=== PATIENT | female | born 1990 | race Caucasian/White ===

== ENCOUNTER 2022-05-23 05:16 | Emergency (ER) | payer MEDICAID, SELFPAY ==
--- NOTE | ~2022-05-23 | CT_ITS ---
EXAMINATION: CT facial bones w con DATE: 05/23/2022 07:07 INDICATION: Sublingual swelling TECHNIQUE: Computed tomography (CT) of the facial bones and maxillofacial region was performed with 7 5 cc of Omnipaque 350 intravenous contrast. The dose-length product (DLP) was 617.63 mGy-cm. Automat ed exposure control and iterative reconstruction technique were employed. COMPARISON: None. FINDINGS: No discrete correlate is identified for the patient's reported sublingual swelling and diff iculty swallowing. There is no abnormal enhancement. No abscess is identified. The facial soft tissue s are unremarkable. The paranasal sinuses are clear. The facial bones are unremarkable. IMPRESSION: 1. No CT correlate for the patient's symptoms. Reviewed, dictated and finalized at location A.
[2022-05-23 05:21] VITALS: BP 125/87; PULSE 82; RESP 18; TEMP 36.5; O2SAT 100
[2022-05-23 06:14] LABS: Basophils Percent Auto 0.7 % (0.2-1.2); Eosinophils Absolute Auto 0.3 K/mm3 (0-0.3); Eosinophils Percent Auto 4.8 % (0-4.4); Hemoglobin 12.3 g/dL (12.0-15.0); Immature Granulocyte Absolute 0.01 K/mm3 (0.00-0.031); Immature Granulocyte Percent A 0.2 % (0-0.5); Lymphocytes Absolute Auto 2.35 K/mm3 (0.9-3.2); Lymphocytes Percent Auto 41.9 % (18.3-44.2); Mean Corpuscular HGB Conc 33.2 g/dl (32-36); Mean Corpuscular Volume 84.3 fl (80-100); Mean Platelet Volume 9.5 fl (7.4-10.4); Monocytes Absolute Auto 0.4 K/mm3 (0.1-0.6); Monocytes Percent Auto 7.7 % (2.6-8.5); Neutrophils Absolute Auto 2.5 K/mm3 (1.3-6.7); Neutrophils Percent Auto 44.7 % (45.5-73.1); Platelet Count Result 167 k/mm3 (150-375); Red Blood Count 4.39 M/mm3 (4.2-5.4); Red Cell Distribution Width 13.4 % (11.5-14.5); White Blood Count 5.6 K/mm3 (4.5-10.0)
--- NOTE | 2022-05-23 06:31 | ED.GENADULT ---
HPI - General Adult General Chief complaint: Dental/Oral Stated complaint: swelling under tongue Time Seen by Provider: 05/23/22 05:45 History of Present Illness HPI narrative: Patient 32-year-old female who presents the emergency department with chief complaint of swelling under the tongue. Patient reports that she started having discomfort feeling in the right side of her tongue and then subsequently it is progressed to both sides of her tongue. Patient denies fever denies purulent drainage reports that it hurts whenever she eats and when she moves her tongue. Related Data Home Medications Medication Instructions Recorded Confirmed levothyroxine 200 mcg tablet 200 mcg PO DAILY 05/23/22 05/23/22 (Synthroid) sertraline 100 mg tablet (Zoloft) 200 mg PO DAILY 05/23/22 05/23/22 Allergies Allergy/AdvReac Type Severity Reaction Status Date / Time Penicillins AdvReac Hives Verified 05/23/22 05:29 Review of Systems Review of Systems: A 10 system review of systems was completed on the patient and is negative except for what is stated in the HPI. Nursing and ancillary documentation was reviewed. PMFSH Comments History of depression and hypothyroidism Exam Narrative: GENERAL: Well-appearing, well-nourished, and in no acute distress. HEAD: Normocephalic, atraumatic. EYES: PERRLA and EOMI. ENT: Nares clear, no rhinorrhea or epistaxis. Mucous membranes moist. There is tenderness to palpation under the tongue in the sublingual area. There is swelling present there is no appreciable large stone to palpation, there is no crepitance there is no necrotic tissue NECK: Supple. CHEST: Clear to auscultation. No respiratory distress. HEART: Regular rate and rhythm. No murmur heard. Normal peripheral pulses. ABDOMEN: Soft, nontender, nondistended, normal active bowel sounds. EXTREMITIES: Normal range of motion. No edema. SKIN: Warm, dry, no rash. NEURO: No focal deficits. Alert and oriented x3. PSYCH: Normal mood and affect. Course Vital Signs Vital signs: Vital Signs Temperature 36.5 C 05/23/22 05:21 Pulse Rate 82 05/23/22 05:21 Respiratory Rate 18 05/23/22 05:21 Blood Pressure 125/87 05/23/22 05:21 Pulse Oximetry 100 05/23/22 05:21 Oxygen Delivery Room Air 05/23/22 05:21 Temperature 36.5 C 05/23/22 05:21 Pulse Rate 82 05/23/22 05:21 Respiratory Rate 18 05/23/22 05:21 Blood Pressure 125/87 05/23/22 05:21 Pulse Oximetry 100 05/23/22 05:21 Oxygen Delivery Room Air 05/23/22 05:21 Medical Decision Making MDM Narrative Medical decision making narrative: Differential diagnosis includes soft tissue infection, Ludewig's angina, sialadenitis salivary stone Laboratory studies were ordered patient's white blood cell count is 5.6 Vital Signs Vital Signs: Vital Signs Temperature 36.5 C 05/23/22 05:21 Pulse Rate 82 05/23/22 05:21 Respiratory Rate 18 05/23/22 05:21 Blood Pressure 125/87 05/23/22 05:21 Pulse Oximetry 100 05/23/22 05:21 Oxygen Delivery Room Air 05/23/22 05:21 Temperature 36.5 C 05/23/22 05:21 Pulse Rate 82 05/23/22 05:21 Respiratory Rate 18 05/23/22 05:21 Blood Pressure 125/87 05/23/22 05:21 Pulse Oximetry 100 05/23/22 05:21 Oxygen Delivery Room Air 05/23/22 05:21 Lab Data 05/23/22 06:04 05/23/22 06:04 Labs: Lab Results 05/23/22 05/23/22 Range/Units 06:04 06:04 WBC 5.6 (4.5-10.0) K/mm3 RBC 4.39 (4.2-5.4) M/mm3 Hgb 12.3 (12.0-15.0) g/dL Hct 37.0 (37.0-47.0) % MCV 84.3 (80-100) fl MCH 28.0 (26-34) pg MCHC 33.2 (32-36) g/dl RDW 13.4 (11.5-14.5) % Plt Count 167 (150-375) k/mm3 MPV 9.5 (7.4-10.4) fl Immature Gran % (Auto) 0.2 (0-0.5) % Neut % (Auto) 44.7 L (45.5-73.1) % Lymph % (Auto) 41.9 (18.3-44.2) % Wagoner % (Auto) 7.7 (2.6-8.5) % Eos % (Auto) 4.8 H (0-4.4) % Baso % (Auto) 0.7 (0.2-1.2) % Lymph # (Auto)
[2022-05-23 06:57] VITALS: BP 133/79; PULSE 73; RESP 16; O2SAT 98
--- NOTE | 2022-05-23 07:00 | PC.NURSE ---
Patient taken to CT via stretcher at this time.
[2022-05-23 07:12] VITALS: BP 147/79; PULSE 74; RESP 18; O2SAT 100
[2022-05-23 07:15] LABS: Alanine Aminotransferase 39 U/L (6-35); Albumin Level 4.2 g/dL (3.5-5.1); Alkaline Phosphatase 97 U/L (38-126); Anion Gap 5 mmol/L (8-16); Aspartate Amino Transferase 35 U/L (14-36); Bilirubin,Total 0.4 mg/dL (0.2-1.3); Blood Urea Nitrogen 11 mg/dL (7-17); Calcium 8.5 mg/dL (8.4-10.2); Carbon Dioxide 26 mmol/L (22-30); Chloride 108 mmol/L (98-107); Estimated CRCL calculation 107 ml/min; Estimated Glomerular Filt Rate > 60; Glucose 91 mg/dL (65-110); Potassium 3.9 mmol/L (3.4-5.0); Sodium 139 mmol/L (137-145)
[2022-05-23] MEDS: predniSONE 20 MG TABLET 60 MG PO (09:01)
[2022-05-23 09:06] VITALS: BP 122/78; PULSE 82; RESP 20; O2SAT 100
== END 2022-05-23 09:08 | disposition home or self-care (01) ==
PROVIDERS: Emergency Medicine; Emergency Provider Emergency Medicine; PCP Nurse Practitioner Family
DX: R22.0 Localized swelling, mass and lump, head (principal); E03.9 Hypothyroidism, unspecified; F32.A Depression, unspecified
CPT/HCPCS: 36415; 70487; 80053; 81025; 85025; 99284; J7512; Q9967

== ENCOUNTER 2023-03-08 08:21 | Emergency (ER) | payer OTHER, SELFPAY ==
[2023-03-08 08:38] VITALS: BP 137/79; PULSE 101; RESP 16; TEMP 36.2; O2SAT 99
--- NOTE | 2023-03-08 08:49 | ED.FEMALEGU ---
HPI - Female Genitourinary General Chief complaint: Urogenital-Female Stated complaint: Urinary Problems Time Seen by Provider: 03/08/23 09:04 Source: patient and RN notes reviewed Mode of arrival: ambulatory Limitations: no limitations History of Present Illness HPI Narrative: 32 y/o female had positive home test 4 days ago, presented today for c/o pelvic pain last night. Pain was to the 'pubic area' described as sharp ribbons of pain, and lasted about 5 minutes. Also reports yesterday morning she felt pain to mid lower back. States she has medical related anxiety, and was worried. Does not have an Obgyn yet. LMP 02/06/23, states it was normal. Endorses occasional nausea and lightheadedness. Currently denies any abdominal pain and has had no recurrence of pain. Denies any vaginal bleeding, hematuria, vomiting, abdominal pain, flank pain, constipation, diarrhea, fevers or chills. Hx 2 miscarriages, . Related Data Home Medications Medication Instructions Recorded Confirmed levothyroxine 200 mcg tablet 200 mcg PO DAILY 05/23/22 03/08/23 (Synthroid) sertraline 100 mg tablet (Zoloft) 200 mg PO DAILY 05/23/22 03/08/23 Allergies Allergy/AdvReac Type Severity Reaction Status Date / Time Penicillins AdvReac Hives Verified 03/08/23 08:38 Review of Systems Review of Systems: CONSTITUTIONAL: Denies body aches, fever, chills, or sweats. CARDIOVASCULAR: Denies chest pain, palpitations, or edema. RESPIRATORY: Denies cough or dyspnea. GASTROINTESTINAL: Reports nausea denies abdominal pain, vomiting, or diarrhea. GENITOURINARY: denies vaginal bleeding, dysuria, frequency, urgency, hematuria, flank pain SKIN: Denies rash, itching, or wounds. MUSCULOSKELETAL: Denies back pain or myalgia. [facility] Past Medical History Medical History Alcoholism in recovery Surgical History Surgical History (Updated 03/08/23 @ 09:21 by Glory Golden APRN) History of delivery Social History Social History (Updated 03/08/23 @ 09:21 by Glory Golden APRN) Alcohol intake: former Alcohol use details: sober 4 years (02/2023) Comments At time of signature, I have reviewed and agree with nursing past medical, surgical, social and family history unless otherwise noted. Please see nursing chart for further information. There is no relevant family history pertinent to the presenting complaint Exam Narrative: GENERAL: Well-appearing and in no acute distress. ENT: Mucous membranes pink and moist. NECK: Normal AROM. Supple. CHEST: No respiratory distress. Clear to auscultation. HEART: Regular rate and rhythm. ABDOMEN: Soft, nontender, nondistended, normal active bowel sounds. No CVA tenderness SKIN: Warm, dry, no rash. NEURO: No focal deficits. Alert and oriented x3. Gait steady. PSYCH: Normal affect. Course Course Emergency Course: Patient is aware of diagnosis, understands and agrees to treatment plan. Anticipatory guidance given. Patient agrees to follow-up as directed and is aware of reasons to seek care at the emergency department. Portions of this record may have been created with voice recognition software Level of Care: Express Care Visit Vital Signs Vital signs: Vital Signs Temperature 97.1 F L 03/08/23 08:38 Pulse Rate 101 H 03/08/23 08:38 Respiratory Rate 16 03/08/23 08:38 Blood Pressure 137/79 03/08/23 08:38 Pulse Oximetry 99 03/08/23 08:38 Oxygen Delivery Room Air 03/08/23 08:38 Temperature 97.1 F L 03/08/23 08:38 Pulse Rate 101 H 03/08/23 08:38 Respiratory Rate 16 03/08/23 08:38 Blood Pressure 137/79 03/08/23 08:38 Pulse Oximetry 99 03/08/23 08:38 Oxygen Delivery Room Air 03/08/23 08:38 Reviewed MDM - Female Genitourinary MDM Narrative Medical decision making narrative: Urine preg positive, and reviewed urine dip result with pt. Will culture urine and treat accordingly. PCN allergy. Pt provided with Obgyn to f/u.
== END 2023-03-08 09:15 | disposition home or self-care (01) ==
PROVIDERS: Emergency Provider Nurse Practitioner Family; PCP Nurse Practitioner Family
DX: Z32.01 Encounter for pregnancy test, result positive (principal); R39.89 Other symptoms and signs involving the genitourinary system
CPT/HCPCS: 81003; 81025; 87086; 99213; G0463

== ENCOUNTER 2023-03-24 08:11 | Emergency (ER) | payer OTHER, SELFPAY ==
--- NOTE | 2023-03-24 08:20 | ED.HA ---
HPI - Headache General Chief Complaint: Headache Stated Complaint: migraine Time Seen by Provider: 03/24/23 08:20 Source: patient Mode of arrival: ambulatory Limitations: no limitations History of Present Illness HPI Narrative: Juan Jose is a 33-year-old female patient presenting to the clinic today with complaints of a migraine headache that started last night around 8:00 p.m. She reports she took some Excedrin migraine last night without relief. Currently rates her pain a 7 or an 8 out of 10. States the pain is to the front of the head. Has history of migraine headaches when she was younger but was able to discontinue all her medications when she moved to [place]. Patient reports that she has recently moved back. Reports she is having nausea, photosensitivity, and if throbbing headache. Does report increased stress. Denies any URI symptoms. Does report that the headache is also making her feel dizzy as well. The symptoms are typical of her migraines she has had in the past. She denies any vomiting. Related Data Home Medications Medication Instructions Recorded Confirmed levothyroxine 200 mcg tablet 200 mcg PO DAILY 05/23/22 03/08/23 (Synthroid) sertraline 100 mg tablet (Zoloft) 250 mg PO DAILY 05/23/22 03/08/23 Allergies Allergy/AdvReac Type Severity Reaction Status Date / Time Penicillins AdvReac Hives Verified 03/24/23 08:27 Review of Systems Review of Systems: Pertinent positives per HPI. Patient denies any fever, chills, rash, visual changes,cough, runny nose, sore throat, shortness of breath, chest pain, palpitations, vomiting, diarrhea, constipation, abdominal pain, or any urinary issues. [facility] Past Medical History Medical History Alcoholism in recovery Surgical History Surgical History History of delivery Social History Social History Alcohol intake: former Alcohol use details: sober 4 years (02/2023) Comments At the time of my signature, I reviewed and agree with the nursing past medical, surgical, social, and family history. There is no relevant family history pertinent to the patient complaint. Exam Narrative: General: Well-developed, well nourished, in no apparent distress Head: Normocephalic, atraumatic Eyes: Pupils equally round and reactive to light bilaterally, EOM intact, sclera and conjunctive clear, no discharge, lids normal Ears: TMs intact and clear, ear canals clear, no drainage, grossly hearing normal. Nose: Nares patent, no discharge, no inflammation, no sinus tenderness. Mouth: Oropharynx without lesions or masses, good dentition, MMM. Tongue midline, even rise and fall of uvula Neck: Supple, trachea midline, no enlargement of anterior or posterior cervical nodes, no thyroid masses or goiter palpable. Cardio: Regular rate and rhythm, s1 and s2 normal, no murmur appreciated. Resp: Clear to auscultation bilaterally anteriorly and posteriorly, no rhonchi, rales, wheezing or rubs Musculoskeletal: No deformity, non-tender to palpation, grossly normal range of motion, muscle strength strong and equal, peripheral pulse strong, no edema, no cyanosis, normal gait and station Neuro: Alert and oriented x4 with normal speech, no focal deficits, cranial nerves I through XII intact, muscle strength 5 out of 5, sensation intact bilaterally Course Course Emergency Course: Portions of this record may have been created with voice recognition software. Level of Care: Express Care Visit Vital Signs Vital signs: Vital signs reviewed MDM - Headache MDM Narrative Medical decision making narrative: At the time of visit patient is resting comfortably on the exam table. Patient appears to be nontoxic. Medications: Toradol 60 mg IM, Benadryl 50 mg IM, and Zofran 4 mg ODT Plan: Patient's migraine headache improved to a 3/10 prior to discha
[2023-03-24 08:24] VITALS: BP 132/85; PULSE 79; RESP 18; TEMP 36.8; O2SAT 98
[2023-03-24] MEDS: diphenhydrAMINE HCl INJ 50 MG/ML VIAL IM (08:59)
[2023-03-24] MEDS: ONDANSETRON HCL ODT 4 MG TABLET SUBLINGUAL (08:59)
[2023-03-24] MEDS: KETOROLAC (*BKC) 60 MG/2 ML VIAL IM (09:01)
--- NOTE | 2023-03-24 09:13 | PC.NURSE ---
0913- saltine crackers given for PO Challenge
== END 2023-03-24 09:31 | disposition home or self-care (01) ==
PROVIDERS: Emergency Provider Nurse Practitioner Family; PCP Nurse Practitioner Family
DX: G43.909 Migraine, unspecified, not intractable, without status migrainosus (principal)
CPT/HCPCS: 96372; 99214; A9270; G0463; J1200; J1885

== ENCOUNTER 2023-04-25 09:06 | Emergency (ER) | payer OTHER, SELFPAY ==
[2023-04-25 09:31] VITALS: BP 125/76; PULSE 85; RESP 18; TEMP 36.4; O2SAT 98
--- NOTE | 2023-04-25 09:51 | ED.URI ---
HPI - URI/Sore Throat General Chief Complaint: Upper Respiratory Infection Stated Complaint: cold /flu like symptoms Time Seen by Provider: 04/25/23 09:51 Source: patient, RN notes reviewed and old records reviewed Mode of arrival: ambulatory Limitations: no limitations History of Present Illness HPI Narrative: 33-year-old female presents to the [facility] with complaints of 6 days runny nose, sinus pain and pressure. States yesterday she had some headache and body aches. Has been taking Sudafed, acetaminophen and ibuprofen. Patient reports that her entire family has been sick and there getting over it Denies fevers, chest pain, shortness of breath. Related Data Home Medications Medication Instructions Recorded Confirmed levothyroxine 200 mcg tablet 200 mcg PO DAILY 05/23/22 03/24/23 (Synthroid) sertraline 100 mg tablet (Zoloft) 200 mg PO DAILY 05/23/22 03/24/23 Allergies Allergy/AdvReac Type Severity Reaction Status Date / Time Penicillins Allergy Hives Verified 04/25/23 09:40 Review of Systems Review of Systems: All systems reviewed & are unremarkable except as noted in HPI and below Constitutional: Constitutional: Reports as per HPI, Reports body ache(s) and Reports headache(s) Eyes: Eyes: Reports no additional eye complaints ENT: Reports as per HPI, Reports nasal congestion, Reports nasal discharge and Reports sinus pressure Cardiovascular: Cardiovascular: Reports no additional cardiovascular complaints, Denies chest pain and Denies dyspnea Respiratory: Respiratory: Reports no additional respiratory complaints, Denies chest congestion, Denies cough and Denies dyspnea Gastrointestinal: Gastrointestinal: Reports no additional gastrointestinal complaints, Denies abdominal pain, Denies nausea and Denies vomiting Musculoskeletal: Musculoskeletal: Reports no additional musculoskeletal complaints Integumentary/Breasts: Skin/Breast: Reports system reviewed and no additional complaints, except as docu Neurologic: Reports system reviewed and no additional complaints, except as documented Psychiatric: Psychiatric: Reports no additional psychiatric complaints Allergic/Immunologic: Allergic/Immunologic: Reports no additional allergic/immunologic complaints PMFSH Past Medical History Medical History Alcoholism in recovery Surgical History Surgical History History of delivery Social History Social History Alcohol intake: former Alcohol use details: sober 4 years (02/2023) Comments At the time of my signature, I reviewed and agree with the nursing past medical, surgical, social, and family history. There is no relevant family history pertinent to the patient complaint. Exam Const: General: cooperative, healthy appearing, comfortable, no acute distress, well developed, alert and well nourished Nutritional Appearance: well nourished and obese Orientation/consciousness: patient oriented x3 Limitations: no limitations HENMT: Head: normal to inspection Ears: hearing grossly normal bilaterally, external ears normal, TM's normal bilaterally, EAC's normal, mastoids normal and no periauricular adenopathy Face/Nose/Sinus: Normal external nose present, Normal nares present, Abnormal mucous membranes and turbinates present boggy bilateral; not erythematous, Nasal discharge present clear bilateral, normal facial exam and face symmetric Face and sinus: normal facial exam and face symmetric Mouth: Yes Normal oral and palatal mucosa present, Yes lip normal, Yes tongue normal and Yes moist mucous membranes Throat: posterior oropharynx normal, tonsils normal, uvula midline and postnasal drainage Eyes: General: appearance normal, both eyes and all related structures Alignment and Position: alignment normal Periorbital: periorbital findings normal Pupils: Equal, round and reactive pupils present EOM: E
== END 2023-04-25 10:08 | disposition home or self-care (01) ==
PROVIDERS: Emergency Provider Nurse Practitioner; PCP Nurse Practitioner Family
DX: J06.9 Acute upper respiratory infection, unspecified (principal); J01.40 Acute pansinusitis, unspecified
CPT/HCPCS: 99213; G0463

== ENCOUNTER 2023-09-07 08:26 | Emergency (ER) | payer OTHER, SELFPAY ==
[2023-09-07 08:29] VITALS: BP 161/100; PULSE 109; RESP 25; TEMP 36.7; O2SAT 99
[2023-09-07 08:40] VITALS: RESP 18
--- NOTE | 2023-09-07 09:08 | ED.GENADULT ---
HPI - General Adult General Chief complaint: Unspecified Stated complaint: right breast pain Time Seen by Provider: 09/07/23 08:31 History of Present Illness HPI narrative: patient is a 33-year-old female with history of anxiety here with breast redness and panic attack. Patient states that about 1 week ago she started noticing some erythema to the medial aspect of her right breast. She denies any associated itching or new exposures to allergens. She notes that it has been persistent and has no associated pain. She does regular breast exams about every other month and has noticed no abnormalities. She does believe she has had a small drop of discharge from this breast since the symptoms began. Over the last 2 days she has been persistently more paranoid about what could be going on with her right breast. She does have a family history of an aunt who had breast cancer. She denies any fever, chills, trauma. She notes that pain seems to extend into her right axilla. She notes she is terrified that she could have breast cancer and feels extremely anxious. She feels a pending sense of doom, some shortness of breath, palpitations. she has been struggling with her anxiety over the last 20 months since her last child was born. She is not currently . She was recently started on an additional anxiety medication to her primary care doctor which she does not believe it is helping. She denies any fever, chills, trauma. Related Data Home Medications Medication Instructions Recorded Confirmed levothyroxine 200 mcg tablet 200 mcg PO DAILY 05/23/22 03/24/23 (Synthroid) sertraline 100 mg tablet (Zoloft) 200 mg PO DAILY 05/23/22 03/24/23 Allergies Allergy/AdvReac Type Severity Reaction Status Date / Time kale AdvReac Ulcers Verified 09/07/23 10:20 Review of Systems Review of Systems: All systems reviewed & are unremarkable except as noted in HPI and below PMFSH Past Medical History Medical History Alcoholism in recovery Surgical History Surgical History History of delivery Social History Social History Alcohol intake: former Alcohol use details: sober 4 years (02/2023) Exam Narrative: GENERAL: Well-appearing, well-nourished, and in no acute distress. HEAD: Normocephalic, atraumatic. EYES: PERRLA and EOMI. ENT: Nares clear. Mucous membranes moist. NECK: Supple. CHEST: Clear to auscultation. No respiratory distress. HEART: Tachycardic. Normal peripheral pulses. 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 Left breast normal. Right breast has a 2x3 cm area of faint erythema on the medial aspect of the breast around the 3 o'clock position. Small lump noted around 3 o'clock position as well. No obvious cellulitis or abscess. No axillary lymphadenopathy appreciated. No nipple drainage. ABDOMEN: Soft, nontender, nondistended. EXTREMITIES: Normal range of motion. No edema. SKIN: Warm, dry, no rash. NEURO: No focal deficits. Alert and oriented x3. PSYCH: Anxious appearing Course Course Emergency Course: Chart review performed, patient here with tenderness over the right breast and a rash as well as panic attacks for the last 2 days. Triage vitals show tachycardia, hypertension, initially tachypnea which seems to have improved, afebrile. No prior visits for similar. Patient seen evaluated, tearful, anxious appearing. Small lump palpated around the 3 o'clock position. No obvious cellulitis or concern for abscess. Discussed with patient that we do not do breast cancer screening exams or workups here in the emergency department. Will attempt to touch base with patient's primary care doctor. Patient offered dose of Ativan for anxiety. Will do test given reported nipple drainage. test negative. Patient re-evaluated after Ativan, feeling much bett
[2023-09-07 09:39] VITALS: BP 124/78; PULSE 97; RESP 19; O2SAT 97
[2023-09-07] MEDS: LORazepam (*CRX) 1 MG TABLET PO (10:20)
[2023-09-07 12:23] VITALS: BP 128/86; PULSE 98; RESP 20; O2SAT 97
== END 2023-09-07 12:24 | disposition home or self-care (01) ==
PROVIDERS: Emergency Provider Student in an Organized Health Care Education/Training Program; PCP Nurse Practitioner Family
DX: N64.4 Mastodynia (principal)
CPT/HCPCS: 81025; 99283; A9270

== ENCOUNTER 2023-09-13 08:21 | Emergency (ER) | payer OTHER, SELFPAY ==
[2023-09-13 08:41] VITALS: BP 115/73; PULSE 90; RESP 16; TEMP 36.3; O2SAT 98
--- NOTE | 2023-09-13 08:41 | ED.URI ---
HPI - URI/Sore Throat General Chief Complaint: Upper Respiratory Infection Stated Complaint: sorethroat History of Present Illness HPI Narrative: 33 y/o female presented for c/o sore throat, cough, drainage, body aches and fever 102. Onset 2 days. Reports one episode of vomiting at onset. Denies sob, wheezing, chest pain or lethargy. Able to maintain secretions. Taking Tylenol and ibuprofen. Related Data Home Medications Medication Instructions Recorded Confirmed levothyroxine 200 mcg tablet 200 mcg PO DAILY 05/23/22 09/13/23 (Synthroid) sertraline 100 mg tablet (Zoloft) 200 mg PO DAILY 05/23/22 09/13/23 Allergies Allergy/AdvReac Type Severity Reaction Status Date / Time kale AdvReac Intermediate Ulcers Verified 09/13/23 08:34 Review of Systems Review of Systems: CONSTITUTIONAL: reports body aches, fever, chills, or sweats. EYES: Denies visual changes, redness, or discharge. ENT: reports sore throat, rhinorrhea, congestion CARDIOVASCULAR: Denies chest pain, palpitations, or edema. RESPIRATORY: Denies dyspnea. GASTROINTESTINAL: Denies abdominal pain, nausea, vomiting, or diarrhea. SKIN: Denies rash, itching, or wounds. MUSCULOSKELETAL: Denies back pain, joint pain, or myalgia. NEUROLOGIC: reports headache PMFSH Past Medical History Medical History Alcoholism in recovery Surgical History Surgical History History of delivery Social History Social History Alcohol intake: former Alcohol use details: sober 4 years (02/2023) Exam Narrative: GENERAL: Ill-appearing, no acute distress. EYES: conjunctivae clear ENT: Mucous membranes moist. TM pearly nolasco with normal light reflex bilaterally; no tragal tenderness. Oropharynx erythematous Tonsils enlarged with exudate. Hoarse voice. No drooling, no trismus, uvula midline. No tripod positioning, hot potato voice, or soft palate swelling. NECK: Supple. Bilateral anterior cervical lymphadenopathy CHEST: Clear to auscultation, breath sounds equal. No respiratory distress, speaks in full sentences. HEART: Regular rate and rhythm. No murmur heard. SKIN: Warm, dry, no rash. NEURO: Alert and oriented x3. Course Course Emergency Course: Patient is aware of diagnosis, understands and agrees to treatment plan. Anticipatory guidance given. Patient agrees to follow-up as directed and is aware of reasons to seek care at the emergency department. Portions of this record may have been created with voice recognition software Level of Care: Express Care Visit MDM - URI/Sore Throat MDM Narrative Medical decision making narrative: POS strep result reviewed with pt. Advise supportive treatments. Patient is appropriate for outpatient treatment and follow-up. Differential Diagnosis Differential diagnosis: Likely upper respiratory infection, viral infection and pharyngitis Discharge Plan Discharge Clinical Impression: Strep pharyngitis Patient Disposition: Home, Self-Care Condition: Stable Instructions: Antibiotic Form, Strep Throat (ED) Additional Instructions: - Take the antibiotic as directed. Fever and sore throat typically resolve within one to three days. Most patients can return to work after 12 to 24 hours of antibiotic therapy, provided you are fever free and otherwise well. -Eat and drink things that are easy to swallow, like soft foods, cool liquids, tea with honey, or popsicles . -Salt water gargles and/or may use topical anesthetic ( Chloraseptic spray) or lozenges to relieve dryness or throat pain -Alternate Tylenol and ibuprofen as needed for pain and fever as directed. -Frequent hand washing or hand advertising analyst is one of the best ways to prevent spread of infection. Throw away the toothbrush after 24hours of antibiotic. -Follow up with primary care provider in 2-3 days if condition is not improving -
== END 2023-09-13 08:49 | disposition home or self-care (01) ==
PROVIDERS: Emergency Provider Nurse Practitioner Family; PCP Nurse Practitioner Family
DX: J02.0 Streptococcal pharyngitis (principal)
CPT/HCPCS: 87880; 99213; G0463

== ENCOUNTER 2024-01-27 08:41 | Emergency (ER) | payer OTHER, SELFPAY ==
[2024-01-27 08:56] VITALS: BP 97/72; PULSE 88; RESP 17; TEMP 36.8; O2SAT 98
--- NOTE | 2024-01-27 09:08 | ED_ITS ---
HPI - Female Genitourinary General Chief complaint: Urogenital-Female Stated complaint: Possible UTI Time Seen by Provider: 01/27/24 09:00 Source: patient Mode of arrival: ambulatory Limitations: no limitations History of Present Illness HPI Narrative: Juan Jose is a 33-year-old female patient presenting to the clinic today with complaints of possible urinary tract infection. She reports that she has been having her symptoms for 8-9 days. Has having burning with urination as well as urinary frequency and urgency. Also reports some left-low back pain. Has had some body aches. No known fever. Denies any vaginal discharge or odor. Last menstrual period was 1.5 weeks ago. Denies any chance of . Related Data Home Medications Medication Instructions Recorded Confirmed levothyroxine 200 mcg tablet 200 mcg PO DAILY 05/23/22 01/27/24 (Synthroid) sertraline 100 mg tablet (Zoloft) 200 mg PO DAILY 05/23/22 01/27/24 bupropion HCl 150 mg 24 hr tablet, 150 mg PO DIRECTED 01/27/24 01/27/24 extended release metformin 500 mg tablet 500 mg DIRECTED 01/27/24 01/27/24 Allergies Allergy/AdvReac Type Severity Reaction Status Date / Time kale AdvReac Intermediate Ulcers Verified 09/13/23 08:34 Review of Systems Review of Systems: Pertinent positives per HPI. Patient denies any fever, chills, rash, headache, visual changes, dizziness, cough, runny nose, sore throat, shortness of breath, chest pain, palpitations, nausea, vomiting, diarrhea, constipation, abdominal pain PMFSH Past Medical History Medical History Alcoholism in recovery Surgical History Surgical History History of delivery Social History Social History Alcohol intake: former Alcohol use details: sober 4 years (02/2023) Comments At the time of my signature, I reviewed and agree with the nursing past medical, surgical, social, and family history. There is no relevant family history pertinent to the patient complaint. Exam Narrative: At the time of visit patient is resting comfortably on the exam table. Patient appears to be nontoxic. Labs: UA shows 1+ leukocyte and protein. We will send for culture Plan: I suspect patient has UTI. Prescription for Bactrim was sent to the pharmacy. Supportive measures were discussed with the patient and they voiced understanding discharge instructions and agrees to treatment plan. Return precautions reviewed Course Course Emergency Course: Portions of this record may have been created with voice recognition software. Level of Care: Express Care Visit Vital Signs Vital signs: Vital Signs Temperature 36.8 C 01/27/24 08:56 Pulse Rate 88 01/27/24 08:56 Respiratory Rate 17 01/27/24 08:56 Blood Pressure 97/72 L 01/27/24 08:56 Pulse Oximetry 98 01/27/24 08:56 Oxygen Delivery Room Air 01/27/24 08:56 Temperature 36.8 C 01/27/24 08:56 Pulse Rate 88 01/27/24 08:56 Respiratory Rate 17 01/27/24 08:56 Blood Pressure 97/72 L 01/27/24 08:56 Pulse Oximetry 98 01/27/24 08:56 Oxygen Delivery Room Air 01/27/24 08:56 Vital signs reviewed MDM - Female Genitourinary MDM Narrative Medical decision making narrative: At the time of visit patient is resting comfortably on the exam table. Patient appears to be nontoxic. Labs: Urinalysis shows 1 +leukocytes and trace of protein. We will send urine for culture Plan: I suspect patient has UTI. Prescription for Bactrim was sent to the pharmacy. Supportive measures were discussed with the patient and they voiced understanding discharge instructions and agrees to treatment plan. Return precautions reviewed Differential Diagnosis Differential diagnosis: Likely urinary tract infection and cystitis Lab Data Labs: Lab Results 01/27/24 Range/Units 09:11 POC Urine Color Yellow POC Urine Clarity Clear POC Urine pH 7.0 POC Ur Specif [place] 1.020 POC Urine Protein Trace (Negative) POC Ur Glucose (UA) Negative (Negative) POC Urine Ketones Negative (Negative) POC Urine Blood Negative (Negative) POC Urine Nitrite Negative (Negative) POC Urine Bilirubin Negative (Negative) POC Urine Urobilinogen 0.2 POC U Leukocyte Esteras 1+ (Negative) Discharge Plan Discharge Clinical Impression: Urinary tract infection Qualifiers: Urinary tract infection type: acute cystitis Hematuria presence: without hematuria Qualified Code(s): N30.00 - Acute cystitis without hematuria Patient Disposition: Home, Self-Care Condition: Stable Instructions: Antibiotic Form, Urinary Tract Infection in Women (ED) Additional Instructions: UA shows 1+ leukocyte and 1+ protein. We will send urine for culture. Take Bactrim as prescribed Increase fluids and stay well hydrated Wipe front to back. May use wet wipes. Avoid tub baths If sexually active- pee before and after intercourse. Wear cotton panties Avoid tight clothing up against the genitals Follow up with your PCP in 1 week if symptoms persist. Prescriptions: New sulfamethoxazole-trimethoprim [Bactrim DS] 800-160 mg tablet 1 tablet PO Q12H 7 Days Qty: 14 0RF No Action metformin 500 mg tablet 500 mg DIRECTED bupropion HCl 150 mg tablet extended release 24 hr 150 mg PO DIRECTED sertraline [Zoloft] 100 mg Tablet 200 mg PO DAILY levothyroxine [Synthroid] 200 mcg Tablet 200 mcg PO DAILY Follow-up/Referrals: Marcella,JEAN Donnelly [Primary Care Provider] - Time of Disposition: 09:10 Quality NIHSS Nursing Documentation ED NIHSS nursing documentation: reviewed/agree
[2024-01-27 09:13] LABS: EDUAAPPEAR Clear; EDUABILI Negative (Negative); EDUABLOOD Negative (Negative); EDUACOLOR1 Yellow; EDUAGLUCOSE Negative (Negative); EDUAKETONE Negative (Negative); EDUALEUKO 1+ (Negative); EDUANITRATE Negative (Negative); EDUAPROTEIN Trace (Negative); EDUAUROBILI 0.2
== END 2024-01-27 09:16 | disposition home or self-care (01) ==
PROVIDERS: Emergency Provider Nurse Practitioner Family; PCP Nurse Practitioner Family
DX: N30.00 Acute cystitis without hematuria (principal)
CPT/HCPCS: 81003; 87086; 99213; G0463

== ENCOUNTER 2024-03-24 08:41 | Emergency (ER) | payer OTHER, SELFPAY ==
--- OUTSIDE RECORDS SUMMARY | 2024-03-24 08:43 | XMS_ITS | Clinical Summary ---
Author Organization [facility] Address [facility] [facility] [place] [address] [place] [address] Care Team Providers Care Stretching Machine Tender Frame Name Role Phone Cony Naranjo NP Primary Care Provider Social History Tobacco Use Types Packs/Day Years Used Date Smoking Tobacco: Never Assessed Comments Unknown Sex and Gender Information Value Date Recorded Sex Assigned at Not on file Legal Sex Female 2:20 PM CDT Gender Identity Not on file Sexual Orientation Not on file Plan of Treatment Health Maintenance Due Date Last Done Comments Cervical Cancer Screening Pap Smear (Age 30 to 64) Every 3 Years 1990 Annual Physical 1993 Hepatitis B Vaccines (1 of 3 - 19+ 3-dose series) 2009 Cervical Cancer Screening Pap with HPV Testing (Age 30 to 64) Every 5 Years 2020 Cervical Cancer Screening with HPV 2020 COVID-19 Vaccine ( season) 2023 01/05/2021, 05/05/2020, 04/14/2020 Influenza Adult (#1) 2023 11/17/2021, 11/09/2019, 12/15/2018, Additional history exists DTaP, Tdap and Td Vaccines (3 - Td or Tdap) 11/07/2031 11/06/2021, 07/17/2015 Hepatitis C Completed 07/24/2019 HPV Vaccines Aged Out No longer eligi ble based on patient's age to complete this topic Meningococcal Vaccine Aged Out No velasquez nayana eligible based on patient's age to complete this topic Pneumococcal Vaccine: Pediatrics (0 to 5 Years) and At-Risk Patients (6 to 64 Years) Aged Out No longer eligible based on patient's age to complete this topic RSV Immunizations Under 20 Months Aged Out No longer eligible based on patient's age to complete this topic Insurance [facility] Care Teams Stretching Machine Tender Frame Relationship Specialty Start Date End Date Cony Naranjo NP [address] [facility] [place] [address] PCP - General Nurse Practitioner Family 09/21/23
--- OUTSIDE RECORDS SUMMARY | 2024-03-24 08:43 | XMS_ITS ---
Author Organization [facility] Address [address] [place] [address] Care Team Providers Care Flamer Sealer Name Role Phone Cony Naranjo Primary Care Provider [phone] Gay Luciano Unavailable [phone] Allergies Allergen (clinical drug ingredient) Drug/Non Drug Allergy documented on EMR Reaction Allergy Type Onset Date Status Penicillin G Benzathine hives Drug Allergy Active REASON FOR VISIT r/s from 02/07; last seen 09/15/23 Medications Medication SIG (Take, Route, Frequency, Duration) Notes Start Date End Date Status busPIRone HCl 5 MG 1 tablet Orally Twic e a day for 30 days 03/01/2024 Active buPROPion HCl ER (XL) 150 MG 1 tablet in the morning Orally Once a day for 30 days Active Zoloft 100 MG 2 tabs Orally Once a day for 30 days Active hydrOXYzine HCl 25 MG 0.5 tablet to 1 ta blet as needed Orally twice a day for 8 days 09/15/2023 Active metFORMIN HCl 500 MG 1 tablet with a nic l Orally Once a day for 30 days 12/14/2023 Active busPIRone HCl 7.5 MG 1 tablet Orally Twi ce a day for 30 days 07/08/2022 Active Levothyroxine Sodium 200 MCG 1 tablet in the morning on an empty stomach Orally Once a day for 30 days Active Acyclovir 400 MG 1 tablet Orally thre e times daily for 10 days 06/02/2023 Not-Taking Sprintec 28 0.25-35 MG-MCG 1 tablet Oral ly Once a day for 28 days 05/05/2023 Not-Taking Social History Sex Assigned At : Social History Observation Description Sex Assigned At Female Encounters Encounter Location Date Provider Diagnosis [address] [place] [address] 03/01/2024 Gay Luciano Generalized anxiety disorder F41.1 ; Major depression F32.9 ; PTSD (post-traumatic stress disorder) F43.10 ; Cannabis use disorder, mild, abuse F12.10 and Medication monitoring encounter Z51.81 Assessments Encounter Date Diagnosis (ICD Code) Assessment Notes Treatment Notes Treatment Clinical Notes Section Notes 03/01/2024 Generalized anxiety disorder (ICD-10 - F41.1) Starting low dose as client reports hx of taking this but my anxiety was high at the time, so I am not sure if I had side effects or not. Discussed to stop if noticing any SE. Discussed r/b/se. 03/01/2024 Major depression (ICD-10 - F32.9) 03/01/2024 PTSD (post-traumatic stress disorder) (ICD-10 - F43.10) Encouraged therapy. 03/01/2024 Cannabis use disorder, mild, abuse (ICD-10 - F12.10) 03/01/2024 Medication monitoring encounter (ICD-10 - Z51.81) 03/01/2024 Other Reasons, potential benefits, potential risks, interactions and side effects of all medications were discussed. The Patient/Guardian asked appropriate questions, appeared to understand the answers, and decided to accept the treatment and continue being followed. Alternatives and expected course without treatment were reviewed. The Patient/Guardian is aware of the need to contact the office or return for an earlier appointment if any problems or concerns arise. May also contact the 24-hour crisis hotline (R), refer to the closest emergency room or call 911 if new symptoms arise of existing symptoms worsen. The Patient/Guardian is aware that this would apply to symptoms like: suicidal ideation, homicidal ideation, high risk behaviors, manic symptoms, psychotic symptoms, physical symptoms, or any other symptoms that may be dangerous to self or others. Greater than 50% of time spent on coordination and counseling where psychopharmacology as well as psychotherapeutic interventions were discussed along with review of treatments in the past. Education provided concerning need for adequate hydration. Patient/Guardian verbalized understanding of education, treatment plan and follow up. This session was completed telephonically with client/parental/guard awais consent: Unable to determine movement status, assess appearance, affect, AIMS, or vital signs. Plan Of Treatment Medication Medication Name Sig Start Date Stop Date Notes busPIRone HCl 5 MG 1 tablet Orally Twic e a day for 30 days 03/01/2024 buPROPion HCl ER (XL) 150 MG 1 tablet in the morning Orally Once a day for 30 days Zoloft 100 MG 2 tabs Orally Once a day for 30 days Treatment Notes Assessment Notes Generalized anxiety disorder Starting lo w dose as client reports hx of taking this but my anxiety was high at the time, so I am not sure if I had side effects or not. Discussed to stop if noticing any SE. Discussed r/b/se. PTSD (post-traumatic stress disorder) En couraged therapy. Other Reasons, potential benefits, potential risks, interactions and side effects of all medications were discussed. The Patient/Guardian asked appropriate questions, appeared to understand the answers, and decided to accept the treatment and continue being followed. Alternatives and expected course without treatment were reviewed. The Patient/Guardian is aware of the need to contact the office or return for an earlier appointment if any problems or concerns arise. May also contact the 24-hour crisis hotline ([facility]), refer to the closest emergency room or call 911 if new symptoms arise of existing symptoms worsen. The Patient/Guardian is aware that this would apply to symptoms like: suicidal ideation, homicidal ideation, high risk behaviors, manic symptoms, psychotic symptoms, physical symptoms, or any other symptoms that may be dangerous to self or others. Greater than 50% of time spent on coordination and counseling where psychopharmacology as well as psychotherapeutic interventions were discussed along with review of treatments in the past. Education provided concerning need for adequate hydration. Patient/Guardian verbalized understanding of education, treatment plan and follow up. This session was completed telephonically with client/parental/guardian consent: Unable to determine movement status, assess appearance, affect, AIMS, or vital signs. Future Test Test Name Order Date CBC With Differential/Platelet* 03/09/19 25 TSH+Free T4* 2024 CMP 14 Comprehensive Metabolic Panel* Next Appt Details Follow Up: 4 Weeks, Reason: Psych F/U, may be telehealth Progress Notes * Juan Jose READDOB:1990 (33 yo F)Acc No.[id number]:03/01/2024 Patient:?Juan Jose READ Provider:?Gay Luciano, MSN, EDGE GLUER, LINING CLOSER- C :1990???Age:33 Y???Sex:Female D ate:03/01/2024 Address:[address] [place], [place] [id number] Pcp:Cony Naranjo Subjective: * Chief Complaints: * ???R/s from 02/07; last seen 09/15/23 * HPI: ???CSSRS Interpretation and Follow Up Plan:?CSSRS Interpretation and Follow Up Plan. ?CSSRS Interpretation and Follow Up Plan?CSSRS Screen documented using SF?Yes,?Moderate or High risk requires selection of a follow up plan?CSSRS No/Low: intervention not needed at this time.?Depression Screening:?PHQ-9?Little interest or pleasure in doing things?More than half the days,?Feeling down, depressed, or hopeless?Not at all,?Trouble falling or staying asleep, or sleeping too much?Several days,?Feeling tired or having little energy?Nearly every day,?Poor appetite or overeating?Not at all,?Feeling bad about yourself or that you are a failure, or have let yourself or your family down?More than half the days,?Trouble concentrating on things, such as reading the newspaper or watching television?More than half the days,?Moving or speaking so slowly that other people could have noticed; or the opposite, being so fidgety or restless that you have been moving around a lot more than usual?Not at all,?Thoughts that you would be better off or of hurting yourself in some way Not at all,?Total Score?10,?Interpretation?Moderate Depression.?Intervention?Depression Screening Findings?Positive,?Follow-Up for Depression?No Referral necessary, patient involved in behavioral health treatment.?Screening:?[place] Suicide Severity Rating Scale (LF)?Do you want to initiate with?Screener form,?1. Wish to be : Have you wished you were or wished you could go to sleep and not wake up??No,?2. Suicidal Thoughts: Have you actually had any thoughts of killing yourself??No,?6. Suicide Behaviour: Have you ever done anything,started to do anything, or prepared to end your life??No,?Interpretation:?Low Risk.?Psychiatric Assessment - Current Symptoms:? How ct. doing today? Client is a 33 yo F states things have been okay. ? 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 I think I am sheltered in my life, and hearing the stories can make me realize how terrible the world can be. ? ?States she has been taking medications well.? Everything is pretty good, but I do feel the constant stream of anxiety nearly every day. I feel like I am waiting on someone to shoot a gun off or something. Depression: that is doing a lot better. I don't feel like crying all the time. It is definitely improved hugely. ? Anxiety: Always waiting for the shoe to drop. I am waiting for a big bang, or someone to hit my car, or shoot a gun, or what. ? Anger/irritable: Only when everything is overstimulating me. ? Sleep: It is get when I get to sleep. I have some trouble with not wanting to shut my brain down but have been working on coping with that. ? Coping: Going through the alphabet Energy is low Concentration: Pretty poor ? Appetite: Pretty good ? Hallucinations/paranoia: Denies, maybe paranoia with something going wrong at all times. ? Drugs/ETOH: THC use- edibles, states that those are in the evening Denies SI/HI.? Medical changes/concerns: Denies. * ROS:?Psych ROS:?Constitutional?Denies.?Eyes?Denies.?Ears/Nose/Mouth/Throat?Denies.?Respirat ory?Denies.?Allergic /Immunologic?Denies.?Cardiovascular?Denies.?GI?Denies.??Denies.?Musculoskeleta l?Denies.?Ne u rological?Denies.?Integumentary?Denies.?Endocrine?Reports,?Janie's.?Hematolo gical/Lymphatic?Denies.?Psychiatric: Reports anxiety. * Medical History:? * Surgical History:?C section 2021 * Hospitalization/Major Diagno stic Procedure:?childbirth 2021 * Family History:?Father: florencio valdez?Mother: alive.?2 brother(s) , 3 sister(s) - healthy. 1 daughter(s) - healthy. .? Obesity both sides, high bp both sides, addiction to drugs and alcohol dads side. * Social History:?Primary Social History:?Living Arrangement?Living Arrangement:?Dependent Living,?Living with:?Parent(s),?Is this a supportive environment??Yes.?Alcohol Use?Alcohol Use Frequency:?Never.?Illicit Substance Usage?Illicit Substance Usage:?Yes,?Substance Used:?Cannabis.?Employment Status?Employment Status:?Unemployed Full-time student.? * Medications:?TakingLevothyro xine Sodium 200 MCG Tablet 1 tablet in the morning on an empty stomach Orally Once a day busPIRone HCl 7.5 MG Tablet 1 tablet Orally Twice a day metFORMIN HCl 500 MG Tablet 1 tablet with a meal Orally Once a day Zoloft 100 MG Tablet 2 tabs Orally Once a day hydrOXYzine HCl 25 MG Tablet 0.5 tablet to 1 tablet as needed Orally twice a day buPROPion HCl ER (XL) 150 MG Tablet Extended Release 24 Hour 1 tablet in the morning Orally Once a day Taking Levothyroxine Sodium 200 MCG Tablet 1 tablet in the morning on an empty stomach Orally Once a day Taking busPIRone HCl 7.5 MG Tablet 1 tablet Orally Twice a day Taking metFORMIN HCl 500 MG Tablet 1 tablet with a meal Orally Once a day Taking Zoloft 100 MG Tablet 2 tabs Orally Once a day Taking hydrOXYzine HCl 25 MG Tablet 0.5 tablet to 1 tablet as needed Orally twice a day Taking buPROPion HCl ER (XL) 150 MG Tablet Extended Release 24 Hour 1 tablet in the morning Orally Once a day Not-TakingSprintec 28 0.25-35 MG-MCG Tablet 1 tablet Orally Once a day Acyclovir 400 MG Tablet 1 tablet Orally three times daily Not-Taking Sprintec 28 0.25-35 MG-MCG Tablet 1 tablet Orally Once a day Not- Taking Acyclovir 400 MG Tablet 1 tablet Orally three times daily * Allergies:?Penicillin G Jordan athine: hivesno[Allergies Verified] Objective: * Vitals:? * Examination: ???Mental Status Exam: ?SENSORIUM AND COGNITION?Alert, A&OX4.?ATTENTION AND CONCENTRATION?No deficits.?ATTITUDE AND BEHAVIOR?Cooperative , Pleasant.?MEMORY?Grossly intact.?MOOD?Euthymic, worried.?SPEECH QUANTITY?Appropriate.?SPEECH QUALITY?Spontaneous , Appropriate volume.?THOUGHT PROCESS?Coherent and goal directed.?THOUGHT CONTENT?No evidence of delusional content , No reports of paranoia.?MOTOR ACTIVITY?Phone interview, SCOTTIE.?SUICIDAL IDEATION?Denies suicidal ideation, Denies self-harm activities.?HOMICIDAL IDEATION?Denies homicidal ideation.?HALLUCINATIONS?Denies hallucinations.?INSIGHT?Fair.?JUDGMENT?Fair.?FUND OF KNOWLEDGE?Good.?ABILITY TO PARTICIPATE IN TREATMENT?Moderate.?WILLINGNESS TO PARTICIPATE IN TREATMENT?High.?Exam limited due to telephone encounter. Assessment: * Assessment: 1.?Generalized anxiety disor curry - F41.1???Specify :with panic episodes???2.?Major depression - F32.9 (Primary)???3.?PTSD (post-traumatic stress disorder) - F43.10???4.?Medication monitoring encounter - Z51.81 ??5.?Cannabis use disorder, mild, abuse - F12.10??? Plan: * Treatment: 2.?Generalized anxiety disor curry? Start busPIRone HCl Tablet, 5 MG, 1 tablet, Orally, Twice a day, 30 days, 60 Tablet, Refills 1.?? Notes: Starting low dose as client reports hx of taking this but my anxiety was high at the time, so I am not sure if I had side effects or not. Discussed to stop if noticing any SE. Discussed r/b/se. ?? 3.?PTSD (post-traumatic stre ss disorder)? Notes: Encouraged therapy. ?? 4.?Medication monitoring enc ounter?LAB: CBC With Differential/Platelet* (Ordered for 2024) ?LAB: CMP 14 Comprehensive Metabolic Panel* (Ordered for 2024) ?LAB: TSH+Free T4* (Ordered for 2024) 5.?Others? Notes: Reasons, potential benefits, potential risks, interactions and side effects of all medications were discussed. The Patient/Guardian asked appropriate questions, appeared to understand the answers, and decided to accept the treatment and continue being followed. Alternatives and expected course without treatment were reviewed. The Patient/Guardian is aware of the need to contact the office or return for an earlier appointment if any problems or concerns arise. May also contact the 24-hour crisis hotline ([facility]), refer to the closest emergency room or call 911 if new symptoms arise of existing symptoms worsen. The Patient/Guardian is aware that this would apply to symptoms like: suicidal ideation, homicidal ideation, high risk behaviors, manic symptoms, psychotic symptoms, physical symptoms, or any other symptoms that may be dangerous to self or others. Greater than 50% of time spent on coordination and counseling where psychopharmacology as well as psychotherapeutic interventions were discussed along with review of treatments in the past. Education provided concerning need for adequate hydration. Patient/Guardian verbalized understanding of education, treatment plan and follow up. This session was completed telephonically with client/parental/guardian consent: Unable to determine movement status, assess appearance, affect, AIMS, or vital signs.?? * Recommended Wellness and Pre vention Guidelines: * ?Status ?Alert ?Last Done ?Next Due ?Action Taken ?NONCOMPLIANT ?Cervical cancer screening ?- ?03/01 ?- ?NONCOMPLIANT ?Influenza vaccine (high risk) ?- ?0 03/01/2024 ?- * Procedure Codes:? * Follow Up:?4 Weeks (Reason: Psych F/U, may be telehealth) * * H MOVING TECHNICIAN Sign off status: Completed true * Provider:?Gay Luciano, MSN, EDGE GLUER, LINING CLOSER- C Date:?03/01/2024 Generated for Lorenzo hernandez/Denny/eTransmitting on:?03/24/2024 08:43 AM EARTH MOVING TECHNICIAN History and Physical Notes * HPI (History of Present Illness) Category Sub-Category Detail Notes Category Not es Depression Screening PHQ-9 Little inte rest or pleasure in doing things: More than half the days Feeling down, depressed, or hopeless: No t at all Trouble falling or staying asleep, or sl eeping too much: Several days Feeling tired or having little energy: N early every day Poor appetite or overeating: Not at all Feeling bad about yourself o r that you are a failure, or have let yourself or your family down: More than half the days Trouble concentrating on thi ngs, such as reading the newspaper or watching television: More than half the days Moving or speaking so slowly that other people could have noticed; or the opposite, being so fidgety or restless that you have been moving around a lot more than usual: Not at all Thoughts that you would be b shayna off or of hurting yourself in some way: Not at all Total Score: 10 Interpretation: Moderate Depression Intervention Depression Screening Findings: P ositive Follow-Up for Depression: No Referral necessary, patient involved in behavioral health treatment Psychiatric Assessment - Current Symptoms How ct. doing today? Client is a 33 yo F states things have been okay. 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 I think I am sheltered in my life, and hearing the stories can make me realize how terrible the world can be. States she has been taking medications well. Everything is pretty good, but I do feel the constant stream of anxiety nearly every day. I feel like I am waiting on someone to shoot a gun off or something. Depression: that is doing a lot better. I don't feel like crying all the time. It is definitely improved hugely. Anxiety: Always waiting for the shoe to drop. I am waiting for a big bang, or someone to hit my car, or shoot a gun, or what. Anger/irritable: Only when everything is overstimulating me. Sleep: It is get when I get to sleep. I have some trouble with not wanting to shut my brain down but have been working on coping with that. Coping: Going through the alphabet Energy is low Concentration: Pretty poor Appetite: Pretty good Hallucinations/paranoia: Denies, maybe paranoia with something going wrong at all times. Drugs/ETOH: THC use- edibles, states that those are in the evening Denies SI/HI. Medical changes/concerns: Denies Screening [place] Suicide Severity Rating Scale (LF) Do you want to initiate with: Screener form ?1. Wish to be : Have yo u wished you were or wished you could go to sleep and not wake up?: No ?2. Suicidal Thoughts: Have you actually had any thoughts of killing yourself?: No ?6. Suicide Behaviour: Have you ever done anything,started to do anything, or prepared to end your life?: No ?Interpretation:: Low Risk Do Not Use CSSRS Interpretation and Follow Up Plan CSSRS Interpretation and Follow Up Plan CSSRS Screen documented using SF: Yes Moderate or High risk requir es selection of a follow up plan: CSSRS No/Low: intervention not needed at this time Examination Category Sub-Category Detail Notes Category Not es Mental Status Exam SENSORIUM AND COGNITION Alert, A&OX4 Exam limited due to telephone encounter. ATTENTION AND CONCENTRATION No deficits ATTITUDE AND BEHAVIOR Cooperative , Plea alexandre MEMORY Grossly intact MOOD Euthymic, worried SPEECH QUANTITY Appropriate SPEECH QUALITY Spontaneous , Approp riate volume THOUGHT PROCESS Coherent and goal di rected THOUGHT CONTENT No evidence of delus ional content , No reports of paranoia MOTOR ACTIVITY Phone interview, SCOTTIE SUICIDAL IDEATION Denies suicidal idea tion, Denies self-harm activities HOMICIDAL IDEATION Denies homicidal olivier ation HALLUCINATIONS Denies hallucination s INSIGHT Fair JUDGMENT Fair FUND OF KNOWLEDGE Good ABILITY TO PARTICIPATE IN TREATMENT Mode rate WILLINGNESS TO PARTICIPATE IN TREATMENT High
--- OUTSIDE RECORDS SUMMARY | 2024-03-24 08:44 | XMS_ITS | Clinical Summary ---
Author Organization [facility] Address [address] [place] [address] Care Team Providers Care Head Teacher Name Role Phone Unavailable Primary Care Provider Unavailabl e Social History Tobacco Use Types Packs/Day Years Used Date Smoking Tobacco: Never Assessed Comments Unknown Sex and Gender Information Value Date Recorded Sex Assigned at Not on file Legal Sex Female 8:37 PM PDT Gender Identity Not on file Sexual Orientation Not on file Plan of Treatment Health Maintenance Due Date Last Done Comments Periodontal Maintenance 1990 Scaling and Root Planing 11/18/2022 021, 11/04/2020, 10/27/2020, Additional history exists Meningococcal B Vaccine Aged Out No l onger eligible based on patient's age to complete this topic Procedures Procedure Name Priority Date/Time Associated Diagnosis Comments LL PERIODONTAL SCALING AND ROOT PLANING - FOUR OR MORE TEETH PER QUADRANT Routine 11/04/2020 1:00 AM MDT from Last 3 Months or Most Recently Relevant to Health Maintenance Insurance [employer] PPO Member Subscriber Plan / Payer (Ef fective 2020-Present) Name:Jua nJose Read Relation to Subscriber:Self Name:Juan Jose Read Payer ID:[id number] Type:Not on file Address: [address] [address]
--- OUTSIDE RECORDS SUMMARY | 2024-03-24 08:44 | XMS_ITS | Encounter Summary ---
Author Organization [facility] Address [address] [place] [address] Care Team Providers Care Disease Education Specialist Name Role Phone Unavailable Primary Care Provider Unavailabl e Prior Encounters Date Type Department Care Team Description 03/19/2019 Converted CPS Chart Documents [facility] [address], [address] [place] [address] <No scans attached> 03/19/2019 Converted 13x Documents [facility] [address], [address] [place] [address] <No scans attached> Plan of Treatment Not on file Procedures Procedure Name Priority Date/Time Associated Diagnosis Comments UL PERIODONTAL SCALING AND ROOT PLANING - FOUR OR MORE TEETH PER QUADRANT Routine 11/04/2020 1:00 AM MDT LL PERIODONTAL SCALING AND ROOT PLANING - FOUR OR MORE TEETH PER QUADRANT Routine 11/04/2020 1:00 AM MDT ORAL HYGIENE INSTRUCTIONS Routine 2020 1:00 AM MDT A EXTRACTION, ERUPTED TOOTH REQUIRING REMOVAL OF BONE AND/OR SECTIONING OF TOOTH Routine 10/28/2020 1:00 AM MDT BITEWINGS - FOUR RADIOGRAPHIC IMAGES Routine 10/28/2020 1:00 AM MDT ADDITIONAL X-RAY Routine 10/28/2020 1:00 AM MDT ADDITIONAL X-RAY Routine 10/28/2020 1:00 AM MDT UR PERIODONTAL SCALING AND ROOT PLANING - FOUR OR MORE TEETH PER QUADRANT Routine 10/27/2020 1:00 AM MDT LR PERIODONTAL SCALING AND ROOT PLANING - FOUR OR MORE TEETH PER QUADRANT Routine 10/27/2020 1:00 AM MDT ORAL HYGIENE INSTRUCTIONS Routine 2020 1:00 AM MDT INTRAORAL - COMPREHENSIVE SERIES OF RADIOGRAPHIC IMAGES Routine 10/27/2020 1:00 AM MDT INTRAORAL PHOTO Routine 10/27/2020 1:00 AM MDT INTRAORAL PHOTO Routine 10/27/2020 1:00 AM MDT INTRAORAL PHOTO Routine 10/27/2020 1:00 AM MDT INTRAORAL PHOTO Routine 10/27/2020 1:00 AM MDT 3 LIMITED ORAL EVALUATION - PROBLEM FOCUSED Routine 09/29/2020 1:00 AM MDT PANORAMIC RADIOGRAPHIC IMAGE Routine 09/29/2020 1:00 AM MDT ADDITIONAL X-RAY Routine 09/29/2020 1:00 AM MDT SINGLE X-RAY Routine 09/29/2020 1:00 AM MDT INTRAORAL PHOTO Routine 09/29/2020 1:00 AM MDT INTRAORAL PHOTO Routine 09/29/2020 1:00 AM MDT Visit Diagnoses Not on file [place] [id number]
--- OUTSIDE RECORDS SUMMARY | 2024-03-24 08:44 | XMS_ITS | CCD ---
Author Organization [facility] Address [address] [place] [address] Care Team Providers Care Rock Duster Name Role Phone Unavailable Primary Care Provider Unavailabl e Social History Tobacco Use Types Packs/Day Years Used Date Smoking Tobacco: Never Assessed Comments Unknown Sex and Gender Information Value Date Recorded Sex Assigned at Not on file Legal Sex Female 8:37 PM PDT Gender Identity Not on file Sexual Orientation Not on file Plan of Treatment Not on file Procedures Procedure Name Priority Date/Time Associated Diagnosis Comments LL PERIODONTAL SCALING AND ROOT PLANING - FOUR OR MORE TEETH PER QUADRANT Routine 11/04/2020 1:00 AM MDT from Last 3 Months or Most Recently Relevant to Health Maintenance
--- OUTSIDE RECORDS SUMMARY | 2024-03-24 08:44 | XMS_ITS ---
Author Organization [facility] Address [address] [place] [address] Care Team Providers Care Photoengraver Apprentice Name Role Phone oCny Naranjo Primary Care Provider [phone] Gay Luciano Unavailable [phone] REASON FOR VISIT labs Social History Sex Assigned At : Social History Observation Description Sex Assigned At Female Encounters Encounter Location Date Provider Diagnosis [address] [place] [address] 03/05/2024 Gay Luciano Plan Of Treatment No Information Progress Notes * Juan Jose READDOB:1990 (34 yo F)Acc No.[id number]:03/05/2024 UNLOCKED PROGRESS NOTE Patient:?Juan Jose READ Provider:?Gay Luciano, MSN, FACILITIES CUSTODIAN, NUMERICAL CONTROL DRILL PRESS OPERATOR- C :1990???Age:33 Y???Sex:Female D ate:03/05/2024 Address:[address] [place] [address] , [place], [place] Pcp:Cony Naranjo Subjective: * Chief Complaints: * ???1. Labs. * Medical History:? Objective: * Vitals:? Assessment: Plan: * Treatment: * * Electronic signature of Serafin Luciano , [id number] on 03/24/2024 at 08:43 AM CEMENT MASON Sign off status: Pending * Provider:?Gay Luciano, MSN, FACILITIES CUSTODIAN, NUMERICAL CONTROL DRILL PRESS OPERATOR- C Date:?03/05/2024 Generated for Lorenzo hernandez/Denny/Jayitting on:?03/24/2024 08:43 AM CEMENT MASON
--- OUTSIDE RECORDS SUMMARY | 2024-03-24 08:44 | XMS_ITS ---
Author Organization [facility] Address [address] [place] [address] Care Team Providers Care Agricultural Systems Specialist Name Role Phone Unavailable Unavailable Unavailable Surgery Details Not on file Complications Check Surgery Details section. Procedure Estimated Blood Loss Check Surgery Details section. Procedure Findings Check Surgery Details section. Procedure Specimens Taken Check Surgery Details section.
--- OUTSIDE RECORDS SUMMARY | 2024-03-24 08:44 | XMS_ITS | Referral Summary ---
Author Organization [facility] Address [address] [place] [address] Care Team Providers Care Inbound Call Center Representative Name Role Phone Unavailable Primary Care Provider [...]
--- OUTSIDE RECORDS SUMMARY | 2024-03-24 08:44 | XMS_ITS ---
Author Organization [facility] Address [address] [place] [address] Care Team Providers Care Water Plant Maintenance Mechanic Name Role Phone Cony Naranjo Primary Care Provider [phone] Gay Luciano Unavailable [phone] REASON FOR VISIT r/s from 02/07; last seen 09/15/23 Social History Sex Assigned At : Social History Observation Description Sex Assigned At Female Encounters Encounter Location Date Provider Diagnosis [place] [address] [facility] [place] [address] 02/14/2024 Gay Luciano Plan Of Treatment No Information Progress Notes * Juan Jose READDOB:1990 (34 yo F)Acc No.[id number]:02/14/2024 UNLOCKED PROGRESS NOTE Patient:?Juan Jose READ Provider:?Gay Luciano, MSN, COACH MECHANIC, ECONOMIC RESEARCH ANALYST- C :1990???Age:33 Y???Sex:Female D ate:02/14/2024 Address:[address] [place] [address] , [place], [place] Pcp:Cony Naranjo Subjective: * Chief Complaints: * ???1. R/s from 02/07; last s een 09/15/23. * Medical History:? Objective: * Vitals:? Assessment: Plan: * Treatment: * * Electronic signature of Serafin Luciano [id number] on 03/24/2024 at 08:43 AM JAVA SYSTEMS ANALYST Sign off status: Pending * Provider:?Gay Luciano, MSN, COACH MECHANIC, ECONOMIC RESEARCH ANALYST- C Date:?02/14/2024 Generated for Lorenzo hernandez/Denny/Megan on:?03/24/2024 08:43 AM JAVA SYSTEMS ANALYST
--- OUTSIDE RECORDS SUMMARY | 2024-03-24 08:49 | XMS_ITS | Patient Health Record ---
Author Organization [facility] Address [address] [place] [address] Care Team Providers Care Greenhouse Worker Name Role Phone Lizdavidsaundra Cony Primary Care Provider [phone] Gay Luciano Unavailable [phone] Rubi Souza Unavailable [phone] Tiffanie Fuchs Unavailable [phone] Allergies Allergen (clinical drug ingredient) Drug/Non Drug Allergy documented on EMR Reaction Allergy Type Onset Date Status Penicillin G Benzathine hives Drug Allergy Active Results Component Value Reference Range Notes QuantiFERON-TB Gold Plus Reviewed date:12/14/2023 10:29:36 AM Interpretation: Performing Lab:[facility], [address] [facility], Phone - [phone], Director - Zoey Notes/Report: QuantiFERON Incubation Incubation performed. QuantiFERON-TB Gold Plus Negative Negative No response to M tuberculosis antigens detected. Infection with M tuberculosis is unlikely, but high risk individuals should be considered for additional testing (ATS/IDSA/CDC Clinical Practice Guidelines, 2017). The reference range is an Antigen minus Nil result of <0.35 IU/mL. Chemiluminescence immunoassay methodology QuantiFERON Criteria QuantiFERON-TB Gold Plus is a qualitative indirect test for M tuberculosis infection (including disease) and is intended for use in conjunction with risk assessment, radiography, and other medical and diagnostic evaluations. The QuantiFERON-TB Gold Plus result is determined by subtracting the Nil value from either TB antigen (Ag) value. The Mitogen tube serves as a control for the test. QuantiFERON TB1 Ag Value 0.07 QuantiFERON TB2 Ag Value 0.03 QuantiFERON Nil Value 0.31 QuantiFERON Mitogen Value >10.00 Hemoglobin A1c* Reviewed date:06/07/2023 04:18:20 PM Interpretation: Performing Lab:[address], Phone - [phone], [facility] Notes/Report: Test(s) 743568-Qxjczgn albicans, ODELL; 216535-Szbdjrc glabrata, ODELL was developed and its performance characteristics determined by [facility]. It has not been cleared or approved by the Food and Drug Administration. Hemoglobin A1c 5.2 4.8-5.6 % . Prediabetes: 5.7 - 6.4 Diabetes: >6.4 Glycemic control for adults with diabetes: <7.0 TSH+Free T4* Reviewed date:06/07/2023 04:18:20 PM Interpretation: Performing Lab:[address], Phone - [phone], [facility] Notes/Report: Test(s) 546427-Hyaswyy albicans, ODELL; 716240-Clwpsyw glabrata, ODELL was developed and its performance characteristics determined by [facility]. It has not been cleared or approved by the Food and Drug Administration. TSH 4.750 0.450-4.500 uIU/mL T4,Free(Direct) 1.07 0.82-1.77 ng/dL Lipid Panel* Reviewed date:06/07/2023 04:18:20 PM Interpretation: Performing Lab:[address], Phone - [phone], Director - MDBendre Notes/Report: Test(s) 146114-Cdiifes albicans, ODELL; 024989-Ycsqlqw glabrata, ODELL was developed and its performance characteristics determined by [facility]. It has not been cleared or approved by the Food and Drug Administration. Cholesterol, Total 255 100-199 mg/dL Triglycerides 169 0-149 mg/dL HDL Cholesterol 59 >39 mg/dL VLDL Cholesterol Doug 31 5-40 mg/dL LDL Chol Calc ([facility]) 165 0-99 mg/dL CMP 14 Comprehensive Metabol ic Panel* Reviewed date:06/07/2023 04:18:21 PM Interpretation: Performing Lab:[facility], [address] [place] [address], Phone - [phone], Director - Yohan Notes/Report: Test(s) 105873-Ggdxspf albicans, ODELL; 720276-Ykqosqs glabrata, ODELL was developed and its performance characteristics determined by [facility]. It has not been cleared or approved by the Food and Drug Administration. Glucose 91 70-99 mg/dL BUN 10 6-20 mg/dL Creatinine 0.77 0.57-1.00 mg/dL eGFR 104 >59 mL/min/1.73 BUN/Creatinine Ratio 13 9-23 Sodium 139 134-144 mmol/L Potassium 3.7 3.5-5.2 mmol/L Chloride 103 96-106 mmol/L Carbon Dioxide, Total 21 20-29 mmol/L Calcium 9.2 8.7-10.2 mg/dL Protein, Total 7.3 6.0-8.5 g/dL Albumin 4.6 3.9-4.9 g/dL Globulin, Total 2.7 1.5-4.5 g/dL A/G Ratio 1.7 1.2-2.2 Bilirubin, Total 0.5 0.0-1.2 mg/dL Alkaline Phosphatase 77 44-121 IU/L AST (SGOT) 18 0-40 IU/L ALT (SGPT) 19 0-32 IU/L TSH+Free T4* Reviewed date:09/13/2023 09:30:39 AM Interpretation: Performing Lab:[facility], [address] [facility], Phone - [phone], Director - Zoey Notes/Report: TSH 3.730 0.450-4.500 uIU/mL T4,Free(Direct) 1.01 0.82-1.77 ng/dL Test, Urine Reviewed date:09/15/2023 03:05:49 PM Interpretation: Performing Lab: Notes/Report: Test, Urine neg Negative - Negative HIV Screen *HIV 1, 2 Ab, p24 Ag Reviewed date:06/07/2023 04:18:20 PM Interpretation: Performing Lab:[address], Phone - [phone], Director - Yohan Notes/Report: Test(s) 695380-Hufvfln albicans, ODELL; 768381-Hxwvhon glabrata, ODELL was developed and its performance characteristics determined by [facility]. It has not been cleared or approved by the Food and Drug Administration. HIV Ab/p24 Ag Screen Non Reactive Non Reactive HIV Negative HIV-1/HIV-2 antibodies and HIV-1 p24 antigen were NOT detected. There is no laboratory evidence of HIV infection. [facility] Vaginitis Plus (VG+) (815580) Reviewed date:06/07/2023 04:18:20 PM Interpretation: Performing Lab:[facility] Nader Cedillo [facility], Phone - [phone], Director - [facility] Notes/Report: Test(s) 185364-Lrsaaus albicans, ODELL; 640613-Zlooekz glabrata, ODELL was developed and its performance characteristics determined by [facility]. It has not been cleared or approved by the Food and Drug Administration. Atopobium vaginae Low - 0 BVAB 2 Low - 0 Megasphaera 1 Low - 0 Calculate total score by adding the 3 individual bacterial vaginosis (BV) marker scores together. Total score is interpreted as follows: Total score 0-1: Indicates the absence of BV. Total score 2: Indeterminate for BV. Additional clinical data should be evaluated to establish a diagnosis. Total score 3-6: Indicates the presence of BV. . This test was developed and its performance characteristics determined by [facility]. It has not been cleared or approved by the Food and Drug Administration. Hattie albicans, ODELL Negative Negative Hattie glabrata, ODELL Negative Negative Trich vag by ODELL Negative Negative Chlamydia trachomatis, ODELL Negative Negative Neisseria gonorrhoeae, ODELL Negative Negative RPR w/reflex to TrepSure Reviewed date:06/07/2023 04:18:21 PM Interpretation: Performing Lab:[facility] Mamadou, Nader [facility], Phone - [phone], [facility] - [facility] Notes/Report: Test(s) 404658-Dkoacfm albicans, ODELL; 624004-Vokdjlv glabrata, ODELL was developed and its performance characteristics determined by [facility]. It has not been cleared or approved by the Food and Drug Administration. Test(s) 734632-Whpfjib albicans, ODELL; 767617-Xmbvoyp glabrata, ODELL was developed and its performance characteristics determined by [facility]. It has not been cleared or approved by the Food and Drug Administration. RPR Non Reactive Non Reactive T pallidum Antibody, EIA Negative Negative Interpretation: Positive: Consistent with syphilis infection (past or current). . Equivocal: Low levels of antibody detected but insufficient to conclude syphilis (either past or current). If infection is suspected, retest in one month. . Negative: Unconfirmed EIA. If patient is at risk, repeat testing in one month. This test is intended ONLY for specimens that have tested positive (reactive) or equivocal for Treponema pallidum antibodies prior to submission for testing. For the full CDC-recommended syphilis screening and diagnosis algorithm, [facility] offers test code 635754 RPR, Rfx Qn RPR/Confirm TP or 731180 T pallidum Screening Hood. hCG,Beta Subunit, Qnt, Serum Reviewed date:09/13/2023 09:30:12 AM Interpretation: Performing Lab:[facility], [address] [place] [address], Phone - [phone], Director - [facility] Notes/Report: hCG,Beta Subunit,Qnt,Serum <1 Female (Non-) 0 - 5 (Postmenopausal) 0 - 8 . Female () Weeks of Gestation 3 6 - 71 4 10 - 750 5 963 - 5470 6 776 - 71918 7 7749 -386447 8 10778 -164932 9 64712 -329409 10 82514 -997993 12 22047 -953288 14 39467 - 30647 15 51542 - 16194 16 2250 - 91417 17 9654 - 95171 18 0901 - 93523 Rashawn ECLIA methodology HSV 1 and 2 Ab, IgG Reviewed date:06/07/2023 04:18:21 PM Interpretation: Performing Lab:[facility], [address] [place] [address], Phone - [phone], Director - zachery Notes/Report: Test(s) 686978-Ixjfbbm albicans, ODELL; 108830-Yrdwtdf glabrata, ODELL was developed and its performance characteristics determined by [facility]. It has not been cleared or approved by the Food and Drug Administration. HSV 1 IgG, Type Spec <0.91 0.00-0.90 index Negative <0.91 Equivocal 0.91 - 1.09 Positive >1.09 Note: Negative indicates no antibodies detected to HSV-1. Equivocal may suggest early infection. If clinically appropriate, retest at later date. Positive indicates antibodies detected to HSV-1. HSV 2 IgG, Type Spec <0.91 0.00-0.90 index Negative <0.91 Equivocal 0.91 - 1.09 Positive >1.09 HSV-2 Antibody Interpretation: Current guidelines and recommendations do not recommend routine screening for HSV-2 in asymptomatic individuals, including those that are . A negative antibody result indicates no detectable antibodies to HSV-2 were found. If recent exposure is suspected, retest in 4 to 6 weeks. Equivocal samples should be retested in 4 to 6 weeks. A positive result indicates the presence of detectable IgG antibody to HSV-2. FALSE POSITIVE RESULTS MAY OCCUR. Repeat testing, or testing by a different method, may be indicated in some settings (e.g. patients with low likelihood of HSV infection). If clinically appropriate, retest 4 to 6 weeks later. HSV-2 IgG antibody testing results should be clinically correlated. Reason For Referral Reason Start Individual the rapy Diagnosis 1 Major depression (F3 2.9) Referral Organization [facility] Referring Provider First Name Tiffanie Referring Provider Last Name Jef Referring Provider Speciality Psychiatry Referred Provider Specialty [facility]al [facility] Clinical Notes Sania Maradiaga 08/14 02:26:36 PM >Attempt to contact Consumer. Unable to reach Consumer at this time., Mani Gonsales 08/16/2023 10:54:15 AM >Client was given information on therapy process and stated she would call. Referral Priority Routine Medications Medication SIG (Take, Route, Frequency, Duration) [...] for 28 days 05/05/2023 Not-Taking Social History Tobacco Use: Social History Observation Description Date Details (start date - stop date) Never Smoker NA - NA Sex Assigned At : Social History Observation Description Sex Assigned At Female Dont use, Tobacco Use/Smoking Question Answer Notes Are you a nonsmoker Tobacco Control (Standard) Question Answer Notes Tobacco use: Nonsmoker Problems Problem Type SNOMED Code ICD Code Onset Dates Problem Status W/U Status Risk Notes Problem Morbid obesity (disorder) (104741073) Morbid (severe) obesity due to excess calories (E66.01) Active confirmed Problem Generalized anxiety disorder (08046706) Generalized anxiety disorder (F41.1) 4 Active confirmed Problem Major depression (191364712) Major depression (F32.9) 4 Active confirmed Problem Posttraumatic stress disorder (57996711) PTSD (post-traumatic stress disorder) (F43.10) 4 Active confirmed Problem PCOS (polycystic ovarian syndrome) (E28.2) Active confirmed Problem Cannabis abuse (25794365) Cannabis use disorder, mild, abuse (F12.10) 4 Active confirmed Problem 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 Vital Signs Heart Rate 124 /min 09/08/2023 Temperature 100.2 degrees Fahrenheit 09/08/2023 Respiratory Rate 16 /min 09/08/2023 Blood pressure diastolic 86 mm Hg 09/08/2023 Oximetry 98 % 09/08/2023 Height 62 in 12/14/2023 Blood pressure systolic 110 mm Hg 09/08/2023 Weight 218.0 lbs 09/08/2023 BMI 39.87 kg/m2 09/08/2023 Encounters Encounter Location Date Provider Diagnosis [facility] [address] [place] [address] 03/05/2024 Gay Luciano [address] [place] [address] 04/20/2023 Gay Luciano Generalized anxiety disorder F41.1 ; Major depression F32.9 ; PTSD (post-traumatic stress disorder) F43.10 and Cannabis use disorder, mild, abuse F12.[address] [place] [address] 05/05/2023 Conylogan Hillwilliams Janie's disease E06.3 ; Contraception management Z30.9 and PCOS (polycystic ovarian syndrome) E28.[address] [place] [address] 06/02/2023 Conylogan Hilldavidsaundra Exposure to sexually transmitted disease (STD) Z20.2 ; Genital labial ulcer N76.6 ; Morbid (severe) obesity due to excess calories E66.01 and Nutritional counseling Z71.[address] [address] 06/03/2023 Conylogan Hillwilliams Janie's disease E06.3 ; PCOS (polycystic ovarian syndrome) E28.2 ; Exposure to sexually transmitted disease (STD) Z20.2 and Genital labial ulcer N76.6 [place] [address] [place] [address] 08/12/2023 Tiffanie Fuchs Generalized anxiety disorder F41.1 ; Major depression F32.9 ; PTSD (post-traumatic stress disorder) F43.10 and Cannabis use disorder, mild, abuse F12.10 [facility] [address] [place] [address] 09/08/2023 Conylogan Naranjo Nutritional counseling Z71.3 ; Breast pain N64.4 ; Nausea R11.0 and PCOS (polycystic ovarian syndrome) E28.2 [facility] [address] [place] [address] 09/15/2023 Kyria Fuchs Generalized anxiety disorder F41.1 ; Major depression F32.9 ; PTSD (post-traumatic stress disorder) F43.10 and Cannabis use disorder, mild, abuse F12.10 [facility] [address] [place] [address] 12/14/2023 Cony Naranjo PCOS (polycystic ovarian syndrome) E28.[address] [address] 03/01/2024 Gay Luciano Generalized anxiety disorder F41.1 ; Major depression F32.9 ; PTSD (post-traumatic stress disorder) F43.10 ; Cannabis use disorder, mild, abuse F12.10 and Medication monitoring encounter Z51.[address] [place] [address] 04/05/2023 Gay Luciano [facility] [address] [place] [address] [place] [address] 04/11/2023 Gay Luciano [facility] [address] [place] [address] 04/15/[address] Cony Naranjo [address] [address] 06/02/2023 Cony Naranjo [address] [address] 06/07/2023 Cony Naranjo Encounter for screening for malignant neoplasm of cervix Z12.[address] [address] 06/07/2023 Cony Naranjo [facility] [address] [place] [address] 09/07/2023 Tiffanie Fuchs [address] [address] 10/10/2023 Rubi Souza [address] [address] 01/31/2024 Gay Luciano Major depression F32.9 and Generalized anxiety disorder F41.[address] [address] 02/13/2024 Gay Luciano Major depression F32.9 [facility] [address] [place] [address] 08/10/2023 Cony Naranjo Janie's disease E06.3 [facility] [address] [place] [address] 08/23/2023 Cony Hernandezimoto's disease E06.3 [facility] [address] [address] 09/12/2023 Cony Naranjo [facility] [address] [address] 09/14/2023 Cony Naranjo Breast pain N64.4 [facility] [address] [address] 09/16/2023 Cony Naranjo Breast pain N64.4 [place] [address] [place] [address] 09/19/2023 Cony Naranjo [facility] [address] [address] 12/13/2023 Cony Naranjo Assessments Encounter Date Diagnosis (ICD Code) Assessment Notes Treatment Notes Treatment Clinical Notes Section Notes 03/01/2024 Generalized anxiety disorder (ICD-10 - F41.1) Starting low dose as client reports hx of taking this but my anxiety was high at the time, so I am not sure if I had side effects or not. Discussed to stop if noticing any SE. Discussed r/b/se. 01/31/2024 Major depression (ICD-10 - F32.9) 09/15/2023 Generalized anxiety disorder (ICD-10 - F41.1) Today's visit: Patient is a 33-year-old female who presents for a psychiatric f/u over phone and is located in [place]. I am seeing her during the temporary absence of her current psych provider DHARMESH Nunez. Previously seen on 08/12/2023 and during this appt was continued on Zoloft 200 mg and Wellbutrin XL 150 mg. Previous PHQ-9 score of 6, today is increased to 18. Previous TANVI score of 8, today is increased to 18. Pt reports high anxiety related to worries about having breast cancer, is actively working towards getting ultrasound and work up completed. Was in the ER recently for panic attack lasting 2 days and was given Ativan while there. She reports her depressive sx have increased as in relation to her anxiety/panic. She is requesting to restart hydroxyzine as she found this helpful for her in the past, found 50 mg to be too sedating. She is agreeable to trialing 0.5-1 tablet of 25 mg as needed. She does not request any additional medication changes at this time. She requests to follow up in a month. No acute safety concerns the time of this appt, she is agreeable to treatment plan and is provided an opportunity to ask questions. May self-administer medications or be administered own oral medications per [facility] protocols. Provided informed consent with understanding of side effects, adverse effects, risks and benefits as well as alternative treatments as previously discussed and with the above recommended medications & other aspects of the treatment program. Agrees to return sooner if symptoms worsen or suicidal or homicidal ideations occur. 09/15/2023 Major depression (ICD-10 - F32.9) 02/13/2024 Major depression (ICD-10 - F32.9) 09/08/2023 Breast pain (ICD-10 - N64.4) 09/08/2023 Nutritional counseling (ICD-10 - Z71.3) 08/12/2023 Generalized anxiety disorder (ICD-10 - F41.1) Today's visit: Patient is a 33-year-old female who presents for a psychiatric f/u, this is my first time meeting this patient, and I am seeing her during the temporary absence of her current psych provider. Previously seen on 04/20/2023 by DHARMESH Nunez and during this appt was continued on Zoloft 200 mg and started on Wellbutrin XL 150 mg for diagnoses MDD, TANVI, PTSD. Previous PHQ-9 score of 15, today is 6. Pt reports stability in depressive sx on current medications. She does report ongoing anxiety sx that are her baseline, she does report irrational thinking with possible compulsions; denies any previous formal diagnosis of OCD, but she does wonder. She is agreeable to referral for therapy for anxiety sx. She appears to enjoy motherhood and reports feeling ej taking care of her toddler. No acute safety concerns the time of this appt, she is agreeable to treatment plan and is provided an opportunity to ask questions. May self-administer medications or be administered own oral medications per [facility] protocols. Provided informed consent with understanding of side effects, adverse effects, risks and benefits as well as alternative treatments as previously discussed and with the above recommended medications & other aspects of the treatment program. Agrees to return sooner if symptoms worsen or suicidal or homicidal ideations occur. 06/07/2023 Encounter for screening for malignant neoplasm of cervix (ICD-10 - Z12.4) Patient Educated with: Learning about Cervical Cancer Screenings.pdf (Learning about Cervical Cancer Screenings.pdf) 06/03/2023 Janie's disease (ICD-10 - E06.3) 05/05/2023 Contraception management (ICD-10 - Z30.9) Educated and informed patient to start the first dose (several ways) First Day Start: Take your first pill during the first 24 hours of your menstrual cycle.Tuesday Start: Wait until the first Tuesday after your menstrual cycle begins to take your first pill.On the first day you begin bleeding during your period.On the fifth day after you start your menstrual period.Today, if there is absolutely no chance that you could be . 05/05/2023 Janie's disease (ICD-10 - E06.3) 12/14/2023 PCOS (polycystic ovarian syndrome) (ICD-10 - E28.2) Lifestyle modification - including increased physical activity and healthy diet resulting in weight loss and improved body composition 09/16/2023 Breast pain (ICD-10 - N64.4) 09/14/2023 Breast pain (ICD-10 - N64.4) 08/23/2023 Janie's disease (ICD-10 - E06.3) 08/10/2023 Janie's disease (ICD-10 - E06.3) 06/02/2023 Exposure to sexually transmitted disease (STD) (ICD-10 - Z20.2) 06/02/2023 Genital labial ulcer (ICD-10 - N76.6) 04/20/2023 Generalized anxiety disorder (ICD-10 - F41.1) Encouraged therapy, coping mechanisms. 04/20/2023 Major depression (ICD-10 - F32.9) 06/02/2023 Morbid (severe) obesity due to excess calories (ICD-10 - E66.01) 05/05/2023 PCOS (polycystic ovarian syndrome) (ICD-10 - E28.2) 06/03/2023 PCOS (polycystic ovarian syndrome) (ICD-10 - E28.2) 08/12/2023 Major depression (ICD-10 - F32.9) 01/31/2024 Generalized anxiety disorder (ICD-10 - F41.1) 09/08/2023 Nausea (ICD-10 - R11.0) 09/15/2023 PTSD (post-traumatic stress disorder) (ICD-10 - F43.10) 03/01/2024 Major depression (ICD-10 - F32.9) 03/01/2024 PTSD (post-traumatic stress disorder) (ICD-10 - F43.10) Encouraged therapy. 09/15/2023 Cannabis use disorder, mild, abuse (ICD-10 - F12.10) 09/08/2023 PCOS (polycystic ovarian syndrome) (ICD-10 - E28.2) 08/12/2023 PTSD (post-traumatic stress disorder) (ICD-10 - F43.10) 06/03/2023 Exposure to sexually transmitted disease (STD) (ICD-10 - Z20.2) 06/02/2023 Nutritional counseling (ICD-10 - Z71.3) 04/20/2023 PTSD (post-traumatic stress disorder) (ICD-10 - F43.10) Encouraged therapy/counseling 04/20/2023 Cannabis use disorder, mild, abuse (ICD-10 - F12.10) Discussed use- encouraged to decrease/stop use. Discussed with patient that taking herbs and vitamins/supplements, may interfere with or alter the way prescription medications work in the body or cause adverse reactions. Patient voiced understanding. 06/03/2023 Genital labial ulcer (ICD-10 - N76.6) 08/12/2023 Cannabis use disorder, mild, abuse (ICD-10 - F12.10) 03/01/2024 Medication monitoring encounter (ICD-10 - Z51.81) 03/01/2024 Cannabis use disorder, mild, abuse (ICD-10 - F12.10) 04/20/2023 Other Reasons, potential benefits, potential risks, interactions [...] May also contact the 24-hour crisis hotline ([facility]), refer to the closest emergency room or [...] assess appearance, affect, AIMS, or vital signs. 03/01/2024 Other Reasons, potential benefits, potential risks, [...] May also contact the 24-hour crisis hotline ([facility]), refer to the closest emergency room or [...] AIMS, or vital signs. Plan Of Treatment Future Test Test Name Order Date CBC With Differential/Platelet* 03/09/19 25 TSH+Free T4* 2024 CMP 14 Comprehensive Metabolic Panel* Insurance Providers Payer Name Payer Address Payer Phone Subscriber Number Group Number Insured Name Patient Relationship to Insured Coverage Start Date Coverage End Date [employer] [facility] [address] [place] [phone] [id number] Juan Jose Read Self - patient is the insured 3 [facility] [employer] [facility] [address] [place] [address] [id number] Juan Jose Read Self - patient is the insured 3 Medical (General) History Medical History History ICD Code PCOS breast pain Surgical History Surgery Date(Month/Year) C section 2021 Hospitalization History Reason Date(Month/Year) childbirth 2021
== END 2024-03-24 08:47 | disposition left against medical advice (07) ==
PROVIDERS: Emergency Provider Nurse Practitioner Family; PCP Nurse Practitioner Family
DX: Z53.21 Procedure and treatment not carried out due to patient leaving prior to being seen by health care provider (principal)
CPT/HCPCS: 99199

== ENCOUNTER 2024-07-10 10:13 | Emergency (ER) | payer MEDICAID, SELFPAY ==
--- OUTSIDE RECORDS SUMMARY | 2024-07-10 10:26 | XMS_ITS | Encounter Summary ---
Author Organization [facility] [address] [place] [address] Care Team Providers Care Dean Of Chapel Name Role Phone Unavailable Primary Care Provider Unavailabl e Prior Encounters Date Type Department Care Team Description 03/19/2019 Converted CPS Chart Documents [facility] [address], [address] [place] [address] <No scans attached> 03/19/2019 Converted 13x Documents [facility] [address], [address] [place] [address] <No scans attached> Plan of [...] MDT Visit Diagnoses Not on file [place] [id number]
--- OUTSIDE RECORDS SUMMARY | 2024-07-10 10:26 | XMS_ITS | Clinical Summary ---
Author Organization [facility] Address [address] [place] [address] Care Team Providers Care Fitness Professional Name Role Phone Marcella Cony Ji NP Primary Care Provider Social History Tobacco Use Types Packs/Day Years Used Date Smoking Tobacco: Never Assessed Comments Unknown Sex and Gender Information Value Date Recorded Sex Assigned at Not on file Legal Sex Female 2:20 PM CDT Gender Identity Not on file Sexual Orientation Not on file Plan of Treatment Health Maintenance Due Date Last Done Comments Cervical Cancer Screening Pa p Smear (Age 30 to 64) Every 3 Years 1990 Annual Physical 1993 Hepatitis B Vaccines (1 of 3 - 19+ 3-dose series) 2009 Cervical Cancer Screening Pa p with HPV Testing (Age 30 to 64) Every 5 Years 2020 Cervical Cancer Screening wi th HPV 2020 COVID-19 Vaccine (2023-2 5 season) 2023 01/05/2021, 05/05/2020, 04/14/2020 DTaP, Tdap and Td Vaccines ( 3 - Td or Tdap) 11/07/2031 11/06/2021, 07/17/2015 Hepatitis C Completed 07/24/2019 HPV Vaccines Aged Out No longer eligi ble based on patient's age to complete this topic Meningococcal B Vaccine Aged Out No l onger eligible based on patient's age to complete this topic Meningococcal Vaccine Aged Out No velasquez nayana eligible based on patient's age to complete this topic Pneumococcal Vaccine: Pediatrics (0 to 5 Years) and At-Risk Patients (6 to 49 Years) Aged Out No longer eligible b ased on patient's age to complete this topic RSV Immunizations Under 20 Months Aged Out No longer eligible b ased on patient's age to complete this topic Insurance [facility] Care Teams Fitness Professional Relationship Specialty Start Date End Date Cony Naranjo NP [address] [facility] [place] [address] PCP - General Nurse Practitioner Family 09/21/23
--- OUTSIDE RECORDS SUMMARY | 2024-07-10 10:26 | XMS_ITS | Patient Health Record ---
Author Organization [facility] Address [address] [place] [address] Care Team Providers Care Mortgage Closing Clerk Name Role Phone Cony Naranjo Primary Care Provider [phone] Gay Luciano Unavailable [phone] Rubi Souza Unavailable [phone] Tiffanie Fuchs Unavailable [phone] Allergies Allergen (clinical drug ingredient) Drug/Non Drug Allergy documented on EMR Reaction Allergy Type Onset Date Status Penicillin G Benzathine hives Drug Allergy Active Results Component Value Reference Range Notes Test, Urine Reviewed date:07/04/2024 12:52:23 PM Interpretation:Positive Performing Lab: Notes/Report: Positive Test, Urine POS Negative - Negative CMP 14 Comprehensive Metabol ic Panel* (Not yet reviewed by provider) Interpretation: Performing Lab:[facility], [address] [facility], Phone - [phone], Director - PhDRicchiuti Notes/Report: Glucose 85 70-99 mg/dL BUN 11 6-20 mg/dL Creatinine 0.80 0.57-1.00 mg/dL eGFR 99 >59 mL/min/1.73 BUN/Creatinine Ratio 14 9-23 Sodium 142 134-144 mmol/L Potassium 3.6 3.5-5.2 mmol/L Chloride 103 96-106 mmol/L Carbon Dioxide, Total 17 20-29 mmol/L Calcium 9.6 8.7-10.2 mg/dL Protein, Total 7.5 6.0-8.5 g/dL Albumin 4.8 3.9-4.9 g/dL Globulin, Total 2.7 1.5-4.5 g/dL Bilirubin, Total 0.8 0.0-1.2 mg/dL Alkaline Phosphatase 79 44-121 IU/L AST (SGOT) 19 0-40 IU/L ALT (SGPT) 21 0-32 IU/L TSH+Free T4* (Not yet review ed by provider) Interpretation: Performing Lab:[facility] [place], [address] [facility], Phone - [phone], Director - [facility] Notes/Report: TSH 4.840 0.450-4.500 uIU/mL T4,Free(Direct) 1.28 0.82-1.77 ng/dL CBC With Differential/Platel et* (Not yet reviewed by provider) Interpretation: Performing Lab:[facility] [place], [address] [facility], Phone - [phone], Director - [facility] Notes/Report: WBC 7.9 3.4-10.8 x10E3/uL RBC 4.94 3.77-5.28 x10E6/uL Hemoglobin 14.5 11.1-15.9 g/dL Hematocrit 43.1 34.0-46.6 % MCV 87 79-97 fL MCH 29.4 26.6-33.0 pg MCHC 33.6 31.5-35.7 g/dL RDW 13.0 11.7-15.4 % Platelets 243 150-450 x10E3/uL Neutrophils 62 Not Estab. % Lymphs 28 Not Estab. % Monocytes 7 Not Estab. % Eos 2 Not Estab. % Basos 1 Not Estab. % Neutrophils (Absolute) 5.0 1.4-7.0 x10E3/uL Lymphs (Absolute) 2.2 0.7-3.1 x10E3/uL Monocytes(Absolute) 0.6 0.1-0.9 x10E3/uL Eos (Absolute) 0.1 0.0-0.4 x10E3/uL Baso (Absolute) 0.1 0.0-0.2 x10E3/uL Immature Granulocytes 0 Not Estab. % Immature Grans (Abs) 0.0 0.0-0.1 x10E3/uL hCG,Beta Subunit, Qnt, Serum (Not yet reviewed by provider) Interpretation: Performing [facility], [address] [place] [address], Phone - [phone], Director - [facility] Notes/Report: hCG,Beta Subunit,Qnt,Serum 191 Female (Non-) 0 - 5 (Postmenopausal) 0 - 8 . Female () Weeks of Gestation 3 6 - 71 4 10 - 750 5 217 - 7138 6 158 - 23950 7 6228 -776563 8 19977 -290594 9 69944 -017929 10 95072 -071485 12 38076 -950350 14 41917 - 92603 15 24908 - 02971 16 2467 - 78512 17 8081 - 54913 18 8099 - 32901 Rashawn ECLIA methodology Hemoglobin A1c* (Not yet rev iewed by provider) Interpretation: Performing Lab:[facility], [address] [place] [address], Phone - [phone], Director - [facility] Notes/Report: Hemoglobin A1c 5.1 4.8-5.6 % . Prediabetes: 5.7 - 6.4 Diabetes: >6.4 Glycemic control for adults with diabetes: <7.0 Test, Urine Reviewed date:09/15/2023 03:05:49 PM Interpretation: Performing Lab: Notes/Report: Test, Urine neg Negative - Negative hCG,Beta Subunit, Qnt, Serum Reviewed date:09/13/2023 09:30:12 AM Interpretation: Performing Lab:[facility], [address] [place] [address], Phone - [phone], Director - [facility] Notes/Report: hCG,Beta Subunit,Qnt,Serum <1 Female (Non-) 0 - 5 (Postmenopausal) 0 - 8 . Female () Weeks of Gestation 3 6 - 71 4 10 - 750 5 217 - 7138 6 158 - 40080 7 2557 -865732 8 18517 -619074 9 94450 -653688 10 46013 -848784 12 42582 -156853 14 47000 - 75672 15 06374 - 53328 16 9150 - 59451 17 1644 - 16381 18 8099 - 02396 Rashawn ECLIA methodology TSH+Free T4* Reviewed date:09/13/2023 09:30:39 AM Interpretation: Performing Lab:[facility] [place], [address] [facility], Phone - [phone], Director - Zoey Notes/Report: TSH 3.730 0.450-4.500 uIU/mL T4,Free(Direct) 1.01 0.82-1.77 ng/dL QuantiFERON-TB Gold Plus (18 2879) Reviewed date:12/14/2023 10:29:36 AM Interpretation: Performing Lab:[facility] [place], [address] [facility], Phone - [phone], Director [facility] Notes/Report: QuantiFERON Incubation Incubation performed. QuantiFERON-TB Gold [...] Nil Value 0.31 QuantiFERON Mitogen Value >10.00 Reason For Referral Reason Start Individual the rapy Diagnosis 1 Major depression (F3 2.9) Referral Organization [facility] Referring Provider First Name Tiffanie Referring Provider Last Name Jef Referring Provider Speciality Psychiatry Referred Provider Specialty Behavioral [facility] Clinical Notes Sania Maradiaga 08/14 02:26:36 PM >Attempt to contact Consumer. Unable to reach Consumer at this time.rDu Ryen G 08/16/2023 10:54:15 AM >Client was given information on therapy process and stated she would call. Referral Priority Routine Reason home test positive, 5 weeks, pending hcg blood Diagnosis 1 Missed period (N92.6 ) Referral Organization [facility] Referring Provider First Name Cony Referring Provider Last Name Marcella Referring Provider Speciality [facility] casie Referred Provider Specialty OB - Gynecol ogy General Notes Ligia Mancuso 07/05/2024 11:52:23 AM >Spoke with staff who advised patients insurance is accepted, Ligia Mancuso 07/05/2024 12:08:22 PM >letter mailed; message sent Clinical Notes [facility] [place], [address] [place] [address] [place] [address]. [id number], , Referral Priority Routine Medications Medication SIG (Take, Route, Frequency, Duration) Notes Start Date End Date Status busPIRone HCl 7.5 MG 1 tablet Orally [...] a day for 28 days 05/05/2023 Not-Taking busPIRone HCl 5 MG 1 tablet Orally Twic e a day for 30 days 03/01/2024 Not-Taking buPROPion HCl ER (XL) 150 MG 1 tablet in the morning Orally Once a day for 30 days Active hydrOXYzine HCl 25 MG 0.5 tablet to 1 ta blet as needed Orally twice a day for 8 days 09/15/2023 Active Zoloft 100 MG 2 tabs Orally Once a day for 7 days Active metFORMIN HCl 500 MG 1 tablet with a nic l Orally Once a day for 30 days 12/14/2023 Active Social History Tobacco Use: Social History Observation [...] Status Risk Notes Problem Morbid obesity (disorder) (788010399) Morbid (severe) obesity due to excess calories (E66.01) Active confirmed Problem Generalized anxiety disorder (26745383) Generalized anxiety disorder (F41.1) 4 Active confirmed Problem Major depression (646640716) Major depression (F32.9) 4 Active confirmed Problem Posttraumatic stress disorder (23783419) PTSD (post-traumatic stress disorder) (F43.10) 4 Active confirmed Problem Overweight (924926112) Over weight (E66.3) Active confirmed Problem Polycystic ovary syndrome (disorder) (937195696) PCOS (polycystic ovarian syndrome) (E28.2) Active confirmed Problem Missed period (61990852) Missed period (N92.6) Active confirmed Problem Cannabis abuse (02418025) Cannabis use disorder, mild, abuse (F12.10) 4 Active confirmed Problem 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 Vital Signs Heart Rate 101 /min 07/04/2024 Temperature 100.2 degrees Fahrenheit 09/08/2023 Respiratory Rate 16 /min 07/04/2024 Blood pressure diastolic 84 mm Hg 07/04/2024 Oximetry 98 % 07/04/2024 Height 62 in 07/04/2024 Blood pressure systolic 126 mm Hg 07/04/2024 Weight 210 lbs 07/04/2024 BMI 38.41 kg/m2 07/04/2024 Encounters Encounter Location Date Provider Diagnosis [facility], [facility] [address] [facility] [place] [address] 03/05/2024 Gay Luciano [address] [address] 08/12/2023 Tiffanie Fuchs Generalized anxiety disorder F41.1 ; Major depression F32.9 ; PTSD (post-traumatic stress disorder) F43.10 and Cannabis use disorder, mild, abuse F12.[address] [address] 09/08/2023 Cony Naranjo Nutritional counseling Z71.3 ; Breast pain N64.4 ; Nausea R11.0 and PCOS (polycystic ovarian syndrome) E28.[address] [address] 09/15/2023 Tiffanie Fuchs Generalized anxiety disorder F41.1 ; Major depression F32.9 ; PTSD (post-traumatic stress disorder) F43.10 and Cannabis use disorder, mild, abuse F12.10 [facility] [address] [place] [address] 12/14/2023 Cony Naranjo PCOS (polycystic ovarian syndrome) E28.[address] [place] [address] 03/01/2024 Gay Luciano Generalized anxiety disorder F41.1 ; Major depression F32.9 ; PTSD (post-traumatic stress disorder) F43.10 ; Cannabis use disorder, mild, abuse F12.10 and Medication monitoring encounter Z51.81 [facility], [facility] [address] 07/04/2024 Cony Naranjo Over weight E66.3 and Missed period N92.[address] [place] [address] 07/09/2024 Gay Luciano Major depression F32.9 [facility] [address] [place] [address] 09/07/2023 Tiffanie Fuchs [address] [place] [address] 10/10/2023 Rubi Souza [address] [place] [address] 01/31/2024 Gay Luciano Major depression F32.9 and Generalized anxiety disorder F41.[address] [place] [address] 02/13/2024 Gay Luciano Major depression F32.9 [facility], [facility] [place] [address] 07/03/2024 Cony Naranjo [facility] [address] [place] [address] 08/10/2023 Cony Naranjo Janie's disease E06.3 [facility] [address] [place] [address] 08/23/2023 Cony Naranjo Janie's disease E06.3 [facility] [address] [place] [address] 09/12/2023 Cony Naranjo [place] [address] [place] [address] 09/14/2023 Cony Naranjo Breast pain N64.4 [facility] [address] [place] [address] 09/16/2023 Cony Naranjo Breast pain N64.4 [place] [address] [place] [address] 09/19/2023 Cony Naranjo [place] [address] [place] [address] 12/13/2023 Cony Naranjo Assessments Encounter Date Diagnosis (ICD Code) Assessment Notes Treatment Notes Treatment Clinical Notes Section Notes 08/10/2023 Janie's disease (ICD-10 - E06.3) 08/12/2023 Generalized anxiety disorder (ICD-10 - F41.1) [...] or be administered own oral medications per [facility] protocols. Provided informed consent with understanding of side effects, adverse effects, risks and benefits as well as alternative treatments as previously discussed and with the above recommended medications & other aspects of the treatment program. Agrees to return sooner if symptoms worsen or suicidal or homicidal ideations occur. 08/23/2023 Janie's disease (ICD-10 - E06.3) 09/08/2023 Breast pain (ICD-10 - N64.4) 09/08/2023 Nutritional counseling (ICD-10 - Z71.3) 09/14/2023 Breast pain (ICD-10 - N64.4) 09/15/2023 Generalized anxiety disorder (ICD-10 - F41.1) Today's visit: Patient is a 33-year-old female who presents for a psychiatric f/u over phone and is located in [place]. I am seeing her during the temporary [...] or be administered own oral medications per [facility] protocols. Provided informed consent with understanding of side effects, adverse effects, risks and benefits as well as alternative treatments as previously discussed and with the above recommended medications & other aspects of the treatment program. Agrees to return sooner if symptoms worsen or suicidal or homicidal ideations occur. 09/15/2023 Major depression (ICD-10 - F32.9) 01/31/2024 Major depression (ICD-10 - F32.9) 02/13/2024 Major depression (ICD-10 - F32.9) 03/01/2024 Generalized anxiety disorder (ICD-10 - F41.1) Starting low dose as client reports hx of taking this but my anxiety was high at the time, so I am not sure if I had side effects or not. Discussed to stop if noticing any SE. Discussed r/b/se. 09/16/2023 Breast pain (ICD-10 - N64.4) 12/14/2023 PCOS (polycystic ovarian syndrome) (ICD-10 - E28.2) Lifestyle modification - including increased physical activity and healthy diet resulting in weight loss and improved body composition 07/04/2024 Over weight (ICD-10 - E66.3) 07/04/2024 Missed period (ICD-10 - N92.6) 07/09/2024 Major depression (ICD-10 - F32.9) 01/31/2024 Generalized anxiety disorder (ICD-10 - F41.1) 03/01/2024 Major depression (ICD-10 - F32.9) 09/15/2023 PTSD (post-traumatic stress disorder) (ICD-10 - F43.10) 09/08/2023 Nausea (ICD-10 - R11.0) 08/12/2023 Major depression (ICD-10 - F32.9) 08/12/2023 PTSD (post-traumatic stress disorder) (ICD-10 - F43.10) 09/08/2023 PCOS (polycystic ovarian syndrome) (ICD-10 - E28.2) 09/15/2023 Cannabis use disorder, mild, abuse (ICD-10 - F12.10) 03/01/2024 PTSD (post-traumatic stress disorder) (ICD-10 - F43.10) Encouraged therapy. 03/01/2024 Medication monitoring encounter (ICD-10 - Z51.81) 03/01/2024 Cannabis use disorder, mild, abuse (ICD-10 - F12.10) 08/12/2023 Cannabis use disorder, mild, abuse (ICD-10 - F12.10) 03/01/2024 Other Reasons, potential benefits, potential risks, [...] AIMS, or vital signs. Plan Of Treatment Pending Test Test Name Order Date Hemoglobin A1c* 07/04/2024 hCG,Beta Subunit, Qnt, Serum 07/04/2024 CBC With Differential/Platelet* 07/05/19 25 TSH+Free T4* 07/04/2024 CMP 14 Comprehensive Metabolic Panel* Next Appt Details Provider Name:Gay townsend, 07/12/2024 09:40:00 AM, [address] [facility], [place], [address], Insurance Providers Payer Name Payer Address Payer Phone Subscriber Number Group Number Insured Name Patient Relationship to Insured Coverage Start Date Coverage End Date [employer] [address] [place] [phone] [id number] Juan Jose Read Self - patient is the insured 3 [employer] [address] [place] [address] [phone] [id number] Juan Jose Read Self - patient is the insured 3 Medical (General) History Medical History History ICD Code PCOS breast pain Surgical History Surgery Date(Month/Year) C section 2021 Hospitalization History Reason Date(Month/Year) childbirth 2021
--- OUTSIDE RECORDS SUMMARY | 2024-07-10 10:26 | XMS_ITS | Clinical Summary ---
Author Organization [facility] [place] [address] [place] [address] Care Team Providers Care Technology Internship Name Role Phone Unavailable Primary Care Provider [...] Subscriber Plan / Payer (Ef fective 2020-Present) Name:Juan Jose Read Relation to Subscriber:Self Name:Juan Jose Read Payer ID:[id number] Type:Not on file Address: [address] [address]
--- OUTSIDE RECORDS SUMMARY | 2024-07-10 10:26 | XMS_ITS ---
Author Organization [facility] Address [address] [place] [address] Care Team Providers Care Ground Crewman Aircraft Support Name Role Phone Cony Naranjo Primary Care Provider [phone] Gay Luciano Unavailable [phone] REASON FOR VISIT refill Medications Medication SIG (Take, Route, Frequency, Duration) Notes Start Date End Date Status Zoloft 100 MG 2 tabs Orally Once a day for 7 days Active Social History Sex Assigned At : Social History Observation Description Sex Assigned At Female Encounters Encounter Location Date Provider Diagnosis [address] [place] [address] 07/09/2024 Gay Luciano Major depression F32.9 Assessments Encounter Date Diagnosis (ICD Code) Assessment Notes Treatment Notes Treatment Clinical Notes Section Notes 07/09/2024 Major depression (ICD-10 - F32.9) Plan Of Treatment Medication Medication Name Sig Start Date Stop Date Notes Zoloft 100 MG 2 tabs Orally Once a day for 7 days Next Appt Details Provider Name:Gay townsend, 07/12/2024 09:40:00 AM, [address] [facility] , [place], [address], Progress Notes * Juan Jose READDOB:1990 (34 yo F)Acc No.[id number]:07/09/2024 UNLOCKED PROGRESS NOTE Patient: Olimpia CHOWDHURYRIVER Juan Jose :1990 A ge:34 Y S ex:Female Address:[address] [place] [address] * Refills Refill Zoloft Tablet, 100 MG, Orally, 14 Tablet, 2 tabs, Once a day, 7 days, Refills=0 * * Date:
--- NOTE | 2024-07-10 10:33 | PC.NURSE ---
Pt states received call from her doctor and he is going to refill her medication. Pt states she wants to go home, doesn't want to be seen.
--- OUTSIDE RECORDS SUMMARY | 2024-07-10 10:58 | XMS_ITS | Clinical Summary ---
Author Organization [facility] Address [address] [place] [address] Care Team Providers Care Legal Financial Specialist Name Role Phone Marcella Cony Ji NP [...] patient's age to complete this topic Insurance [facility] Care Teams Legal Financial Specialist Relationship Specialty Start Date End Date Cony Naranjo NP [address] [place] [address] PCP - General Nurse Practitioner Family 09/21/23
--- OUTSIDE RECORDS SUMMARY | 2024-07-10 10:58 | XMS_ITS | Encounter Summary ---
Author Organization [facility] Address [address] [place] [address] Care Team Providers Care Change Person Name Role Phone Unavailable Primary Care Provider Unavailabl e Prior Encounters Date Type Department Care Team Description 03/19/2019 Converted CPS Chart Documents [facility] [address], [address] [place] [address] <No scans attached> 03/19/2019 Converted 13x Documents [facility] [address] [place] [address] <No scans attached> Plan of [...] MDT Visit Diagnoses Not on [place] [id number]
--- OUTSIDE RECORDS SUMMARY | 2024-07-10 10:58 | XMS_ITS | Clinical Summary ---
Author Organization [facility] Address [address] [place] [address] Care Team Providers Care Webbing Tacker Name Role Phone Unavailable Primary Care Provider [...] Relation to Subscriber:Self Name:Juan Jose Read Payer ID:[id number] Type:Not on file Address: [address] [address]
== END 2024-07-10 11:00 | disposition left against medical advice (07) ==
PROVIDERS: PCP Nurse Practitioner Family
DX: Z53.21 Procedure and treatment not carried out due to patient leaving prior to being seen by health care provider (principal)
CPT/HCPCS: 99199

== ENCOUNTER 2024-08-15 18:17 | Emergency (ER) | payer MEDICAID, SELFPAY ==
--- NOTE | ~2024-08-15 | US_ITS ---
EXAMINATION: US OB <= 14 weeks fetus DATE: 08/15/2024 22:11 CDT INDICATION: Lower abdominal cramping COMPARISON: 11/30/2023 TECHNIQUE: Real-time transabdominal obstetric ultrasound. FINDINGS: 5 para 1 The uterus measures 10.8 x 6.2 x 9.0 cm. A gestational sac is identified within the uterus. A pole is identified, with a crown-rump length that measures 3.5 cm, corresponding to an approx imate gestational age of 10 weeks and 2 days. cardiac activity is identified at a rate of 155 bpm. The right ovary is unremarkable in echogenicity and size measuring 3.1 x 1.8 x 2.6 cm. Despite prolonged interrogation, the left ovary was not visualized. Estimated date of delivery by ultrasound is 03/11/2025 IMPRESSION: Single intrauterine gestation with an approximate gestational age of 10 weeks and 2 days, with cardiac activity identified. Reviewed, dictated and finalized at location A. IMPRESSION: Single intrauterine gestation with an approximate gestational age of 10 weeks a nd 2 days, with cardiac activity identified.
[2024-08-15 18:35] VITALS: BP 138/90; PULSE 96; RESP 18; TEMP 36.7; O2SAT 99
[2024-08-15 19:29] LABS: Add Urine Microscopic? YES; Appearance Urine Clear (Clear); Bacteria Urine None Seen /hpf; Bilirubin Urine Negative (Negative); Blood Urine Negative (Negative); Color Urine Yellow (Yellow); Glucose Urine UA Negative (Negative); Ketones Urine Negative (Negative); Leukocyte Esterase Ur Trace LEU/UL (Negative); Nitrate Urine Negative (Negative); Non Pathogenic Casts 0-2; Protein Urine Negative (Negative); RBC Urine 0-2 /hpf (0-2); Specific Grav Ur 1.013 (1.001-1.035); Squamous Epithelial Cell Urine None Seen /hpf (Few); Urobilinogen Urine 0.2 mg/dL (<2.0); WBC Urine 0-5 /hpf (0-3); pH Urine 5.5 (5.0-9.0)
--- OUTSIDE RECORDS SUMMARY | 2024-08-15 20:58 | XMS_ITS | Patient Health Record ---
Author Organization Replaced by [facility] Address [address] [place] [address] Care Team Providers Care Silver Designer Name Role Phone Cony Naranjo Primary Care Provider [phone] Gay Luciano Unavailable [phone] Rubi Souza Unavailable [phone] Tiffanie Fuchs Unavailable [phone] Allergies Allergen (clinical drug ingredient) Drug/Non Drug Allergy documented on EMR Reaction Allergy Type Onset Date Status Penicillin G Benzathine hives Drug Allergy Active Results Component Value Reference Range Notes TSH+Free T4* Reviewed date:09/13/2023 09:30:39 AM Interpretation: Performing Lab:[facility], [address] [facility], Phone - [phone], Director - PhDrGace Notes/Report: TSH 3.730 0.450-4.500 uIU/mL T4,Free(Direct) 1.01 0.82-1.77 ng/dL hCG,Beta Subunit, Qnt, Serum Reviewed date:09/13/2023 09:30:12 AM Interpretation: Performing Lab:[facility], [address] [facility], Phone - [phone], Director - PhDMichaeli Notes/Report: hCG,Beta Subunit,Qnt,Serum <1 Female (Non-) 0 - 5 (Postmenopausal) 0 - 8 . Female () Weeks of Gestation 3 6 - 71 4 10 - 750 5 386 - 1086 6 332 - 39632 7 1275 -484268 8 45283 -410502 9 32048 -055308 10 27703 -802977 12 61499 -252490 14 92162 - 59965 15 69032 - 60402 16 0220 - 45930 17 5275 - 10427 18 2886 - 84431 Rashawn ECLIA methodology Test, Urine Reviewed date:09/15/2023 03:05:49 PM Interpretation: Performing Lab: Notes/Report: Test, Urine neg Negative - Negative QuantiFERON-TB Gold Plus (18 7789) Reviewed date:12/14/2023 10:29:36 AM Interpretation: Performing Lab:[facility] [place], [address] [facility], Phone - [phone], Director - Zoey Notes/Report: QuantiFERON Incubation Incubation [...] Nil Value 0.31 QuantiFERON Mitogen Value >10.00 hCG,Beta Subunit, Qnt, Serum Reviewed date:07/17/2024 02:54:50 PM Interpretation: Performing Lab:[facility] [place], [address] [facility], [place], Phone - [phone], Director - Zoey Notes/Report: hCG,Beta Subunit,Qnt,Serum 5700 Female (Non-) 0 - 5 (Postmenopausal) 0 - 8 . Female () Weeks of Gestation 3 6 - 71 4 10 - 750 5 584 - 5938 6 259 - 94283 7 3697 -884083 8 47236 -184861 9 68415 -033241 74595 -257578 12 97959 -021053 14 88915 - 41510 15 65513 - 56983 16 0289 - 78409 17 2975 - 14941 18 9171 - 08899 Rashawn ECLIA methodology Test, Urine Reviewed date:07/04/2024 12:52:23 PM Interpretation:Positive Performing Lab: Notes/Report: Positive Test, Urine POS Negative - Negative Hemoglobin A1c* Reviewed date:07/11/2024 05:18:35 PM Interpretation: Performing Lab:[facility] [place], [address] [place], [place] [address], Phone - [phone], Director - [facility] Notes/Report: Hemoglobin A1c 5.1 4.8-5.6 % . Prediabetes: 5.7 - 6.4 Diabetes: >6.4 Glycemic control for adults with diabetes: <7.0 hCG,Beta Subunit, Qnt, Serum Reviewed date:07/11/2024 05:18:35 PM Interpretation: Performing Lab:[facility] [place], [address] [place], [place] [address], Phone - [phone], Director - [facility] Notes/Report: hCG,Beta Subunit,Qnt,Serum 191 Female (Non-) 0 - 5 (Postmenopausal) 0 - 8 . Female () Weeks of Gestation 3 6 - 71 4 10 - 750 5 040 - 8075 6 092 - 46172 7 7876 -691646 8 11912 -170476 9 82589 -119285 10 80099 -361634 12 30219 -462486 14 76737 - 53435 15 42778 - 74315 16 9040 - 19059 17 8175 - 88780 18 8099 - 15274 Rashawn ECLIA methodology CBC With Differential/Platel et* Reviewed date:07/11/2024 05:18:35 PM Interpretation: Performing Lab:[facility] [place], [facility], Phone - [phone], Director - [facility] Notes/Report: WBC 7.9 3.4-10.8 x10E3/uL RBC 4.94 [...] % Immature Grans (Abs) 0.0 0.0-0.1 x10E3/uL TSH+Free T4* Reviewed date:07/11/2024 05:18:35 PM Interpretation: Performing Lab:[facility] [place], [address] [facility], Phone - [phone], Director - [facility] Notes/Report: TSH 4.840 0.450-4.500 uIU/mL T4,Free(Direct) 1.28 0.82-1.77 ng/dL CMP 14 Comprehensive Metabol ic Panel* Reviewed date:07/11/2024 05:18:35 PM Interpretation: Performing Lab:[facility] [place], [address] [facility], Phone - [phone], Director - [facility] Notes/Report: Glucose 85 70-99 mg/dL BUN 11 [...] 0-40 IU/L ALT (SGPT) 21 0-32 IU/L Reason For Referral Reason home test positive, 5 weeks, pending hcg blood Diagnosis 1 Missed period (N92.6 ) Referral Organization [facility] Referring Provider First Name Cony Referring Provider Last Name Marcella Referring Provider Speciality [facility] Referred Provider Specialty OB - Gynecol ogy General Notes Ligia Mancuso 07/05/2024 11:52:23 AM >Spoke with staff who advised patients insurance is accepted, Ligia Mancuso 07/05/2024 12:08:22 PM >letter mailed; message sent Clinical Notes [facility]- O B/LAUNDERETTE ATTENDANT [place], [address] [place] [address]. [phone], , Referral Priority Routine Medications Medication SIG (Take, Route, Frequency, Duration) Notes Start Date End Date Status busPIRone HCl 5 MG 1 tablet Orally Twic e a day for 30 days 03/01/2024 Not-Taking Acyclovir 400 MG 1 tablet Orally thre e times daily for 10 days 06/02/2023 Not-Taking Sprintec 28 0.25-35 MG-MCG 1 tablet Oral ly Once a day for 28 days 05/05/2023 Not-Taking + DHA Activ e buPROPion HCl ER (XL) 150 MG 1 tablet in the morning Orally Once a day for 30 days Active Zoloft 100 MG 2 tabs Orally Once a day for 30 days Active Levothyroxine Sodium 200 MCG 1 tablet in the morning on an empty stomach Orally Once a day for 30 days Active metFORMIN HCl 500 MG 1 tablet with a nic l Orally Once a day for 30 days 12/14/2023 Not-Taking Social History Tobacco Use: Social History [...] Status Risk Notes Problem Morbid obesity (disorder) (533962906) Morbid (severe) obesity due to excess calories (E66.01) Active confirmed Problem Generalized anxiety disorder (30929556) Generalized anxiety disorder (F41.1) 4 Active confirmed Problem Major depression (241702299) Major depression (F32.9) 4 Active confirmed Problem Posttraumatic stress disorder (72751977) PTSD (post-traumatic stress disorder) (F43.10) 4 Active confirmed Problem Overweight (818921695) Over weight (E66.3) Active confirmed Problem Polycystic ovary syndrome (disorder) (719330350) PCOS (polycystic ovarian syndrome) (E28.2) Active confirmed Problem Missed period (44324677) Missed period (N92.6) Active confirmed Problem Cannabis abuse (38690962) Cannabis use disorder, mild, abuse (F12.10) 4 Active confirmed Problem 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 Vital Signs Heart Rate 101 /min 07/04/2024 Temperature 100.2 degrees Fahrenheit 09/08/2023 Respiratory Rate 16 /min 07/04/2024 Oximetry 98 % 07/04/2024 Blood pressure diastolic 84 mm Hg 07/04/2024 Height 62 in 07/04/2024 Blood pressure systolic 126 mm Hg 07/04/2024 Weight 210 lbs 07/04/2024 BMI 38.41 kg/m2 07/04/2024 Encounters Encounter Location Date Provider Diagnosis [address], [place] [address] 09/07/2023 Tiffanie Fuchs [address] [place] [address] 10/10/2023 Rubi Souza [address] [place] [address] 01/31/2024 Gay Luciano Major depression F32.9 and Generalized anxiety disorder F41.[address] [place] [address] 02/13/2024 Gay Luciano Major depression F32.9 [facility] [address] [place] [address] 07/03/2024 Cony Naranjo [address] [place] [address] 07/09/2024 Gay Luciano Major depression F32.9 [facility] [place] [address] 07/11/2024 Cony Naranjo History of miscarriage Z87.59 and at early stage Z34.90 [facility] [address] [place] [address] 07/17/2024 Cony Naranjo [facility] [address] [address] 08/23/2023 Cony Naranjo Janie's disease E06.3 [facility] [address] [address] 09/12/2023 Cony Naranjo [facility] [address] [address] 09/14/2023 Cony Naranjo Breast pain N64.4 [facility] [address] [place] [address] 09/16/2023 Cony Hillngco Breast pain N64.4 [facility] [address] [address] 09/19/2023 Cony Naranjo [facility] [address] [address] 12/13/2023 Cony Naranjo [facility] [address] [place] [address] 03/05/2024 Gay Luciano [facility] [place] [address] 07/13/2024 Cony Naranjo History of miscarriage Z87.59 and at early stage Z34.90 [facility] [address] [address] 09/08/2023 Cony Marcella Nutritional counseling Z71.3 ; Breast pain N64.4 ; Nausea R11.0 and PCOS (polycystic ovarian syndrome) E28.2 [facility] [address] [place] [address] 07/04/2024 Cony Naranjo Over weight E66.3 and Missed period N92.[address] [place] [address] 07/12/2024 Gay Luciano Generalized anxiety disorder F41.1 ; Major depression F32.9 ; PTSD (post-traumatic stress disorder) F43.10 ; Medication monitoring encounter Z51.81 and Cannabis use disorder, mild, abuse F12.[address] [place] [address] 03/01/2024 Gay Luciano Generalized anxiety disorder F41.1 ; Major depression F32.9 ; PTSD (post-traumatic stress disorder) F43.10 ; Cannabis use disorder, mild, abuse F12.10 and Medication monitoring encounter Z51.81 [facility] [address] [place] [address] 09/15/2023 Tiffanie Fuchs Generalized anxiety disorder F41.1 ; Major depression F32.9 ; PTSD (post-traumatic stress disorder) F43.10 and Cannabis use disorder, mild, abuse F12.10 [facility] [address] [place] [address] 12/14/2023 Cony Naranjo PCOS (polycystic ovarian syndrome) E28.2 Assessments Encounter Date Diagnosis (ICD Code) Assessment Notes Treatment Notes Treatment Clinical Notes Section Notes 12/14/2023 PCOS (polycystic ovarian syndrome) (ICD-10 - E28.2) Lifestyle modification - including increased physical activity and healthy diet resulting in weight loss and improved body composition 02/13/2024 Major depression (ICD-10 - F32.9) 07/09/2024 Major depression (ICD-10 - F32.9) 07/12/2024 Generalized anxiety disorder (ICD-10 - F41.1) Encouraged coping skills, continue Zoloft. Buspirone tried 2x, causes hypersexuality for client. 07/11/2024 History of miscarriage (ICD-10 - Z87.59) 07/11/2024 at early stage (ICD-10 - Z34.90) 07/04/2024 Over weight (ICD-10 - E66.3) 07/04/2024 Missed period (ICD-10 - N92.6) 03/01/2024 Generalized anxiety disorder (ICD-10 - F41.1) Starting low dose as client reports hx of taking this but my anxiety was high at the time, so I am not sure if I had side effects or not. Discussed to stop if noticing any SE. Discussed r/b/se. 09/08/2023 Breast pain (ICD-10 - N64.4) 09/08/2023 Nutritional counseling (ICD-10 - Z71.3) 09/15/2023 Generalized anxiety disorder (ICD-10 - F41.1) Today's visit: Patient is a 33-year-old female who presents for a psychiatric f/u over phone and is located in [place]. I am seeing her during the temporary [...] or be administered own oral medications per [facility] protocols. Provided informed consent with understanding of side effects, adverse effects, risks and benefits as well as alternative treatments as previously discussed and with the above recommended medications & other aspects of the treatment program. Agrees to return sooner if symptoms worsen or suicidal or homicidal ideations occur. 09/15/2023 Major depression (ICD-10 - F32.9) 08/23/2023 Janie's disease (ICD-10 - E06.3) 01/31/2024 Major depression (ICD-10 - F32.9) 09/16/2023 Breast pain (ICD-10 - N64.4) 09/14/2023 Breast pain (ICD-10 - N64.4) 07/13/2024 History of miscarriage (ICD-10 - Z87.59) 07/13/2024 at early stage (ICD-10 - Z34.90) 09/08/2023 Nausea (ICD-10 - R11.0) 01/31/2024 Generalized anxiety disorder (ICD-10 - F41.1) 09/15/2023 PTSD (post-traumati c stress disorder) (ICD-10 - F43.10) 03/01/2024 Major depression (ICD-10 - F32.9) 07/12/2024 Major depression (ICD-10 - F32.9) 07/12/2024 PTSD (post-traumati c stress disorder) (ICD-10 - F43.10) Encouraged therapy. 03/01/2024 PTSD (post-traumati c stress disorder) (ICD-10 - F43.10) Encouraged therapy. 09/15/2023 Cannabis use disorder, mild, abuse (ICD-10 - F12.10) 09/08/2023 PCOS (polycystic ovarian syndrome) (ICD-10 - E28.2) 03/01/2024 Medication monitoring encounter (ICD-10 - Z51.81) 03/01/2024 Cannabis use disorder, mild, abuse (ICD-10 - F12.10) 07/12/2024 Medication monitoring encounter (ICD-10 - Z51.81) 07/12/2024 Cannabis use disorder, mild, abuse (ICD-10 - [...] May also contact the 24-hour crisis hotline ([facility]), refer to the closest emergency room or [...] assess appearance, affect, AIMS, or vital signs. 07/12/2024 Other Reasons, potential benefits, potential risks, interactions [...] May also contact the 24-hour crisis hotline ([facility]), refer to the closest emergency room or [...] AIMS, or vital signs. Plan Of Treatment No Information Insurance Providers Payer Name Payer Address Payer Phone Subscriber Number Group Number Insured Name Patient Relationship to Insured Coverage Start Date Coverage End Date [facility] Accept Software [facility] [address] [place] [phone] [id number] Juan Jose Read Self - patient is the insured 3 5 [facility] [employer] [facility] [address] [place] [phone] [id number] Juan Jose Read Self - patient is the insured 3 5 Medical (General) History Medical History History ICD Code PCOS breast pain Surgical History Surgery Date(Month/Year) C section 2021 Hospitalization History Reason Date(Month/Year) childbirth 2021
--- OUTSIDE RECORDS SUMMARY | 2024-08-15 20:58 | XMS_ITS | Encounter Summary ---
Author Organization [facility] Health Address [address] [place] [address] Care Team Providers Care Thread Laster Name Role Phone Unavailable Primary Care Provider Unavailabl e Prior Encounters Date Type Department Care Team Description 03/19/2019 Converted CPS Chart Documents [facility] [address] [place] [address] <No scans attached> 03/19/2019 Converted 13x Documents [facility] [address], [address] [place] [address] <No scans attached> Plan of [...] MDT Visit Diagnoses Not on file Insurance [facility]
--- OUTSIDE RECORDS SUMMARY | 2024-08-15 20:58 | XMS_ITS | Clinical Summary ---
Author Organization [facility] Health Address [address] [place] [address] Care Team Providers Care Mandarin Speaking Nanny Name Role Phone Unavailable Primary Care Provider [...]
--- OUTSIDE RECORDS SUMMARY | 2024-08-15 20:58 | XMS_ITS | Referral Summary ---
Author Organization [facility] Address [address] [place] [address] Care Team Providers Care Dietitian Teacher Name Role Phone No, Physician Primary Care Provider [phone] Encounters Date Type Department Care Team Description 08/15/2024 Orders Only [address] [address] Tom Hagen MD 08/15/2024 10:20 AM CDT Lab [facility] Building [address] [place] [address] Urinary frequency; Obesity affecting , antepartum, unspecified obesity type 08/07/2024 1:37 PM CDT - 08/07/2024 11:59 PM CDT Hospital Encounter [facility] [address] [place] [address] Encounter for supervision of other normal in first trimester Discharge Disposition: Discharge to home or self care 08/07/2024 Orders Only [facility] Obstetrical Gynecology [address] [place] [phone] Bayrno Carrera MD Encounter for anatomic survey (Primary Dx) 08/07/2024 Telephone [facility] Obstetrical Gynecology [address] [place] [phone] Bayron Carrera MD 08/07/2024 11:45 AM CDT Lab [facility] Building [address] [place] [address] Encounter for supervision of other normal in first trimester; Hypothyroidism, unspecified type 08/07/2024 9:45 AM CDT Ancillary Procedure [facility] Obstetrical Gynecology [address] [place] [phone] Establish gestational age, ultrasound 08/07/2024 11:30 AM CDT Office Visit [facility] Obstetrical Gynecology [address] [place] [phone] Bayron Carrera MD Encounter for supervision of other normal in first trimester (Primary Dx); Hypothyroidism, unspecified type; Obesity affecting , antepartum, unspecified obesity type; Anxiety and depression 08/07/2024 10:30 AM CDT Clinical Support [facility] Obstetrical Gynecology [address] [place] [phone] 07/09/2024 Telephone [facility] Obstetrical Gynecology [address] [place] [phone] Bayron Carrera MD from Last 3 Months Allergies No known active allergies Medications levothyroxine (SYNTHROID) 200 mcg tablet Take 1 tablet (200 mcg total) by mouth daily Active sertraline (ZOLOFT) 100 mg tablet Take 2 tablets (200 mg total) by mouth daily 05/27/2022 Active buPROPion XL (WELLBUTRIN XL) 150 mg 24 hr tablet Take 1 tablet (150 mg total) by mouth daily 04/26/2022 Active vit 40-alcr-jhkta-dh a 27mg iron- 800 mcg-250 mg capsule Take by mouth Active metoclopramide (REGLAN) 10 mg tablet Take 1 tablet (10 mg total) by mouth every 6 (six) hours as needed (nausea) 30 tablet 2 08/07/2024 Active nitrofurantoin monohydrate (MACROBID) 100 mg capsule Take 1 capsule (100 mg total) by mouth 2 (two) times a day for 7 days 14 capsule 08/15/2024 08/23/19 25 Active Active Problems Problem Noted Date Diagnosed Date Supervision of other normal , antepartu 08/07/2024 Anxiety and depression 08/07/2024 Other specified hypothyroidism 08/07/2024 Obesity affecting , antepartum 08/08/19 25 Estimated Date of Delivery Comme nts Yes 2025 Based on last me nstrual period of 06/02/2024 Social History Tobacco Use Types Packs/Day Years Used Date Smoking Tobacco: Never Smokeless Tobacco: Never Tobacco Cessation:Counseling Given: Not Answered [place] Depression Scale Answer Date Recorded [place] Depression Scale Total 9 08/07/2024 The thought of harming myself has occurred to me . Never 08/07/2024 Estimated Date of Delivery Comme nts Yes 2025 Based on last me nstrual period of 06/02/2024 Sex and Gender Information Value Date Recorded Sex Assigned at Not on file Legal Sex Female 3:11 PM [employer] Gender Identity Not on file Sexual Orientation Not on file Last Filed Vital Signs Vital Sign Reading Time Taken Comments Blood Pressure 118/78 08/07/2024 11:16 AM CDT Pulse - - Temperature - - Respiratory Rate - - Oxygen Saturation - - Inhaled Oxygen Concentration - - Weight 94.3 kg (208 lb) 08/07/2024 11:16 AM CDT Height 154.9 cm (5' 1) 08/07/2024 10:23 AM CDT Body Mass Index 39.3 08/07/2024 10:23 AM CDT Plan of Treatment Not on file Procedures Procedure Name Priority Date/Time Associated Diagnosis Comments URINALYSIS, MICROSCOPIC ONLY Routine 08/15/2024 10:48 AM CDT Urinary frequency Obesity affecting , antepartum, unspecified obesity type URINALYSIS AND REFLEX TO MICROSCOPIC AND CULTURE Routine 08/15/2024 10:48 AM CDT Urinary frequency Obesity affecting , antepartum, unspecified obesity type T4, FREE Routine 08/07/2024 12:06 PM CDT Encounter for supervision of other normal in first trimester Hypothyroidism, unspecified type ANTIBODY SCREEN Routine 08/07/2024 12:06 PM CDT Encounter for supervision of other normal in first trimester ABO/RH Routine 08/07/2024 12:06 PM CDT Encounter for supervision of other normal in first trimester CBC WITHOUT DIFFERENTIAL Routine 08/07/2024 12:06 PM CDT Encounter for supervision of other normal in first trimester HEMOGLOBIN A1C Routine 08/07/2024 12:06 PM CDT Encounter for supervision of other normal in first trimester HEMOGLOBIN ANALYSIS BY ELECTROPHORESIS Routine 08/07/2024 12:06 PM CDT Encounter for supervision of other normal in first trimester TYPE AND SCREEN Routine 08/07/2024 12:06 PM CDT Encounter for supervision of other normal in first trimester GTT 50GM 1HR GESTATIONAL SCREEN Routine 08/07/2024 12:06 PM CDT Encounter for supervision of other normal in first trimester THYROID FUNCTION CASCADE Routine 08/07/2024 12:06 PM CDT Encounter for supervision of other normal in first trimester Hypothyroidism, unspecified type HEPATITIS B SURFACE ANTIGEN Routine 08/07/2024 12:06 PM CDT Encounter for supervision of other normal in first trimester HEPATITIS C ANTIBODY Routine 08/07/2024 12:06 PM CDT Encounter for supervision of other normal in first trimester HIV 1/2 ANTIBODY PLUS P24 ANTIGEN Routine 08/07/2024 12:06 PM CDT Encounter for supervision of other normal in first trimester MEASLES IGG ANTIBODY Routine 08/07/2024 12:06 PM CDT Encounter for supervision of other normal in first trimester RPR Routine 08/07/2024 12:06 PM CDT Encounter for supervision of other normal in first trimester RUBELLA IGG Routine 08/07/2024 12:06 PM CDT Encounter for supervision of other normal in first trimester VARICELLA ZOSTER ANTIBODY, IGG Routine 08/07/2024 12:06 PM CDT Encounter for supervision of other normal in first trimester PAP AND HIGH RISK HPV, REFLEX TO GENOTYPING Routine 08/07/2024 11:50 AM CDT Encounter for supervision of other normal in first trimester HIGH RISK HPV DNA DETECTION WITH GENOTYPING Routine 08/07/2024 11:50 AM CDT Encounter for supervision of other normal in first trimester N. GONORRHOEAE/C. TRACHOMATIS AMPLIFICATION Routine 08/07/2024 11:50 AM CDT Encounter for supervision of other normal in first trimester TRICHOMONAS VAGINALIS PCR Routine 08/07/2024 11:50 AM CDT Encounter for supervision of other normal in first trimester DRUGS OF ABUSE SCREEN, URINE WITH REFLEX CONFIRMATION Routine 08/07/2024 10:15 AM CDT Encounter for supervision of other normal in first trimester URINE CULTURE Routine 08/07/2024 10:15 AM CDT Encounter for supervision of other normal in first trimester US OB UNDER 14 WEEKS W ENDOVAGINAL Schedule Routine, Read Routine (OP Routine) 08/07/2024 9:31 AM CDT Establish gestational age, ultrasound from Last 3 Months Results * (ABNORMAL) Urinalysis reflex to microscopic and culture Urine, clean voided (08/15/2024 10:48 AM CDT) Color, ur Yellow Yellow Comment:Testing performed by : [address] [address] Clarity, ur Clear Clear BENNY Comment:Testing performed by : [address] [address] Specific gravity, ur 1.020 1.003 - 1.030 BENNY Comment:Testing performed by : [address] [address] pH, urine 6.0 BENNY Comment: Interpretive Data U rine pH is affected by diet, medications, systemic acid-base disturbances, and renal tubular function. pH may affect urinary stone formation. For example, urine pH below 6.0 may help reduce the tendency for calcium phosphate stones and pH greater than 6.0 may reduce the tendency for uric acid stone formation. Source: [facility] Current Interpretive Data was last revised on 2017 Testing performed by: [facility], [address] [place] [address], [place]., [address] Protein, ur ql Negative Negative BENNY Comment:Testing performed by : [address], [place]., [address] Glucose, ur ql Negative Negative BENNY Comment:Testing performed by : [address], [place]., [address] Ketones, ur Negative Negative BENNY Comment:Testing performed by : [address], [place]., [address] Bilirubin, ur Negative Negative BENNY Comment:Testing performed by : [address], [place]., [address] Blood, ur Negative Negative BENYN Comment:Testing performed by : [address], [place]., [address] Urobilinogen, ur <2.0 <2.0 mg/dL BENNY Comment:Testing performed by : [address], [place]., [address] Nitrite, ur Negative Negative BENNY Comment:Testing performed by : [address] [address] Leukocyte esterase, ur 3+(A) Negative BENNY Comment:Testing performed by : [address], [place]., [address] UA reflex comment Reflex to microscopic UA will be performed. BENNY Comment:Testing performed by : [address], [place]., [address] Urine, clean voided 08/15/2024 10:48 AM CDT 08/15/2024 11:49 AM CDT Narrative BENNY - 08/15/2024 11:57 AM CDT Urine Collection Method->Clean Catch Bayron Carrera MD LAB MICROBIOLOGY - GENERAL ORDERABLES Final Result Performing Organization Address [facility] Co de Phone Number BENNY [address] [address] * (ABNORMAL) Urinalysis, microscopic only (08/15/2024 10:48 AM CDT) WBC, ur 0-5 0 - 5 /HPF Comment:Testing performed by : [facility], [address] [place] [address]., [address] RBC, ur 0-2 0 - 2 /HPF BENNY Comment:Testing performed by : [address] [address] Epithelial cells, squamous, ur 21-50(A) 0 - 5 /HPF BENNY Comment:Testing performed by : [address] [address] Bacteria, ur 1+(A) BENNY Comment:Testing performed by : [address] [address] Mucous, ur Present(A) BENNY Comment:Testing performed by : [address] [address] Urine, clean voided 08/15/2024 10:48 AM CDT 08/15/2024 11:50 AM CDT Bayron Carrera MD LAB URINE ORDERABLES Final Result Performing Organization Address [facility] Co de Phone Number MARY[address] [place] [address] * (ABNORMAL) Thyroid Function [place] (08/07/2024 12:06 PM CDT) TSH 5.55(H) 0.30 - 4.20 mcIUnit/mL Comment:Testing performed by : [address] [address] Blood 08/07/2024 12:0 6 PM CDT 08/07/2024 1:43 PM CDT Bayron Carrera MD LAB BLOOD ORDERABLES Final Result Performing Organization Address [facility] Co de Phone Number BENNY [facility] [place] [address] * GTT 50gm 1hr gestational screen (08/07/2024 12:06 PM CDT) GTT 50g gest screen 127 <=140 mg/dL Comment: Interpretive Data Used for suspected gestational diabetes. The screening test uses 50 grams of glucose with sample obtained 1 hr later. Normal range: < 140 mg/dL. A glucose value of >140 mg/dL generally indicates the need for a full diagnostic tolerance test. Reference Interval Info: Diabetes Care 2005, Vol 28. Supplement 1,S37-S42. Report of the Expert Committee on the Diagnosis and Classification of Diabetes Mellitus. Diabetes Care 2020; 43(Supplement 1):S14-31. Current interpretive data was last revised on 2020. Testing performed by: [facility], [address] [place] [address]., [address] Blood 08/07/2024 12:0 6 PM CDT 08/07/2024 1:43 PM CDT Bayron Carrera MD LAB BLOOD ORDERABLES Final Result Performing Organization Address [facility] Co de Phone Number BENNY [address] [place] [address] * HIV 1/2 Antibody plus p24 Antigen Blood (08/07/2024 12:06 PM CDT) HIV 1/2 ab + p24 ag Nonreactive Nonreactive Comment:Nonreactive for HIV- 1 antigen and HIV-1/HIV-2 antibodies. No laboratory evidence of HIV infection. If acute HIV infection is suspected, consider testing for HIV-1 RNA. Current interpretive data was last revised on 21. Blood 08/07/2024 12:0 6 PM CDT 08/07/2024 2:30 PM CDT us Bayron Carrera MD LAB MICROBIOLOGY - GENERAL ORDERABLES Final Result BENNY SOTELO [address] [facility] Department [place] [address] * Hemoglobin analysis by electrophoresis (08/07/2024 12:06 PM CDT) RBC 4.58 3.90 - 5.20 M/cumm Comment:Testing performed by : [facility], 1 [facility], [address] Hgb 13.4 11.9 - 15.5 g/dL BENNY SOTELO Comment:Testing performed by : [facility], 1 [facility], [address] MCV 83.8 81.3 - 96.4 fL BENNY SOTELO Comment:Testing performed by : [facility], 1 [facility], [address] Rdw 13.1 11.1 - 14.9 % BENNY SOTELO Comment:Testing performed by : [facility], 1 [facility], [address] Hgb electrophoresis , interp Please see comment BENNY SOTELO Comment: Normal hemoglobin pattern for age Reviewed and signed by Miguel Ángel Kumar MD 08/09/2024 Testing performed by: [facility], 1 [facility], [address] Hgb A 96.9 96.0 - 98.5 % BENNY SOTELO Comment:Testing performed by : [facility], 1 [facility], [address] Hgb A2 2.7 1.5 - 3.2 % BENNY SOTELO Comment:Testing performed by : [facility], 1 [facility], [address] Hgb F 0.4 0.0 - 0.9 % BENNY SOTELO Comment:Testing performed by : [facility], 1 [facility], [address] Blood 08/07/2024 12:0 6 PM CDT 08/07/2024 1:42 PM CDT Bayron Carrera MD LAB BLOOD ORDERABLES Final Result Performing Organization Address [facility] Co de Phone Number BENNY [address] [address] * Hepatitis C antibody Blood (08/07/2024 12:06 PM CDT) Hep C Ab Nonreactive Nonreactive Comment: Antibodies to HCV not detected. Does NOT exclude the possibility of recent exposure to HCV. Current interpretive data was last revised on 21 Interpretive Data Nonreactive: Antibodies to HCV not detected. Does NOT exclude the possibility of recent exposure to HCV. Equivocal: Equivocal for HCV antibodies. Supplemental molecular testing will be automatically performed to determine infection status in accordance with current CDC screening recommendations. Reactive: Positive for HCV antibodies. This may represent current or past HCV infection. Supplemental molecular testing will be automatically performed to determine current infection status in accordance with current CDC screening recommendations. Interpretive data was last revised on 2019. Blood 08/07/2024 12:0 6 PM CDT 08/07/2024 2:30 PM CDT Bayron Carrera MD LAB MICROBIOLOGY - GENERAL ORDERABLES Final Result Performing Organization Address [facility] Co de Phone Number MARY[address] [address] * Measles IgG antibody Blood (08/07/2024 12:06 PM CDT) Measles IgG Reactive Comment: Reactive: Results suggest response to immunization or prior exposure to the virus. Testing performed by: [facility], 1 [facility], [place]., [address] Blood 08/07/2024 12:0 6 PM CDT 08/07/2024 3:43 PM CDT Bayron Carrera MD LAB MICROBIOLOGY - GENERAL ORDERABLES Final Result Performing Organization Address [facility] Co de Phone Number [address] [address] * ABO/Rh (08/07/2024 12:06 PM CDT) Pathologist [facility] ABO/Rh O Positive Comment:Testing performed by : [facility], [address] [place] [address]., [address] Blood 08/07/2024 12:0 6 PM CDT 08/07/2024 1:43 PM CDT Narrative [facility] - 08/07/2024 2:18 PM CDT Has the patient had Daratumumab or Isatuximab in the past 6 months?->Unknown Hx of or candidate for Bone Marrow/Stem Cell transplant?->No Bayron Carrera MD LAB BLOOD BANK TEST ORDERA BLES Final Result Performing Organization Address [facility] Co de Phone Number [address] [address] * Rubella IgG antibody Blood (08/07/2024 12:06 PM CDT) Pathologist [facility] Rubella IgG Reactive Reactive Blood 08/07/2024 12:0 6 PM CDT 08/07/2024 2:30 PM CDT Bayron Carrera MD LAB MICROBIOLOGY - GENERAL ORDERABLES Final Result Performing Organization Address [facility] Co de Phone Number [address] [address] * RPR Blood (08/07/2024 12:06 PM CDT) Pathologist [facility] RPR Nonreactive Nonreactive Comment:Testing performed by : [facility], [address] [facility], [place]., [address] Blood 08/07/2024 12:0 6 PM CDT 08/07/2024 3:43 PM CDT Bayron Carrera MD LAB MICROBIOLOGY - GENERAL ORDERABLES Final Result Performing Organization Address [facility] Co de Phone Number BENNY [address] [address] * Hepatitis B Surface Antigen Blood (08/07/2024 12:06 PM CDT) Pathologist [facility] HepBsAg Nonreactive Nonreactive Blood 08/07/2024 12:0 6 PM CDT 08/07/2024 2:30 PM CDT Bayron Carrera MD LAB MICROBIOLOGY - GENERAL ORDERABLES Final Result Performing Organization Address [facility] de Phone Number MARY[address] [address] * CBC without differential (08/07/2024 12:06 PM CDT) [facility] WBC 9.24 3.80 - 9.90 K/cumm Comment:Testing performed by : [address] [address] Hgb 13.4 11.9 - 15.5 g/dL BENNY SOTELO Comment:Testing performed by : [address] [address] Hct 38.1 35.6 - 45.5 % BENNY Comment:Testing performed by : [address] [address] Plt 238 150 - 400 K/cumm BENNY SOTELO Comment:Testing performed by : [address] [address] MPV 10.1 9.1 - 12.3 fL BENNY SOTELO Comment:Testing performed by : [address] [address] RBC 4.50 3.90 - 5.20 M/cumm BENNY SOTELO Comment:Testing performed by : [address] [address] MCV 84.7 81.3 - 96.4 fL BENNY SOTELO Comment:Testing performed by : [address] [address] MCH 29.8 27.1 - 33.3 pg BENNY SOTELO Comment:Testing performed by : [address] [address] MCHC 35.2 32.3 - 35.7 g/dL BENNY SOTELO Comment:Testing performed by : [address] [address] RDW CV 13.0 11.1 - 14.9 % BENNY Comment:Testing performed by : [address] [address] RDW SD 39.8 35.7 - 48.1 fL BENNY Comment:Testing performed by : [address] [address] NRBC abs 0.00 0.00 - 0.01 K/cumm BENNY Comment:Testing performed by : [address] [address] Blood 08/07/2024 12:0 6 PM CDT 08/07/2024 1:42 PM CDT Bayron Carrera MD LAB BLOOD ORDERABLES Final Result BENNY [facility]8 [facility] Department [place] [address] * Antibody screen (08/07/2024 12:06 PM CDT) Pily, indirect, Gel Interpretation Negative ABSC Comment:Testing performed by : [address] [address] Blood 08/07/2024 12:0 6 PM CDT 08/07/2024 1:43 PM CDT Narrative BENNY - 08/07/2024 2:18 PM CDT Has the patient had Daratumumab or Isatuximab in the past 6 months?->Unknown Hx of or candidate for Bone Marrow/Stem Cell transplant?->No Bayron Carrera MD LAB BLOOD BANK TEST ORDERA BLES Final Result Performing Organization Address [facility] Co de Phone Number [address] [address] * Varicella Zoster IgG antibody Blood (08/07/2024 12:06 PM CDT) Pathologist [facility] VZV IgG Reactive Reactive Comment: Reactive: Results suggest response to immunization or prior exposure to the virus. Testing performed by: [facility], 1 [facility] [place] [address] Blood 08/07/2024 12:0 6 PM CDT 08/07/2024 3:43 PM CDT Bayron Carrera MD LAB MICROBIOLOGY - GENERAL ORDERABLES Final Result Performing Organization Address [facility] de Phone Number [address] [place] [address] * T4, free (08/07/2024 12:06 PM CDT) Pathologist [facility] Free T4 1.02 0.90 - 1.70 ng/dL Comment:Testing performed by : [address] [address] Blood 08/07/2024 12:0 6 PM CDT 08/07/2024 1:43 PM CDT Narrative BENNY - 08/07/2024 2:46 PM CDT This test was reflexed from a TSH result. Bayron Carrera MD LAB BLOOD ORDERABLES Final Result Performing Organization Address [facility] Co de Phone Number [address] [address] * Hemoglobin A1c (08/07/2024 12:06 PM CDT) [facility] Hgb A1C 4.9 4.0 - 5.6 % Comment:Testing performed by : [address], [place]., [address] Estimated Average Glucose 94 mg/dL BENNY SOTELO Comment: The ADA recommends reporting an estimated Average Glucose (eAG) with all Hemoglobin A1c results using the equation derived from a study of 507 normal and diabetic adults. Minority populations were underrepresented and children were not included. (Diabetes Care 31:0885-3634, 2008). The eAG is not equivalent to a fasting glucose. Testing performed by: [facility], [address] [place] [address]., [address] Blood 08/07/2024 12:0 6 PM CDT 08/07/2024 1:42 PM CDT Bayron Carrera MD LAB BLOOD ORDERABLES Final Result BENNY SOTELO [facility] Department [place] [address] * High Risk HPV DNA Detection with Genotyping (Molecular component) (08/07/2024 11:50 AM CDT) HPV HR [address] [facility] Comment:Testing performed by : [facility], 1 [place]., [address] HPV HR 18 Not Detected Not Detected BENNY SOTELO Comment:Testing performed by : [facility], [address] [place]., [address] HPV HR Non 16/18 Not Detected Not Detected BENNY SOTELO Comment: Interpretive Data Nucleic acid amplification for detection of high-risk Human Papilloma virus (HPV) is performed by the Rashawn Do 6800 HPV test. This assay specifically detects HPV-16 and HPV-18 genotypes. The following HPV genotypes are detected as high-risk HPV: HPV-31, 33, 35, ,39, 45, 51, 52, 56, 58, 59, 66, and 68. This assay has been approved by the [place] Food and Drug Administration for detection of HPV in cervical specimens collected by a physician using an endocervical brush/spatula or cervical broom and placed in the ThinPrep Pap Test PreservCyt collection containers. The performance characteristics of this test have been verified by the [facility] Molecular Infectious Disease laboratory. Correlate with separately reported cytology results, as applicable. Interpretive data last revised 22 Testing performed by: [facility], [address] [place]., [address] Endocervical 08/07/2024 11:5 0 AM CDT 08/09/2024 8:32 PM CDT Narrative [facility] - 08/10/2024 7:08 PM CDT Clinical history and diagnosis->screening Number of vials->1 Testing type->Screening Last menstrual period (date if known)->06/02/2024 Bayron Carrera MD LAB BODY FLUIDS AND STOOLS ORDERABLES Final Result [facility] [address] [facility] Department [place] [address] [facility] * Pap and High Risk HPV and Genotyping (Cytology Component) (08/07/2024 11:50 AM CDT) Thin prep (Pap test) 08/07/2024 11:50 AM CDT 08/09/2024 10:49 AM CDT Narrative PATHOLOGY [facility] - 08/14/2024 8:49 AM CDT EPIC results best viewed via link to PDF [facility] One [place] [address] Note to Patients: This report may contain a detailed description of human tissue sent by a health care provider to the laboratory for pathologic evaluation. The content of this report is essential for diagnosis and may provide important critical findings. This information may be unfamiliar to patients to review without a medical professional present. It is advised that the patient review this report in the presence of a health care provider who can answer questions and explain the details. CYTOPATHOLOGY REPORT FINAL Patient Name: LISANDRO READ Gender: F : 1990 (Age: 34) Address: [address] [place] [address], [place] [address] [facility] #: [id number] Service: DEFAULT Location: Patient Type: [facility] SPECIMEN Taken: 08/07/2024 Received: 08/09/2024 Accessioned: 08/09/2024 Reported: 08/14/2024 Physician(s): Dr. Bayron Carrera M.D. FINAL INTERPRETATION SOURCE OF SPECIMEN Liquid based Thin Prep pap with HPV: STATEMENT OF ADEQUACY - Satisfactory for evaluation - Endocervical cells/transformation zone sample absent GENERAL CATEGORIZATION: - Negative for squamous intraepithelial lesion or malignancy Comments (Normal-Negative for High Risk HPV) HPV HR 16- Not detected HPV HR 18-Not detected HPV HR non 16/18- Not detected Interpretive Data Nucleic acid amplification for detection of high-risk Human Papilloma virus (HPV) is performed by the Rashawn Do 6800 HPV test. This assay specifically detects HPV- 16 and HPV-18 genotypes. The following HPV genotypes are detected as high-risk HPV: HPV-31, 33, 35, 39, 45, 51, 52, 56, 58, 59, 66, and 68. This assay has been approved by the [place] Food and Drug Administration for detection of HPV in cervical specimens collected by a physician using an endocervical brush/spatula or cervical broom and placed in the ThinPrep Pap Test PreservCyt collection containers. The performance characteristics of this test have been verified by the [facility] Disease laboratory. Correlate with reported cytology results, as applicable. Interpretive data last revised 22 hill/08/14/2024 08:49 BIJU Peter(ASCP) Report Electronically Reviewed and Signed Out By BIJU Peter(ASCP) 08/14/2024 08:49:19 Cervicovaginal Cytology (Pap Test) Disclaimer: The Pap test is a screening test used to detect cervical cancer and its precursors; it is not a diagnostic procedure. False negative and false positive results do occur. Pap test results should be interpreted in the context of pertinent clinical information and biopsy results as indicated. [facility] Clinical Laboratory Improvement Amendments (CLIA) mandate that cytologic and histologic results be correlated for laboratory quality control engineer & improvement standards. FOR ALL HIGH-GRADE CASES we request submission of follow-up histological material and/or reports that have not been previously provided so that we may fulfill said required standards. Gross Description A. Liquid based Thin Prep pap with HPV: Cervical/vaginal - Screening ThinPrep Clinical Diagnosis and History Last Menstrual Period: 06/02/2024 The patient is a 34 year old woman with screening pap. Report Images and scanned documents, if included only viewable in PDF version The performance characteristics of some immunohistochemical stains, in-situ hybridization and fluorescence in-situ hybridization tests and immunophenotyping by flow cytometry cited in this report (if any) were determined by the Surgical Pathology Department at [facility] as part of an ongoing quality control engineer program and in compliance with federally mandated regulations drawn from the Clinical Laboratory Improvement Act of 1988 (CLIA '88). Some of these tests rely on the use of analyte specific reagents and are subject to specific labeling requirements by the [place] Food and Drug Administration. Such diagnostic tests may only be performed in a facility that is certified by the Department of Health and Human Services as a high complexity laboratory under CLIA '88. The FDA has determined that such clearance or approval is not necessary. This test is used for clinical purposes. It should not be regarded as investigational or for research. Nevertheless, federal rules concerning the medical use of analyte specific reagents require that the following disclaimer be attached to the report: This test was developed and its performance characteristics determined by the Surgical Pathology Department of [facility]. It has not been cleared or approved by the U. S. Food and Drug Administration. Bayron Carrera MD LAB CYTOLOGY ORDERABLES Fi nal Result PATHOLOGY [facility] * N. gonorrhoeae/C. trachomatis Amplification Vaginal (08/07/2024 11:50 AM CDT) C. trachomatis Not Detected [facility] Comment:Testing performed by : [facility], [address] [facility] [place]., [address] N. gonorrhoeae Not Detected [facility] Comment: Interpretive Data This assay detects Chlamydia trachomatis and Neisseria gonorrhoeae by nucleic acid amplification testing (NAAT). This assay has been cleared by the [place] Food and Drug administration. The performance characteristics of this test have been verified by the [facility] laboratory. The performance characteristics of this test have not been evaluated in individuals less than 14 years of age. Current Interpretive Data was last revised on 2023. Testing performed by: [facility], [address] [place] [address]., [address] Vaginal (None) 08/07/2024 11 :50 AM CDT 08/07/2024 8:08 PM CDT Bayron Carrera MD LAB MICROBIOLOGY - GENERAL ORDERABLES Final Result Performing Organization Address [facility] Co de Phone Number [address] [place] [address] [facility] * Trichomonas vaginalis PCR Vaginal (08/07/2024 11:50 AM CDT) Trichomonas DNA Not Detected [facility] Comment: Interpretive Data This assay detects Trichomonas vaginalis by nucleic acid amplification testing (NAAT). This assay has been cleared by the [place] Food and Drug administration. The performance characteristics of this test have been verified by the [facility] laboratory. The performance of this test has not been evaluated in individuals less than 18 years of age. Current Interpretive Data was last revised on 2023. Testing performed by: [facility], [address] [place] [address]., [address] Vaginal 08/07/2024 11:5 0 AM CDT 08/07/2024 8:08 PM CDT Bayron Carrera MD LAB MICROBIOLOGY - GENERAL ORDERABLES Final Result Performing Organization Address [facility] Co de Phone Number [address] [place] [address] [facility] * (ABNORMAL) Drugs of Abuse Screen, Urine with Reflex Confirmation (08/07/2024 10:15 AM CDT) Amphetamine, ur Not Detected [facility] 500ng/mL Comment: Interpretive Data - Amphetamines: Samples containing greater than 500 ng/mL d-methamphetamine or other cross-reacting amphetamine compounds are reported as positive. Amphetamine immunoassays are subject to significant false positive rates due to cross-reactivity of non-amphetamine drugs. Confirmatory testing required for definitive results. Current Interpretive Data was last reviewed 2022. Testing performed by: [address] [address] Barbiturates, ur Not Detected CutOff 200ng/mL [facility] Comment: Interpretive Data - Barbiturates: Samples containing greater than 200 ng/mL secobarbital or other cross-reacting barbiturate compounds are reported as positive. False positive and false negative results are possible. Confirmatory testing required for definitive results. Current Interpretive Data was last reviewed 2022. Testing performed by: [address] [address] Benzodiazepines, ur Not Detected CutOff 100ng/mL [facility] Comment: Interpretive Data - Benzodiazepines: Samples containing greater than 100 ng/mL nordiazepam or other cross-reacting compounds are reported as positive. False positive and false negative results are possible. Confirmatory testing required for definitive results. Current Interpretive Data was last reviewed 2022. Testing performed by: [address] [address] Cannabinoids, ur Screen Positive, presumptive (A) CutOff 50 ng/mL [facility] Comment: Interpretive Data - Cannabinoids: Samples containing greater than 50 ng/mL delta-9 THC -COOH or other cross- reacting compounds are reported as positive. False positive and false negative results are possible. Confirmatory testing required for definitive results. Current Interpretive Data was last reviewed 2022. Testing performed by: [address] [address] Cocaine, ur Not Detected CutOff 150ng/mL [facility] Comment: Interpretive Data - Cocaine: Samples containing greater than 150 ng/mL benzoylecgonine or other cross- reacting compounds are reported as positive. False positive and false negative results are possible. Confirmatory testing required for definitive results. Current Interpretive Data was last reviewed 2022. Testing performed by: [address] [address] Fentanyl, Ur Not Detected Cutoff 1 ng/mL [facility] Comment: Interpretive Data - Fentanyl: Samples containing greater than 1 ng/mL fentanyl or other cross-reacting fentanyl compounds are reported as positive. False positive and false negative results are possible. Confirmatory testing required for definitive results. Current Interpretive Data was last reviewed 2022. Testing performed by: [address] [address] Methadone, ur Not Detected CutOff 300ng/mL [facility] Comment: Interpretive Data - Methadone: Samples containing greater than 300 ng/mL d,l-methadone or other cross-reacting compounds are reported as positive. False positive and false negative results are possible. Confirmatory testing required for definitive results. Current Interpretive Data was last reviewed 2022. Testing performed by: [address] [address] Opiates, ur Not Detected CutOff 300ng/mL [facility] Comment: Interpretive Data - Opiates: Samples containing greater than 300 ng/mL morphine or other cross-reacting compounds are reported as positive. False positive and false negative results are possible. Confirmatory testing required for definitive results. Current Interpretive Data was last reviewed 2022. Testing performed by: [address] [address] Oxycodone, ur Not Detected CutOff 100ng/mL [facility] Comment: Interpretive Data - Oxycodone: Samples containing greater than 100 ng/mL oxycodone or other cross-reacting compounds are reported as positive. False positive and false negative results are possible. Confirmatory testing required for definitive results. Current Interpretive Data was last reviewed 2022. Testing performed by: [address] [address] Phencyclidine, ur Not Detected CutOff 25 ng/mL [facility] Comment: Interpretive Data - Phencyclidine: Samples containing greater than 25 ng/mL phencyclidine or other cross-reacting compounds are reported as positive. False positive and false negative results are possible. Confirmatory testing required for definitive results. Current Interpretive Data was last reviewed 2022. Testing performed by: [address] [address] Urine Creatinine 273 mg/dL [facility] Comment: Interpretive Data Urine Creatinine: < 10 mg/dL is extremely dilute = or > 10 but < 20 mg/dL is dilute = or > 20 mg/dL is normal Current Interpretive Data was last revised on 2017. Testing performed by: [facility], [address] [place] [address]., [address] Urine 08/07/2024 10:1 5 AM CDT 08/07/2024 4:46 PM CDT Narrative BENNY - 08/07/2024 5:15 PM CDT Drug of Abuse screening is performed by immunoassay for medical purposes only. This is not to be used for Pain Management purposes. If Detected, confirmation testing will be performed for Amphetamines, Cocaine, Fentanyl, Methadone, Opiates, Oxycodone or Phencyclidine. Bayron Carrera MD LAB URINE ORDERABLES Final Result Performing Organization Address City/[facility]/ZIP Co de Phone Number MARY[address] [place] [address] * Urine culture Urine, clean voided (08/07/2024 10:15 AM CDT) Report Final Report: Less than 100,000 colonies/mL (clinically insignificant growth based on current clinical standards) Comment:Testing performed by : [facility], [address] [facility] [place]., [address] Organism (CLINICALLY INSIGNIFICANT GROWTH [facility] Urine, clean voided 08/07/2024 10:15 AM CDT 08/07/2024 8:39 PM CDT Narrative BENNY - 08/10/2024 6:33 AM CDT Testing performed by [facility] ([phone]) Bayron Carrera MD LAB MICROBIOLOGY - GENERAL ORDERABLES Final Result [address] [place] [address] * US OB Under 14 Weeks W Endovaginal (08/07/2024 9:31 AM CDT) Anatomical Region Laterality Modality Abdomen N/A Ultrasound 08/07/2024 9:35 AM CDT Impressions 08/07/2024 11:37 AM CDT Physician interpretation: Single living intrauterine gestation at 9 weeks and 3 days by last menstrual period for an CIARA of 2025, ultrasound size consistent with dates. Narrative Procedure Note Bayron Carrera MD - 08/07/2024 IMPRESSION: Physician interpretation: Single living intrauterine gestation at 9 weeksand 3 days by last menstrual period for an CIARA of 2025, ultrasoundsize consistent with dates. us Bayron Carrera MD IMG OB US PROCEDURES Final Result from Last 3 Months Insurance [facility] Care Teams Dietitian Teacher Relationship Specialty Start Date End Date No, Physician PCP - General 03/08/23
--- OUTSIDE RECORDS SUMMARY | 2024-08-15 20:58 | XMS_ITS ---
Author Organization [facility] Address [address] [place] [address] Care Team Providers Care Vocational Placement Specialist Name Role Phone Cony Naranjo Primary Care Provider [phone] Gay Luciano Unavailable [phone] Results Component Value Reference Range Notes hCG,Beta Subunit, Qnt, Serum Reviewed date:07/17/2024 02:54:50 PM Interpretation: Performing Lab:[facility] [place], [address] [facility], [place], Phone - [phone], Director - Zoey Notes/Report: hCG,Beta Subunit,Qnt,Serum 5700 Female (Non-) 0 - 5 (Postmenopausal) 0 - 8 . Female () Weeks of Gestation 3 6 - 71 4 10 - 750 5 935 - 3838 6 957 - 12200 7 1888 -[phone] 8 28007 -[phone] 9 [id number] -[id number] 00788 -495729 12 22270 -282871 14 57193 - 41080 15 17999 - 40107 16 3893 - 25196 17 2356 - 25033 18 0979 - [address] Rashawn ECLIA methodology REASON FOR VISIT labs hcg Social History Sex Assigned At : Social History Observation Description Sex Assigned At Female Encounters Encounter Location Date Provider Diagnosis [facility] [address] [place] [address] 07/13/2024 Cony Naranjo History of miscarriage Z87.59 and at early stage Z34.90 Assessments Encounter Date Diagnosis (ICD Code) Assessment Notes Treatment Notes Treatment Clinical Notes Section Notes 07/13/2024 History of miscarriage (ICD-10 - Z87.59) 07/13/2024 at early stage (ICD-10 - Z34.90) Plan Of Treatment No Information Progress Notes * Juan Jose READDOB:1990 (34 yo F)Acc No.[id number]:07/13/2024 UNLOCKED PROGRESS NOTE Patient: Juan Jose JAUREGUI Provider: Lorie Naranjo, MSN, SUPERINTENDENT [employer], PROSPECTING OBSERVER-BC, PROSPECTING OBSERVER-C :1990 A ge:34 Y S ex:Female Date:07/13/2024 Address:[address] [place], [place] [id number] Check 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 Labs hcg. * Medical History: Objective: * Vitals: Assessment: * Assessment: 1. H istory of miscarriage - Z87.59 2 . P regnancy at early stage - Z34.90? Plan: * Treatment: 2. P regnancy at early stage L AB: hCG,Beta Subunit, Qnt, Serum (Collection Date & Time - 07/13/2024) * * Electronic signature of Vinayak Naranjo APRN, [id number] on 08/15/2024 at 10:22 AM CDT Sign off status: Pending * Provider: Lorie Naranjo, MSN, SUPERINTENDENT [employer], PROSPECTING OBSERVER-BC, PROSPECTING OBSERVER-C Date: 0 07/13/2024 Generated for Printing/Faxing/eTransmitting on: 0 08/15/2024 10:22 AM CDT
--- OUTSIDE RECORDS SUMMARY | 2024-08-15 20:58 | XMS_ITS | Encounter Summary ---
Author Organization [facility] Address [address] [place] [address] Care Team Providers Care [address] Service Name Role Phone No, Physician Primary Care Provider [phone] Encounter Details Date Type Department Care Team (Late st Contact Info) Description 08/15/2024 Orders Only [facility] [address] [place], [place] [id number] Tom Hagen MD [address] [id number] Social History Tobacco Use Types Packs/Day Years Used Date Smoking Tobacco: Never Smokeless Tobacco: Never Beeler Depression Scale Answer Date Recorded Beeler Depression Scale Total 9 08/07/2024 The thought of harming myself has occurred to me . 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 Gender Identity Not on file Sexual Orientation Not on file documented as of this encounter Ordered Prescriptions Prescription Sig Dispense Quantity Refills Last Filled Start Date End Date nitrofurantoin monohydrate (MACROBID) 100 mg capsule Take 1 capsule (100 mg total) by mouth 2 (two) times a day for 7 days 14 capsule 08/15/2024 documented in this encounter Plan of Treatment Not on file documented as of this encounter Visit Diagnoses Not on filedocumented in this encounter Care Teams [address] Service Relationship Specialty Start Date End Date No, Physician PCP - General 03/08/23 documented as of this encounter
--- OUTSIDE RECORDS SUMMARY | 2024-08-15 20:58 | XMS_ITS | Clinical Summary ---
Author Organization 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 Name Role Phone No, Physician Primary Care Provider [phone] Allergies No known active allergies Medications levothyroxine (SYNTHROID) 200 mcg tablet Take 1 tablet (200 mcg total) by mouth daily Active sertraline (ZOLOFT) 100 mg tablet Take 2 tablets (200 mg total) by mouth daily 05/27/2022 Active buPROPion XL (WELLBUTRIN XL) 150 mg 24 hr tablet Take 1 tablet (150 mg total) by mouth daily 04/26/2022 Active vit 54-znce-zeipp-dh a 27mg iron- 800 mcg-250 mg capsule Take by mouth Active metoclopramide (REGLAN) 10 mg tablet Take 1 tablet (10 mg total) by mouth every 6 (six) hours as needed (nausea) 30 tablet 2 08/07/2024 Active nitrofurantoin monohydrate (MACROBID) 100 mg capsule Take 1 capsule (100 mg total) by mouth 2 (two) times a day for 7 days 14 capsule 08/15/2024 08/23/19 Active Active Problems Problem Noted Date Diagnosed Date Supervision of other normal , antepartu m 08/07/2024 Anxiety and depression 08/07/2024 Other specified hypothyroidism 08/07/2024 Obesity affecting , antepartum 08/08/19 25 Estimated Date of Delivery Comme nts Yes 2025 Based on last me nstrual period of 06/02/2024 Encounters Date Type Department Care Team Description 08/15/2024 10:20 AM CDT Lab [facility] Office Building [address] [place] [address] Urinary frequency; Obesity affecting , antepartum, unspecified obesity type 08/15/2024 Orders Only [facility] [address] [place] [address] Tom Hagen MD 08/07/2024 1:37 PM CDT - 08/07/2024 11:59 PM CDT Hospital Encounter [facility] [address] [place] [address] Encounter for supervision of other normal in first trimester Discharge Disposition: Discharge to home or self care 08/07/2024 11:45 AM CDT Lab [facility] Building [address] [place] [address] Encounter for supervision of other normal in first trimester; Hypothyroidism, unspecified type 08/07/2024 11:30 AM CDT Office Visit [facility] Obstetrical Gynecology [address] [place] [phone] Bayron Carrera MD Encounter for supervision of other normal in first trimester (Primary Dx); Hypothyroidism, unspecified type; Obesity affecting , antepartum, unspecified obesity type; Anxiety and depression 08/07/2024 10:30 AM CDT Clinical Support [facility] Obstetrical Gynecology [address] [place] [phone] 08/07/2024 9:45 AM CDT Ancillary Procedure [facility] Obstetrical Gynecology [address] [place] [phone] Establish gestational age, ultrasound 08/07/2024 Orders Only [facility] Obstetrical Gynecology [address] [place] [phone] Bayron Carrera MD Encounter for anatomic survey (Primary Dx) 08/07/2024 Telephone [facility] Obstetrical Gynecology [address] [place] [address] [phone] Bayron Carrera MD 07/09/2024 Telephone [facility] Obstetrical Gynecology [address] [facility] [address] [place] [phone] Bayron Carrera MD from Last 3 Months Surgical History Surgery Date Site/Laterality Comments SECTION Medical History Medical History Date Comments Depression Anxiety Hypothyroidism Polycystic ovary syndrome Family History Medical History Relation Name Comments Breast cancer Neg Hx Colon cancer Neg Hx Ovarian cancer Neg Hx Uterine cancer Neg Hx Social History Tobacco Use Types Packs/Day Years Used Date Smoking Tobacco: Never Smokeless Tobacco: Never Tobacco Cessation:Counseling Given: Not Answered Mead Depression Scale Answer Date Recorded Mead Depression Scale Total 9 08/07/2024 The thought of harming myself has occurred to me . Never 08/07/2024 Estimated Date of Delivery Comme nts Yes 2025 Based on last me nstrual period of 06/02/2024 Sex and Gender Information Value Date Recorded Sex Assigned at Not on file Legal Sex Female 3:11 PM [employer] Gender Identity Not on file Sexual Orientation Not on file Obstetrics History Para Term AB IAB SAB Ectopic Multiple Livin g Live Births 5 1 1 3 2 1 1 Date Outcome GA Total Labor Labor/2nd/3rd Weight Sex Type Anes PTL Arianne A1 A5 Name Clin 2020 SAB 2021 SAB 022 Term 37w 0d 2.92 kg (6 lb 7 oz) F CS-LT ranv Combin ed Spinal /Epidu ral Livin g Delivery Location:[facility] 02/2023 AB Current Summary Episode Dates Number of Fetuses Estimated Date of Delivery 08/07/2024 - Present (08/15/2024) 1 2025 (set by Clarisse Gomez RN on 08/07/2024 based on Last Menstrual Period on 06/02/2024) Dating Summary Based On CIARA GA Diff Last Menstrual Period on 06/02/2024 2025 Working Ultrasound on 08/07/2024 03/12/2025 -3d GA:9w0d Overview and Plan :Cohen Support person:Ryan Delivery Plans Planned delivery method:TOLAC Planned delivery location:[facility] Overview Surveillance of EDC by LMP = 9 week US Labs: ordered Genetics: Anatomy: 20 weeks GCT: 26-28 weeks 3rd trim CBC/HIV/RPR Tdap: 27+ weeks GBS: 36 weeks, or sooner if early delivery indicated Social Barriers: none Mode of feeding: Method of contraception: Delivery Planning: TBD H/o x 1, would like to TOLAC Obesity: early glucose ordered Hypothyroid: Synthroid, TSH ordered Anxiety/ depression: Zoloft and Wellbutrin H/o alcohol abuse: sober for 5 years Vitals Pregravid Weight Height TWG (As of 08/15/2024) Pregrav id BMI 94.3 kg (208 lb) 154.9 cm (5' 1) 0 kg (0 lb) 39.32 Notes Progress Notes - Clinical Michel pport - 08/07/2024 - GA:9w3d 08/07/2024 - - Clarisse Gomez, RN Pt is overall doing well but would like to discuss nausea. Dating US completed in office today. CIARA reviewed with the pt. PNL, early glucose and TSH ordered today. NIPT and carrier screen discussed with the pt. She will let us know if she wants to compete the testing at 11 weeks or after. Pap and STI testing to be collected in office today. Tdap recommendations reviewed with the pt. H/o x 1, pt would like to TOLAC. Depression and anxiety, EPDS and TANVI 7 completed in office. H/o alcohol abuse, pt has been sober for 5 years. OB call schedule reviewed with the pt. NOB packet reviewed with the pt and her questions were answered. Progress Notes - Office Visi t - 08/07/2024 - GA:w3d 08/07/2024 - - Bayron Carrera MD New OB Visit Lisandro Read is a 34 y.o. at 9w3d Reports frequent nausea with dry heaves. Taking vitamin B6 and Unisom. Feels she is doing p retty good emotionally. Histories Medical has a past medical history of Anxiety, Depression, Hypothyroidism, and Polycystic ovary syndrome. Surgical has a past surgical history that includes section. Social reports that she has never smoked. She has never used smokeless tobacco. No alcohol history on file. reports that she does not currently use drugs after having used the following drugs: Alcohol. reports being sexually active and has had partner(s) who are male. Meds Current Outpatient Medications: buPROPion XL (WELLBUTRIN XL) 150 mg 24 hr tablet, Take 1 tablet (150 mg total) by mouth daily, Disp: , Rfl: levothyroxine (SYNTHROID) 200 mcg tablet, Take 1 tablet (200 mcg total) by mouth daily, Disp: , Rfl: vit 65-hbmy-seezq-dha 27mg iron- 800 mcg-250 mg capsule, Take by mouth, Disp: , Rfl: sertraline (ZOLOFT) 100 mg tablet, Take 2 tablets (200 mg total) by mouth daily, Disp: , Rfl: Allergies Patient has no known allergies. Objective Vitals BP 118/78 Wt 208 lb (94.3 kg) LMP 06/02/2024 BMI 39.30 kg/m Body mass index is 39.3 kg/m . Physical Exam General Examination: GENERAL APPEARANCE: well developed, well nourished, in no acute distress. HEAD: atraumatic, normocephalic. NEUROLOGIC: cranial nerves 2-12 grossly intact. PSYCH: alert, oriented, judgement and insight good, mood/affect normal. Gynecological: EXTERNAL GENITALIA: no lesions, no erythema, no evidence of trauma. URETHRAL MEATUS: normal. VAGINA: small amount of medium consistency pale discharge CERVIX: nontender, friable. ANUS: not examined. RECTAL: not examined. Assessment/Plan Reviewed ultrasound findings, size consistent with dates, final CIARA based on LMP Prescription for Reglan sent electronically to help with nausea. Suggested patient notify us should she need additional options. Counseled regarding options for and maternal genetic screening. Pap collected. Advised patient to friable cervix and likely spotting. Discussed history of section and patient's desire for TOLAC, calculated chance of success 42% and we support her in her desires. Discussed risks and benefits. Discussed importance of maintaining good emotional well-being, safety profile of medications, potential impact on transition. Counseled patient regarding her weight, recommended activity/exercise, healthy eating, limited weight gain, early GCT. Discussed surveillance of hypothyroidism in Reviewed practice provider and call structure Surveillance of EDC by LMP = 9 week US Labs: ordered Genetics: Counseled and considering Anatomy: 20 weeks GCT: 26-28 weeks 3rd trim CBC/HIV/RPR Tdap: 27+ weeks GBS: 36 weeks, or sooner if early delivery indicated Social Barriers: none Mode of feeding: Method of contraception: Delivery Planning: TBD H/o x 1, would like to TOLAC for AoD 2nd stage: Calculated 42% chance of success. Counseled 08/07. Obesity - IOB BMI 39.3: early glucose ordered. Counseled 08/10. Consider serial EFW. Hypothyroid: Synthroid 200 mcg, TSH ordered Anxiety/ depression: IOB EPDS 9, GAD7 10. Zoloft and Wellbutrin. No therapy, but journals. H/o alcohol abuse: sober for 5 years Diagnoses and all orders for this visit: Encounter for supervision of other normal in first trimester (Z34.81) (Primary) - CBC without differential; Future - Drugs of Abuse Screen, Urine with Reflex Confirmation; Future - Hemoglobin A1c; Future - Hemoglobin analysis by electrophoresis; Future - Hepatitis B Surface Antigen Blood; Future - Hepatitis C antibody Blood; Future - HIV 1/2 Antibody plus p24 Antigen Blood; Future - Measles IgG antibody Blood; Future - RPR Blood; Future - Rubella IgG antibody Blood; Future - Type and screen; Future - Urine culture Urine, clean voided; Future - Varicella Zoster IgG antibody Blood; Future - GTT 50gm 1hr gestational screen; Future - Thyroid Function [place]; Future Hypothyroidism, unspecified type (E03.9) - Thyroid Function [place]; Future Bayron Carrera MD Last Filed Vital Signs Vital Sign Reading [...] 08/07/2024 10:23 AM CDT Plan of Treatment Health Maintenance Due Date Last Done Comments Varicella Vaccines (1 of 2 - 13+ 2-dose series) 2003 Hepatitis B Screening 2008 Regular Well Visit/Exam 18-64 2008 Covid-19 Vaccine ( season) 2023 01/05/2021, 05/05/2020, 04/14/2020 Influenza Vaccine (Season Ended) 2024 11/17/2021, 11/09/2019, 12/15/2018, Additional history exists Cervical Cancer Screening 08/07/2025 08/07/2024, 11/2024 Depression Screening 08/07/2025 08/07/2024 DTaP/Tdap/Td Vaccine (3 - Td or Tdap) 11/07/2031 11/06/2021, 07/17/2015 Hepatitis C Screening Completed 08/07/2024 HPV Vaccines Aged Out No longer eligi ble based on patient's age to complete this topic Pneumococcal vaccine <65 Aged Out No longer eligible based on [...] ur Yellow Yellow Comment:Testing performed by : [address] [address] Clarity, ur Clear Clear BENNY Comment:Testing performed by : [address] [address] Specific gravity, ur 1.020 1.003 - 1.030 BENNY Comment:Testing performed by : [address] [address] pH, urine 6.0 BENNY Comment: Interpretive Data U rine pH is affected by diet, medications, systemic acid-base disturbances, and renal tubular function. pH may affect urinary stone formation. For example, urine pH below 6.0 may help reduce the tendency for calcium phosphate stones and pH greater than 6.0 may reduce the tendency for uric acid stone formation. Source: [facility] Current Interpretive Data was last revised on 2017 Testing performed by: [facility], [address] [place] [address]., [address] Protein, ur ql Negative Negative BENNY Comment:Testing performed by : [facility], [address] [place] [address], [place]., [address] Glucose, ur ql Negative Negative BENNY Comment:Testing performed by : [address] [address] Ketones, ur Negative Negative BENNY Comment:Testing performed by : [address], [place]., [address] Bilirubin, ur Negative Negative BENNY Comment:Testing performed by : [address], [place]., [address] Blood, ur Negative Negative BENNY Comment:Testing performed by : [address], [place]., [address] Urobilinogen, ur <2.0 <2.0 mg/dL BENNY Comment:Testing performed by : [address], [place]., [address] Nitrite, ur Negative Negative BENNY Comment:Testing performed by : [address] [address] Leukocyte esterase, ur 3+(A) Negative BENNY Comment:Testing performed by : [address] [address] UA reflex comment Reflex to microscopic UA will be performed. BENNY Comment:Testing performed by : [address] [address] Urine, clean voided 08/15/2024 10:48 AM CDT 08/15/2024 11:49 AM CDT Narrative BENNY SOTELO - 08/15/2024 11:57 AM CDT Urine Collection Method->Clean Catch us Bayron Carrera MD LAB MICROBIOLOGY - GENERAL ORDERABLES Final Result BENNY SOTELO [address] [facility] Department [place] [address] * (ABNORMAL) Urinalysis, microscopic only (08/15/2024 10:48 AM CDT) Pathologist [facility] WBC, ur 0-5 0 - 5 /HPF Comment:Testing performed by : [facility], [address] [place] [address]., [address] RBC, ur 0-2 0 - 2 /HPF BENNY Comment:Testing performed by : [address] [address] Epithelial cells, squamous, ur 21-50(A) 0 - 5 /HPF BENNY Comment:Testing performed by : [address] [address] Bacteria, ur 1+(A) BENNY Comment:Testing performed by : [address] [address] Mucous, ur Present(A) BENNY Comment:Testing performed by : [address] [address] Urine, clean voided 08/15/2024 10:48 AM CDT 08/15/2024 11:50 AM CDT us Bayron Carrera MD LAB URINE ORDERABLES Final Result Performing Organization Address [facility] Co de Phone Number [address] [employer] [address] * (ABNORMAL) Thyroid Function [place] (08/07/2024 12:06 PM CDT) Pathologist [facility] TSH 5.55(H) 0.30 - 4.20 mcIUnit/mL Comment:Testing performed by : [address] [address] Blood 08/07/2024 12:0 6 PM CDT 08/07/2024 1:43 PM CDT Bayron Carrera MD LAB BLOOD ORDERABLES Final Result Performing Organization Address City/[facility] Co de Phone Number [address] [place] [address] * GTT 50gm 1hr gestational screen (08/07/2024 [...] last revised on 2020. Testing performed by: [facility], [address] [place] [address]., [address] Blood 08/07/2024 12:0 6 PM CDT 08/07/2024 1:43 PM CDT Bayron Carrera MD LAB BLOOD ORDERABLES Final Result Performing Organization Address [facility] Co de Phone Number [facility] [address] [facility] [employer] [address] * HIV 1/2 Antibody plus p24 Antigen [...] LAB MICROBIOLOGY - GENERAL ORDERABLES Final Result [facility] [address] [facility] [place] [address] * Hemoglobin analysis by electrophoresis (08/07/2024 12:06 PM CDT) RBC 4.58 3.90 - 5.20 M/cumm Comment:Testing performed by : [facility], [address], [address] Hgb 13.4 11.9 - 15.5 g/dL BENNY SOTELO Comment:Testing performed by : [facility], [address], [address] MCV 83.8 81.3 - 96.4 fL BENNY SOTELO Comment:Testing performed by : [facility], [address], [address] Rdw 13.1 11.1 - 14.9 % BENNY SOTELO Comment:Testing performed by : [facility], [address], [address] Hgb electrophoresis , interp Please see comment BENNY SOTELO Comment: Normal hemoglobin pattern for age Reviewed and signed by Miguel Ángel Kumar MD 08/09/2024 Testing performed by: [facility], [address], [address] Hgb A 96.9 96.0 - 98.5 % BENNY SOTELO Comment:Testing performed by : [facility], [address], [address] Hgb A2 2.7 1.5 - 3.2 % BENNY SOTELO Comment:Testing performed by : [facility], [address], [address] Hgb F 0.4 0.0 - 0.9 % BENNY SOTELO Comment:Testing performed by : [facility], [address], [address] Blood 08/07/2024 12:0 6 PM CDT 08/07/2024 1:42 PM CDT Bayron Carrera MD LAB BLOOD ORDERABLES Final Result Performing Organization Address [facility] Co de Phone Number MARY[address] [address] * Hepatitis C antibody Blood (08/07/2024 12:06 [...] GENERAL ORDERABLES Final Result Performing Organization Address [facility] Co de Phone Number MARY[address] [address] * Measles IgG antibody Blood (08/07/2024 12:06 PM CDT) Measles IgG Reactive Comment: Reactive: Results suggest response to immunization or prior exposure to the virus. Testing performed by: [facility], [address] [place] [address] Blood 08/07/2024 12:0 6 PM CDT 08/07/2024 3:43 PM CDT Bayron Carrera MD LAB MICROBIOLOGY - GENERAL ORDERABLES Final Result Performing Organization Address [facility] Co de Phone Number [address] [address] * ABO/Rh (08/07/2024 12:06 PM CDT) ABO/Rh O Positive Comment:Testing performed by : [facility], [address] [place] [address]., [address] Blood 08/07/2024 12:0 6 PM CDT 08/07/2024 1:43 PM CDT Narrative [facility] - 08/07/2024 2:18 PM CDT Has the patient had Daratumumab or Isatuximab in the past 6 months?->Unknown Hx of or candidate for Bone Marrow/Stem Cell transplant?->No Bayron Carrera MD LAB BLOOD BANK TEST ORDERA BLES Final Result [address] [facility] [place] [address] * Rubella IgG antibody Blood (08/07/2024 12:06 PM CDT) Pathologist [facility] Rubella IgG Reactive Reactive Blood 08/07/2024 12:0 6 PM CDT 08/07/2024 2:30 PM CDT Bayron Carrera MD LAB MICROBIOLOGY - GENERAL ORDERABLES Final Result Performing Organization Address [facility]/ZIP Co de Phone Number [address] [facility] [place] [address] * RPR Blood (08/07/2024 12:06 PM CDT) Pathologist [facility] RPR Nonreactive Nonreactive Comment:Testing performed by : [facility], [address] [facility], [place]., [address] Blood 08/07/2024 12:0 6 PM CDT 08/07/2024 3:43 PM CDT Bayron Carrera MD LAB MICROBIOLOGY - GENERAL ORDERABLES Final Result [address] [employer] [place] [address] * Hepatitis B Surface Antigen Blood (08/07/2024 12:06 PM CDT) Pathologist [facility] HepBsAg Nonreactive Nonreactive Blood 08/07/2024 12:0 6 PM CDT 08/07/2024 2:30 PM CDT Bayron Carrera MD LAB MICROBIOLOGY - GENERAL ORDERABLES Final Result BENNY [facility] Department [place] [address] * CBC without differential (08/07/2024 12:06 PM CDT) Pathologist [facility] WBC 9.24 3.80 - 9.90 K/cumm Comment:Testing performed by : [address] [address] Hgb 13.4 11.9 - 15.5 g/dL BENNY Comment:Testing performed by : [address] [address] Hct 38.1 35.6 - 45.5 % BENNY Comment:Testing performed by : [address] [address] Plt 238 150 - 400 K/cumm BENNY Comment:Testing performed by : [address] [address] MPV 10.1 9.1 - 12.3 fL BENNY Comment:Testing performed by : [address] [address] RBC 4.50 3.90 - 5.20 M/cumm BENNY Comment:Testing performed by : [address] [address] MCV 84.7 81.3 - 96.4 fL BENNY Comment:Testing performed by : [address] [address] MCH 29.8 27.1 - 33.3 pg BENNY Comment:Testing performed by : [address] [place] [address] MCHC 35.2 32.3 - 35.7 g/dL BENNY SOTELO Comment:Testing performed by : [address], [address] RDW CV 13.0 11.1 - 14.9 % BENNY SOTELO Comment:Testing performed by : [address], [address] RDW SD 39.8 35.7 - 48.1 fL BENNY Comment:Testing performed by : [address], [address] NRBC abs 0.00 0.00 - 0.01 K/cumm BENNY Comment:Testing performed by : [address], [address] Blood 08/07/2024 12:0 6 PM CDT 08/07/2024 1:42 PM CDT Bayron Carrera MD LAB BLOOD ORDERABLES Final Result Performing Organization Address [facility]/ZIP Co de Phone Number [address] [employer] [place] [address] * Antibody screen (08/07/2024 12:06 PM CDT) Pily, indirect, Gel Interpretation Negative ABSC Comment:Testing performed by : [address], [address] Blood 08/07/2024 12:0 6 PM CDT 08/07/2024 1:43 PM CDT Narrative BENNY - 08/07/2024 2:18 PM CDT Has the patient had Daratumumab or Isatuximab in the past 6 months?->Unknown Hx of or candidate for Bone Marrow/Stem Cell transplant?->No Bayron Carrera MD LAB BLOOD BANK TEST ORDERA BLES Final Result Performing Organization Address City/[facility]/ZIP Co de Phone Number [address] [employer] [place] [address] * Varicella Zoster IgG antibody Blood (08/07/2024 12:06 PM CDT) Pathologist [facility] VZV IgG Reactive Reactive Comment: Reactive: Results suggest response to immunization or prior exposure to the virus. Testing performed by: [facility], [address] [place] [address] Blood 08/07/2024 12:0 6 PM CDT 08/07/2024 3:43 PM CDT Bayron Carrera MD LAB MICROBIOLOGY - GENERAL ORDERABLES Final Result Performing Organization Address City/[facility] Co de Phone Number [address] [address] * T4, free (08/07/2024 12:06 PM CDT) [facility] Free T4 1.02 0.90 - 1.70 ng/dL Comment:Testing performed by : [address] [address] Blood 08/07/2024 12:0 6 PM CDT 08/07/2024 1:43 PM CDT Narrative [facility] - 08/07/2024 2:46 PM CDT This test was reflexed from a TSH result. Bayron Carrera MD LAB BLOOD ORDERABLES Final Result Performing Organization Address [facility] Co de Phone Number [address] [address] * Hemoglobin A1c (08/07/2024 12:06 PM CDT) [facility] Hgb A1C 4.9 4.0 - 5.6 % Comment:Testing performed by : [address] [address] Estimated Average Glucose 94 mg/dL [facility] Comment: The ADA recommends reporting an estimated Average Glucose (eAG) with all Hemoglobin A1c results using the equation derived from a study of 507 normal and diabetic adults. Minority populations were underrepresented and children were not included. (Diabetes Care 31:7173-1425, 2008). The eAG is not equivalent to a fasting glucose. Testing performed by: [facility], [address] [place] [address]., [address] Blood 08/07/2024 12:0 6 PM CDT 08/07/2024 1:42 PM CDT Bayron Carrera MD LAB BLOOD ORDERABLES Final Result BENNY [address] [facility] Department [place] [address] * High Risk HPV DNA Detection with Genotyping (Molecular component) (08/07/2024 11:50 AM CDT) HPV HR 16 Not Detected Not Detected [facility] Comment:Testing performed by : [facility], [address] [place]., [address] HPV HR 18 Not Detected Not Detected BENNY Comment:Testing performed by : [facility], [address] [place]., [address] HPV HR Non 16/18 Not Detected Not Detected BENNY Comment: Interpretive Data Nucleic acid amplification for [...] this test have been verified by the [place] [facility] [facility] Disease [facility]. Correlate with separately reported cytology results, as applicable. Interpretive data last revised 22 Testing performed by: [facility], [address] [facility] [place]., [address] Endocervical 08/07/2024 11:5 0 AM CDT 08/09/2024 8:32 PM CDT Narrative CERNER - 08/10/2024 7:08 PM CDT Clinical history and diagnosis->screening Number of vials->1 Testing type->Screening Last menstrual period (date if known)->06/02/2024 Bayron Carrera MD LAB BODY FLUIDS AND STOOLS ORDERABLES Final Result BENNY [address] [facility] Department [place] [address] [facility] * Pap and High Risk HPV and Genotyping (Cytology Component) (08/07/2024 11:50 AM CDT) Thin prep (Pap test) 08/07/2024 11:50 AM CDT 08/09/2024 10:49 AM CDT Narrative PATHOLOGY [facility] - 08/14/2024 8:49 AM CDT EPIC results best viewed via link to PDF [facility] [place] [address] Note to Patients: This report may contain [...] REPORT FINAL Patient Name: LISANDRO READ Gender: Nicole : 1990 (Age: 34) Address: [address] [place] [address] [facility] #: [id number] Service: DEFAULT Location: Patient Type: [facility] SPECIMEN Taken: 08/07/2024 Received: 08/09/2024 Accessioned: 08/09/2024 [...] this test have been verified by the [facility] Molecular Infectious Disease laboratory. Correlate with [...] clinical information and biopsy results as indicated. CMS Clinical Laboratory Improvement Amendments (CLIA) mandate that cytologic and histologic results be correlated for laboratory quality director & improvement standards. FOR ALL HIGH-GRADE CASES [...] determined by the Surgical Pathology Department at [facility] as part of an ongoing design quality engineer program and in compliance with federally [...] determined by the Surgical Pathology Department of [facility]. It has not been cleared or approved by the U. S. Food and Drug Administration. Bayron Carrera MD LAB CYTOLOGY ORDERABLES Fi nal Result PATHOLOGY [facility] * N. gonorrhoeae/C. trachomatis Amplification Vaginal (08/07/2024 11:50 AM CDT) C. trachomatis Not Detected [facility] Comment:Testing performed by : [facility], [address] [place] [address], [place]., [address] N. gonorrhoeae Not Detected BENNY SOTELO Comment: Interpretive Data This assay detects Chlamydia trachomatis and Neisseria gonorrhoeae by nucleic acid amplification testing (NAAT). This assay has been cleared by the [place] Food and Drug administration. The performance characteristics of this test have been verified by the [facility] Molecular Infectious Disease laboratory. The performance characteristics of this test have not been evaluated in individuals less than 14 years of age. Current Interpretive Data was last revised on 2023. Testing performed by: [facility], [address] [place] [address]., [address] Vaginal (None) 08/07/2024 11 :50 AM CDT 08/07/2024 8:08 PM CDT Bayron Carrera MD LAB MICROBIOLOGY - GENERAL ORDERABLES Final Result Performing Organization Address [facility] de Phone Number BENNY [address] [facility] * Trichomonas vaginalis PCR Vaginal (08/07/2024 11:50 AM CDT) Trichomonas DNA Not Detected [facility] Comment: Interpretive Data This assay detects Trichomonas vaginalis by nucleic acid amplification testing (NAAT). This assay has been cleared by the [place] Food and Drug administration. The performance characteristics of this test have been verified by the [facility] Molecular Infectious Disease laboratory. The performance of this test has not been evaluated in individuals less than 18 years of age. Current Interpretive Data was last revised on 2023. Testing performed by: [facility], [address] [place]., [address] Vaginal 08/07/2024 11:5 0 AM CDT 08/07/2024 8:08 PM CDT Bayron Carrera MD LAB MICROBIOLOGY - GENERAL ORDERABLES Final Result Performing Organization Address [facility] de Phone Number MARY[address] [facility] * (ABNORMAL) Drugs of Abuse Screen, Urine [...] was last reviewed 2022. Testing performed by: [facility], [address] [place] [address]., [address] Barbiturates, ur Not Detected CutOff 200ng/mL [facility] Comment: Interpretive Data - Barbiturates: Samples containing greater than 200 ng/mL secobarbital or other cross-reacting barbiturate compounds are reported as positive. False positive and false negative results are possible. Confirmatory testing required for definitive results. Current Interpretive Data was last reviewed 2022. Testing performed by: [address] [address] Benzodiazepines, ur Not Detected CutOff 100ng/mL [facility] Comment: Interpretive Data - Benzodiazepines: Samples containing greater than 100 ng/mL nordiazepam or other cross-reacting compounds are reported as positive. False positive and false negative results are possible. Confirmatory testing required for definitive results. Current Interpretive Data was last reviewed 2022. Testing performed by: [address] [address] Cannabinoids, ur Screen Positive, presumptive (A) CutOff 50 ng/mL [facility] Comment: Interpretive Data - Cannabinoids: Samples containing greater than 50 ng/mL delta-9 THC -COOH or other cross- reacting compounds are reported as positive. False positive and false negative results are possible. Confirmatory testing required for definitive results. Current Interpretive Data was last reviewed 2022. Testing performed by: [address] [address] Cocaine, ur Not Detected CutOff 150ng/mL [facility] Comment: Interpretive Data - Cocaine: Samples containing greater than 150 ng/mL benzoylecgonine or other cross- reacting compounds are reported as positive. False positive and false negative results are possible. Confirmatory testing required for definitive results. Current Interpretive Data was last reviewed 2022. Testing performed by: [address] [address] Fentanyl, Ur Not Detected Cutoff 1 ng/mL [facility] Comment: Interpretive Data - Fentanyl: Samples containing greater than 1 ng/mL fentanyl or other cross-reacting fentanyl compounds are reported as positive. False positive and false negative results are possible. Confirmatory testing required for definitive results. Current Interpretive Data was last reviewed 2022. Testing performed by: [address] [address] Methadone, ur Not Detected CutOff 300ng/mL [facility] Comment: Interpretive Data - Methadone: Samples containing greater than 300 ng/mL d,l-methadone or other cross-reacting compounds are reported as positive. False positive and false negative results are possible. Confirmatory testing required for definitive results. Current Interpretive Data was last reviewed 2022. Testing performed by: [address] [address] Opiates, ur Not Detected CutOff 300ng/mL [facility] Comment: Interpretive Data - Opiates: Samples containing greater than 300 ng/mL morphine or other cross-reacting compounds are reported as positive. False positive and false negative results are possible. Confirmatory testing required for definitive results. Current Interpretive Data was last reviewed 2022. Testing performed by: [address] [address] Oxycodone, ur Not Detected CutOff 100ng/mL [facility] Comment: Interpretive Data - Oxycodone: Samples containing greater than 100 ng/mL oxycodone or other cross-reacting compounds are reported as positive. False positive and false negative results are possible. Confirmatory testing required for definitive results. Current Interpretive Data was last reviewed 2022. Testing performed by: [address] [address] Phencyclidine, ur Not Detected CutOff 25 ng/mL [facility] Comment: Interpretive Data - Phencyclidine: Samples containing greater than 25 ng/mL phencyclidine or other cross-reacting compounds are reported as positive. False positive and false negative results are possible. Confirmatory testing required for definitive results. Current Interpretive Data was last reviewed 2022. Testing performed by: [address] [address] Urine Creatinine 273 mg/dL [facility] Comment: Interpretive Data Urine Creatinine: < 10 mg/dL is extremely dilute = or > 10 but < 20 mg/dL is dilute = or > 20 mg/dL is normal Current Interpretive Data was last revised on 2017. Testing performed by: [address] [address] Urine 08/07/2024 10:1 5 AM CDT 08/07/2024 [...] URINE ORDERABLES Final Result Performing Organization Address [facility] Co de Phone Number MARY[address] [employer] [address] * Urine culture Urine, clean voided (08/07/2024 10:15 AM CDT) Report Final Report: Less than 100,000 colonies/mL (clinically insignificant growth based on current clinical standards) Comment:Testing performed by : [facility], [address] [place]., [address] Organism (CLINICALLY INSIGNIFICANT GROWTH BENNY Urine, clean voided 08/07/2024 10:15 AM CDT 08/07/2024 8:39 PM CDT Narrative BENNY - 08/10/2024 6:33 AM CDT Testing performed by [facility] Microbiology Laboratory ([phone]) Bayron Carrera MD LAB MICROBIOLOGY - GENERAL ORDERABLES Final Result Performing Organization Address [facility] Co de Phone Number [address] [employer] 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
--- OUTSIDE RECORDS SUMMARY | 2024-08-15 20:58 | XMS_ITS | Encounter Summary ---
Author Organization [facility] Address [address] [place] [address] Care Team Providers Care Account Support Associate Name Role Phone No, Physician Primary Care Provider [phone] Encounter Details Date Type Department Care Team (Late st Contact Info) Description 08/15/2024 10:[address] [facility] Building [address] [address] Urinary frequency; Obesity affecting , antepartum, unspecified obesity type Social History Tobacco Use Types Packs/Day Years Used Date Smoking Tobacco: Never Smokeless Tobacco: Never [place] Depression Scale Answer Date Recorded [place] Depression Scale Total 9 08/07/2024 The thought of harming myself has occurred to me . 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 Gender Identity Not on file Sexual Orientation Not on file documented as of this encounter Plan of Treatment Pending Results Name Type Priority Associated Diagnoses Date /Time Urine culture Urine, clean voided Microbiology Routine Urinary frequency Obesity affecting , antepartum, unspecified obesity type 08/15/2024 10:48 AM CDT documented as of this encounter Procedures Procedure Name Priority Date/Time Associated Diagnosis Comments URINALYSIS AND REFLEX TO MICROSCOPIC AND CULTURE Routine 08/15/2024 10:48 AM CDT Urinary frequency Obesity affecting , antepartum, unspecified obesity type URINALYSIS, MICROSCOPIC ONLY Routine 08/15/2024 10:48 AM CDT Urinary frequency Obesity affecting , antepartum, unspecified obesity type documented in this encounter Results * (ABNORMAL) Urinalysis, microscopic only (08/15/2024 10:48 AM CDT) WBC, ur 0-5 0 - 5 /HPF Comment:Testing performed by : [address] [address] RBC, ur 0-2 0 - 2 /HPF BENNY Comment:Testing performed by : [address] [address] Epithelial cells, squamous, ur 21-50(A) 0 - 5 /HPF BENNY Comment:Testing performed by : [address] [address] Bacteria, ur 1+(A) BENNY Comment:Testing performed by : [address] [address] Mucous, ur Present(A) BENNY Comment:Testing performed by : [address] [address] Urine, clean voided 08/15/2024 10:48 AM CDT 08/15/2024 11:50 AM CDT us Bayron Carrera MD LAB URINE ORDERABLES Final Result [facility] [address] [facility] Department [place] [address] * (ABNORMAL) Urinalysis reflex to microscopic and culture Urine, clean voided (08/15/2024 10:48 AM CDT) Color, ur Yellow Yellow Comment:Testing performed by : [address] [address] Clarity, ur Clear Clear BENNY Comment:Testing performed by : [address] [address] Specific gravity, ur 1.020 1.003 - 1.030 BENNY Comment:Testing performed by : [address] [address] pH, urine 6.0 BENNY Comment: Interpretive Data U rine pH is affected by diet, medications, systemic acid-base disturbances, and renal tubular function. pH may affect urinary stone formation. For example, urine pH below 6.0 may help reduce the tendency for calcium phosphate stones and pH greater than 6.0 may reduce the tendency for uric acid stone formation. Source: [facility] [id number] Current Interpretive Data was last revised on 2017 Testing performed by: [facility], [address] [place] [address], [place]., [address] Protein, ur ql Negative Negative BENNY Comment:Testing performed by : [address], [place]., [address] Glucose, ur ql Negative Negative BENNY Comment:Testing performed by : [address], [place]., [address] Ketones, ur Negative Negative BENNY Comment:Testing performed by : [address], [place]., [address] Bilirubin, ur Negative Negative BENNY Comment:Testing performed by : [address], [place]., [address] Blood, ur Negative Negative BENNY Comment:Testing performed by : [address], [place]., [address] Urobilinogen, ur <2.0 <2.0 mg/dL BENNY Comment:Testing performed by : [address] [address] Nitrite, ur Negative Negative BENNY Comment:Testing performed by : [address], [place]., [address] Leukocyte esterase, ur 3+(A) Negative BENNY Comment:Testing performed by : [address] [address] UA reflex comment Reflex to microscopic UA will be performed. BENNY Comment:Testing performed by : [address], [place]., [address] Urine, clean voided 08/15/2024 10:48 AM CDT 08/15/2024 11:49 AM CDT Narrative BENNY - 08/15/2024 11:57 AM CDT Urine Collection Method->Clean Catch us Bayron Carrera MD LAB MICROBIOLOGY - GENERAL ORDERABLES Final Result Performing Organization Address City/State/[facility] Co de Phone Number BENNY [address] [facility] Department [place] [address] documented in this encounter Visit Diagnoses Diagnosis Urinary frequency Obesity affecting , antepartum, unspecified obesity type documented in this encounter Care Teams Account Support Associate Relationship Specialty Start Date End Date No, Physician PCP - General 03/08/23 documented as of this encounter
[2024-08-15 21:07] VITALS: BP 130/78; PULSE 91; RESP 18; O2SAT 97
--- NOTE | 2024-08-15 21:24 | ED_ITS ---
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 Patient reports nausea and vomiting that has been present throughout her . She denies dysuria, hematuria, flank pain, vaginal bleeding or leakage of fluids. She is endorsing a thick ?mucus like? vaginal discharge that she noticed over the past few days but believes this may be physiologic discharge. She denies malodor, vaginal burning or itching. Denies concern for STDs. States she was tested for STDs last week prior OBGYN and was negative. She denies fever. She states she is not currently having any abdominal cramping or pain. She is endorsing a right-sided temporal headache for which she took Tylenol this afternoon with improvement. She does not history of chronic similar headaches and she moved to the area from [place] in 2022. She denies head injury trauma, vision changes, focal numbness or weakness. Her OBGYN is at [facility]. Related Data Home Medications ?Medication ?Instructions ?Recorded ?Confirmed ?Last Taken ?Type levothyroxine 200 mcg tablet 200 mcg PO DAILY 05/23/22 01/27/24 Unknown History (Synthroid) sertraline 100 mg tablet (Zoloft) 200 mg PO DAILY 05/23/22 01/27/24 Unknown History bupropion HCl 150 mg 24 hr tablet, 150 mg PO DIRECTED 01/27/24 01/27/24 Unknown History extended release metformin 500 mg tablet 500 mg DIRECTED 01/27/24 01/27/24 Unknown History Allergies Allergy/AdvReac Type Severity Reaction Status Date / Time kale AdvReac Intermediate Ulcers Verified 09/13/23 08:34 Review of Systems 2 Review of Systems: All systems reviewed & are unremarkable except as noted in HPI and below PMFSH Past Medical History Medical History Alcoholism in recovery Surgical History Surgical History History of delivery Social History Social History Alcohol intake: former Alcohol use details: sober 4 years (02/2023) Exam 2 Narrative: GENERAL: Well-appearing, well-nourished, and in no acute distress. HEAD: Normocephalic, atraumatic. EYES: EOMI. ENT: Nares clear, no rhinorrhea or epistaxis. Mucous membranes moist. NECK: Supple. No nuchal rigidity CHEST: Clear to auscultation. No respiratory distress. HEART: Regular rate and rhythm. No murmur heard. Normal peripheral pulses. ABDOMEN: Soft, nontender, nondistended, normal active bowel sounds. No rebound, guarding or rigidity. No CVA tenderness. : Normal external genitalia. Physiologic discharge in the vaginal vault. Cervical os closed. No bladder clots. No tissue visualized. No CMT, adnexal masses or tenderness. EXTREMITIES: Normal range of motion. No edema. SKIN: Warm, dry, no rash. NEURO: No focal deficits. Alert and oriented x4. Cranial nerves 2-12 intact. Strength 5/5 in BUE and BLE. Sensation intact throughout. No ataxia. Course Vital Signs Vital signs: Vital Signs Temperature 98.1 F 08/15/24 18:35 Pulse Rate 96 08/15/24 18:35 Respiratory Rate 18 08/15/24 18:35 Blood Pressure 138/90 08/15/24 18:35 Pulse Oximetry 99 08/15/24 18:35 Oxygen Delivery Room Air 08/15/24 18:35 Temperature 98.1 F 08/16/24 01:45 Pulse Rate 88 08/16/24 01:45 Respiratory Rate 16 08/16/24 01:45 Blood Pressure 129/74 08/16/24 01:45 Pulse Oximetry 99 08/16/24 01:45 Oxygen Delivery Room Air 08/15/24 18:35 MDM - Female Genitourinary MDM Narrative Medical decision making narrative: 34-year-old female who is currently approximately 10 weeks presents to the emergency department for suprapubic abdominal cramping for the past day. She endorses nausea and vomiting throughout this . Also endorsing chronic intermittent headaches for a couple of years since moving to the area from [place]. Triage vitals are stable. Patient is afebrile nontoxic appearing. Abdomen is soft and nontender. She is neurologically intact without lateralizing deficits or meningeal signs. CBC without leukocytosis or anemia. Chemistries with mild hypokalemia of 3.3 which is been orally repleted. Magnesium within normal limits. Urinalysis with trace leuk esterase, no white blood cells or red blood cells, no bacteria. Rh factor is positive. HCG is 151,510. Pelvic ultrasound shows a single intrauterine gestation with approximated gestational age of 10 weeks and 2 days with cardiac activity identified. Pelvic exam shows normal physiologic fluid in the vaginal vault with no bleeding, leakage of fluids, clots or tissue. Cervical os is closed. No CMT. She denies possibility or concern for STDs and states she was tested for STDs 1 week ago by her OBGYN which were all negative. BV sent to the lab, although low suspicion on exam. Patient received IV fluids, headache cocktail and potassium repletion with improvement in symptoms. On re-evaluation she reports resolution of headache, continues to deny abdominal cramping or pain and ready to go home. Feel she is safe to be discharged home. Advised to follow-up closely with her OBGYN at [facility]. She has antiemetics at home from her OBGYN which she feels are helpful and agrees to continue taking p.r.n.. Discussed Tylenol as needed and strict ED return precautions. She is agreeable with the plan verbalized understanding. Discharged in stable condition. Lab Data 08/15/24 22:42 08/15/24 22:42 Labs: Lab Results 08/15/24 08/15/24 08/16/24 Range/Units 18:46 22:42 00:54 WBC 9.3 (4.5-10.0) K/mm3 RBC 4.18 L (4.2-5.4) M/mm3 Hgb 12.4 (12.0-15.0) g/dL Hct 35.9 L (37.0-47.0) % MCV 85.9 (80-100) fl MCH 29.7 (26-34) pg MCHC 34.5 (32-36) g/dl RDW 13.2 (11.5-14.5) % Plt Count 204 (150-375) k/mm3 MPV 9.4 (7.4-10.4) fl Immature Gran % (Auto) 0.4 (0-0.5) % Neut % (Auto) 63.7 (45.5-73.1) % Lymph % (Auto) 27.1 (18.3-44.2) % [place] % (Auto) 7.1 (2.6-8.5) % Eos % (Auto) 1.5 (0-4.4) % Baso % (Auto) 0.2 (0.2-1.2) % Lymph # (Auto) 2.53 (0.9-3.2) K/mm3 [place] # (Auto) 0.7 H (0.1-0.6) K/mm3 Eos # (Auto) 0.1 (0-0.3) K/mm3 Baso # (Auto) 0.0 (0.0-0.1) K/mm3 Abs Immat Gran (auto) 0.04 H (0.00-0.031) K/mm3 Absolute Neuts (auto) 5.9 (1.3-6.7) K/mm3 Absolute Nucleated RBC 0.000 (0.0-0.012) K/mm3 Nucleated RBC % 0.0 (0.0-0.2) % PT 13.9 (11.1-14.7) Seconds INR 1.1 APTT 26.6 (22.3-36.8) Seconds Sodium 135 L (137-145) mmol/L Potassium 3.3 L (3.4-5.0) mmol/L Chloride 106 (98-107) mmol/L Carbon Dioxide 21 L (22-30) mmol/L Anion Gap 8 (4-12) mmol/L BUN 8 (7-17) mg/dL Creatinine 0.51 L (0.7-1.0) mg/dL Estim Creat Clear Calc 136 ml/min Estimated GFR > 60 (59 - ) Glucose 104 (65-110) mg/dL Calcium 8.7 (8.4-10.2) mg/dL Magnesium (1.6-2.3) mg/dL Total Bilirubin 0.2 (0.2-1.3) mg/dL AST 22 (14-36) U/L ALT 19 (6-35) U/L Alkaline Phosphatase 61 (38-126) U/L Total Protein 6.7 (6.3-8.2) g/dL Albumin 3.8 (3.5-5.1) g/dL Beta HCG, Quant 214578.00 mIU/ML Urine Color Yellow (Yellow) Urine Appearance Clear (Clear) Urine pH 5.5 (5.0-9.0) Ur Specific [place] 1.013 (1.001-1.035) Urine Protein Negative (Negative) mg/dL Urine Glucose (UA) Negative (Negative) mg/dL Urine Ketones Negative (Negative) mg/dL Ur Blood (Man) Negative (Negative) Urine Nitrate Negative (Negative) Urine Bilirubin Negative (Negative) Urine Urobilinogen 0.2 (<2.0) mg/dL Leukocyte Esterase Rfl Trace H (Negative) MENA/UL Urine RBC 0-2 (0-2) /hpf Urine WBC 0-5 (0-3) /hpf Ur Squamous Epith Cells None seen (Few) /hpf Urine Bacteria None seen /hpf Urine Casts 0-2 Bact Vaginosis Panel TNP Blood Type O Positive Antibody Screen Negative Screen TNP Baby's Blood Type Not Reportable Baby's LIZZ Not Reportable Doses of RhIg Required 0 / Range/Units 22:41 WBC (4.5-10.0) K/mm3 RBC (4.2-5.4) M/mm3 Hgb (12.0-15.0) g/dL Hct (37.0-47.0) % MCV (80-100) fl MCH (26-34) pg MCHC (32-36) g/dl RDW (11.5-14.5) % Plt Count (150-375) k/mm3 MPV (7.4-10.4) fl Immature Gran % (Auto) (0-0.5) % Neut % (Auto) (45.5-73.1) % Lymph % (Auto) (18.3-44.2) % [place] % (Auto) (2.6-8.5) % Eos % (Auto) (0-4.4) % Baso % (Auto) (0.2-1.2) % Lymph # (Auto) (0.9-3.2) K/mm3 [place] # (Auto) (0.1-0.6) K/mm3 Eos # (Auto) (0-0.3) K/mm3 Baso # (Auto) (0.0-0.1) K/mm3 Abs Immat Gran (auto) (0.00-0.031) K/mm3 Absolute Neuts (auto) (1.3-6.7) K/mm3 Absolute Nucleated RBC (0.0-0.012) K/mm3 Nucleated RBC % (0.0-0.2) % PT (11.1-14.7) Seconds INR APTT (22.3-36.8) Seconds Sodium (137-145) mmol/L Potassium (3.4-5.0) mmol/L Chloride (98-107) mmol/L Carbon Dioxide (22-30) mmol/L Anion Gap (4-12) mmol/L BUN (7-17) mg/dL Creatinine (0.7-1.0) mg/dL Estim Creat Clear Calc ml/min Estimated GFR (59 - ) Glucose (65-110) mg/dL Calcium (8.4-10.2) mg/dL Magnesium 2.1 (1.6-2.3) mg/dL Total Bilirubin (0.2-1.3) mg/dL AST (14-36) U/L ALT (6-35) U/L Alkaline Phosphatase (38-126) U/L Total Protein (6.3-8.2) g/dL Albumin (3.5-5.1) g/dL Beta HCG, Quant mIU/ML Urine Color (Yellow) Urine Appearance (Clear) Urine pH (5.0-9.0) Ur Specific [place] (1.001-1.035) Urine Protein (Negative) mg/dL Urine Glucose (UA) (Negative) mg/dL Urine Ketones (Negative) mg/dL Ur Blood (Man) (Negative) Urine Nitrate (Negative) Urine Bilirubin (Negative) Urine Urobilinogen (<2.0) mg/dL Leukocyte Esterase Rfl (Negative) MENA/UL Urine RBC (0-2) /hpf Urine WBC (0-3) /hpf Ur Squamous Epith Cells (Few) /hpf Urine Bacteria /hpf Urine Casts Bact Vaginosis Panel Blood Type Antibody Screen Screen Baby's Blood Type Baby's LIZZ Doses of RhIg Required Discharge Plan Discharge Clinical Impression: Abdominal cramping affecting , Acute hypokalemia Headache Qualifiers: Headache type: unspecified Headache chronicity pattern: acute headache I ntractability: not intractable Qualified Code(s): R51.9 - Headache, unspecified Patient Disposition: Home Condition: Stable Instructions: Antibiotic Form, Acute Headache (DC), Abdominal Pain in (ED) Additional Instructions: Please make sure to drink plenty of fluids. Follow-up closely with her OBGYN. Take Tylenol as directed on the bottle as needed for pain. Return to the emergency department if you develop a fever, your unable to tolerate food or fluids, develop vaginal bleeding, worsening or changing abdominal pain, or other concerning symptoms. Patient Language: Luxembourgish Prescriptions: No Action metformin 500 mg tablet 500 mg DIRECTED bupropion HCl 150 mg tablet extended release 24 hr 150 mg PO DIRECTED sulfamethoxazole-trimethoprim [Bactrim DS] 800-160 mg tablet 1 tablet PO Q12H 7 Days Qty: 14 0RF sertraline [Zoloft] 100 mg Tablet 200 mg PO DAILY levothyroxine [Synthroid] 200 mcg Tablet 200 mcg PO DAILY Follow-up/Referrals: Marcella,JEAN Donnelly [Primary Care Provider] -
[2024-08-15 21:45] VITALS: BP 124/83; PULSE 81; O2SAT 97
[2024-08-15 22:30] VITALS: BP 128/87; PULSE 82; RESP 18; O2SAT 98
[2024-08-15 22:56] LABS: Basophils Percent Auto 0.2 % (0.2-1.2); Eosinophils Absolute Auto 0.1 K/mm3 (0-0.3); Eosinophils Percent Auto 1.5 % (0-4.4); Hematocrit 35.9 % (37.0-47.0); Hemoglobin 12.4 g/dL (12.0-15.0); Immature Granulocyte Absolute 0.04 K/mm3 (0.00-0.031); Immature Granulocyte Percent A 0.4 % (0-0.5); Lymphocytes Absolute Auto 2.53 K/mm3 (0.9-3.2); Lymphocytes Percent Auto 27.1 % (18.3-44.2); Mean Corpuscular HGB Conc 34.5 g/dl (32-36); Mean Corpuscular Hemoglobin 29.7 pg (26-34); Mean Corpuscular Volume 85.9 fl (80-100); Mean Platelet Volume 9.4 fl (7.4-10.4); Monocytes Absolute Auto 0.7 K/mm3 (0.1-0.6); Monocytes Percent Auto 7.1 % (2.6-8.5); Neutrophils Absolute Auto 5.9 K/mm3 (1.3-6.7); Neutrophils Percent Auto 63.7 % (45.5-73.1); Platelet Count Result 204 k/mm3 (150-375); Red Blood Count 4.18 M/mm3 (4.2-5.4); Red Cell Distribution Width 13.2 % (11.5-14.5); White Blood Count 9.3 K/mm3 (4.5-10.0)
[2024-08-15 23:15] VITALS: BP 133/86; PULSE 85; RESP 18; O2SAT 98
[2024-08-15 23:20] LABS: Alanine Aminotransferase 19 U/L (6-35); Albumin Level 3.8 g/dL (3.5-5.1); Alkaline Phosphatase 61 U/L (38-126); Anion Gap 8 mmol/L (4-12); Aspartate Amino Transferase 22 U/L (14-36); Bilirubin,Total 0.2 mg/dL (0.2-1.3); Blood Urea Nitrogen 8 mg/dL (7-17); Calcium 8.7 mg/dL (8.4-10.2); Carbon Dioxide 21 mmol/L (22-30); Chloride 106 mmol/L (98-107); Estimated CRCL calculation 136 ml/min; Estimated Glomerular Filt Rate > 60; Glucose 104 mg/dL (65-110); Potassium 3.3 mmol/L (3.4-5.0); Sodium 135 mmol/L (137-145); Total Protein 6.7 g/dL (6.3-8.2)
[2024-08-15 23:44] LABS: INR 1.1; Partial Thromboplastin Time 26.6 Seconds (22.3-36.8); Prothrombin Time 13.9 Seconds (11.1-14.7)
--- NOTE | 2024-08-16 00:16 | PC.NURSE ---
Received report from MOHINI Piedra for cont. of care. Pt AOx4, c/o 09/06 headache and nausea. Pt placed on cont. cardiac rn and pulse oximeter. PA made aware.
[2024-08-16 00:17] VITALS: BP 135/87; PULSE 103; RESP 20; O2SAT 98
[2024-08-16] MEDS: ACETAMINOPHEN 500 MG TABLET 1000 MG PO (00:43)
[2024-08-16 00:44] LABS: Magnesium 2.1 mg/dL (1.6-2.3)
[2024-08-16] MEDS: POTASSIUM CHLORIDE 20 MEQ PACKET (FOR LIQUID) PO (00:44)
[2024-08-16] MEDS: diphenhydrAMINE HCl INJ 50 MG/ML VIAL 25 MG IV PUSH (00:52)
[2024-08-16] MEDS: SODIUM CHLORIDE 0.9% IV 1,000 ML 999 ML IV CONT (00:52)
[2024-08-16] MEDS: PROCHLORPERAZINE EDISYLATE 10 MG/2 ML VIAL IV PUSH (00:58)
[2024-08-16 01:45] VITALS: BP 129/74; PULSE 88; RESP 16; TEMP 36.7; O2SAT 99
== END 2024-08-16 01:57 | disposition home or self-care (01) ==
PROVIDERS: Physician Assistant; Emergency Provider Physician Assistant; PCP Nurse Practitioner Family
DX: O26.891 Other specified pregnancy related conditions, first trimester (principal); R10.30 Lower abdominal pain, unspecified; R51.9 Headache, unspecified; O99.281 Endocrine, nutritional and metabolic diseases complicating pregnancy, first trimester; E87.6 Hypokalemia; O99.311 Alcohol use complicating pregnancy, first trimester; F10.21 Alcohol dependence, in remission; Z3A.10 10 weeks gestation of pregnancy; Z79.899 Other long term (current) drug therapy
CPT/HCPCS: 36415; 76801; 80053; 81001; 81513; 83735; 84702; 85025; 85461; 85610; 85730; 86850; 86900; 86901; 96361; 96374; 96375; 99284; A9270; J0780; J1200; J7030

== ENCOUNTER 2024-09-28 18:17 | Emergency (ER) | payer OTHER, SELFPAY ==
--- OUTSIDE RECORDS SUMMARY | 2024-09-28 18:20 | XMS_ITS ---
Author Organization [facility]ly [facility] Address [address] [place] [address] Care Team Providers Care Capsule Inspector Name Role Phone Cony Naranjo Primary Care Provider [id number] Gay Luciano Unavailable [phone] Results Component Value Reference Range Notes hCG,Beta Subunit, Qnt, Serum Reviewed date:07/17/2024 02:54:50 PM Interpretation: Performing Lab:[facility] [place], [address] [facility], [place], Phone - [phone], Director - Zoey Notes/Report: hCG,Beta Subunit,Qnt,Serum 5700 Female (Non-) 0 - 5 (Postmenopausal) 0 - 8 . Female () Weeks of Gestation 3 6 - 71 4 10 - 750 5 666 - 5538 6 826 - 14046 7 [phone] [phone] 8 68500 -[phone] 9 [phone] -[phone] 81243 -[phone] 12 76404 -[phone] 14 24625 - 94871 15 04697 - 54354 16 6822 - 15178 17 0348 - 17694 18 8502 - 23209 Rashawn ECLIA methodology REASON FOR VISIT labs hcg Social History Sex Assigned At : Social History Observation Description Sex Assigned At Female Encounters Encounter Location Date Provider Diagnosis [facility] [address] [place] [address] 07/13/2024 Cony Naranjo History of miscarriage Z87.59 and at early stage Z34.90 Assessments Encounter Date Diagnosis (ICD Code) Assessment Notes Treatment Notes Treatment Clinical Notes Section Notes 07/13/2024 History of miscarriage (ICD-10 - Z87.59) 07/13/2024 at early stage (ICD-10 - Z34.90) Plan Of Treatment No Information Progress Notes * Juan Jose READDOB:1990 (34 yo F)Acc No.[id number]:07/13/2024 UNLOCKED PROGRESS NOTE Patient: Juan Jose JAUREGUI Provider: Lorie Naranjo, MSN, HELICOPTER PILOT INSTRUCTOR, [employer]BC, [employer]C :1990 A ge:34 Y S ex:Female Date:07/13/2024 Address:[address] [place], [place] [id number] Check In:08:23 AM 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 Labs hcg. * Medical History: Objective: * Vitals: Assessment: * Assessment: 1. H istory of miscarriage - Z87.59 2 . P regnancy at early stage - Z34.90? Plan: * Treatment: 2. P regnancy at early stage L AB: hCG,Beta Subunit, Qnt, Serum (Collection Date & Time - 07/13/2024) * * Electronic signature of Vinayak Naranjo APRN, [id number] on 09/28/2024 at 06:20 PM CDT Sign off status: Pending * Provider: TERRENCE Lal, HELICOPTER PILOT INSTRUCTOR, [employer]BC, [employer]C Date: 0 07/13/2024 Generated for Printing/Faxing/eTransmitting on: 0 09/28/2024 06:20 PM CDT
--- OUTSIDE RECORDS SUMMARY | 2024-09-28 18:20 | XMS_ITS | Referral Summary ---
Author Organization [facility] Address [address] [place] [address] Care Team Providers Care Marketing Development Specialist Name Role Phone Cony Naranjo NP Primary Care Provider Encounters Date Type Department Care Team Description 09/26/2024 11:05 AM CDT Lab [facility] Office Building [address] [place] [address] Other specified hypothyroidism 09/26/2024 10:15 AM CDT Office Visit [facility] Obstetrical Gynecology [address] [place] [phone] Tom Hagen MD Obesity affecting , antepartum, unspecified obesity type (Primary Dx); Supervision of other normal , antepartum; Other specified hypothyroidism; Anxiety and depression 08/29/2024 11:30 AM CDT Office Visit [facility] Obstetrical Gynecology [address] [place] [phone] Joellen Huitron MD Hypothyroidism, unspecified type (Primary Dx); Anxiety and depression; History of migraine; Obesity affecting , antepartum, unspecified obesity type; Encounter for supervision of other normal in first trimester 08/16/2024 Results Follow-Up [facility] [address] [place] [address] Bayron Carrera MD Pap and High Risk HPV and Genotyping (Cytology Component), Thyroid Function [place], GTT 50gm 1hr gestational screen, Additional followed-up results: 13 08/15/2024 Orders Only [facility] [address] [place] [address] Tom Hagen MD 08/15/2024 10:20 AM CDT Lab [facility] Building [address] [place] [address] Urinary frequency; Obesity affecting , antepartum, unspecified obesity type 08/07/2024 1:37 PM CDT - 08/07/2024 11:59 PM CDT Hospital Encounter [facility] Building [address] [place] [address] Encounter for supervision of other normal in first trimester Discharge Disposition: Discharge to home or self care 08/07/2024 Orders Only [facility] Obstetrical Gynecology [address] [place] [phone] Bayron Carrera MD Encounter for anatomic survey (Primary Dx) 08/07/2024 Telephone [facility] Obstetrical Gynecology [address] [place] [phone] Bayron Carrera MD 08/07/2024 11:45 AM CDT Lab [facility] [address] [place] [address] Encounter for supervision of other normal in first trimester; Hypothyroidism, unspecified type 08/07/2024 9:45 AM CDT Ancillary Procedure [facility] Obstetrical Gynecology [address] [place] [phone] Establish gestational age, ultrasound 08/07/2024 11:30 AM CDT Office Visit [facility] Obstetrical Gynecology [address] [place] [phone] Bayron Carrera MD Encounter for supervision of other normal in first trimester (Primary Dx); Hypothyroidism, unspecified type; Obesity affecting , antepartum, unspecified obesity type; Anxiety and depression 08/07/2024 10:30 AM CDT Clinical Support [facility] Obstetrical Gynecology [address] [place] [address] [phone] 07/09/2024 Telephone [facility] Obstetrical Gynecology [address] [facility] [address] [place] [phone] Bayron Carrera MD from Last 3 Months Allergies No known active allergies Medications sertraline (ZOLOFT) 100 mg tablet Take 2 tablets (200 mg total) by mouth daily 3 Active buPROPion XL (WELLBUTRIN XL) 150 mg 24 hr tablet Take 1 tablet (150 mg total) by mouth daily 3 Active vit 05-vodm-fdbcb-d stokes 27mg iron- 800 mcg-250 mg capsule Take by mouth Active metoclopramide (REGLAN) 10 mg tablet Take 1 tablet (10 mg total) by mouth every 6 (six) hours as needed (nausea) 30 tablet 2 5 Active levothyroxine (SYNTHROID) 125 mcg tablet Take 2 tablets (250 mcg total) by mouth directory 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 before breakfast 60 tablet 1 5 Active Active Problems Problem Noted Date Diagnosed Date History of migraine 08/29/2024 Supervision of other normal , antepartu m 08/07/2024 Anxiety and depression 08/07/2024 Other specified hypothyroidism 08/07/2024 Obesity affecting , antepartum 08/08/19 25 Estimated Date of Delivery Comme nts Yes 2025 Based on last me nstrual period of 06/02/2024 Social History Tobacco Use Types Packs/Day Years Used Date Smoking Tobacco: Never Smokeless Tobacco: Never Tobacco Cessation:Counseling Given: Not Answered [place] Depression Scale Answer Date Recorded [place] Depression Scale Total 9 08/07/2024 The thought of harming myself has occurred to me . Never 08/07/2024 Estimated Date of Delivery Comme nts Yes 2025 Based on last me nstrual period of 06/02/2024 Sex and Gender Information Value Date Recorded Sex Assigned at Not on file Legal Sex Female 3:11 PM [employer] Gender Identity Not on file Sexual Orientation Not on file Last Filed Vital Signs Vital Sign Reading Time Taken Comments Blood Pressure 118/60 09/26/2024 10:12 AM CDT Pulse - - Temperature - - Respiratory Rate - - Oxygen Saturation - - Inhaled Oxygen Concentration - - Weight 94.8 kg (209 lb) 09/26/2024 10:12 AM CDT Height 154.9 cm (5' 1) 09/26/2024 10:12 AM CDT Body Mass Index 39.49 09/26/2024 10:12 AM CDT Plan of Treatment Not on file Procedures Procedure Name Priority Date/Time Associated Diagnosis Comments THYROID FUNCTION CASCADE Routine 09/26/2024 11:09 AM CDT Other specified hypothyroidism URINALYSIS, MICROSCOPIC ONLY Routine 08/15/2024 10:48 AM CDT Urinary frequency Obesity affecting , antepartum, unspecified obesity type URINE CULTURE Routine 08/15/2024 10:48 AM CDT Urinary [...] ultrasound from Last 3 Months Results * Thyroid Function [place] (09/26/2024 11:09 AM CDT) TSH 2.89 0.30 - 4.20 mcIUnit/mL Comment:Testing performed by : [address] [address] Blood 09/26/2024 11:0 9 AM CDT 09/26/2024 12:43 PM CDT us Bayron Carrera MD LAB BLOOD ORDERABLES Final Result BENNY [address] [facility] Department [place] [address] * (ABNORMAL) Urinalysis reflex to microscopic and culture Urine, clean voided (08/15/2024 10:48 AM CDT) Color, ur Yellow Yellow Comment:Testing performed by : [address] [address] Clarity, ur Clear Clear BENNY SOTELO Comment:Testing performed by : [address] [address] Specific gravity, ur 1.020 1.003 - 1.030 BENNY Comment:Testing performed by : [address] [place] [address] pH, urine 6.0 BENNY Comment: Interpretive Data U rine pH is affected by diet, medications, systemic acid-base disturbances, and renal tubular function. pH may affect urinary stone formation. For example, urine pH below 6.0 may help reduce the tendency for calcium phosphate stones and pH greater than 6.0 may reduce the tendency for uric acid stone formation. Source: [facility] [email or web address] Current Interpretive Data was last revised on 2017 Testing performed by: [facility], [address] [place] [address]., [address] Protein, ur ql Negative Negative BENNY Comment:Testing performed by : [address] [address] Glucose, ur ql Negative Negative BENNY Comment:Testing performed by : [address], [place]., [address] Ketones, ur Negative Negative BENNY Comment:Testing performed by : [address] [address] Bilirubin, ur Negative Negative BENNY Comment:Testing performed by : [address], [place]., [address] Blood, ur Negative Negative BENNY Comment:Testing performed by : [address] [address] Urobilinogen, ur <2.0 <2.0 mg/dL BENNY Comment:Testing performed by : [address] [address] Nitrite, ur Negative Negative BENNY Comment:Testing performed by : [address] [address] Leukocyte esterase, ur 3+(A) Negative BENNY Comment:Testing performed by : [address] [address] UA reflex comment Reflex to microscopic UA will be performed. BENNY Comment:Testing performed by : [address], [place]., [address] Urine, clean voided 08/15/2024 10:48 AM CDT 08/15/2024 11:49 AM CDT Narrative BENNY - 08/15/2024 11:57 AM CDT Urine Collection Method->Clean Catch Bayron Carrera MD LAB MICROBIOLOGY - GENERAL ORDERABLES Final Result Performing Organization Address [facility] Co de Phone Number BENNY [address] [facility] [email or web address] [address] * (ABNORMAL) Urinalysis, microscopic only (08/15/2024 10:48 AM CDT) WBC, ur 0-5 0 - 5 /HPF Comment:Testing performed by : [facility], [address] [place] [address]., [address] RBC, ur 0-2 0 - 2 /HPF BENNY Comment:Testing performed by : [facility], [address] [place] [address]., [address] Epithelial cells, squamous, ur 21-50(A) 0 - 5 /HPF BENNY Comment:Testing performed by : [address] [address] Bacteria, ur 1+(A) BENNY Comment:Testing performed by : [facility], [address] [place] [address]., [address] Mucous, ur Present(A) BENNY Comment:Testing performed by : [address] [address] Urine, clean voided 08/15/2024 10:48 AM CDT 08/15/2024 11:50 AM CDT Bayron Carrera MD LAB URINE ORDERABLES Final Result Performing Organization Address [facility] Co de Phone Number BENNY [address] [email or web address] [address] * Urine culture Urine, clean voided (08/15/2024 10:48 AM CDT) Report Final Report: Less than 100,000 colonies/mL (clinically insignificant growth based on current clinical standards) Comment:Testing performed by : [facility], [address] [facility] [place] [address] Organism (CLINICALLY INSIGNIFICANT [facility] Urine, clean voided 08/15/2024 10:48 AM CDT 08/15/2024 5:39 PM CDT Narrative BENNY - 08/16/2024 8:05 PM CDT Testing performed by [facility] Microbiology Laboratory ([phone]) Bayron Carrera MD LAB MICROBIOLOGY - GENERAL ORDERABLES Final Result Performing Organization Address [facility] de Phone Number [address] [address] * (ABNORMAL) Thyroid Function [place] (08/07/2024 12:06 PM CDT) Pathologist [facility] TSH 5.55(H) 0.30 - 4.20 mcIUnit/mL Comment:Testing performed by : [address] [address] Blood 08/07/2024 12:0 6 PM CDT 08/07/2024 1:43 PM CDT Bayron Carrera MD LAB BLOOD ORDERABLES Final Result Performing Organization Address [facility] de Phone Number [address] [address] * GTT 50gm 1hr gestational screen (08/07/2024 [...] last revised on 2020. Testing performed by: [address], [place]., [address] Blood 08/07/2024 12:0 6 PM CDT 08/07/2024 1:43 PM CDT Bayron Carrera MD LAB BLOOD ORDERABLES Final Result Performing Organization Address [facility] Co de Phone Number [address] [address] * HIV 1/2 Antibody plus p24 Antigen Blood (08/07/2024 12:06 PM CDT) Pathologist [facility] HIV 1/2 ab + p24 ag Nonreactive [...] GENERAL ORDERABLES Final Result Performing Organization Address [facility] Co de Phone Number [address] [address] * Hemoglobin analysis by electrophoresis (08/07/2024 12:06 PM CDT) Pathologist [facility] RBC 4.58 3.90 - 5.20 M/cumm Comment:Testing performed by : [facility], [address] [place]., [address] Hgb 13.4 11.9 - 15.5 g/dL BENNY SOTELO Comment:Testing performed by : [facility], [address] [place]., [address] MCV 83.8 81.3 - 96.4 fL BENNY SOTELO Comment:Testing performed by : [facility], [address] [place]., [address] Rdw 13.1 11.1 - 14.9 % BENNY SOTELO Comment:Testing performed by : [facility], [address] [place]., [address] Hgb electrophoresis , interp Please see comment BENNY SOTELO Comment: Normal hemoglobin pattern for age Reviewed and signed by Miguel Ángel Kumar MD 08/09/2024 Testing performed by: [facility], [address] [place]., [address] Hgb A 96.9 96.0 - 98.5 % BENNY Comment:Testing performed by : [facility], [address] [place]., [address] Hgb A2 2.7 1.5 - 3.2 % BENNY SOTELO Comment:Testing performed by : [facility], [address] [facility], [address] Hgb F 0.4 0.0 - 0.9 % BENNY Comment:Testing performed by : [facility], [address] [facility], [address] Blood 08/07/2024 12:0 6 PM CDT 08/07/2024 1:42 PM CDT us Bayron Carrera MD LAB BLOOD ORDERABLES Final Result BENNY [address] [facility] Department [place] [address] * Hepatitis C antibody Blood (08/07/2024 12:06 [...] GENERAL ORDERABLES Final Result Performing Organization Address [facility]/ZIP Co de Phone Number MARY[address] [place] [address] * Measles IgG antibody Blood (08/07/2024 12:06 PM CDT) Measles IgG Reactive Comment: Reactive: Results suggest response to immunization or prior exposure to the virus. Testing performed by: [facility], [address] [place] [address], [place]., [address] Blood 08/07/2024 12:0 6 PM CDT 08/07/2024 3:43 PM CDT Bayron Carrera MD LAB MICROBIOLOGY - GENERAL ORDERABLES Final Result Performing Organization Address [facility] de Phone Number [address] [email or web address] [address] * ABO/Rh (08/07/2024 12:06 PM CDT) ABO/Rh O Positive Comment:Testing performed by : [facility], [address] [place] [address]., [address] Blood 08/07/2024 12:0 6 PM CDT 08/07/2024 1:43 PM CDT Narrative BENNY - 08/07/2024 2:18 PM CDT Has the patient had Daratumumab or Isatuximab in the past 6 months?->Unknown Hx of or candidate for Bone Marrow/Stem Cell transplant?->No Bayron Carrera MD LAB BLOOD BANK TEST ORDERA BLES Final Result Performing Organization Address [facility]/ZIP Co de Phone Number MARY[address] [email or web address] [address] * Rubella IgG antibody Blood (08/07/2024 12:06 PM CDT) Rubella IgG Reactive Reactive Blood 08/07/2024 12:0 6 PM CDT 08/07/2024 2:30 PM CDT Bayron Carrera MD LAB MICROBIOLOGY - GENERAL ORDERABLES Final Result Performing Organization Address [facility] Co de Phone Number [address] [address] * RPR Blood (08/07/2024 12:06 PM CDT) RPR Nonreactive Nonreactive Comment:Testing performed by : [facility], [address] [place] [address] Blood 08/07/2024 12:0 6 PM CDT 08/07/2024 3:43 PM CDT Bayron Carrera MD LAB MICROBIOLOGY - GENERAL ORDERABLES Final Result Performing Organization Address [facility] Co de Phone Number [address] [email or web address] [address] * Hepatitis B Surface Antigen Blood (08/07/2024 12:06 PM CDT) HepBsAg Nonreactive Nonreactive Blood 08/07/2024 12:0 6 PM CDT 08/07/2024 2:30 PM CDT Bayron Carrera MD LAB MICROBIOLOGY - GENERAL ORDERABLES Final Result Performing Organization Address City/[facility]/ZIP Co de Phone Number [address] [email or web address] [address] * CBC without differential (08/07/2024 12:06 PM CDT) [facility] WBC 9.24 3.80 - 9.90 K/cumm Comment:Testing performed by : [address], [address] Hgb 13.4 11.9 - 15.5 g/dL BENNY Comment:Testing performed by : [address], [address] Hct 38.1 35.6 - 45.5 % BENNY Comment:Testing performed by : [address] [address] Plt 238 150 - 400 K/cumm BENNY Comment:Testing performed by : [address], [address] MPV 10.1 9.1 - 12.3 fL BENNY Comment:Testing performed by : [address], [address] RBC 4.50 3.90 - 5.20 M/cumm BENNY Comment:Testing performed by : [address], [address] MCV 84.7 81.3 - 96.4 fL BENNY Comment:Testing performed by : [address], [address] MCH 29.8 27.1 - 33.3 pg BENNY Comment:Testing performed by : [address], [address] MCHC 35.2 32.3 - 35.7 g/dL BENNY Comment:Testing performed by : [address], [address] RDW CV 13.0 11.1 - 14.9 % BENNY Comment:Testing performed by : [address], [address] RDW SD 39.8 35.7 - 48.1 fL BENNY Comment:Testing performed by : [address], [address] NRBC abs 0.00 0.00 - 0.01 K/cumm BENNY Comment:Testing performed by : [address] [address] Blood 08/07/2024 12:0 6 PM CDT 08/07/2024 1:42 PM CDT Bayron Carrera MD LAB BLOOD ORDERABLES Final Result [address] [address] * Antibody screen (08/07/2024 12:06 PM CDT) Pathologist [facility] Pily, indirect, Gel Interpretation Negative ABSC Comment:Testing performed by : [facility], [address] [place] [address]., [address] Blood 08/07/2024 12:0 6 PM CDT 08/07/2024 1:43 PM CDT [facility]ative [facility] 08/07/2024 2:18 PM CDT Has the patient had Daratumumab or Isatuximab in the past 6 months?->Unknown Hx of or candidate for Bone Marrow/Stem Cell transplant?->No Bayron Carrera MD LAB BLOOD BANK TEST ORDERA BLES Final Result Performing Organization Address [facility] Co de Phone Number [address] [address] * Varicella Zoster IgG antibody Blood (08/07/2024 12:06 PM CDT) [facility] VZV IgG Reactive Reactive Comment: Reactive: Results suggest response to immunization or prior exposure to the virus. Testing performed by: [facility], [address] [facility], [place]., [address] Blood 08/07/2024 12:0 6 PM CDT 08/07/2024 3:43 PM CDT Bayron Carrera MD LAB MICROBIOLOGY - GENERAL ORDERABLES Final Result Performing Organization Address City/[facility]/ZIP Co de Phone Number [address] [address] * T4, free (08/07/2024 12:06 PM CDT) [facility] Free T4 1.02 0.90 - 1.70 ng/dL Comment:Testing performed by : [address] [address] Blood 08/07/2024 12:0 6 PM CDT 08/07/2024 1:43 PM CDT Narrative BENNY - 08/07/2024 2:46 PM CDT This test was reflexed from a TSH result. Bayron Carrera MD LAB BLOOD ORDERABLES Final Result Performing Organization Address [facility] Co de Phone Number [place] [phone] [place] [address] * Hemoglobin A1c (08/07/2024 12:06 PM CDT) [facility] Hgb A1C 4.9 4.0 - 5.6 % Comment:Testing performed by : [address] [address] Estimated Average Glucose 94 mg/dL BENNY Comment: The ADA recommends reporting an estimated Average Glucose (eAG) with all Hemoglobin A1c results using the equation derived from a study of 507 normal and diabetic adults. Minority populations were underrepresented and children were not included. (Diabetes Care 31:8673-4128, 2008). The eAG is not equivalent to a fasting glucose. Testing performed by: [address] [address] Blood 08/07/2024 12:0 6 PM CDT 08/07/2024 1:42 PM CDT Bayron Carrera MD LAB BLOOD ORDERABLES Final Result Performing Organization Address [facility] Co de Phone Number [place] [phone] [place] [address] * High Risk HPV DNA Detection with Genotyping (Molecular component) (08/07/2024 11:50 AM CDT) HPV HR [address] [facility] Comment:Testing performed by : [facility], [address] [place]., [address] HPV HR 18 Not Detected Not Detected BENNY SOTELO Comment:Testing performed by : [facility], [address] [place]., [address] HPV HR Non 16/18 Not Detected Not [...] this test have been verified by the [facility] Molecular Infectious Disease laboratory. Correlate with separately reported cytology results, as applicable. Interpretive data last revised 22 Testing performed by: [facility], [address] [place]., [address] Endocervical 08/07/2024 11:5 0 AM CDT 08/09/2024 8:32 PM CDT Narrative BENNY - 08/10/2024 7:08 PM CDT Clinical history and diagnosis->screening Number of vials->1 Testing type->Screening Last menstrual period (date if known)->06/02/2024 us Bayron Carrera MD LAB BODY FLUIDS AND STOOLS ORDERABLES Final Result BENNY SOTELO [address] [facility] Department [place] [address] [facility] * Pap and High Risk HPV and Genotyping (Cytology Component) (08/07/2024 11:50 AM CDT) Thin prep (Pap test) 08/07/2024 11:50 AM CDT 08/09/2024 10:49 AM CDT Narrative PATHOLOGY [facility] - 08/14/2024 8:49 AM CDT EPIC results best viewed via link to PDF [facility] [place] [address] Note to Patients: This report may contain [...] Gender: Nicole : 1990 (Age: 34) Address: [address] [place] [address] Hospital #: [id number] Service: DEFAULT Location: Patient Type: [facility] SPECIMEN Taken: 08/07/2024 Received: 08/09/2024 Accessioned: [...] this test have been verified by the [facility] Molecular Infectious Disease laboratory. Correlate with reported [...] clinical information and biopsy results as indicated. [facility] Clinical Laboratory Improvement Amendments (CLIA) mandate that cytologic and histologic results be correlated for laboratory quality control analyst & improvement standards. FOR ALL HIGH-GRADE CASES [...] determined by the Surgical Pathology Department at [facility] as part of an ongoing quality assurance supervisor body program and in compliance with federally mandated [...] determined by the Surgical Pathology Department of [facility]. It has not been cleared or approved by the [place]. S. Food and Drug Administration. Bayron Carrera MD LAB CYTOLOGY ORDERABLES Fi nal Result PATHOLOGY [facility] * N. gonorrhoeae/C. trachomatis Amplification Vaginal (08/07/2024 11:50 AM CDT) C. trachomatis Not Detected [facility] Comment:Testing performed by : [facility], [address] [place] [address]., [address] N. gonorrhoeae Not Detected BENNY SOTELO Comment: Interpretive Data This assay detects Chlamydia trachomatis and Neisseria gonorrhoeae by nucleic acid amplification testing (NAAT). This assay has been cleared by the [place] Food and Drug administration. The performance characteristics of this test have been verified by the [facility] Molecular Infectious Disease laboratory. The performance characteristics of this test have not been evaluated in individuals less than 14 years of age. Current Interpretive Data was last revised on 2023. Testing performed by: [facility], [address] [place] [address]., [address] Vaginal (None) 08/07/2024 11 :50 AM CDT 08/07/2024 8:08 PM CDT Bayron Carrera MD LAB MICROBIOLOGY - GENERAL ORDERABLES Final Result BENNY SOTELO [address] [facility] Department [place] [address] [facility] * Trichomonas vaginalis PCR Vaginal (08/07/2024 11:50 AM CDT) Trichomonas DNA Not Detected [facility] Comment: Interpretive Data This assay detects Trichomonas vaginalis by nucleic acid amplification testing (NAAT). This assay has been cleared by the [place] Food and Drug administration. The performance characteristics of this test have been verified by the [facility] Molecular Infectious Disease laboratory. The performance of this test has not been evaluated in individuals less than 18 years of age. Current Interpretive Data was last revised on 2023. Testing performed by: [facility], [address] [place] [address] Vaginal 08/07/2024 11:5 0 AM CDT 08/07/2024 8:08 PM CDT us Bayron Carrera MD LAB MICROBIOLOGY - GENERAL ORDERABLES Final Result BENNY SOTELO [address] [facility] Department [place] [address] [facility] * (ABNORMAL) Drugs of Abuse Screen, Urine with Reflex Confirmation (08/07/2024 10:15 AM CDT) [facility] Amphetamine, ur Not Detected [facility] 500ng/mL Comment: Interpretive Data - Amphetamines: Samples containing greater than 500 ng/mL d-methamphetamine or other cross-reacting amphetamine compounds are reported as positive. Amphetamine immunoassays are subject to significant false positive rates due to cross-reactivity of non-amphetamine drugs. Confirmatory testing required for definitive results. Current Interpretive Data was last reviewed 2022. Testing performed by: [address] [address] Barbiturates, ur Not Detected CutOff 200ng/mL [facility] SOTELO Comment: Interpretive Data - Barbiturates: Samples containing greater than 200 ng/mL secobarbital or other cross-reacting barbiturate compounds are reported as positive. False positive and false negative results are possible. Confirmatory testing required for definitive results. Current Interpretive Data was last reviewed 2022. Testing performed by: [address] [address] Benzodiazepines, ur Not Detected CutOff 100ng/mL [facility] SOTELO Comment: Interpretive Data - Benzodiazepines: Samples containing greater than 100 ng/mL nordiazepam or other cross-reacting compounds are reported as positive. False positive and false negative results are possible. Confirmatory testing required for definitive results. Current Interpretive Data was last reviewed 2022. Testing performed by: [facility], [address] [place] [address]., [id number] Cannabinoids, ur Screen Positive, presumptive (A) CutOff 50 ng/mL [facility] Comment: Interpretive Data - Cannabinoids: Samples containing greater than 50 ng/mL delta-9 THC -COOH or other cross- reacting compounds are reported as positive. False positive and false negative results are possible. Confirmatory testing required for definitive results. Current Interpretive Data was last reviewed 2022. Testing performed by: [facility], [address] [place] [address], [place]., [address] Cocaine, ur Not Detected CutOff 150ng/mL [facility] Comment: Interpretive Data - Cocaine: Samples containing greater than 150 ng/mL benzoylecgonine or other cross- reacting compounds are reported as positive. False positive and false negative results are possible. Confirmatory testing required for definitive results. Current Interpretive Data was last reviewed 2022. Testing performed by: [facility], [address] [place] [address]., [id number] Fentanyl, Ur Not Detected Cutoff 1 ng/mL [facility] Comment: Interpretive Data - Fentanyl: Samples containing greater than 1 ng/mL fentanyl or other cross-reacting fentanyl compounds are reported as positive. False positive and false negative results are possible. Confirmatory testing required for definitive results. Current Interpretive Data was last reviewed 2022. Testing performed by: [address] [address] Methadone, ur Not Detected CutOff 300ng/mL [facility] Comment: Interpretive Data - Methadone: Samples containing greater than 300 ng/mL d,l-methadone or other cross-reacting compounds are reported as positive. False positive and false negative results are possible. Confirmatory testing required for definitive results. Current Interpretive Data was last reviewed 2022. Testing performed by: [address] [address] Opiates, ur Not Detected CutOff 300ng/mL [facility] Comment: Interpretive Data - Opiates: Samples containing greater than 300 ng/mL morphine or other cross-reacting compounds are reported as positive. False positive and false negative results are possible. Confirmatory testing required for definitive results. Current Interpretive Data was last reviewed 2022. Testing performed by: [address] [address] Oxycodone, ur Not Detected CutOff 100ng/mL [facility] Comment: Interpretive Data - Oxycodone: Samples containing greater than 100 ng/mL oxycodone or other cross-reacting compounds are reported as positive. False positive and false negative results are possible. Confirmatory testing required for definitive results. Current Interpretive Data was last reviewed 2022. Testing performed by: [address] [address] Phencyclidine, ur Not Detected CutOff 25 ng/mL [facility] Comment: Interpretive Data - Phencyclidine: Samples containing greater than 25 ng/mL phencyclidine or other cross-reacting compounds are reported as positive. False positive and false negative results are possible. Confirmatory testing required for definitive results. Current Interpretive Data was last reviewed 2022. Testing performed by: [address] [address] Urine Creatinine 273 mg/dL [facility] Comment: Interpretive Data Urine Creatinine: < 10 mg/dL is extremely dilute = or > 10 but < 20 mg/dL is dilute = or > 20 mg/dL is normal Current Interpretive Data was last revised on 2017. Testing performed by: [address] [address] Urine 08/07/2024 10:1 5 AM CDT 08/07/2024 4:46 PM CDT Narrative [facility] - 08/07/2024 5:15 PM CDT Drug of Abuse screening is performed by immunoassay for medical purposes only. This is not to be used for Pain Management purposes. If Detected, confirmation testing will be performed for Amphetamines, Cocaine, Fentanyl, Methadone, Opiates, Oxycodone or Phencyclidine. us Bayron Carrera MD LAB URINE ORDERABLES Final Result [facility] [address] [facility] Department [place] [address] * Urine culture Urine, clean voided (08/07/2024 10:15 AM CDT) Report Final Report: Less than 100,000 colonies/mL (clinically insignificant growth based on current clinical standards) Comment:Testing performed by : [facility], [address] [facility], [place]., [address] Organism (CLINICALLY INSIGNIFICANT GROWTH [facility]ENNY Urine, clean voided 08/07/2024 10:15 AM CDT 08/07/2024 8:39 PM CDT Narrative BENNY - 08/10/2024 6:33 AM CDT Testing performed by [facility] ([phone]) us Bayron Carrera MD LAB MICROBIOLOGY - GENERAL ORDERABLES Final Result [facility] [address] [facility] Department [place] [address] * US OB Under 14 Weeks W [...] CIARA of 2025, ultrasoundsize consistent with dates. Bayron Carrera MD IMG OB US PROCEDURES Final Result from Last 3 Months Insurance [employer] [place] Care Teams Marketing Development Specialist Relationship Specialty Start Date End Date Cony Naranjo NP PCP - General Family Medicine 08/29/24
--- OUTSIDE RECORDS SUMMARY | 2024-09-28 18:20 | XMS_ITS | Clinical Summary ---
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 Warp Knit Operator Name Role Phone Cony Naranjo NP Primary [...] of 3 - 19+ 3-dose series) 2009 HPV Vaccines (1 - 3-dose SCD M series) 2017 Cervical Cancer Screening Pa p with HPV Testing (Age 30 to 64) Every 5 Years 2020 Cervical Cancer Screening wi th HPV 2020 COVID-19 Vaccine (2023-2 5 season) 2023 01/05/2021, 05/05/2020, 04/14/2020 DTaP, Tdap and Td Vaccines ( 3 - Td or Tdap) 11/07/2031 11/06/2021, 07/17/2015 Hepatitis C Completed 07/24/2019 Meningococcal B Vaccine Aged Out No l [...] patient's age to complete this topic Insurance [facility] Care Teams Warp Knit Operator Relationship Specialty Start Date End Date Cony Naranjo NP [address] [place] [address] [place] [address] PCP - General Nurse Practitioner Family 09/21/23
--- OUTSIDE RECORDS SUMMARY | 2024-09-28 18:20 | XMS_ITS | Clinical Summary ---
Author Organization [facility] Main [facility] s Address [address] [place] [address] Care Team Providers Care Pharmacy Graduate Intern Name Role Phone Cony Naranjo NP Primary Care Provider Allergies No known active allergies Medications sertraline (ZOLOFT) 100 mg tablet Take 2 tablets (200 mg total) by mouth daily 3 Active buPROPion XL (WELLBUTRIN XL) 150 mg 24 hr tablet Take 1 tablet (150 mg total) by mouth daily 3 Active vit 10-gwor-ctxyw-d stokes 27mg iron- 800 mcg-250 mg capsule Take by mouth Active metoclopramide (REGLAN) 10 mg tablet Take 1 tablet (10 mg total) by mouth every 6 (six) hours as needed (nausea) 30 tablet 2 5 Active levothyroxine (SYNTHROID) 125 mcg tablet Take 2 tablets (250 mcg total) by mouth manager resort before breakfast 60 tablet 1 5 Active [...] Care Team Description 09/26/2024 11:05 AM CDT [facility] Building [address] [address] Other specified hypothyroidism 09/26/2024 10:15 AM CDT Office Visit [facility] [address] [place] [phone] Tom Hagen MD Obesity affecting , antepartum, unspecified obesity type (Primary Dx); Supervision of other normal , antepartum; Other specified hypothyroidism; Anxiety and depression 08/29/2024 11:30 AM CDT Office Visit [facility] [address] [place] [phone] Joellen Huitron MD Hypothyroidism, unspecified type (Primary Dx); Anxiety and depression; History of migraine; Obesity affecting , antepartum, unspecified obesity type; Encounter for supervision of other normal in first trimester 08/16/2024 Results Follow-Up [address] [address] Bayron Carrera MD Pap and High Risk HPV and Genotyping (Cytology Component), Thyroid Function [place], GTT 50gm 1hr gestational screen, Additional followed-up results: 13 08/15/2024 10:20 AM CDT Lab [facility] [address] [place] [address] Urinary frequency; Obesity affecting , antepartum, unspecified obesity type 08/15/2024 Orders Only [address] [address] Tom Hagen MD 08/07/2024 1:37 PM CDT - 08/07/2024 11:59 PM CDT Hospital Encounter [facility] [address] [place] [address] Encounter for supervision of other normal in first trimester Discharge Disposition: Discharge to home or self care 08/07/2024 11:45 AM CDT Lab [facility] Building [address] [place] [address] Encounter for supervision of other normal in first trimester; Hypothyroidism, unspecified type 08/07/2024 11:30 AM CDT Office Visit [facility] [address] [place] [phone] Bayron Carrera MD Encounter for supervision of other normal in first trimester (Primary Dx); Hypothyroidism, unspecified type; Obesity affecting , antepartum, unspecified obesity type; Anxiety and depression 08/07/2024 10:30 AM CDT Clinical Support [facility] [address] [place] [phone] 08/07/2024 9:45 AM CDT Ancillary Procedure [facility] [address] [place] [address] [address] [place] [phone] Establish gestational age, ultrasound 08/07/2024 Orders Only [facility] [address] [place] [phone] Bayron Carrera MD Encounter for anatomic survey (Primary Dx) 08/07/2024 Telephone [facility] [address] [place] [address] [place] [phone] Bayron Carrera MD 07/09/2024 Telephone [facility] [address] [place] [address] [address] [place] [phone] Bayron Carrera MD from Last [...] Tobacco: Never Tobacco Cessation:Counseling Given: Not Answered [place] Depression Scale Answer Date Recorded [place] Depression Scale Total 9 08/07/2024 The thought of harming myself has occurred to me . Never 08/07/2024 Estimated Date of Delivery Comme nts Yes 2025 Based on last me nstrual period of 06/02/2024 Sex and Gender Information Value Date Recorded Sex Assigned at Not on file Legal Sex Female 3:11 PM [employer] Gender Identity Not on file Sexual Orientation [...] Estimated Date of Delivery 08/07/2024 - Present (09/28/2024) 1 2025 (set by Clarisse Gomez RN on 08/07/2024 based on Last Menstrual Period on 06/02/2024) Dating Summary Based On CIARA GA Diff Last Menstrual Period on 06/02/2024 2025 Working Ultrasound on 08/07/2024 03/12/2025 -3d GA:9w0d Overview and Plan :Cohen Support person:Ryan Delivery Plans Planned delivery method:TOLAC Planned delivery location:[facility] Overview Surveillance of EDC by LMP [...] Vitals Pregravid Weight Height TWG (As of 09/28/2024) Pregrav id BMI 94.3 kg (208 lb) 154.9 cm (5' 1) 0.454 kg (1 lb) 39.3 2 Notes Progress Notes - Office Visi t - 09/26/2024 - GA:16w4d 09/26/2024 - 16w4d - Tom Hagen MD Return OB Visit 34 y.o. at 16w4d Patient reports no acute concerns Endorses active movement Denies vaginal bleeding, LOF or painful contractions Objective BP 118/60 Ht 154.9 cm (5' 1) Wt 209 lb (94.8 kg) LMP 06/02/2024 BMI 39.49 kg/m Body mass index is 39.49 kg/m . TW lb (0.454 kg) Heart Rate: 145 Assessment/Plan: Surveillance of Dating: LMP = 1st T US (9 wk) Labs: O(+)/I/-/-, HIV and RPR NR, VZV and measles Immune Genetics: declines Anatomy: Placenta: GCT: 26-28 weeks 3T labs: Tdap: 27+ weeks GBS: 36 weeks, or sooner if early delivery indicated COVID Vaccine Flu vaccine Social Barriers: Method of feeding: Method of contraception: Delivery Planning: to be discussed H/o LTCS x 1: for AoD 2nd stage Calculated 42% chance of success. Counseled 08/07. Desires TOLAC BMI 39.3: early glucose wnl. At least 3T growth US x 1 Hypothyroid: Pre-: 200 mcg synthroid TSH: (08/07) 5.55 Current regimen: 250 mcg daily (last change 08/16) Anxiety/ depression: IOB EPDS 9, GAD7 10. Current regimen: Zoloft and Wellbutrin H/o alcohol abuse: sober for 5 years MJ use: recommend cessation H/o migraines: PRN APAP/benadryl RTC in 4wks Tom Hagen MD Progress Notes - Office Visi t - 08/29/2024 - GA:12w4d 08/29/2024 - 12w4d - Lorie Huitron MD Return OB Visit 34 y.o. at 12w4d No VB or persistent cramping Had some burning in her vagina, irritation with underwear, no itching, no pain with urination, no discharge or odor Objective BP 120/84 Ht 154.9 cm (5' 1) Wt 208 lb (94.3 kg) LMP 06/02/2024 BMI 39.30 kg/m Body mass index is 39.3 kg/m . TW lb (0 kg) BSUS - active movement and cardiac activity Assessment/Plan: - declines genetic screening - reviewed plan for repeat TSH in 2 weeks to assess after change in synthroid dosing - has had some burning at her vaginal introitus, no odor, itching or discharge, will monitor symptoms and if they continue she will let us know. Denies dysuria. Surveillance of Dating: LMP = 1st T US (9 wk) Labs: O(+)/I/-/-, HIV and RPR NR, VZV and measles Immune Genetics: declines Anatomy: Placenta: GCT: 26-28 weeks 3T labs: Tdap: 27+ weeks GBS: 36 weeks, or sooner if early delivery indicated COVID Vaccine Flu vaccine Social Barriers: Method of feeding: Method of contraception: Delivery Planning: to be discussed H/o LTCS x 1: for AoD 2nd stage Calculated 42% chance of success. Counseled 08/07. Desires TOLAC BMI 39.3: early glucose wnl. At least 3T growth US x 1 Hypothyroid: Pre-: 200 mcg synthroid TSH: (08/07) 5.55 Current regimen: 250 mcg daily (last change 08/16) Anxiety/ depression: IOB EPDS 9, GAD7 10. Current regimen: Zoloft and Wellbutrin H/o alcohol abuse: sober for 5 years MJ use: recommend cessation H/o migraines: PRN APAP/benadryl RTC in 4 wks, TSH in 2 weeks Joellen Huitron MD Progress Notes - Clinical Michel pport - 08/07/2024 - GA:9w3d 08/07/2024 - w3d - Clarisse Gomez RN Pt is overall doing well but [...] - Office Visi t - 08/07/2024 - GA:9w3d 08/07/2024 - 9w3d - Bayron Carrera MD New OB Visit [...] by mouth daily, Disp: , Rfl: vit 79-ayly-lwjzb-dha 27mg iron- 800 mcg-250 mg capsule, Take [...] 1hr gestational screen; Future - Thyroid Function [place]; Future Hypothyroidism, unspecified type (E03.9) - Thyroid Function [place]; Future Bayron Carrera MD Last Filed Vital [...] 09/26/2024 10:12 AM CDT Plan of Treatment Health Maintenance Due Date Last Done Comments Varicella Vaccines (1 of 2 - 13+ 2-dose series) 2003 Hepatitis B Screening 2008 Regular Well Visit/Exam 18-64 2008 HPV Vaccines (1 - 3-dose SCDM series) 2017 Covid-19 Vaccine ( season) 2023 01/05/2021, 05/05/2020, 04/14/2020 Influenza Vaccine (#1) 2024 , 11/09/2019, 12/15/2018, Additional history exists Cervical Cancer Screening 08/07/2025 08/07/2024, 11/2024 Depression Screening 08/07/2025 08/07/2024 DTaP/Tdap/Td Vaccine (3 - Td or Tdap) 11/07/2031 11/06/2021, 07/17/2015 Hepatitis C Screening Completed 08/07/2024 Pneumococcal vaccine <65 Aged Out No longer [...] Last 3 Months Results * Thyroid Function [place] (09/26/2024 11:09 AM CDT) TSH 2.89 0.30 - 4.20 mcIUnit/mL Comment:Testing performed by : [address] [address] Blood 09/26/2024 11:0 9 AM CDT 09/26/2024 12:43 PM CDT us Bayron Carrera MD LAB BLOOD ORDERABLES Final Result [facility] [address] [facility] Department [place] [address] * (ABNORMAL) Urinalysis reflex to microscopic and culture Urine, clean voided (08/15/2024 10:48 AM CDT) Color, ur Yellow Yellow Comment:Testing performed by : [address] [address] Clarity, ur Clear Clear BENNY Comment:Testing performed by : [address] [address] Specific gravity, ur 1.020 1.003 - 1.030 BENNY Comment:Testing performed by : [address] [address] pH, urine 6.0 BENNY Comment: Interpretive Data U rine pH is affected by diet, medications, systemic acid-base disturbances, and renal tubular function. pH may affect urinary stone formation. For example, urine pH below 6.0 may help reduce the tendency for calcium phosphate stones and pH greater than 6.0 may reduce the tendency for uric acid stone formation. Source: [facility] Current Interpretive Data was last revised on 2017 Testing performed by: [address] [address] Protein, ur ql Negative Negative BENNY SOTELO Comment:Testing performed by : [facility], [address] [place] [address], [place]., [address] Glucose, ur ql Negative Negative BENNY SOTELO Comment:Testing performed by : [facility], [address] [place] [address], [place]., [address] Ketones, ur Negative Negative BENNY SOTELO Comment:Testing performed by : [address], [place]., [address] Bilirubin, ur Negative Negative BENNY Comment:Testing performed by : [facility], [address] [place] [address], [place]., [address] Blood, ur Negative Negative BENNY Comment:Testing performed by : [address], [place]., [address] Urobilinogen, ur <2.0 <2.0 mg/dL BENNY SOTELO Comment:Testing performed by : [address], [place]., [address] Nitrite, ur Negative Negative BENNY Comment:Testing performed by : [address], [place]., [address] Leukocyte esterase, ur 3+(A) Negative BENNY Comment:Testing performed by : [address], [place]., [address] UA reflex comment Reflex to microscopic UA will be performed. BENNY Comment:Testing performed by : [address], [place]., [address] Urine, clean voided 08/15/2024 10:48 AM CDT 08/15/2024 11:49 AM CDT Narrative BENNY SOTELO - 08/15/2024 11:57 AM CDT Urine Collection Method->Clean Catch us Bayron Carrera MD LAB MICROBIOLOGY - GENERAL ORDERABLES Final Result BENNY SOTELO [address] [facility] Department [place] [address] * (ABNORMAL) Urinalysis, microscopic only (08/15/2024 10:48 AM CDT) WBC, ur 0-5 0 - 5 /HPF Comment:Testing performed by : [facility], [address] [place] [address], [place]., [address] RBC, ur 0-2 0 - 2 /HPF BENNY Comment:Testing performed by : [address], [place]., [address] Epithelial cells, squamous, ur 21-50(A) 0 - 5 /HPF BENNY Comment:Testing performed by : [address] [address] Bacteria, ur 1+(A) BENNY Comment:Testing performed by : [address], [place]., [address] Mucous, ur Present(A) BENNY Comment:Testing performed by : [address], [place]., [address] Urine, clean voided 08/15/2024 10:48 AM CDT 08/15/2024 11:50 AM CDT Bayron Carrera MD LAB URINE ORDERABLES Final Result [place] [address] [facility] Department [place] [address] * Urine culture Urine, clean voided (08/15/2024 10:48 AM CDT) Report Final Report: Less than 100,000 colonies/mL (clinically insignificant growth based on current clinical standards) Comment:Testing performed by : [facility], [address] [facility] [place] [address] Organism (CLINICALLY INSIGNIFICANT GROWTH BENNY Urine, clean voided 08/15/2024 10:48 AM CDT 08/15/2024 5:39 PM CDT Narrative BENNY - 08/16/2024 8:05 PM CDT Testing performed by [facility] Microbiology Laboratory ([phone]) Bayron Carrera MD LAB MICROBIOLOGY - GENERAL ORDERABLES Final Result Performing Organization Address City/[facility]/ZIP Co de Phone Number BENNY [address] [place] [address] * (ABNORMAL) Thyroid Function [place] (08/07/2024 12:06 PM CDT) TSH 5.55(H) 0.30 - 4.20 mcIUnit/mL Comment:Testing performed by : [address] [address] Blood 08/07/2024 12:0 6 PM CDT 08/07/2024 1:43 PM CDT Bayron Carrera MD LAB BLOOD ORDERABLES Final Result Performing Organization Address City/[facility] Co de Phone Number BENNY [address] [address] * GTT 50gm 1hr gestational screen (08/07/2024 [...] last revised on 2020. Testing performed by: [address] [address] Blood 08/07/2024 12:0 6 PM CDT 08/07/2024 1:43 PM CDT Bayron Carrera MD LAB BLOOD ORDERABLES Final Result Performing Organization Address City/[facility]/ZIP Co de Phone Number BENNY [address] [place] [address] * HIV 1/2 Antibody plus p24 Antigen [...] - GENERAL ORDERABLES Final Result BENNY SOTELO [address] [facility] Department [place] [address] * Hemoglobin analysis by electrophoresis (08/07/2024 12:06 PM CDT) Pathologist [facility] RBC 4.58 3.90 - 5.20 M/cumm Comment:Testing performed by : [facility], [address] [place]., [address] Hgb 13.4 11.9 - 15.5 g/dL BENNY SOTELO Comment:Testing performed by : [facility], [address] [place]., [address] MCV 83.8 81.3 - 96.4 fL BENNY SOTELO Comment:Testing performed by : [facility], [address] [place]., [address] Rdw 13.1 11.1 - 14.9 % BENNY SOTELO Comment:Testing performed by : [facility], [address] [place]., [address] Hgb electrophoresis , interp Please see comment BENNY SOTELO Comment: Normal hemoglobin pattern for age Reviewed and signed by Miguel Ángel Kumar MD 08/09/2024 Testing performed by: [facility], 1 [facility], [address] Hgb A 96.9 96.0 - 98.5 % BENNY SOTELO Comment:Testing performed by : [facility], [address] [place]., [address] Hgb A2 2.7 1.5 - 3.2 % BENNY SOTELO Comment:Testing performed by : [facility], [address] [place]., [address] Hgb F 0.4 0.0 - 0.9 % BENNY SOTELO Comment:Testing performed by : [facility], [address] [place]., [address] Blood 08/07/2024 12:0 6 PM CDT 08/07/2024 1:42 PM CDT Bayron Carrera MD LAB BLOOD ORDERABLES Final Result Performing Organization Address [facility] Co de Phone Number [address] [employer] [place] [place] [address] * Hepatitis C antibody Blood (08/07/2024 12:06 [...] GENERAL ORDERABLES Final Result Performing Organization Address [facility] Co de Phone Number [place] [address] [facility] [employer] [place] [place] [address] * Measles IgG antibody Blood (08/07/2024 12:06 PM CDT) Measles IgG Reactive Comment: Reactive: Results suggest response to immunization or prior exposure to the virus. Testing performed by: [facility], [address] [facility] [place] [address] Blood 08/07/2024 12:0 6 PM CDT 08/07/2024 3:43 PM CDT Bayron Carrera MD LAB MICROBIOLOGY - GENERAL ORDERABLES Final Result Performing Organization Address City/[facility] Co de Phone Number [address] [employer] [place] [place] [address] * ABO/Rh (08/07/2024 12:06 PM CDT) ABO/Rh O Positive Comment:Testing performed by : [facility], [address] [place] [address]., [address] Blood 08/07/2024 12:0 6 PM CDT 08/07/2024 1:43 PM CDT Narrative BENNY - 08/07/2024 2:18 PM CDT Has the patient had Daratumumab or Isatuximab in the past 6 months?->Unknown Hx of or candidate for Bone Marrow/Stem Cell transplant?->No Result [facility] Bayron Carrera MD LAB BLOOD BANK TEST ORDERA BLES Final Result [address] [place] [address] * Rubella IgG antibody Blood (08/07/2024 12:06 PM CDT) Rubella IgG Reactive Reactive Blood 08/07/2024 12:0 6 PM CDT 08/07/2024 2:30 PM CDT Bayron Carrera MD LAB MICROBIOLOGY - GENERAL ORDERABLES Final Result Performing Organization Address [facility] Co de Phone Number [address] [place] [address] * RPR Blood (08/07/2024 12:06 PM CDT) Pathologist [facility] RPR Nonreactive Nonreactive Comment:Testing performed by : [facility], [address] [place]., [address] Blood 08/07/2024 12:0 6 PM CDT 08/07/2024 3:43 PM CDT Bayron Carrera MD LAB MICROBIOLOGY - GENERAL ORDERABLES Final Result Performing Organization Address [facility] Co de Phone Number [address] [address] * Hepatitis B Surface Antigen Blood (08/07/2024 12:06 PM CDT) Pathologist [facility] HepBsAg Nonreactive Nonreactive Blood 08/07/2024 12:0 6 PM CDT 08/07/2024 2:30 PM CDT Bayron Carrera MD LAB MICROBIOLOGY - GENERAL ORDERABLES Final Result Performing Organization Address [facility] de Phone Number [address] [address] * CBC without differential (08/07/2024 12:06 PM CDT) Pathologist [facility] WBC 9.24 3.80 - 9.90 K/cumm Comment:Testing performed by : [address] [address] Hgb 13.4 11.9 - 15.5 g/dL BENNY SOTELO Comment:Testing performed by : [address] [address] Hct 38.1 35.6 - 45.5 % BENNY SOTELO Comment:Testing performed by : [address] [address] Plt 238 150 - 400 K/cumm BENNY Comment:Testing performed by : [address] [address] MPV 10.1 9.1 - 12.3 fL BENNY SOTELO Comment:Testing performed by : [address] [address] RBC 4.50 3.90 - 5.20 M/cumm BENNY SOTELO Comment:Testing performed by : [address] [address] MCV 84.7 81.3 - 96.4 fL BENNY Comment:Testing performed by : [address], [address] MCH 29.8 27.1 - 33.3 pg BENNY Comment:Testing performed by : [address] [address] MCHC 35.2 32.3 - 35.7 g/dL BENNY Comment:Testing performed by : [address], [address] RDW CV 13.0 11.1 - 14.9 % BENNY Comment:Testing performed by : [address], [address] RDW SD 39.8 35.7 - 48.1 fL BENNY Comment:Testing performed by : [address], [address] NRBC abs 0.00 0.00 - 0.01 K/cumm BENNY Comment:Testing performed by : [address] [address] Blood 08/07/2024 12:0 6 PM CDT 08/07/2024 1:42 PM CDT us Bayron Carrera MD LAB BLOOD ORDERABLES Final Result BENNY [address] [facility] Department [place] [address] * Antibody screen (08/07/2024 12:06 PM CDT) [facility] Pily, indirect, Gel Interpretation Negative ABSC Comment:Testing performed by : [facility], [address] [place] [address]., [address] Blood 08/07/2024 12:0 6 PM CDT 08/07/2024 1:43 PM CDT Narrative BENNY - 08/07/2024 2:18 PM CDT Has the patient had Daratumumab or Isatuximab in the past 6 months?->Unknown Hx of or candidate for Bone Marrow/Stem Cell transplant?->No Bayron Carrera MD LAB BLOOD BANK TEST ORDERA BLES Final Result [address] [employer] [place] [place] [address] * Varicella Zoster IgG antibody Blood (08/07/2024 12:06 PM CDT) [facility] VZV IgG Reactive Reactive Comment: Reactive: Results suggest response to immunization or prior exposure to the virus. Testing performed by: [facility], [address] [facility] [place] [address] Blood 08/07/2024 12:0 6 PM CDT 08/07/2024 3:43 PM CDT Bayron Carrera MD LAB MICROBIOLOGY - GENERAL ORDERABLES Final Result Performing Organization Address City/[facility]/ZIP Co de Phone Number [address] [employer] [place] [place] [address] * T4, free (08/07/2024 12:06 PM CDT) [facility] Free T4 1.02 0.90 - 1.70 ng/dL Comment:Testing performed by : [facility], [address] [place] [address]., [address] Blood 08/07/2024 12:0 6 PM CDT 08/07/2024 1:43 PM CDT Narrative BENNY - 08/07/2024 2:46 PM CDT This test was reflexed from a TSH result. Bayron Carrera MD LAB BLOOD ORDERABLES Final Result Performing Organization Address City/[facility] Co de Phone Number BENNY [address] [address] * Hemoglobin A1c (08/07/2024 12:06 PM CDT) Pathologist [facility] Hgb A1C 4.9 4.0 - 5.6 % Comment:Testing performed by : [address] [address] Estimated Average Glucose 94 mg/dL BENNY Comment: The ADA recommends reporting an estimated Average Glucose (eAG) with all Hemoglobin A1c results using the equation derived from a study of 507 normal and diabetic adults. Minority populations were underrepresented and children were not included. (Diabetes Care 31:0364-6482, 2008). The eAG is not equivalent to a fasting glucose. Testing performed by: [address] [address] Blood 08/07/2024 12:0 6 PM CDT 08/07/2024 1:42 PM CDT Bayron Carrera MD LAB BLOOD ORDERABLES Final Result Performing Organization Address City/[facility] Co de Phone Number BENNY [address] [address] * High Risk HPV DNA Detection with Genotyping (Molecular component) (08/07/2024 11:50 AM CDT) Pathologist [facility] HPV HR [address] [facility] Comment:Testing performed by : [facility], [address] [facility] [place] [address] HPV HR 18 Not Detected Not Detected BENNY SOTELO Comment:Testing performed by : [facility], [address] [facility] [place] [address] HPV HR Non 16/18 Not Detected Not [...] this test have been verified by the [facility] Molecular Infectious Disease laboratory. Correlate with separately reported cytology results, as applicable. Interpretive data last revised 22 Testing performed by: [facility], [address] [place]., [address] Endocervical 08/07/2024 11:5 0 AM CDT 08/09/2024 8:32 PM CDT Narrative [facility] - 08/10/2024 7:08 PM CDT Clinical history and diagnosis->screening Number of vials->1 Testing type->Screening Last menstrual period (date if known)->06/02/2024 Bayron Carrera MD LAB BODY FLUIDS AND STOOLS ORDERABLES Final Result [facility] [address] [facility] Department [place] [address] [facility] * Pap and High Risk HPV and Genotyping (Cytology Component) (08/07/2024 11:50 AM CDT) Thin prep (Pap test) 08/07/2024 11:50 AM CDT 08/09/2024 10:49 AM CDT Narrative PATHOLOGY [facility] - 08/14/2024 8:49 AM CDT EPIC results best viewed via link to PDF [facility] [place] [address] Note to Patients: This report may contain [...] Gender: F : 1990 (Age: 34) Address: [address] [place] [address] [facility] [facility] [id number] Service: DEFAULT Location: Patient Type: [facility] SPECIMEN Taken: 08/07/2024 Received: 08/09/2024 Accessioned: 08/09/2024 [...] this test have been verified by the [facility] Molecular Infectious Disease laboratory. Correlate with [...] clinical information and biopsy results as indicated. [facility] Clinical Laboratory Improvement Amendments (CLIA) mandate that cytologic and histologic results be correlated for laboratory director supplier quality & improvement standards. FOR ALL HIGH-GRADE CASES [...] determined by the Surgical Pathology Department at [facility] as part of an ongoing quality assurance associate program and in compliance with federally mandated [...] determined by the Surgical Pathology Department of [facility]. It has not been cleared or approved by the U. S. Food and Drug Administration. Bayron Carrera MD LAB CYTOLOGY ORDERABLES Fi nal Result PATHOLOGY [facility] * N. gonorrhoeae/C. trachomatis Amplification Vaginal (08/07/2024 11:50 AM CDT) C. trachomatis Not Detected [facility] Comment:Testing performed by : [facility], [address] [place] [address]., [address] N. gonorrhoeae Not Detected BENNY SOTELO Comment: Interpretive Data This assay detects Chlamydia trachomatis and Neisseria gonorrhoeae by nucleic acid amplification testing (NAAT). This assay has been cleared by the [facility] Food and Drug administration. The performance characteristics of this test have been verified by the [facility] Molecular Infectious Disease laboratory. The performance characteristics of this test have not been evaluated in individuals less than 14 years of age. Current Interpretive Data was last revised on 2023. Testing performed by: [facility], [address] [place] [address]., [address] Vaginal (None) 08/07/2024 11 :50 AM CDT 08/07/2024 8:08 PM CDT Bayron Carrera MD LAB MICROBIOLOGY - GENERAL ORDERABLES Final Result BENNY [address] [facility] Department [place] [address] [facility] * Trichomonas vaginalis PCR Vaginal (08/07/2024 11:50 AM CDT) Trichomonas DNA Not Detected [facility] Comment: Interpretive Data This assay detects Trichomonas vaginalis by nucleic acid amplification testing (NAAT). This assay has been cleared by the [place] Food and Drug administration. The performance characteristics of this test have been verified by the [facility] Molecular Infectious Disease laboratory. The performance of this test has not been evaluated in individuals less than 18 years of age. Current Interpretive Data was last revised on 2023. Testing performed by: [facility], [address] [place] [address]., [address] Vaginal 08/07/2024 11:5 0 AM CDT 08/07/2024 8:08 PM CDT Bayron Carrera MD LAB MICROBIOLOGY - GENERAL ORDERABLES Final Result BENNY [address] [facility] Department [place] [address] [facility] * (ABNORMAL) Drugs of Abuse Screen, Urine with Reflex Confirmation (08/07/2024 10:15 AM CDT) [facility] Amphetamine, ur Not Detected CutOff 500ng/mL Comment: Interpretive Data - Amphetamines: Samples containing greater than 500 ng/mL d-methamphetamine or other cross-reacting amphetamine compounds are reported as positive. Amphetamine immunoassays are subject to significant false positive rates due to cross-reactivity of non-amphetamine drugs. Confirmatory testing required for definitive results. Current Interpretive Data was last reviewed 2022. Testing performed by: [address] [address] Barbiturates, ur Not Detected CutOff 200ng/mL BENNY Comment: Interpretive Data - Barbiturates: Samples containing greater than 200 ng/mL secobarbital or other cross-reacting barbiturate compounds are reported as positive. False positive and false negative results are possible. Confirmatory testing required for definitive results. Current Interpretive Data was last reviewed 2022. Testing performed by: [address] [address] Benzodiazepines, ur Not Detected CutOff 100ng/mL BENNY Comment: Interpretive Data - Benzodiazepines: Samples containing greater than 100 ng/mL nordiazepam or other cross-reacting compounds are reported as positive. False positive and false negative results are possible. Confirmatory testing required for definitive results. Current Interpretive Data was last reviewed 2022. Testing performed by: [address] [address] Cannabinoids, ur Screen Positive, presumptive (A) CutOff 50 ng/mL BENNY Comment: Interpretive Data - Cannabinoids: Samples containing greater than 50 ng/mL delta-9 THC -COOH or other cross- reacting compounds are reported as positive. False positive and false negative results are possible. Confirmatory testing required for definitive results. Current Interpretive Data was last reviewed 2022. Testing performed by: [address] [address] Cocaine, ur Not Detected CutOff 150ng/mL [facility] Comment: Interpretive Data - Cocaine: Samples containing greater than 150 ng/mL benzoylecgonine or other cross- reacting compounds are reported as positive. False positive and false negative results are possible. Confirmatory testing required for definitive results. Current Interpretive Data was last reviewed 2022. Testing performed by: [address] [address] Fentanyl, Ur Not Detected Cutoff 1 ng/mL [facility] Comment: Interpretive Data - Fentanyl: Samples containing greater than 1 ng/mL fentanyl or other cross-reacting fentanyl compounds are reported as positive. False positive and false negative results are possible. Confirmatory testing required for definitive results. Current Interpretive Data was last reviewed 2022. Testing performed by: [address] [address] Methadone, ur Not Detected CutOff 300ng/mL [facility] Comment: Interpretive Data - Methadone: Samples containing greater than 300 ng/mL d,l-methadone or other cross-reacting compounds are reported as positive. False positive and false negative results are possible. Confirmatory testing required for definitive results. Current Interpretive Data was last reviewed 2022. Testing performed by: [address] [address] Opiates, ur Not Detected CutOff 300ng/mL [facility] Comment: Interpretive Data - Opiates: Samples containing greater than 300 ng/mL morphine or other cross-reacting compounds are reported as positive. False positive and false negative results are possible. Confirmatory testing required for definitive results. Current Interpretive Data was last reviewed 2022. Testing performed by: [address] [address] Oxycodone, ur Not Detected CutOff 100ng/mL [facility] Comment: Interpretive Data - Oxycodone: Samples containing greater than 100 ng/mL oxycodone or other cross-reacting compounds are reported as positive. False positive and false negative results are possible. Confirmatory testing required for definitive results. Current Interpretive Data was last reviewed 2022. Testing performed by: [address] [address] Phencyclidine, ur Not Detected CutOff 25 ng/mL BENNY SOTELO Comment: Interpretive Data - Phencyclidine: Samples containing greater than 25 ng/mL phencyclidine or other cross-reacting compounds are reported as positive. False positive and false negative results are possible. Confirmatory testing required for definitive results. Current Interpretive Data was last reviewed 2022. Testing performed by: [address] [address] Urine Creatinine 273 mg/dL BENNY Comment: Interpretive Data Urine Creatinine: < 10 mg/dL is extremely dilute = or > 10 but < 20 mg/dL is dilute = or > 20 mg/dL is normal Current Interpretive Data was last revised on 2017. Testing performed by: [address] [address] Urine 08/07/2024 10:1 5 AM CDT 08/07/2024 [...] MD LAB URINE ORDERABLES Final Result BENNY [address] [facility] Department [place] [address] * Urine culture Urine, clean voided (08/07/2024 10:15 AM CDT) Report Final Report: Less than 100,000 colonies/mL (clinically insignificant growth based on current clinical standards) Comment:Testing performed by : [facility], [address] [facility], [place]., [address] Organism (CLINICALLY INSIGNIFICANT GROWTH BENNY Urine, clean voided 08/07/2024 10:15 AM CDT 08/07/2024 8:39 PM CDT Narrative BENNY SOTELO - 08/10/2024 6:33 AM CDT Testing performed by [facility]biology Laboratory ([phone]) us Bayron Carrera MD LAB MICROBIOLOGY - GENERAL ORDERABLES Final Result BENNY [address] [facility] Department [place] [address] * US OB Under 14 Weeks W [...] Result from Last 3 Months Insurance [employer] [facility] Care Teams Pharmacy Graduate Intern Relationship Specialty Start Date End Date Cony Naranjo NP PCP - General Family Medicine 08/29/24
--- OUTSIDE RECORDS SUMMARY | 2024-09-28 18:20 | XMS_ITS | Patient Health Record ---
Author Organization [facility] Address [address] [place] [address] Care Team Providers Care Purchasing Department Clerk Name Role Phone JerzyVinayak luonghanie Primary Care Provider [phone] Gay Luciano Unavailable [phone] Rubi Souza Unavailable [phone] Allergies Allergen (clinical drug ingredient) Drug/Non Drug Allergy documented on EMR Reaction Allergy Type Onset Date Status Penicillin G Benzathine hives Drug Allergy Active Results Component Value Reference Range Notes QuantiFERON-TB Gold Plus (77 4003) Reviewed date:12/14/2023 10:29:36 AM Interpretation: Performing Lab:[facility], [address] [facility], Phone - [phone], Director - Zoey Notes/Report: QuantiFERON Incubation Incubation [...] QuantiFERON Mitogen Value >10.00 Hemoglobin A1c* Reviewed date:07/11/2024 05:18:35 PM Interpretation: Performing Lab:[facility] [place] [address] [place] [address], Phone - [phone], Director - [facility] Notes/Report: Hemoglobin A1c 5.1 4.8-5.6 % . Prediabetes: 5.7 - 6.4 Diabetes: >6.4 Glycemic control for adults with diabetes: <7.0 hCG,Beta Subunit, Qnt, Serum Reviewed date:07/11/2024 05:18:35 PM Interpretation: Performing Lab:[facility] [address] [place] [address], Phone - [phone], Director - [facility] Notes/Report: hCG,Beta Subunit,Qnt,Serum 191 Female (Non-) 0 - 5 (Postmenopausal) 0 - 8 . Female () Weeks of Gestation 3 6 - 71 4 10 - 750 5 297 - 1992 6 987 - 01383 7 3482 -039135 8 60408 -934475 9 75003 -241619 10 87170 -054429 12 20390 -387230 14 13710 - 48756 15 79267 - 60527 16 8166 - 64327 17 0067 - 89489 18 5954 - 61445 Rashawn ECLIA methodology CBC With Differential/Platel et* Reviewed date:07/11/2024 05:18:35 PM Interpretation: Performing Lab:[facility], [address] [facility], Phone - [phone], Director - [facility] Notes/Report: WBC 7.9 3.4-10.8 x10E3/uL RBC [...] T4* Reviewed date:07/11/2024 05:18:35 PM Interpretation: Performing Lab:[facility] [place], [address] [facility], Phone - [phone], Director - [facility] Notes/Report: TSH 4.840 0.450-4.500 uIU/mL T4,Free(Direct) 1.28 0.82-1.77 ng/dL CMP 14 Comprehensive Metabol ic Panel* Reviewed date:07/11/2024 05:18:35 PM Interpretation: Performing Lab:[facility] [place], [address] [place] [address], Phone - [phone], Director - [facility] Notes/Report: Glucose 85 70-99 mg/dL BUN [...] 0-40 IU/L ALT (SGPT) 21 0-32 IU/L hCG,Beta Subunit, Qnt, Serum Reviewed date:07/17/2024 02:54:50 PM Interpretation: Performing Lab:[facility] [place], [address] [facility], [place], Phone - [phone], Director - Zoey Notes/Report: hCG,Beta Subunit,Qnt,Serum 5700 Female (Non-) 0 - 5 (Postmenopausal) 0 - 8 . Female () Weeks of Gestation 3 6 - 71 4 10 - 750 5 369 - 8061 6 972 - 05904 7 0226 -226265 8 18185 -329988 9 44296 -862453 10 13327 -784327 12 51994 -975912 14 80422 - 37287 15 73017 - 92623 16 3779 - 80946 17 4395 - 65793 18 0484 - 41189 Rashawn ECLIA methodology Test, Urine Reviewed date:07/04/2024 12:52:23 PM Interpretation:Positive Performing Lab: Notes/Report: Positive Test, Urine POS Negative - Negative Reason For Referral Reason home test positive, 5 weeks, pending hcg blood Diagnosis 1 Missed period (N92.6 ) Referral Organization [facility] Referring Provider First Name Cony Referring Provider Last Name Marcella Referring Provider [facility] Referred Provider Specialty OB - Gynecol ogy General Notes Ligia Mancuso 07/05/2024 11:52:23 AM >Spoke with staff who advised patients insurance is accepted, Ligia Mancuso 07/05/2024 12:08:22 PM >letter mailed; message sent Clinical Notes [facility]- O B/[employer] Amanda, [address] [place] [address]. [id number], , Referral Priority Routine Medications Medication SIG (Take, Route, Frequency, Duration) Notes Start Date End Date Status busPIRone HCl 5 MG 1 tablet Orally Twic e a day; Duration: 30 days 03/01/2024 Not-Taking Acyclovir 400 MG 1 tablet Orally thre e times daily; Duration: 10 days 06/02/2023 Not-Taking Sprintec 28 0.25-35 MG-MCG 1 tablet Oral ly Once a day; Duration: 28 days 05/05/2023 Not-Takin g + DHA Activ e buPROPion HCl ER (XL) 150 MG 1 tablet in the morning Orally Once a day; Duration: 30 days Active Zoloft 100 MG 2 tabs Orally Once a day; Duration: 30 days Active Levothyroxine Sodium 200 MCG 1 tablet in the morning on an empty stomach Orally Once a day; Duration: 30 days Active metFORMIN HCl 500 MG 1 tablet with a nic l Orally Once a day; Duration: 30 days 12/14/2023 Not-Taking Social History Tobacco [...] Status Risk Notes Problem Morbid obesity (disorder) (246492355) Morbid (severe) obesity due to excess calories (E66.01) Active confirmed Problem Generalized anxiety disorder (21807696) Generalized anxiety disorder (F41.1) 4 Active confirmed Problem Major depression (804109247) Major depression (F32.9) 4 Active confirmed Problem Posttraumatic stress disorder (45124382) PTSD (post-traumatic stress disorder) (F43.10) 4 Active confirmed Problem Overweight (773974808) Over weight (E66.3) Active confirmed Problem Polycystic ovary syndrome (disorder) (009808426) PCOS (polycystic ovarian syndrome) (E28.2) Active confirmed Problem Missed period (76145493) Missed period (N92.6) Active confirmed Problem Cannabis abuse (48484064) Cannabis use disorder, mild, abuse (F12.10) 4 Active confirmed Problem 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 Vital Signs Heart Rate 101 /min 07/04/2024 Respiratory Rate 16 /min 07/04/2024 Blood pressure diastolic 84 mm Hg 07/04/2024 Oximetry 98 % 07/04/2024 Height 62 in 07/04/2024 Blood pressure systolic 126 mm Hg 07/04/2024 Weight 210 lbs 07/04/2024 BMI 38.41 kg/m2 07/04/2024 Encounters Encounter Location Date Provider Diagnosis [facility] [address] [place] [address] 03/05/2024 Gay Luciano [facility] [address] [place] [address] 07/13/2024 Cony Guthriesaundra History of miscarriage Z87.59 and at early stage Z34.90 [facility] [address], [place] [address] 12/14/2023 Cony Bertrandcherise PCOS (polycystic ovarian syndrome) E28.[address] [place] [address] 03/01/2024 Gay Luciano Generalized anxiety disorder F41.1 ; Major depression F32.9 ; PTSD (post-traumatic stress disorder) F43.10 ; Cannabis use disorder, mild, abuse F12.10 and Medication monitoring encounter Z51.81 [facility] [place] [address] 07/04/2024 Cony Hillwilliams Over weight E66.3 and Missed period N92.[address] [place] [address] 07/12/2024 Gay Luciano Generalized anxiety disorder F41.1 ; Major depression F32.9 ; PTSD (post-traumatic stress disorder) F43.10 ; Medication monitoring encounter Z51.81 and Cannabis use disorder, mild, abuse F12.[address] [place] [address] 10/10/2023 Rubi Souza [address] [place] [address] 01/31/2024 aGy Luciano Major depression F32.9 and Generalized anxiety disorder F41.[address] [facility] [place] [address] 02/13/2024 Gay Luciano Major depression F32.9 [place] [address] [place] [address] 07/03/2024 Cony Naranjo [address] [place] [address] 07/09/2024 Gay Luciano Major depression F32.9 [facility] [place] [address] 07/11/2024 Cony Naranjo History of miscarriage Z87.59 and at early stage Z34.90 [facility] [place] [address] 07/17/2024 Cony Naranjo [place] [address], [place] [address] 12/13/2023 Cony Naranjo Assessments Encounter Date Diagnosis (ICD Code) Assessment Notes Treatment Notes Treatment Clinical Notes Section Notes 07/04/2024 Over weight (ICD-10 - E66.3) 07/04/2024 Missed period (ICD-10 - N92.6) 03/01/2024 Generalized anxiety disorder (ICD-10 - F41.1) Starting low dose as client reports hx of taking this but my anxiety was high at the time, so I am not sure if I had side effects or not. Discussed to stop if noticing any SE. Discussed r/b/se. 02/13/2024 Major depression (ICD-10 - F32.9) 07/12/2024 Generalized anxiety disorder (ICD-10 - F41.1) Encouraged coping skills, continue Zoloft. Buspirone tried 2x, causes hypersexuality for client. 07/09/2024 Major depression (ICD-10 - F32.9) 01/31/2024 Major depression (ICD-10 - F32.9) 07/13/2024 History of miscarriage (ICD-10 - Z87.59) 07/11/2024 History of miscarriage (ICD-10 - Z87.59) 07/11/2024 at early stage (ICD-10 - Z34.90) 12/14/2023 PCOS (polycystic ovarian syndrome) (ICD-10 - E28.2) Lifestyle modification - including increased physical activity and healthy diet resulting in weight loss and improved body composition 07/13/2024 at early stage (ICD-10 - Z34.90) 01/31/2024 Generalized anxiety disorder (ICD-10 - F41.1) 07/12/2024 Major depression (ICD-10 - F32.9) 03/01/2024 Major depression (ICD-10 - F32.9) 03/01/2024 PTSD (post-traumati c stress disorder) (ICD-10 - F43.10) Encouraged therapy. 07/12/2024 PTSD (post-traumati c stress disorder) (ICD-10 - F43.10) Encouraged therapy. 07/12/2024 Medication monitoring encounter (ICD-10 - Z51.81) 03/01/2024 Medication monitoring encounter (ICD-10 - Z51.81) 03/01/2024 Cannabis use disorder, mild, abuse (ICD-10 - F12.10) 07/12/2024 Cannabis use disorder, mild, abuse (ICD-10 [...] May also contact the 24-hour crisis hotline ([facility]), refer to the closest emergency room [...] Insured Coverage Start Date Coverage End Date [facility] [email or web address] [facility] [address] [place] [address] [id number] Read, Juan Jose Self - patient is the insured 3 5 [facility] [email or web address] [facility] [address] [place] [address] [id number] Read, Juan Jose Self - patient is the insured 3 5 Medical (General) History Medical History History ICD Code PCOS breast pain Surgical History Surgery Date(Month/Year) C section 2021 Hospitalization History Reason Date(Month/Year) childbirth 2021
[2024-09-28 18:23] VITALS: BP 141/93; PULSE 100; RESP 18; TEMP 36.5; O2SAT 100
[2024-09-28] MEDS: ACETAMINOPHEN 500 MG TABLET 1000 MG PO (19:13)
--- OUTSIDE RECORDS SUMMARY | 2024-09-28 19:19 | XMS_ITS | Referral Summary ---
Author Organization [facility] Address [address] [place] [address] Care Team Providers Care Veterinary Microbiologist Name Role Phone Cony Naranjo NP Primary Care Provider Encounters Date Type Department Care Team Description 09/26/2024 11:05 AM CDT Lab [facility] Office Building [address] [place] [address] Other specified hypothyroidism 09/26/2024 10:15 AM CDT Office Visit [facility] Obstetrical Gynecology [address] [place] [phone] Tom Hagen MD Obesity affecting , antepartum, unspecified obesity type (Primary Dx); Supervision of other normal , antepartum; Other specified hypothyroidism; Anxiety and depression 08/29/2024 11:30 AM CDT Office Visit [facility] Obstetrical Gynecology [address] [place] [phone] Joellen Huitron MD Hypothyroidism, unspecified type (Primary Dx); Anxiety and depression; History of migraine; Obesity affecting , antepartum, unspecified obesity type; Encounter for supervision of other normal in first trimester 08/16/2024 Results Follow-Up [facility] Center [address] [place] [address] Bayron Carrera MD Pap and High Risk HPV and Genotyping (Cytology Component), Thyroid Function Paulina, GTT 50gm 1hr gestational screen, Additional followed-up results: 13 08/15/2024 Orders Only [facility] Center [address] [place] [address] Tom Hagen MD 08/15/2024 10:20 AM CDT Lab [facility] Building [address] [place] [address] Urinary frequency; Obesity affecting , antepartum, unspecified obesity type 08/07/2024 1:37 PM CDT - 08/07/2024 11:59 PM CDT Hospital Encounter [facility] Building [address] [place] [address] Encounter for supervision of other normal in first trimester Discharge Disposition: Discharge to home or self care 08/07/2024 Orders Only [facility] Obstetrical Gynecology [address] [place] [phone] Bayron Carrera MD Encounter for anatomic survey (Primary Dx) 08/07/2024 Telephone [facility] Obstetrical Gynecology [address] [place] [phone] Bayron Carrera MD 08/07/2024 11:45 AM CDT Lab [facility] [address] [place] [address] Encounter for supervision of other normal in first trimester; Hypothyroidism, unspecified type 08/07/2024 9:45 AM CDT Ancillary Procedure [facility] Obstetrical Gynecology [address] [place] [phone] Establish gestational age, ultrasound 08/07/2024 11:30 AM CDT Office Visit [facility] Obstetrical Gynecology [address] [place] [phone] Bayron Carrera MD Encounter for supervision of other normal in first trimester (Primary Dx); Hypothyroidism, unspecified type; Obesity affecting , antepartum, unspecified obesity type; Anxiety and depression 08/07/2024 10:30 AM CDT Clinical Support [facility] Obstetrical Gynecology [address] [place] [address] [phone] 07/09/2024 Telephone [facility] Obstetrical Gynecology [address] [facility] [address] [place] [phone] Bayron Carrera MD from Last 3 Months Allergies No known active allergies Medications sertraline (ZOLOFT) 100 mg tablet Take 2 tablets (200 mg total) by mouth daily 3 Active buPROPion XL (WELLBUTRIN XL) 150 mg 24 hr tablet Take 1 tablet (150 mg total) by mouth daily 3 Active vit 95-urij-hsgcv-d stokes 27mg iron- 800 mcg-250 mg capsule Take by mouth Active metoclopramide (REGLAN) 10 mg tablet Take 1 tablet (10 mg total) by mouth every 6 (six) hours as needed (nausea) 30 tablet 2 5 Active levothyroxine (SYNTHROID) 125 mcg tablet Take 2 tablets (250 mcg total) by mouth cattle sorter before breakfast 60 tablet 1 5 Active [...] Tobacco: Never Tobacco Cessation:Counseling Given: Not Answered [place] Depression Scale Answer Date Recorded [place] Depression Scale Total 9 08/07/2024 The thought of harming myself has occurred to me . Never 08/07/2024 Estimated Date of Delivery Comme nts Yes 2025 Based on last me nstrual period of 06/02/2024 Sex and Gender Information Value Date Recorded Sex Assigned at Not on file Legal Sex Female 3:11 PM [employer] Gender Identity Not on file Sexual Orientation [...] Last 3 Months Results * Thyroid Function Paulina (09/26/2024 11:09 AM CDT) TSH 2.89 0.30 - 4.20 mcIUnit/mL Comment:Testing performed by : [address] [address] Blood 09/26/2024 11:0 9 AM CDT 09/26/2024 12:43 PM CDT us Bayron Carrera MD LAB BLOOD ORDERABLES Final Result BENNY [address] [facility] [place] [address] * (ABNORMAL) Urinalysis reflex to microscopic and culture Urine, clean voided (08/15/2024 10:48 AM CDT) Color, ur Yellow Yellow Comment:Testing performed by : [address] [address] Clarity, ur Clear Clear BENNY SOTELO Comment:Testing performed by : [address] [address] Specific gravity, ur 1.020 1.003 - 1.030 BENNY Comment:Testing performed by : [address] [place] [address] pH, urine 6.0 BENNY Comment: Interpretive Data U rine pH is affected by diet, medications, systemic acid-base disturbances, and renal tubular function. pH may affect urinary stone formation. For example, urine pH below 6.0 may help reduce the tendency for calcium phosphate stones and pH greater than 6.0 may reduce the tendency for uric acid stone formation. Source: [facility] mSnap Current Interpretive Data was last revised on 2017 Testing performed by: [facility], [address] [place] [address]., [address] Protein, ur ql Negative Negative BENNY Comment:Testing performed by : [address] [address] Glucose, ur ql Negative Negative BENNY Comment:Testing performed by : [address], [place]., [address] Ketones, ur Negative Negative BENNY Comment:Testing performed by : [address] [address] Bilirubin, ur Negative Negative BENNY Comment:Testing performed by : [address], [place]., [address] Blood, ur Negative Negative BENNY Comment:Testing performed by : [address] [address] Urobilinogen, ur <2.0 <2.0 mg/dL BENNY Comment:Testing performed by : [address] [address] Nitrite, ur Negative Negative BENNY Comment:Testing performed by : [address] [address] Leukocyte esterase, ur 3+(A) Negative BENNY Comment:Testing performed by : [address] [address] UA reflex comment Reflex to microscopic UA will be performed. BENNY Comment:Testing performed by : [address], [place]., [address] Urine, clean voided 08/15/2024 10:48 AM CDT 08/15/2024 11:49 AM CDT Narrative BENNY - 08/15/2024 11:57 AM CDT Urine Collection Method->Clean Catch Bayron Carrera MD LAB MICROBIOLOGY - GENERAL ORDERABLES Final Result Performing Organization Address [facility] Co de Phone Number BENNY [address] [facility] [place] [address] * (ABNORMAL) Urinalysis, microscopic only (08/15/2024 10:48 AM CDT) WBC, ur 0-5 0 - 5 /HPF Comment:Testing performed by : [facility], [address] [place] [address]., [address] RBC, ur 0-2 0 - 2 /HPF BENNY Comment:Testing performed by : [facility], [address] [place] [address]., [address] Epithelial cells, squamous, ur 21-50(A) 0 - 5 /HPF BENNY Comment:Testing performed by : [address] [address] Bacteria, ur 1+(A) BENNY Comment:Testing performed by : [facility], [address] [place] [address]., [address] Mucous, ur Present(A) BENNY Comment:Testing performed by : [address] [address] Urine, clean voided 08/15/2024 10:48 AM CDT 08/15/2024 11:50 AM CDT Bayron Carrera MD LAB URINE ORDERABLES Final Result Performing Organization Address [facility] Co de Phone Number BENNY [address] [place] [address] * Urine culture Urine, clean voided (08/15/2024 10:48 AM CDT) Report Final Report: Less than 100,000 colonies/mL (clinically insignificant growth based on current clinical standards) Comment:Testing performed by : [facility], [address] [facility] [place] [address] Organism (CLINICALLY INSIGNIFICANT GROWTH [facility] Urine, clean voided 08/15/2024 10:48 AM CDT 08/15/2024 5:39 PM CDT Narrative BENNY - 08/16/2024 8:05 PM CDT Testing performed by [facility] Microbiology Laboratory ([phone]) Bayron Carrera MD LAB MICROBIOLOGY - GENERAL ORDERABLES Final Result Performing Organization Address [facility] de Phone Number [address] [address] * (ABNORMAL) Thyroid Function Paulina (08/07/2024 12:06 PM CDT) Pathologist [facility] TSH 5.55(H) 0.30 - 4.20 mcIUnit/mL Comment:Testing performed by : [address] [address] Blood 08/07/2024 12:0 6 PM CDT 08/07/2024 1:43 PM CDT Bayron Carrera MD LAB BLOOD ORDERABLES Final Result Performing Organization Address [facility] de Phone Number [address] [address] * GTT 50gm 1hr gestational screen (08/07/2024 [...] revised on 2020. Testing performed by: [address], [place]., [address] Blood 08/07/2024 12:0 6 PM CDT 08/07/2024 1:43 PM CDT Bayron Carrera MD LAB BLOOD ORDERABLES Final Result Performing Organization Address City/[facility] Co de Phone Number [address] [address] * HIV 1/2 Antibody plus p24 Antigen Blood (08/07/2024 12:06 PM CDT) Pathologist [facility] HIV 1/2 ab + p24 ag Nonreactive [...] GENERAL ORDERABLES Final Result Performing Organization Address [facility] Co de Phone Number [address] [address] * Hemoglobin analysis by electrophoresis (08/07/2024 12:06 PM CDT) Pathologist [facility] RBC 4.58 3.90 - 5.20 M/cumm Comment:Testing performed by : [facility], [address] [place]., [address] Hgb 13.4 11.9 - 15.5 g/dL BENNY SOTELO Comment:Testing performed by : [facility], [address] [place]., [address] MCV 83.8 81.3 - 96.4 fL BENNY SOTELO Comment:Testing performed by : [facility], [address] [place]., [address] Rdw 13.1 11.1 - 14.9 % BENNY SOTELO Comment:Testing performed by : [facility], [address] [place]., [address] Hgb electrophoresis , interp Please see comment BENNY SOTELO Comment: Normal hemoglobin pattern for age Reviewed and signed by Miguel Ángel Kumar MD 08/09/2024 Testing performed by: [facility], [address] [place]., [address] Hgb A 96.9 96.0 - 98.5 % BENNY Comment:Testing performed by : [facility], [address] [place]., [address] Hgb A2 2.7 1.5 - 3.2 % BENNY SOTELO Comment:Testing performed by : [facility], [address] [facility], [address] Hgb F 0.4 0.0 - 0.9 % BENNY Comment:Testing performed by : [facility], [address] [facility], [address] Blood 08/07/2024 12:0 6 PM CDT 08/07/2024 1:42 PM CDT us Bayron Carrera MD LAB BLOOD ORDERABLES Final Result BENNY [address] [facility] [place] [address] * Hepatitis C antibody Blood (08/07/2024 12:06 [...] GENERAL ORDERABLES Final Result Performing Organization Address [facility]/ZIP Co de Phone Number MARY[address] [place] [address] * Measles IgG antibody Blood (08/07/2024 12:06 PM CDT) Measles IgG Reactive Comment: Reactive: Results suggest response to immunization or prior exposure to the virus. Testing performed by: [facility], [address] [place] [address], [place]., [address] Blood 08/07/2024 12:0 6 PM CDT 08/07/2024 3:43 PM CDT Bayron Carrera MD LAB MICROBIOLOGY - GENERAL ORDERABLES Final Result Performing Organization Address [facility] de Phone Number [address] [place] [address] * ABO/Rh (08/07/2024 12:06 PM CDT) ABO/Rh O Positive Comment:Testing performed by : [facility], [address] [place] [address]., [address] Blood 08/07/2024 12:0 6 PM CDT 08/07/2024 1:43 PM CDT Narrative BENNY - 08/07/2024 2:18 PM CDT Has the patient had Daratumumab or Isatuximab in the past 6 months?->Unknown Hx of or candidate for Bone Marrow/Stem Cell transplant?->No Bayron Carrera MD LAB BLOOD BANK TEST ORDERA BLES Final Result Performing Organization Address [facility]/ZIP Co de Phone Number MARY[address] [place] [address] * Rubella IgG antibody Blood (08/07/2024 12:06 PM CDT) Rubella IgG Reactive Reactive Blood 08/07/2024 12:0 6 PM CDT 08/07/2024 2:30 PM CDT Bayron Carrera MD LAB MICROBIOLOGY - GENERAL ORDERABLES Final Result Performing Organization Address [facility] Co de Phone Number [address] [address] * RPR Blood (08/07/2024 12:06 PM CDT) RPR Nonreactive Nonreactive Comment:Testing performed by : [facility], [address] [place] [address] Blood 08/07/2024 12:0 6 PM CDT 08/07/2024 3:43 PM CDT Bayron Carrera MD LAB MICROBIOLOGY - GENERAL ORDERABLES Final Result Performing Organization Address [facility] Co de Phone Number [address] [place] [address] * Hepatitis B Surface Antigen Blood (08/07/2024 12:06 PM CDT) HepBsAg Nonreactive Nonreactive Blood 08/07/2024 12:0 6 PM CDT 08/07/2024 2:30 PM CDT Bayron Carrera MD LAB MICROBIOLOGY - GENERAL ORDERABLES Final Result Performing Organization Address City/[facility]/ZIP Co de Phone Number [address] [place] [address] * CBC without differential (08/07/2024 12:06 PM CDT) [facility] WBC 9.24 3.80 - 9.90 K/cumm Comment:Testing performed by : [address], [address] Hgb 13.4 11.9 - 15.5 g/dL BENNY Comment:Testing performed by : [address], [address] Hct 38.1 35.6 - 45.5 % BENNY Comment:Testing performed by : [address] [address] Plt 238 150 - 400 K/cumm BENNY Comment:Testing performed by : [address], [address] MPV 10.1 9.1 - 12.3 fL BENNY Comment:Testing performed by : [address], [address] RBC 4.50 3.90 - 5.20 M/cumm BENNY Comment:Testing performed by : [address], [address] MCV 84.7 81.3 - 96.4 fL BENNY Comment:Testing performed by : [address], [address] MCH 29.8 27.1 - 33.3 pg BENNY Comment:Testing performed by : [address], [address] MCHC 35.2 32.3 - 35.7 g/dL BENNY Comment:Testing performed by : [address], [address] RDW CV 13.0 11.1 - 14.9 % BENNY Comment:Testing performed by : [address], [address] RDW SD 39.8 35.7 - 48.1 fL BENNY Comment:Testing performed by : [address], [address] NRBC abs 0.00 0.00 - 0.01 K/cumm BENNY Comment:Testing performed by : [address] [address] Blood 08/07/2024 12:0 6 PM CDT 08/07/2024 1:42 PM CDT Bayron Carrera MD LAB BLOOD ORDERABLES Final Result [address] [address] * Antibody screen (08/07/2024 12:06 PM CDT) Pathologist [facility] Pily, indirect, Gel Interpretation Negative ABSC Comment:Testing performed by : [facility], [address] [place] [address]., [address] Blood 08/07/2024 12:0 6 PM CDT 08/07/2024 1:43 PM CDT [facility]ative [facility] 08/07/2024 2:18 PM CDT Has the patient had Daratumumab or Isatuximab in the past 6 months?->Unknown Hx of or candidate for Bone Marrow/Stem Cell transplant?->No Bayron Carrera MD LAB BLOOD BANK TEST ORDERA BLES Final Result Performing Organization Address [facility] Co de Phone Number [address] [address] * Varicella Zoster IgG antibody Blood (08/07/2024 12:06 PM CDT) [facility] VZV IgG Reactive Reactive Comment: Reactive: Results suggest response to immunization or prior exposure to the virus. Testing performed by: [facility], [address] [facility], [place]., [address] Blood 08/07/2024 12:0 6 PM CDT 08/07/2024 3:43 PM CDT Bayron Carrera MD LAB MICROBIOLOGY - GENERAL ORDERABLES Final Result Performing Organization Address City/[facility]/ZIP Co de Phone Number [address] [address] * T4, free (08/07/2024 12:06 PM CDT) [facility] Free T4 1.02 0.90 - 1.70 ng/dL Comment:Testing performed by : [address] [address] Blood 08/07/2024 12:0 6 PM CDT 08/07/2024 1:43 PM CDT Narrative BENNY - 08/07/2024 2:46 PM CDT This test was reflexed from a TSH result. Bayron Carrera MD LAB BLOOD ORDERABLES Final Result Performing Organization Address [facility] Co de Phone Number [place] [address] [place] [address] * Hemoglobin A1c (08/07/2024 12:06 PM CDT) [facility] Hgb A1C 4.9 4.0 - 5.6 % Comment:Testing performed by : [address] [address] Estimated Average Glucose 94 mg/dL BENNY Comment: The ADA recommends reporting an estimated Average Glucose (eAG) with all Hemoglobin A1c results using the equation derived from a study of 507 normal and diabetic adults. Minority populations were underrepresented and children were not included. (Diabetes Care 31:6244-5033, 2008). The eAG is not equivalent to a fasting glucose. Testing performed by: [address] [address] Blood 08/07/2024 12:0 6 PM CDT 08/07/2024 1:42 PM CDT Bayron Carrera MD LAB BLOOD ORDERABLES Final Result Performing Organization Address [facility] Co de Phone Number [place] [address] [place] [address] * High Risk HPV DNA Detection with Genotyping (Molecular component) (08/07/2024 11:50 AM CDT) HPV HR [address] [facility] Comment:Testing performed by : [facility], [address] [place]., [address] HPV HR 18 Not Detected Not Detected BENNY SOTELO Comment:Testing performed by : [facility], [address] [place]., [address] HPV HR Non 16/18 Not Detected Not [...] this test have been verified by the [facility] Molecular Infectious Disease laboratory. Correlate with separately reported cytology results, as applicable. Interpretive data last revised 22 Testing performed by: [facility], [address] [place]., [address] Endocervical 08/07/2024 11:5 0 AM CDT 08/09/2024 8:32 PM CDT Narrative BENNY - 08/10/2024 7:08 PM CDT Clinical history and diagnosis->screening Number of vials->1 Testing type->Screening Last menstrual period (date if known)->06/02/2024 us Bayron Carrera MD LAB BODY FLUIDS AND STOOLS ORDERABLES Final Result BENNY SOTELO [address] [facility] [place] [address] [facility] * Pap and High Risk HPV and Genotyping (Cytology Component) (08/07/2024 11:50 AM CDT) Thin prep (Pap test) 08/07/2024 11:50 AM CDT 08/09/2024 10:49 AM CDT Narrative PATHOLOGY [facility] - 08/14/2024 8:49 AM CDT EPIC results best viewed via link to PDF [facility] [place] [address] Note to Patients: This report may contain [...] Gender: Nicole : 1990 (Age: 34) Address: [address] [place] [address] Hospital #: [id number] Service: DEFAULT Location: Patient Type: [facility] SPECIMEN Taken: 08/07/2024 Received: 08/09/2024 Accessioned: 08/09/2024 [...] this test have been verified by the [facility] Molecular Infectious Disease laboratory. Correlate with reported [...] clinical information and biopsy results as indicated. [facility] Clinical Laboratory Improvement Amendments (CLIA) mandate that cytologic and histologic results be correlated for laboratory quality control assessor & improvement standards. FOR ALL HIGH-GRADE CASES [...] determined by the Surgical Pathology Department at [facility] as part of an ongoing quality control checker program and in compliance with federally mandated [...] determined by the Surgical Pathology Department of [facility]. It has not been cleared or approved by the U. [place]. Food and Drug Administration. Bayrno Carrera MD LAB CYTOLOGY ORDERABLES Fi nal Result PATHOLOGY [facility] * N. gonorrhoeae/C. trachomatis Amplification Vaginal (08/07/2024 11:50 AM CDT) C. trachomatis Not Detected [facility] Comment:Testing performed by : [facility], [address] [place] [address]., [address] N. gonorrhoeae Not Detected BENNY SOTELO Comment: Interpretive Data This assay detects Chlamydia trachomatis and Neisseria gonorrhoeae by nucleic acid amplification testing (NAAT). This assay has been cleared by the [place] Food and Drug administration. The performance characteristics of this test have been verified by the [facility] Molecular Infectious Disease laboratory. The performance characteristics of this test have not been evaluated in individuals less than 14 years of age. Current Interpretive Data was last revised on 2023. Testing performed by: [facility], [address] [place] [address]., [address] Vaginal (None) 08/07/2024 11 :50 AM CDT 08/07/2024 8:08 PM CDT Bayron Carrera MD LAB MICROBIOLOGY - GENERAL ORDERABLES Final Result BENNY SOTELO [address] [facility] [place] [address] [facility] * Trichomonas vaginalis PCR Vaginal (08/07/2024 11:50 AM CDT) Trichomonas DNA Not Detected [facility] Comment: Interpretive Data This assay detects Trichomonas vaginalis by nucleic acid amplification testing (NAAT). This assay has been cleared by the [place] Food and Drug administration. The performance characteristics of this test have been verified by the [facility] Molecular Infectious Disease laboratory. The performance of this test has not been evaluated in individuals less than 18 years of age. Current Interpretive Data was last revised on 2023. Testing performed by: [facility], [address] [place] [address] Vaginal 08/07/2024 11:5 0 AM CDT 08/07/2024 8:08 PM CDT us Bayron Carrera MD LAB MICROBIOLOGY - GENERAL ORDERABLES Final Result BENNY SOTELO [address] [facility] [place] [address] [facility] * (ABNORMAL) Drugs of Abuse Screen, Urine with Reflex Confirmation (08/07/2024 10:15 AM CDT) [facility] Amphetamine, ur Not Detected Cut[facility] 500ng/mL Comment: Interpretive Data - Amphetamines: Samples containing greater than 500 ng/mL d-methamphetamine or other cross-reacting amphetamine compounds are reported as positive. Amphetamine immunoassays are subject to significant false positive rates due to cross-reactivity of non-amphetamine drugs. Confirmatory testing required for definitive results. Current Interpretive Data was last reviewed 2022. Testing performed by: [address] [address] Barbiturates, ur Not Detected CutOff 200ng/mL BENNY SOTELO Comment: Interpretive Data - Barbiturates: Samples containing greater than 200 ng/mL secobarbital or other cross-reacting barbiturate compounds are reported as positive. False positive and false negative results are possible. Confirmatory testing required for definitive results. Current Interpretive Data was last reviewed 2022. Testing performed by: [address] [address] Benzodiazepines, ur Not Detected CutOff 100ng/mL BENNY SOTELO Comment: Interpretive Data - Benzodiazepines: Samples containing greater than 100 ng/mL nordiazepam or other cross-reacting compounds are reported as positive. False positive and false negative results are possible. Confirmatory testing required for definitive results. Current Interpretive Data was last reviewed 2022. Testing performed by: [facility], [address] [place] [address]., [id number] Cannabinoids, ur Screen Positive, presumptive (A) CutOff 50 ng/mL [facility] Comment: Interpretive Data - Cannabinoids: Samples containing greater than 50 ng/mL delta-9 THC -COOH or other cross- reacting compounds are reported as positive. False positive and false negative results are possible. Confirmatory testing required for definitive results. Current Interpretive Data was last reviewed 2022. Testing performed by: [facility], [address] [place] [address], [place]., [address] Cocaine, ur Not Detected CutOff 150ng/mL [facility] Comment: Interpretive Data - Cocaine: Samples containing greater than 150 ng/mL benzoylecgonine or other cross- reacting compounds are reported as positive. False positive and false negative results are possible. Confirmatory testing required for definitive results. Current Interpretive Data was last reviewed 2022. Testing performed by: [facility], [address] [place] [address]., [id number] Fentanyl, Ur Not Detected Cutoff 1 ng/mL [facility] Comment: Interpretive Data - Fentanyl: Samples containing greater than 1 ng/mL fentanyl or other cross-reacting fentanyl compounds are reported as positive. False positive and false negative results are possible. Confirmatory testing required for definitive results. Current Interpretive Data was last reviewed 2022. Testing performed by: [address] [address] Methadone, ur Not Detected CutOff 300ng/mL [facility] Comment: Interpretive Data - Methadone: Samples containing greater than 300 ng/mL d,l-methadone or other cross-reacting compounds are reported as positive. False positive and false negative results are possible. Confirmatory testing required for definitive results. Current Interpretive Data was last reviewed 2022. Testing performed by: [address] [address] Opiates, ur Not Detected CutOff 300ng/mL [facility] Comment: Interpretive Data - Opiates: Samples containing greater than 300 ng/mL morphine or other cross-reacting compounds are reported as positive. False positive and false negative results are possible. Confirmatory testing required for definitive results. Current Interpretive Data was last reviewed 2022. Testing performed by: [address] [address] Oxycodone, ur Not Detected CutOff 100ng/mL [facility] Comment: Interpretive Data - Oxycodone: Samples containing greater than 100 ng/mL oxycodone or other cross-reacting compounds are reported as positive. False positive and false negative results are possible. Confirmatory testing required for definitive results. Current Interpretive Data was last reviewed 2022. Testing performed by: [address] [address] Phencyclidine, ur Not Detected CutOff 25 ng/mL [facility] Comment: Interpretive Data - Phencyclidine: Samples containing greater than 25 ng/mL phencyclidine or other cross-reacting compounds are reported as positive. False positive and false negative results are possible. Confirmatory testing required for definitive results. Current Interpretive Data was last reviewed 2022. Testing performed by: [address] [address] Urine Creatinine 273 mg/dL [facility] Comment: Interpretive Data Urine Creatinine: < 10 mg/dL is extremely dilute = or > 10 but < 20 mg/dL is dilute = or > 20 mg/dL is normal Current Interpretive Data was last revised on 2017. Testing performed by: [address] [address] Urine 08/07/2024 10:1 5 AM CDT 08/07/2024 [...] MD LAB URINE ORDERABLES Final Result [facility] [id number] [facility] [place] [address] * Urine culture Urine, clean voided (08/07/2024 10:15 AM CDT) Report Final Report: Less than 100,000 colonies/mL (clinically insignificant growth based on current clinical standards) Comment:Testing performed by : [facility], [address] [facility], [place]., [address] Organism (CLINICALLY INSIGNIFICANT GROWTH [facility] Urine, clean voided 08/07/2024 10:15 AM CDT 08/07/2024 8:39 PM CDT Narrative [facility] - 08/10/2024 6:33 AM CDT Testing performed by 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
--- OUTSIDE RECORDS SUMMARY | 2024-09-28 19:19 | XMS_ITS | Clinical Summary ---
Author Organization [facility] Main [facility] s Address [address] [place] [address] Care Team Providers Care Lpn Private Duty Name Role Phone Cony Naranjo NP Primary Care Provider Allergies No known active allergies Medications sertraline (ZOLOFT) 100 mg tablet Take 2 tablets (200 mg total) by mouth daily 3 Active buPROPion XL (WELLBUTRIN XL) 150 mg 24 hr tablet Take 1 tablet (150 mg total) by mouth daily 3 Active vit 51-zevp-rywsb-d stokes 27mg iron- 800 mcg-250 mg capsule Take by mouth Active metoclopramide (REGLAN) 10 mg tablet Take 1 tablet (10 mg total) by mouth every 6 (six) hours as needed (nausea) 30 tablet 2 5 Active levothyroxine (SYNTHROID) 125 mcg tablet Take 2 tablets (250 mcg total) 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 60 tablet 1 5 Active [...] Care Team Description 09/26/2024 11:05 AM CDT [facility] Building [address] [address] Other specified hypothyroidism 09/26/2024 10:15 AM CDT Office Visit [facility] Obstetrical Gynecology [address] [place] [phone] Tom Hagen MD Obesity affecting , antepartum, unspecified obesity type (Primary Dx); Supervision of other normal , antepartum; Other specified hypothyroidism; Anxiety and depression 08/29/2024 11:30 AM CDT Office Visit [facility] Obstetrical Gynecology [address] [place] [phone] Joellen Huitron MD Hypothyroidism, unspecified type (Primary Dx); Anxiety and depression; History of migraine; Obesity affecting , antepartum, unspecified obesity type; Encounter for supervision of other normal in first trimester 08/16/2024 Results Follow-Up [address] [address] Bayron Carrera MD Pap and High Risk HPV and Genotyping (Cytology Component), Thyroid Function Richardson, GTT 50gm 1hr gestational screen, Additional followed-up results: 13 08/15/2024 10:20 AM CDT Lab [facility] [address] [place] [phone] Urinary frequency; Obesity affecting , antepartum, unspecified obesity type 08/15/2024 Orders Only [address] [address] Tom Hagen MD 08/07/2024 1:37 PM CDT - 08/07/2024 11:59 PM CDT Hospital Encounter [facility] [address] [place] [address] Encounter for supervision of other normal in first trimester Discharge Disposition: Discharge to home or self care 08/07/2024 11:45 AM CDT Lab [facility] Building [address] [place] [address] Encounter for supervision of other normal in first trimester; Hypothyroidism, unspecified type 08/07/2024 11:30 AM CDT Office Visit [facility] Obstetrical Gynecology [address] [place] [phone] Bayron Carrera MD Encounter for supervision of other normal in first trimester (Primary Dx); Hypothyroidism, unspecified type; Obesity affecting , antepartum, unspecified obesity type; Anxiety and depression 08/07/2024 10:30 AM CDT Clinical Support [facility] Obstetrical Gynecology [address] [place] [phone] 08/07/2024 9:45 AM CDT Ancillary Procedure [facility] Obstetrical Gynecology [address] [place] [address] [address] [place] [phone] Establish gestational age, ultrasound 08/07/2024 Orders Only [facility] Obstetrical Gynecology [address] [place] [phone] Bayron Carrera MD Encounter for anatomic survey (Primary Dx) 08/07/2024 Telephone [facility] Obstetrical Gynecology [address] [place] [address] [place] [phone] Bayron Carrera MD 07/09/2024 Telephone [facility] Obstetrical Gynecology [address] [place] [address] [address] [place] [phone] Bayron Carrera MD from Last [...] Tobacco: Never Tobacco Cessation:Counseling Given: Not Answered Chelsea Depression Scale Answer Date Recorded Chelsea Depression Scale Total 9 08/07/2024 The thought of harming myself has occurred to me . Never 08/07/2024 Estimated Date of Delivery Comme nts Yes 2025 Based on last me nstrual period of 06/02/2024 Sex and Gender Information Value Date Recorded Sex Assigned at Not on file Legal Sex Female 3:11 PM [employer] Gender Identity Not on file Sexual Orientation [...] Delivery Plans Planned delivery method:TOLAC Planned delivery location:[facility] Overview Surveillance of EDC by LMP [...] by mouth daily, Disp: , Rfl: vit 89-bgau-wdklr-dha 27mg iron- 800 mcg-250 mg capsule, Take [...] 1hr gestational screen; Future - Thyroid Function Richardson; Future Hypothyroidism, unspecified type (E03.9) - Thyroid Function Richardson; Future Bayron Carrera MD Last Filed Vital [...] Last 3 Months Results * Thyroid Function Richardson (09/26/2024 11:09 AM CDT) TSH 2.89 0.30 - 4.20 mcIUnit/mL Comment:Testing performed by : [address] [address] Blood 09/26/2024 11:0 9 AM CDT 09/26/2024 12:43 PM CDT us Bayron Carrera MD LAB BLOOD ORDERABLES Final Result [facility] [address] [facility] [place] [address] * (ABNORMAL) Urinalysis reflex to microscopic and culture Urine, clean voided (08/15/2024 10:48 AM CDT) Color, ur Yellow Yellow Comment:Testing performed by : [address] [address] Clarity, ur Clear Clear BENNY Comment:Testing performed by : [address] [address] Specific gravity, ur 1.020 1.003 - 1.030 BENNY Comment:Testing performed by : [address] [address] pH, urine 6.0 BENNY Comment: Interpretive Data U rine pH is affected by diet, medications, systemic acid-base disturbances, and renal tubular function. pH may affect urinary stone formation. For example, urine pH below 6.0 may help reduce the tendency for calcium phosphate stones and pH greater than 6.0 may reduce the tendency for uric acid stone formation. Source: [facility] [employer] Current Interpretive Data was last revised on 2017 Testing performed by: [address] [address] Protein, ur ql Negative Negative BENNY SOTELO Comment:Testing performed by : [facility], [address] [place] [address], [place]., [address] Glucose, ur ql Negative Negative BENNY SOTELO Comment:Testing performed by : [facility], [address] [place] [address], [place]., [address] Ketones, ur Negative Negative BENNY SOTELO Comment:Testing performed by : [address], [place]., [address] Bilirubin, ur Negative Negative BENNY Comment:Testing performed by : [facility], [address] [place] [address], [place]., [address] Blood, ur Negative Negative BENNY Comment:Testing performed by : [address], [place]., [address] Urobilinogen, ur <2.0 <2.0 mg/dL BENNY SOTELO Comment:Testing performed by : [address], [place]., [address] Nitrite, ur Negative Negative BENNY Comment:Testing performed by : [address], [place]., [address] Leukocyte esterase, ur 3+(A) Negative BENNY Comment:Testing performed by : [address], [place]., [address] UA reflex comment Reflex to microscopic UA will be performed. BENNY Comment:Testing performed by : [address], [place]., [address] Urine, clean voided 08/15/2024 10:48 AM CDT 08/15/2024 11:49 AM CDT Narrative BENNY SOTELO - 08/15/2024 11:57 AM CDT Urine Collection Method->Clean Catch us Bayron Carrera MD LAB MICROBIOLOGY - GENERAL ORDERABLES Final Result BENNY SOTELO [address] [facility] [place] [address] * (ABNORMAL) Urinalysis, microscopic only (08/15/2024 10:48 AM CDT) WBC, ur 0-5 0 - 5 /HPF Comment:Testing performed by : [facility], [address] [place] [address], [place]., [address] RBC, ur 0-2 0 - 2 /HPF BENNY Comment:Testing performed by : [address], [place]., [address] Epithelial cells, squamous, ur 21-50(A) 0 - 5 /HPF BENNY Comment:Testing performed by : [address] [address] Bacteria, ur 1+(A) BENNY Comment:Testing performed by : [address], [place]., [address] Mucous, ur Present(A) BENNY Comment:Testing performed by : [address], [place]., [address] Urine, clean voided 08/15/2024 10:48 AM CDT 08/15/2024 11:50 AM CDT Bayron Carrera MD LAB URINE ORDERABLES Final Result [place] [address] [facility] [place] [address] * Urine culture Urine, clean voided (08/15/2024 10:48 AM CDT) Report Final Report: Less than 100,000 colonies/mL (clinically insignificant growth based on current clinical standards) Comment:Testing performed by : [facility], [address] [facility] [place] [address] Organism (CLINICALLY INSIGNIFICANT GROWTH BENNY Urine, clean voided 08/15/2024 10:48 AM CDT 08/15/2024 5:39 PM CDT Narrative BENNY - 08/16/2024 8:05 PM CDT Testing performed by [facility] Microbiology Laboratory ([phone]) Bayron Carrera MD LAB MICROBIOLOGY - GENERAL ORDERABLES Final Result Performing Organization Address City/[facility]/ZIP Co de Phone Number BENNY [address] [place] [address] * (ABNORMAL) Thyroid Function Richardson (08/07/2024 12:06 PM CDT) TSH 5.55(H) 0.30 - 4.20 mcIUnit/mL Comment:Testing performed by : [address] [address] Blood 08/07/2024 12:0 6 PM CDT 08/07/2024 1:43 PM CDT Bayron Carrera MD LAB BLOOD ORDERABLES Final Result Performing Organization Address City/[facility] Co de Phone Number BENNY [address] [address] * GTT 50gm 1hr gestational screen (08/07/2024 [...] last revised on 2020. Testing performed by: [address] [address] Blood 08/07/2024 12:0 6 PM CDT 08/07/2024 1:43 PM CDT Bayron Carrera MD LAB BLOOD ORDERABLES Final Result Performing Organization Address City/[facility]/ZIP Co de Phone Number BENNY [address] [place] [address] * HIV 1/2 Antibody plus p24 Antigen [...] - GENERAL ORDERABLES Final Result BENNY SOTELO [address] [facility] [place] [address] * Hemoglobin analysis by electrophoresis (08/07/2024 12:06 PM CDT) Pathologist [facility] RBC 4.58 3.90 - 5.20 M/cumm Comment:Testing performed by : [facility], [address] [place]., [address] Hgb 13.4 11.9 - 15.5 g/dL BENNY SOTELO Comment:Testing performed by : [facility], [address] [place]., [address] MCV 83.8 81.3 - 96.4 fL BENNY SOTELO Comment:Testing performed by : [facility], [address] [place]., [address] Rdw 13.1 11.1 - 14.9 % BENNY SOTELO Comment:Testing performed by : [facility], [address] [place]., [address] Hgb electrophoresis , interp Please see comment BENNY SOTELO Comment: Normal hemoglobin pattern for age Reviewed and signed by Miguel Ángel Kumar MD 08/09/2024 Testing performed by: [facility], 1 [facility], [address] Hgb A 96.9 96.0 - 98.5 % BENNY SOTELO Comment:Testing performed by : [facility], [address] [place]., [address] Hgb A2 2.7 1.5 - 3.2 % BENNY SOTELO Comment:Testing performed by : [facility], [address] [place]., [address] Hgb F 0.4 0.0 - 0.9 % BENNY SOTELO Comment:Testing performed by : [facility], [address] [place]., [address] Blood 08/07/2024 12:0 6 PM CDT 08/07/2024 1:42 PM CDT Bayron Carrera MD LAB BLOOD ORDERABLES Final Result Performing Organization Address [facility] Co de Phone Number [address] [place] [address] * Hepatitis C antibody Blood (08/07/2024 12:06 [...] GENERAL ORDERABLES Final Result Performing Organization Address [facility] Co de Phone Number [place] [phone] [facility] [place] [address] * Measles IgG antibody Blood (08/07/2024 12:06 PM CDT) Measles IgG Reactive Comment: Reactive: Results suggest response to immunization or prior exposure to the virus. Testing performed by: [facility], [address] [facility] [place] [address] Blood 08/07/2024 12:0 6 PM CDT 08/07/2024 3:43 PM CDT Bayron Carrera MD LAB MICROBIOLOGY - GENERAL ORDERABLES Final Result Performing Organization Address City/[facility] Co de Phone Number [address] [place] [address] * ABO/Rh (08/07/2024 12:06 PM CDT) ABO/Rh O Positive Comment:Testing performed by : [facility], [address] [place] [address]., [address] Blood 08/07/2024 12:0 6 PM CDT 08/07/2024 1:43 PM CDT Narrative BENNY - 08/07/2024 2:18 PM CDT Has the patient had Daratumumab or Isatuximab in the past 6 months?->Unknown Hx of or candidate for Bone Marrow/Stem Cell transplant?->No Result [facility] Bayron Carrera MD LAB BLOOD BANK TEST ORDERA BLES Final Result [address] [place] [address] * Rubella IgG antibody Blood (08/07/2024 12:06 PM CDT) Rubella IgG Reactive Reactive Blood 08/07/2024 12:0 6 PM CDT 08/07/2024 2:30 PM CDT Bayron Carrera MD LAB MICROBIOLOGY - GENERAL ORDERABLES Final Result Performing Organization Address [facility] Co de Phone Number [address] [place] [address] * RPR Blood (08/07/2024 12:06 PM CDT) Pathologist [facility] RPR Nonreactive Nonreactive Comment:Testing performed by : [facility], [address] [place]., [address] Blood 08/07/2024 12:0 6 PM CDT 08/07/2024 3:43 PM CDT Bayron Carrera MD LAB MICROBIOLOGY - GENERAL ORDERABLES Final Result Performing Organization Address [facility] Co de Phone Number [address] [address] * Hepatitis B Surface Antigen Blood (08/07/2024 12:06 PM CDT) Pathologist [facility] HepBsAg Nonreactive Nonreactive Blood 08/07/2024 12:0 6 PM CDT 08/07/2024 2:30 PM CDT Bayron Carrera MD LAB MICROBIOLOGY - GENERAL ORDERABLES Final Result Performing Organization Address [facility] de Phone Number [address] [address] * CBC without differential (08/07/2024 12:06 PM CDT) Pathologist [facility] WBC 9.24 3.80 - 9.90 K/cumm Comment:Testing performed by : [address] [address] Hgb 13.4 11.9 - 15.5 g/dL BENNY SOTELO Comment:Testing performed by : [address] [address] Hct 38.1 35.6 - 45.5 % BENNY SOTELO Comment:Testing performed by : [address] [address] Plt 238 150 - 400 K/cumm BENNY Comment:Testing performed by : [address] [address] MPV 10.1 9.1 - 12.3 fL BENNY SOTELO Comment:Testing performed by : [address] [address] RBC 4.50 3.90 - 5.20 M/cumm BENNY SOTELO Comment:Testing performed by : [address] [address] MCV 84.7 81.3 - 96.4 fL BENNY Comment:Testing performed by : [address], [address] MCH 29.8 27.1 - 33.3 pg BENNY Comment:Testing performed by : [address] [address] MCHC 35.2 32.3 - 35.7 g/dL BENNY Comment:Testing performed by : [address], [address] RDW CV 13.0 11.1 - 14.9 % BENNY Comment:Testing performed by : [address], [address] RDW SD 39.8 35.7 - 48.1 fL BENNY Comment:Testing performed by : [address], [address] NRBC abs 0.00 0.00 - 0.01 K/cumm BENNY Comment:Testing performed by : [address] [address] Blood 08/07/2024 12:0 6 PM CDT 08/07/2024 1:42 PM CDT us Bayron Carrera MD LAB BLOOD ORDERABLES Final Result BENNY [address] [facility] [place] [address] * Antibody screen (08/07/2024 12:06 PM CDT) [facility] Pily, indirect, Gel Interpretation Negative ABSC Comment:Testing performed by : [facility], [address] [place] [address]., [address] Blood 08/07/2024 12:0 6 PM CDT 08/07/2024 1:43 PM CDT Narrative BENNY - 08/07/2024 2:18 PM CDT Has the patient had Daratumumab or Isatuximab in the past 6 months?->Unknown Hx of or candidate for Bone Marrow/Stem Cell transplant?->No Bayron Carrera MD LAB BLOOD BANK TEST ORDERA BLES Final Result [address] [place] [address] * Varicella Zoster IgG antibody Blood (08/07/2024 12:06 PM CDT) [facility] VZV IgG Reactive Reactive Comment: Reactive: Results suggest response to immunization or prior exposure to the virus. Testing performed by: [facility], [address] [facility] [place] [address] Blood 08/07/2024 12:0 6 PM CDT 08/07/2024 3:43 PM CDT Bayron Carrera MD LAB MICROBIOLOGY - GENERAL ORDERABLES Final Result Performing Organization Address City/[facility]/ZIP Co de Phone Number [address] [place] [address] * T4, free (08/07/2024 12:06 PM CDT) [facility] Free T4 1.02 0.90 - 1.70 ng/dL Comment:Testing performed by : [facility], [address] [place] [address]., [address] Blood 08/07/2024 12:0 6 PM CDT 08/07/2024 1:43 PM CDT Narrative BENNY - 08/07/2024 2:46 PM CDT This test was reflexed from a TSH result. Bayron Carrera MD LAB BLOOD ORDERABLES Final Result Performing Organization Address City/[facility] Co de Phone Number BENNY [address] [address] * Hemoglobin A1c (08/07/2024 12:06 PM CDT) Pathologist [facility] Hgb A1C 4.9 4.0 - 5.6 % Comment:Testing performed by : [address] [address] Estimated Average Glucose 94 mg/dL BENNY Comment: The ADA recommends reporting an estimated Average Glucose (eAG) with all Hemoglobin A1c results using the equation derived from a study of 507 normal and diabetic adults. Minority populations were underrepresented and children were not included. (Diabetes Care 31:2491-1491, 2008). The eAG is not equivalent to a fasting glucose. Testing performed by: [address] [address] Blood 08/07/2024 12:0 6 PM CDT 08/07/2024 1:42 PM CDT Bayron Carrera MD LAB BLOOD ORDERABLES Final Result Performing Organization Address City/[facility] Co de Phone Number BENNY [address] [address] * High Risk HPV DNA Detection with Genotyping (Molecular component) (08/07/2024 11:50 AM CDT) Pathologist [facility] HPV HR 16 Not Detected Not Detected [facility] Comment:Testing performed by : [facility], [address] [facility] [place] [address] HPV HR 18 Not Detected Not Detected BENNY SOTELO Comment:Testing performed by : [facility], [address] [facility] [place] [address] HPV HR Non 16/18 Not Detected Not [...] test have been verified by the [facility] Molecular Infectious Disease laboratory. Correlate with separately reported cytology results, as applicable. Interpretive data last revised 22 Testing performed by: [facility], [address] [place]., [address] Endocervical 08/07/2024 11:5 0 AM CDT 08/09/2024 8:32 PM CDT Narrative [facility] - 08/10/2024 7:08 PM CDT Clinical history and diagnosis->screening Number of vials->1 Testing type->Screening Last menstrual period (date if known)->06/02/2024 Bayron Carrera MD LAB BODY FLUIDS AND STOOLS ORDERABLES Final Result [facility] [address] [facility] [place] [address] [facility] * Pap and High Risk HPV and Genotyping (Cytology Component) (08/07/2024 11:50 AM CDT) Thin prep (Pap test) 08/07/2024 11:50 AM CDT 08/09/2024 10:49 AM CDT Narrative PATHOLOGY [facility] - 08/14/2024 8:49 AM CDT EPIC results best viewed via link to PDF [facility] [place] [address] [place] [address] Note to Patients: This report may contain [...] Gender: F : 1990 (Age: 34) Address: [address] [place] [address] [facility] #: [id number] Service: DEFAULT Location: Patient Type: [facility] SPEC[facility]EN Taken: 08/07/2024 Received: 08/09/2024 Accessioned: [...] have been verified by the [facility] Molecular Infectious Disease laboratory. Correlate with [...] clinical information and biopsy results as indicated. [facility] Clinical Laboratory Improvement Amendments (CLIA) mandate that cytologic and histologic results be correlated for laboratory quality control lab tech & improvement standards. FOR ALL HIGH-GRADE CASES [...] the Surgical Pathology Department at [facility] as part of an ongoing quality control lab tech program and in compliance with federally mandated [...] the Surgical Pathology Department of [facility]. It has not been cleared or approved by the U. S. Food and Drug Administration. Bayron Carrera MD LAB CYTOLOGY ORDERABLES Fi nal Result PATHOLOGY [facility] * N. gonorrhoeae/C. trachomatis Amplification Vaginal (08/07/2024 11:50 AM CDT) C. trachomatis Not Detected [facility] Comment:Testing performed by : [facility], [address] [place] [address]., [address] N. gonorrhoeae Not Detected BENNY SOTELO Comment: Interpretive Data This assay detects Chlamydia trachomatis and Neisseria gonorrhoeae by nucleic acid amplification testing (NAAT). This assay has been cleared by the [facility] Food and Drug administration. The performance characteristics of this test have been verified by the [facility] Molecular Infectious Disease laboratory. The performance characteristics of this test have not been evaluated in individuals less than 14 years of age. Current Interpretive Data was last revised on 2023. Testing performed by: [facility], [address] [place] [address]., [address] Vaginal (None) 08/07/2024 11 :50 AM CDT 08/07/2024 8:08 PM CDT Bayron Carrera MD LAB MICROBIOLOGY - GENERAL ORDERABLES Final Result BENNY [address] [facility] [place] [address] [facility] * Trichomonas vaginalis PCR Vaginal (08/07/2024 11:50 AM CDT) Trichomonas DNA Not Detected [facility] Comment: Interpretive Data This assay detects Trichomonas vaginalis by nucleic acid amplification testing (NAAT). This assay has been cleared by the [place] Food and Drug administration. The performance characteristics of this test have been verified by the [facility] Molecular Infectious Disease laboratory. The performance of this test has not been evaluated in individuals less than 18 years of age. Current Interpretive Data was last revised on 2023. Testing performed by: [facility], [address] [place] [address]., [address] Vaginal 08/07/2024 11:5 0 AM CDT 08/07/2024 8:08 PM CDT Bayron Carrera MD LAB MICROBIOLOGY - GENERAL ORDERABLES Final Result BENNY [address] [facility] [place] [address] [facility] * (ABNORMAL) Drugs of Abuse Screen, Urine with Reflex Confirmation (08/07/2024 10:15 AM CDT) [facility] Amphetamine, ur Not Detected CutOff 500ng/mL Comment: Interpretive Data - Amphetamines: Samples containing greater than 500 ng/mL d-methamphetamine or other cross-reacting amphetamine compounds are reported as positive. Amphetamine immunoassays are subject to significant false positive rates due to cross-reactivity of non-amphetamine drugs. Confirmatory testing required for definitive results. Current Interpretive Data was last reviewed 2022. Testing performed by: [address] [address] Barbiturates, ur Not Detected CutOff 200ng/mL BENNY Comment: Interpretive Data - Barbiturates: Samples containing greater than 200 ng/mL secobarbital or other cross-reacting barbiturate compounds are reported as positive. False positive and false negative results are possible. Confirmatory testing required for definitive results. Current Interpretive Data was last reviewed 2022. Testing performed by: [address] [address] Benzodiazepines, ur Not Detected CutOff 100ng/mL [facility] Comment: Interpretive Data - Benzodiazepines: Samples containing greater than 100 ng/mL nordiazepam or other cross-reacting compounds are reported as positive. False positive and false negative results are possible. Confirmatory testing required for definitive results. Current Interpretive Data was last reviewed 2022. Testing performed by: [address] [address] Cannabinoids, ur Screen Positive, presumptive (A) CutOff 50 ng/mL [facility]NY Comment: Interpretive Data - Cannabinoids: Samples containing greater than 50 ng/mL delta-9 THC -COOH or other cross- reacting compounds are reported as positive. False positive and false negative results are possible. Confirmatory testing required for definitive results. Current Interpretive Data was last reviewed 2022. Testing performed by: [address] [address] Cocaine, ur Not Detected CutOff 150ng/mL [facility] Comment: Interpretive Data - Cocaine: Samples containing greater than 150 ng/mL benzoylecgonine or other cross- reacting compounds are reported as positive. False positive and false negative results are possible. Confirmatory testing required for definitive results. Current Interpretive Data was last reviewed 2022. Testing performed by: [address] [address] Fentanyl, Ur Not Detected Cutoff 1 ng/mL [facility] Comment: Interpretive Data - Fentanyl: Samples containing greater than 1 ng/mL fentanyl or other cross-reacting fentanyl compounds are reported as positive. False positive and false negative results are possible. Confirmatory testing required for definitive results. Current Interpretive Data was last reviewed 2022. Testing performed by: [address] [address] Methadone, ur Not Detected CutOff 300ng/mL [facility] Comment: Interpretive Data - Methadone: Samples containing greater than 300 ng/mL d,l-methadone or other cross-reacting compounds are reported as positive. False positive and false negative results are possible. Confirmatory testing required for definitive results. Current Interpretive Data was last reviewed 2022. Testing performed by: [address] [address] Opiates, ur Not Detected CutOff 300ng/mL [facility] Comment: Interpretive Data - Opiates: Samples containing greater than 300 ng/mL morphine or other cross-reacting compounds are reported as positive. False positive and false negative results are possible. Confirmatory testing required for definitive results. Current Interpretive Data was last reviewed 2022. Testing performed by: [address] [address] Oxycodone, ur Not Detected CutOff 100ng/mL [facility] Comment: Interpretive Data - Oxycodone: Samples containing greater than 100 ng/mL oxycodone or other cross-reacting compounds are reported as positive. False positive and false negative results are possible. Confirmatory testing required for definitive results. Current Interpretive Data was last reviewed 2022. Testing performed by: [address] [address] Phencyclidine, ur Not Detected CutOff 25 ng/mL [facility] SOTELO Comment: Interpretive Data - Phencyclidine: Samples containing greater than 25 ng/mL phencyclidine or other cross-reacting compounds are reported as positive. False positive and false negative results are possible. Confirmatory testing required for definitive results. Current Interpretive Data was last reviewed 2022. Testing performed by: [address] [address] Urine Creatinine 273 mg/dL [facility] Comment: Interpretive Data Urine Creatinine: < 10 mg/dL is extremely dilute = or > 10 but < 20 mg/dL is dilute = or > 20 mg/dL is normal Current Interpretive Data was last revised on 2017. Testing performed by: [address] [address] Urine 08/07/2024 10:1 5 AM CDT 08/07/2024 [...] MD LAB URINE ORDERABLES Final Result [facility] [address] [facility] [place] [address] * Urine culture Urine, clean voided (08/07/2024 10:15 AM CDT) Report Final Report: Less than 100,000 colonies/mL (clinically insignificant growth based on current clinical standards) Comment:Testing performed by : [facility], [address] [facility], [place]., [address] Organism (CLINICALLY INSIGNIFICANT GROWTH BENNY Urine, clean voided 08/07/2024 10:15 AM CDT 08/07/2024 8:39 PM CDT Narrative BENNY SOTELO - 08/10/2024 6:33 AM CDT Testing performed by [facility] ([phone]) us Bayron Carrera MD LAB MICROBIOLOGY - GENERAL ORDERABLES Final Result [facility] [address] [facility] Department [place] [address] * US OB Under 14 Weeks W [...] Result from Last 3 Months Insurance [employer] [facility] Care Teams Lpn Private Duty Relationship Specialty Start Date End Date Cony Naranjo NP PCP - General Family Medicine 08/29/24
--- OUTSIDE RECORDS SUMMARY | 2024-09-28 19:19 | XMS_ITS | Clinical Summary ---
Author Organization [facility] Address [address] [place] [address] Care Team Providers Care Dialysis Equipment Technician Name Role Phone Cony Naranjo NP Primary [...] patient's age to complete this topic Insurance [facility] Care Teams Dialysis Equipment Technician Relationship Specialty Start Date End Date Cony Naranjo NP [address] [place] [address] [place] [address] PCP - General Nurse Practitioner Family 09/21/23
--- NOTE | 2024-09-28 19:20 | PC.NURSE ---
Per previous RN she was unable to get any heart tones via doppler. Per previous RN MD Schumacher was able to visualize the baby via ultrasound.
[2024-09-28 19:23] LABS: Add Urine Microscopic? YES; Appearance Urine Clear (Clear); Glucose Urine UA Negative (Negative); Leukocyte Esterase Ur Trace LEU/UL (Negative); Need Manual Microscopic Reviewed; Nitrate Urine Negative (Negative); Non Pathogenic Casts 0-2; Specific Grav Ur 1.010 (1.001-1.035)
[2024-09-28 20:02] VITALS: BP 127/83; PULSE 65; RESP 16; O2SAT 100
--- NOTE | 2024-09-29 00:04 | ED.BACK ---
HPI - Back Pain/Injury General Chief Complaint: Back Pain/Injury Stated Complaint: 17 weeks preg, severe lower back pain Time Seen by Provider: 09/28/24 19:00 History of Present Illness HPI Narrative: Patient is 17 weeks presents here with back pain to her left flank, has never had symptoms like this before. No pain with urination. No abdominal pain or vaginal bleeding Related Data Home Medications ?Medication ?Instructions ?Recorded ?Confirmed ?Last Taken ?Type levothyroxine 200 mcg tablet 200 mcg PO DAILY 05/23/22 01/27/24 Unknown History (Synthroid) sertraline 100 mg tablet (Zoloft) 200 mg PO DAILY 05/23/22 01/27/24 Unknown History bupropion HCl 150 mg 24 hr tablet, 150 mg PO DIRECTED 01/27/24 01/27/24 Unknown History extended release metformin 500 mg tablet 500 mg DIRECTED 01/27/24 01/27/24 Unknown History Allergies Allergy/AdvReac Type Severity Reaction Status Date / Time kale AdvReac Intermediate Ulcers Verified 09/13/23 08:34 Review of Systems Review of Systems: All systems reviewed & are unremarkable except as noted in HPI and below PMFSH Past Medical History Medical History Alcoholism in recovery Surgical History Surgical History History of delivery Social History Social History Alcohol intake: former Alcohol use details: sober 4 years (02/2023) Exam Narrative: EXAMINATION OF ORGAN SYSTEMS/BODY AREAS: Constitutional: Vital signs per nursing GENERAL:[No acute distress, non-toxic appearing.] HEAD: Normal with no signs of head trauma. EYES: EOMI, conjunctiva normal ENT: Hearing grossly intact LUNGS: Nonlabored breathing. HEART: [Regular rate and rhythm] ABD: [Soft], [nontender to palpation], no tenderness to back. EXT: Normal range of motion SKIN: [No rashes or lesions.] NEURO: [Alert and oriented x 3. No gross focal sensory or strength deficits.] PSYCH: Normal affect Course Vital Signs Vital signs: Vital Signs Temperature 97.7 F 09/28/24 18:23 Pulse Rate 100 09/28/24 18:23 Respiratory Rate 18 09/28/24 18:23 Blood Pressure 141/93 H 09/28/24 18:23 Pulse Oximetry 100 09/28/24 18:23 Oxygen Delivery Room Air 09/28/24 18:23 Temperature 97.7 F 09/28/24 18:23 Pulse Rate 65 09/28/24 20:02 Respiratory Rate 16 09/28/24 20:02 Blood Pressure 127/83 09/28/24 20:02 Pulse Oximetry 100 09/28/24 20:02 Oxygen Delivery Room Air 09/28/24 18:23 MDM - Back Pain/Injury MDM Narrative Medical decision making narrative: Patient is 17 weeks presents here with left flank pain. She is otherwise well-appearing here, bedside ultrasound performed by myself shows normal heart rate, normal movement. Given Tylenol with some improvement in her symptoms. Urinalysis does show some blood, given her symptoms I am concerned she may have a kidney stone. Overall her pain is quite tolerable, she feels comfortable following up with her OBGYN and urologist, since I am unable to obtain a CT scan while she is and we do not have access to MRI in the emergency room. To let her know that if her pain were to worsen or not relent, she can come back and we can consider admitting her for an MRI for further evaluation and treatment. Patient agreeable to this plan. Lab Data Labs: Lab Results 09/28/24 Range/Units 19:07 Urine Color Yellow (Yellow) Urine Appearance Clear (Clear) Urine pH 5.5 (5.0-9.0) Ur Specific [place] 1.010 (1.001-1.035) Urine Protein Negative (Negative) mg/dL Urine Glucose (UA) Negative (Negative) mg/dL Urine Ketones Negative (Negative) mg/dL Ur Blood (Man) Negative (Negative) Urine Nitrate Negative (Negative) Urine Bilirubin Negative (Negative) Urine Urobilinogen 0.2 (<2.0) mg/dL Add Ur Microanalysis Reviewed Leukocyte Esterase Rfl Trace H (Negative) MENA/UL Urine RBC 11-20 H (0-2) /hpf Urine WBC 0-5 (0-3) /hpf Ur Squamous Epith Cells None seen (Few) /hpf Urine Bacteria None seen /hpf Urine Casts 0-2 Urine Mucus Present /lpf Discharge Plan Discharge Clinical Impression: Left flank pain Patient Disposition: Home Condition: Stable Instructions: Flank Pain (ED) Additional Instructions: Please follow-up with your OBGYN and/or the urologist, make sure you are keeping adequately hydrated, if your pain gets worse or anything else concerning, please come back to the emergency room. Patient Language: Pashto Prescriptions: No Action metformin 500 mg tablet 500 mg DIRECTED bupropion HCl 150 mg tablet extended release 24 hr 150 mg PO DIRECTED sulfamethoxazole-trimethoprim [Bactrim DS] 800-160 mg tablet 1 tablet PO Q12H 7 Days Qty: 14 0RF sertraline [Zoloft] 100 mg Tablet 200 mg PO DAILY levothyroxine [Synthroid] 200 mcg Tablet 200 mcg PO DAILY Follow-up/Referrals: Darrell Pascal MD [Physician] - 2 Days Marcella,JEAN Donnelly [Primary Care Provider] -
== END 2024-09-28 20:03 | disposition home or self-care (01) ==
PROVIDERS: Physician Assistant; Emergency Provider Emergency Medicine; PCP Nurse Practitioner Family
DX: O26.892 Other specified pregnancy related conditions, second trimester (principal); R10.9 Unspecified abdominal pain; Z3A.17 17 weeks gestation of pregnancy; Z79.899 Other long term (current) drug therapy; Z79.84 Long term (current) use of oral hypoglycemic drugs
CPT/HCPCS: 81001; 99283; A9270

== ENCOUNTER 2024-10-17 08:43 | Emergency (ER) | payer OTHER, SELFPAY ==
--- OUTSIDE RECORDS SUMMARY | 2024-07-13 03:20 | XMS_ITS ---
Author Organization [facility] Address [address] [place] [address] Care Team Providers Care Tower Dragline Operator Name Role Phone Cony Naranjo Primary Care Provider [phone] Gay Luciano Unavailable [phone] Results Component Value Reference Range Notes hCG,Beta Subunit, Qnt, Serum * Reviewed date:07/17/2024 02:54:50 PM Interpretation: Performing Lab:[facility] [place], [address] [facility], [place], Phone - [phone], Director - Zoey Notes/Report: hCG,Beta Subunit,Qnt,Serum 5700 Female (Non-) 0 - 5 (Postmenopausal) 0 - 8 . Female () Weeks of Gestation 3 6 - 71 4 10 - 750 5 356 - 4538 6 653 - 03310 7 4799 -576167 8 54725 -108219 9 45746 -175553 62338 -321503 12 16978 -001596 14 03332 - 55306 15 58937 - 83402 16 3256 - 27758 17 0077 - 96753 18 9164 - 60423 Rashawn ECLIA methodology REASON FOR VISIT labs hcg Social History Sex Assigned At : Social History Observation Description Sex Assigned At Female Encounters Encounter Location Date Provider Diagnosis [facility] [address] [place] [address] 07/13/2024 Cony Naranjo History of miscarriage Z87.59 and at early stage Z34.90 Assessments Encounter Date Diagnosis (ICD Code) Assessment Notes Treatment Notes Treatment Clinical Notes Section Notes 07/13/2024 History of miscarriage (ICD-10 - Z87.59) 07/13/2024 at early stage (ICD-10 - Z34.90) Plan Of Treatment No Information Progress Notes * Juan Jose READDOB:1990 (34 yo F)Acc No.[id number]:07/13/2024 UNLOCKED PROGRESS NOTE Patient: Juan Jose JAUREGUI Provider: Lorie Naranjo, MSN, TELLER VAULT, BRASS POURER-BC, BRASS POURER-C :1990 A ge:34 Y S ex:Female Date:07/13/2024 Address:[address] [place], [place] [phone] Check In:08:23 AM EDITORIAL SPECIALIST Subjective: * Chief Complaints: * 1 . Labs hcg. * Medical History: Objective: * Vitals: Assessment: * Assessment: 1. H istory of miscarriage - Z87.59 2 . P regnancy at early stage - Z34.90? Plan: * Treatment: 2. P regnancy at early stage L AB: hCG,Beta Subunit, Qnt, Serum* (Collection Date & Time - 07/13/2024) * * Electronic signature of Vinayak Naranjo APRN, [id number] on 10/17/2024 at 08:50 AM CDT Sign off status: Pending * Provider: Lorie Naranjo MSN, TELLER VAULT, BRASS POURER-BC, BRASS POURER-C Date: 0 07/13/2024 Generated for Printing/Faxing/eTransmitting on: 0 10/17/2024 08:50 AM CDT
--- NOTE | 2024-10-17 08:49 | ED.URI ---
HPI - URI/Sore Throat General Chief Complaint: Upper Respiratory Infection Stated Complaint: strep symptoms Time Seen by Provider: 10/17/24 08:52 History of Present Illness HPI Narrative: 34-year-old female presented for complaint of sore throat, bilateral ear pain, headache and low fever. Onset 2 days. Denies nausea vomiting, diarrhea or lethargy. Taking Tylenol and Benadryl. She is 19 weeks gestation Related Data Home Medications ?Medication ?Instructions ?Recorded ?Confirmed ?Last Taken ?Type levothyroxine 200 mcg tablet 275 mcg PO DAILY 05/23/22 10/17/24 Unknown History (Synthroid) sertraline 100 mg tablet (Zoloft) 200 mg PO DAILY 05/23/22 01/27/24 Unknown History bupropion HCl 150 mg 24 hr tablet, 150 mg PO DIRECTED 01/27/24 01/27/24 Unknown History extended release aspirin 81 mg tablet 81 mg PO DAILY 10/17/24 10/17/24 Unknown History vit no.95-ferrous 1 tablet PO DAILY 10/17/24 10/17/24 Unknown History fumarate 28 mg-folic acid 800 mcg tablet () Allergies Allergy/AdvReac Type Severity Reaction Status Date / Time kale AdvReac Intermediate Ulcers Verified 10/17/24 08:52 Review of Systems Review of Systems: CONSTITUTIONAL: Denies body aches, reports fever, chills, or sweats. EYES: Denies visual changes, redness, or discharge. ENT: reports sore throat rhinorrhea, otalgia. CARDIOVASCULAR: Denies chest pain, palpitations, or edema. RESPIRATORY: Denies dyspnea. GASTROINTESTINAL: Denies abdominal pain, nausea, vomiting, or diarrhea. SKIN: Denies rash NEUROLOGIC: Denies headache PMFSH Past Medical History Medical History Alcoholism in recovery Surgical History Surgical History History of delivery Social History Social History Alcohol intake: former Alcohol use details: sober 4 years (02/2023) Exam Narrative: GENERAL: mildly Ill-appearing, no acute distress. EYES: conjunctivae clear ENT: Mucous membranes moist. TMs pearly nolasco with normal light reflex bilaterally; no tragal tenderness. Oropharynx erythematous without lesions. Tonsils enlarged 1+ and without exudate. No drooling, no hoarseness, no trismus, uvula midline. No tripod positioning, hot potato voice, or soft palate swelling. NECK: Supple. No lymphadenopathy CHEST: Clear to auscultation, breath sounds equal. No respiratory distress, speaks in full sentences. HEART: Regular rate and rhythm. No murmur heard. SKIN: Warm, dry, no rash. NEURO: Alert and oriented x3. Course Course Emergency Course: Patient is aware of diagnosis, understands and agrees to treatment plan. Anticipatory guidance given. Patient agrees to follow-up as directed and is aware of reasons to seek care at the emergency department. Portions of this record may have been created with voice recognition software Level of Care: Express Care Visit MDM - URI/Sore Throat MDM Narrative Medical decision making narrative: POS strep result reviewed with pt. Advise supportive treatments. Patient is appropriate for outpatient treatment and follow-up. Differential Diagnosis Differential diagnosis: Likely upper respiratory infection, viral infection and pharyngitis Discharge Plan Discharge Clinical Impression: Strep pharyngitis Patient Disposition: Home Condition: Stable Instructions: Antibiotic Form, Strep Throat (ED) Additional Instructions: - Take the antibiotic as directed. Fever and sore throat typically resolve within one to three days. Most patients can return to work, after 12 to 24 hours of antibiotic therapy, provided you are fever free and otherwise well. -Eat and drink things that are easy to swallow, like soft foods, cool liquids, tea with honey, or popsicles . -Salt water gargles and/or may use topical anesthetic ( Chloraseptic spray) or lozenges to relieve dryness or throat pain - Tylenol as needed for pain and fever as directed. -Frequent hand washing or hand decorating consultant is one of the best ways to prevent spread of infection. Throw away the toothbrush after 24hours of antibiotic. -Follow up with primary care provider in 2-3 days if condition is not improving -Go to the ER if you have trouble breathing, cannot drink enough fluids, have muffled voice or drooling, difficulty opening your mouth, or severe swelling. Patient Language: South African Prescriptions: New amoxicillin 500 mg tablet 1,000 mg PO DAILY 10 Days Qty: 20 0RF No Action bupropion HCl 150 mg tablet extended release 24 hr 150 mg PO DIRECTED PNV no.95-ferrous fumarate-FA [] 28 mg iron- 800 mcg tablet 1 tablet PO DAILY aspirin 81 mg tablet 81 mg PO DAILY sertraline [Zoloft] 100 mg Tablet 200 mg PO DAILY levothyroxine [Synthroid] 200 mcg Tablet 275 mcg PO DAILY Follow-up/Referrals: Marcella,JEAN Donnelly [Primary Care Provider, Unknown]
--- OUTSIDE RECORDS SUMMARY | 2024-10-17 08:50 | XMS_ITS | Clinical Summary ---
Author Organization [facility] Health Address [address] [place] [address] Care Team Providers Care [employer] Principal Name Role Phone Unavailable Primary Care Provider Unavailabl e Social History Tobacco Use Types Packs/Day Years Used Date Smoking Tobacco: Never Assessed Comments Unknown Sex and Gender Information Value Date Recorded Sex Assigned at Not on file Legal Sex Female 8:37 PM PDT Gender Identity Not on file Sexual Orientation Not on file Plan of Treatment Not on file Insurance [employer] PPO
--- OUTSIDE RECORDS SUMMARY | 2024-10-17 08:50 | XMS_ITS | Encounter Summary ---
Author Organization [facility] Health Address [address] [place] [address] Care Team Providers Care German Professor Name Role Phone Unavailable Primary Care Provider Unavailabl e Prior Encounters Date Type Department Care Team Description 03/19/2019 Converted CPS Chart Documents [facility] [address] [place] [address] <No scans attached> 03/19/2019 Converted 13x Documents [facility] [address], [address] [place] [address] <No scans attached> Plan of [...]
--- OUTSIDE RECORDS SUMMARY | 2024-10-17 08:50 | XMS_ITS | Clinical Summary ---
Author Organization [facility] Main [facility] s Address [address] [place] [address] Care Team Providers Care Cigarette Tipper Name Role Phone Cony Naranjo NP Primary Care Provider Allergies No known active allergies Medications sertraline (ZOLOFT) 100 mg tablet Take 2 tablets (200 mg total) by mouth daily 05/28/19 23 Active buPROPion XL (WELLBUTRIN XL) 150 mg 24 hr tablet Take 1 tablet (150 mg total) by mouth daily 04/26/19 23 Active vit 61-qdxm-xhvct- dha 27mg iron- 800 mcg-250 mg capsule Take by mouth Active metoclopramide (REGLAN) 10 mg tablet Take 1 tablet (10 mg total) by mouth every 6 (six) hours as needed (nausea) 30 tablet 2 08/08/19 25 Active levothyroxine (SYNTHROID) 200 mcg tablet Take 1 tablet (200 mcg total) by mouth marketing outreach coordinator before breakfast 30 tablet 1 10/04/19 25 Active levothyroxine (SYNTHROID) 75 mcg tablet Take 1 tablet (75 mcg total) by mouth marketing outreach coordinator before breakfast 30 tablet 1 10/04/19 25 Active levothyroxine (SYNTHROID) 125 mcg tablet Take 2 tablets (250 mcg total) by mouth marketing outreach coordinator before breakfast 60 tablet 1 08/17/19 25 025 Discontinued Active Problems Problem Noted Date Diagnosed Date History of migraine 08/29/2024 Supervision of other normal , antepartu m 08/07/2024 Anxiety and depression 08/07/2024 Other specified hypothyroidism 08/07/2024 Obesity affecting , antepartum 08/08/19 25 Estimated Date of Delivery Comme nts Yes 2025 Based on last me nstrual period of 06/02/2024 Encounters Date Type Department Care Team Description 10/03/2024 Results Follow-Up [facility] Obstetrical Gynecology [address] [place] [address] [phone] Bayron Carrera MD Thyroid Function Sterling 10/02/2024 8:40 AM CDT Lab [facility] [address] [place] [address] Hematuria, unspecified type; Second trimester 10/01/2024 Orders Only [facility] Obstetrical Gynecology [address] [place] [address] [phone] Lanette Mark MD Hematuria, unspecified type (Primary Dx); Second trimester 09/26/2024 11:05 AM CDT Lab [facility] [address] [place] [address] Other specified hypothyroidism 09/26/2024 10:15 AM CDT Office Visit [facility] Obstetrical Gynecology [address] [place] [phone] Tom Hagen MD Obesity affecting , antepartum, unspecified obesity type (Primary Dx); Supervision of other normal , antepartum; Other specified hypothyroidism; Anxiety and depression 08/29/2024 11:30 AM CDT Office Visit [facility] Obstetrical Gynecology [address] [place] [address] [phone] Joellen Huitron MD Hypothyroidism, unspecified type (Primary Dx); Anxiety and depression; History of migraine; Obesity affecting , antepartum, unspecified obesity type; Encounter for supervision of other normal in first trimester 08/16/2024 Results Follow-Up [facility] [address] [place] [address] Bayron Carrera MD Pap and High Risk HPV and Genotyping (Cytology Component), Thyroid Function Sterling, GTT 50gm 1hr gestational screen, Additional followed-up results: 13 08/15/2024 10:20 AM CDT Lab [facility] [address] [place] [address] Urinary frequency; Obesity affecting , antepartum, unspecified obesity type 08/15/2024 Orders Only [facility] [address] [place] [address] Tom Hagen MD 08/07/2024 1:37 PM CDT - 08/07/2024 11:59 PM CDT Hospital Encounter [facility] [address] [place] [address] Encounter for supervision of other normal in first trimester Discharge Disposition: Discharge to home or self care 08/07/2024 11:45 AM CDT Lab [facility] [address] [place] [address] Encounter for supervision of other normal in first trimester; Hypothyroidism, unspecified type 08/07/2024 11:30 AM CDT Office Visit [facility] Obstetrical Gynecology [address] [place] [phone] Bayron Carrera MD Encounter for supervision of other normal in first trimester (Primary Dx); Hypothyroidism, unspecified type; Obesity affecting , antepartum, unspecified obesity type; Anxiety and depression 08/07/2024 10:30 AM CDT Clinical Support [facility] Obstetrical Gynecology [address] [place] [address] [phone] 08/07/2024 9:45 AM CDT Ancillary Procedure [facility] Obstetrical Gynecology [address] [place] [address] [phone] Establish gestational age, ultrasound 08/07/2024 Orders Only [facility] Obstetrical Gynecology [address] [place] [address] [phone] Bayron Carrera MD Encounter for anatomic survey (Primary Dx) 08/07/2024 Telephone [facility] Obstetrical Gynecology [address] [facility] [address] [place] [phone] Bayron Carrera MD from Last [...] Tobacco: Never Tobacco Cessation:Counseling Given: Not Answered [place] Depression Scale Answer Date Recorded [place] Depression Scale Total 9 08/07/2024 The thought of harming myself has occurred to me . Never 08/07/2024 Estimated Date of Delivery Comme nts Yes 2025 Based on last me nstrual period of 06/02/2024 Sex and Gender Information Value Date Recorded Sex Assigned at Not on file Legal Sex Female 3:11 PM [employer]ACH[employer] Gender Identity Not on file Sexual Orientation [...] ed Spinal /Epidu ral Livin g Delivery Location:[place] 02/2023 AB Current Summary Episode Dates Number of Fetuses Estimated Date of Delivery 08/07/2024 - Present (10/17/2024) 1 2025 (set by Clarisse Gomez, MOHINI on 08/07/2024 based on Last Menstrual Period on 06/02/2024) Dating Summary Based On CIARA GA Diff Last Menstrual Period on 06/02/2024 2025 Working Ultrasound on 08/07/2024 03/12/2025 -3d GA:9w0d Overview and Plan :Cohen Support person:Ryan Delivery Plans Planned delivery method:TOLAC Planned delivery location:[facility] Overview Surveillance of EDC by LMP [...] Vitals Pregravid Weight Height TWG (As of 10/17/2024) Pregrav id BMI 94.3 kg (208 lb) [...] pport - 08/07/2024 - GA:9w3d 08/07/2024 - w - Clarisse Gomez RN Pt is overall [...] t - 08/07/2024 - GA:9w3d 08/07/2024 - - Bayron Carrera MD New [...] by mouth daily, Disp: , Rfl: vit 42-jddc-bjdig-dha 27mg iron- 800 mcg-250 mg capsule, Take [...] 1hr gestational screen; Future - Thyroid Function Sterling; Future Hypothyroidism, unspecified type (E03.9) - Thyroid Function Sterling; Future Bayron Carrera MD Last Filed Vital [...] 01/05/2021, 05/05/2020, 04/14/2020 Influenza Vaccine (#1) 2024 2, 11/09/2019, 12/15/2018, Additional history exists Cervical Cancer Screening 08/07/2025 08/07/2024, 11/2024 Depression Screening 08/07/2025 08/07/2024 DTaP/Tdap/Td Vaccine (3 - Td or Tdap) 11/07/2031 11/06/2021, 07/17/2015 Hepatitis C Screening Completed 08/07/2024 Pneumococcal vaccine <65 Aged Out No longer eligible based on patient's age to complete this topic Procedures Procedure Name Priority Date/Time Associated Diagnosis Comments URINALYSIS, MICROSCOPIC ONLY Routine 10/02/2024 8:53 AM CDT Hematuria, unspecified type Second trimester URINALYSIS AND REFLEX TO MICROSCOPIC Routine 10/02/2024 8:53 AM CDT Hematuria, unspecified type Second trimester THYROID FUNCTION CASCADE Routine 09/26/2024 11:09 AM [...] Results * (ABNORMAL) Urinalysis reflex to microscopic (10/02/2024 8:53 AM CDT) Color, ur Yellow Yellow Comment:Testing performed by : [address] [address] Clarity, ur Clear Clear BENNY Comment:Testing performed by : [address] [address] Specific gravity, ur 1.024 1.003 - 1.030 BENNY Comment:Testing performed by : [address] [address] pH, urine 6.5 BENNY Comment: Interpretive Data U rine pH is affected by diet, medications, systemic acid-base disturbances, and renal tubular function. pH may affect urinary stone formation. For example, urine pH below 6.0 may help reduce the tendency for calcium phosphate stones and pH greater than 6.0 may reduce the tendency for uric acid stone formation. Source: [facility] Current Interpretive Data was last revised on 2017 Testing performed by: [facility], [address] [place] [address], [place]., [address] Protein, ur ql Trace(A) Negative BENNY Comment:Testing performed by : [address], [place]., [address] Glucose, ur ql Negative Negative BENNY Comment:Testing performed by : [address], [place]., [address] Ketones, ur Negative Negative BENNY Comment:Testing performed by : [address], [place]., [address] Bilirubin, ur Negative Negative BENNY Comment:Testing performed by : [address], [place]., [address] Blood, ur Negative Negative BENNY Comment:Testing performed by : [address], [place]., [address] Urobilinogen, ur <2.0 <2.0 mg/dL BENNY Comment:Testing performed by : [address], [place]., [address] Nitrite, ur Negative Negative BENNY Comment:Testing performed by : [address], [place]., [address] Leukocyte esterase, ur 3+(A) Negative BENNY Comment:Testing performed by : [address], [place]., [address] UA reflex comment Reflex to microscopic UA will be performed. BENNY Comment:Testing performed by : [address], [place]., [address] Urine 10/02/2024 8:53 AM CDT 10/02/2024 9:48 AM CDT Narrative BENNY - 10/02/2024 9:54 AM CDT Urine Collection Method->Clean Catch Lanette Mark MD LAB URINE ORDERABLES Yumiko l Result Performing Organization Address [facility] Co de Phone Number [address] [address] * (ABNORMAL) Urinalysis, microscopic only (10/02/2024 8:53 AM CDT) WBC, ur 0-5 0 - 5 /HPF Comment:Testing performed by : [address] [address] RBC, ur 3-5(A) 0 - 2 /HPF BENNY Comment:Testing performed by : [address] [address] Epithelial cells, squamous, ur >50(A) 0 - 5 /HPF BENNY Comment:Testing performed by : [address] [address] Mucous, ur Present(A) BENNY Comment:Testing performed by : [address] [address] Urine 10/02/2024 8:53 AM CDT 10/02/2024 9:48 AM CDT Lanette Mark MD LAB URINE ORDERABLES Yumiko l Result Performing Organization Address [facility] de Phone Number [address] [address] * Thyroid Function Sterling (09/26/2024 11:09 AM CDT) Pathologist [facility] TSH 2.89 0.30 - 4.20 mcIUnit/mL Comment:Testing performed by : [address] [address] Blood 09/26/2024 11:0 9 AM CDT 09/26/2024 12:43 PM CDT Bayron Carrera MD LAB BLOOD ORDERABLES Final Result Performing Organization Address [facility] de Phone Number [address] [facility] [place] [address] * (ABNORMAL) Urinalysis reflex to microscopic and culture Urine, clean voided (08/15/2024 10:48 AM CDT) Color, ur Yellow Yellow Comment:Testing performed by : [address] [address] Clarity, ur Clear Clear BENNY Comment:Testing performed by : [address] [address] Specific gravity, ur 1.020 1.003 - 1.030 BENNY Comment:Testing performed by : [address] [address] pH, urine 6.0 BENNY Comment: Interpretive Data U rine pH is affected by diet, medications, systemic acid-base disturbances, and renal tubular function. pH may affect urinary stone formation. For example, urine pH below 6.0 may help reduce the tendency for calcium phosphate stones and pH greater than 6.0 may reduce the tendency for uric acid stone formation. Source: [facility] Current Interpretive Data was last revised on 2017 Testing performed by: [address] [address] Protein, ur ql Negative Negative BENNY Comment:Testing performed by : [address] [address] Glucose, ur ql Negative Negative BENNY Comment:Testing performed by : [address] [address] Ketones, ur Negative Negative BENNY Comment:Testing performed by : [address] [address] Bilirubin, ur Negative Negative BENNY Comment:Testing performed by : [address] [address] Blood, ur Negative Negative BENNY Comment:Testing performed by : [address] [address] Urobilinogen, ur <2.0 <2.0 mg/dL BENNY Comment:Testing performed by : [address] [address] Nitrite, ur Negative Negative BENNY Comment:Testing performed by : [address] [address] Leukocyte esterase, ur 3+(A) Negative BENNY Comment:Testing performed by : [address] [address] UA reflex comment Reflex to microscopic UA will be performed. BENNY Comment:Testing performed by : [address] [address] Urine, clean voided 08/15/2024 10:48 AM CDT 08/15/2024 11:49 AM CDT Narrative BENNY - 08/15/2024 11:57 AM CDT Urine Collection Method->Clean Catch us Bayron Carrera MD LAB MICROBIOLOGY - GENERAL ORDERABLES Final Result BENNY [address] [facility] Department [place] [address] * (ABNORMAL) Urinalysis, microscopic only (08/15/2024 10:48 AM CDT) WBC, ur 0-5 0 - 5 /HPF Comment:Testing performed by : [address] [address] RBC, ur 0-2 0 - 2 /HPF BENNY Comment:Testing performed by : [address] [address] Epithelial cells, squamous, ur 21-50(A) 0 - 5 /HPF BENNY Comment:Testing performed by : [address] [address] Bacteria, ur 1+(A) BENNY Comment:Testing performed by : [address] [address] Mucous, ur Present(A) BENNY Comment:Testing performed by : [address] [address] Urine, clean voided 08/15/2024 10:48 AM CDT 08/15/2024 11:50 AM CDT Bayron Carrera MD LAB URINE ORDERABLES Final Result Performing Organization Address City/[facility]/ZIP Co de Phone Number MARY[address] [facility] [place] [address] * Urine culture Urine, clean voided (08/15/2024 10:48 AM CDT) Report Final Report: Less than 100,000 colonies/mL (clinically insignificant growth based on current clinical standards) Comment:Testing performed by : [facility], [address] [facility] [place]., [address] Organism (CLINICALLY INSIGNIFICANT GROWTH [facility] Urine, clean voided 08/15/2024 10:48 AM CDT 08/15/2024 5:39 PM CDT Narrative BENNY - 08/16/2024 8:05 PM CDT Testing performed by [facility] Microbiology Laboratory ([phone]) Bayron Carrera MD LAB MICROBIOLOGY - GENERAL ORDERABLES Final Result Performing Organization Address [facility] de Phone Number [address] [place] [address] * (ABNORMAL) Thyroid Function Sterling (08/07/2024 12:06 PM CDT) TSH 5.55(H) 0.30 - 4.20 mcIUnit/mL Comment:Testing performed by : [facility], [address] [place] [address]., [address] Blood 08/07/2024 12:0 6 PM CDT 08/07/2024 1:43 PM CDT Bayron Carrera MD LAB BLOOD ORDERABLES Final Result [address] [facility] [place] [address] * GTT 50gm 1hr gestational screen (08/07/2024 12:06 PM CDT) Pathologist [facility] GTT 50g gest screen 127 <=140 mg/dL [...] last revised on 2020. Testing performed by: [facility], [address] [place] [address]., [address] Blood 08/07/2024 12:0 6 PM CDT 08/07/2024 1:43 PM CDT Bayron Carrera MD LAB BLOOD ORDERABLES Final Result Performing Organization Address [facility] Co de Phone Number [address] ZAO Begun [place] [phone] * HIV 1/2 Antibody plus p24 Antigen Blood (08/07/2024 12:06 PM CDT) [facility] HIV 1/2 ab + p24 ag Nonreactive [...] GENERAL ORDERABLES Final Result Performing Organization Address City/[facility] Co de Phone Number [place] [address] [facility] Department [place] [facility] [place] [address] * Hemoglobin analysis by electrophoresis (08/07/2024 12:06 PM CDT) RBC 4.58 3.90 - 5.20 M/cumm Comment:Testing performed by : [facility], [address] [facility], [address] Hgb 13.4 11.9 - 15.5 g/dL BENNY SOTELO Comment:Testing performed by : [facility], [address] [facility], [address] MCV 83.8 81.3 - 96.4 fL BENNY SOTELO Comment:Testing performed by : [facility], [address] [facility], [address] Rdw 13.1 11.1 - 14.9 % BENNY SOTELO Comment:Testing performed by : [facility], [address] [facility], [address] Hgb electrophoresis , interp Please see comment BENNY SOTELO Comment: Normal hemoglobin pattern for age Reviewed and signed by Miguel Ángel Kumar MD 08/09/2024 Testing performed by: [facility], [address] [facility], [address] Hgb A 96.9 96.0 - 98.5 % BENNY SOTELO Comment:Testing performed by : [facility], [address] [facility], [address] Hgb A2 2.7 1.5 - 3.2 % BENNY SOTELO Comment:Testing performed by : [facility], [address] [facility], [address] Hgb F 0.4 0.0 - 0.9 % BENNY SOTELO Comment:Testing performed by : [facility], [address] [facility], [address] Blood 08/07/2024 12:0 6 PM CDT 08/07/2024 1:42 PM CDT us Bayron Carrera MD LAB BLOOD ORDERABLES Final Result BENNY SOTELO [address] [facility] Department [place] [address] * Hepatitis C antibody Blood (08/07/2024 12:06 PM CDT) Pathologist [facility] Hep C Ab Nonreactive Nonreactive Comment: Antibodies [...] GENERAL ORDERABLES Final Result Performing Organization Address City/[facility] Co de Phone Number [address] [place] [address] * Measles IgG antibody Blood (08/07/2024 12:06 PM CDT) Pathologist [facility] Measles IgG Reactive Comment: Reactive: Results suggest response to immunization or prior exposure to the virus. Testing performed by: [facility], 1 [facility], [place]., [address] Blood 08/07/2024 12:0 6 PM CDT 08/07/2024 3:43 PM CDT Bayron Carrera MD LAB MICROBIOLOGY - GENERAL ORDERABLES Final Result [address] [place] [address] * ABO/Rh (08/07/2024 12:06 PM CDT) Pathologist [facility] ABO/Rh O Positive Comment:Testing performed by : [facility], [address] [place] [address]., [address] Blood 08/07/2024 12:0 6 PM CDT 08/07/2024 1:43 PM CDT Narrative [facility] - 08/07/2024 2:18 PM CDT Has the patient had Daratumumab or Isatuximab in the past 6 months?->Unknown Hx of or candidate for Bone Marrow/Stem Cell transplant?->No Bayron Carrera MD LAB BLOOD BANK TEST ORDERA BLES Final Result [address] [place] [address] * Rubella IgG antibody Blood (08/07/2024 12:06 PM CDT) Rubella IgG Reactive Reactive Blood 08/07/2024 12:0 6 PM CDT 08/07/2024 2:30 PM CDT Bayron Carrera MD LAB MICROBIOLOGY - GENERAL ORDERABLES Final Result Performing Organization Address [facility] Co de Phone Number [address] [facility] [place] [address] * RPR Blood (08/07/2024 12:06 PM CDT) RPR Nonreactive Nonreactive Comment:Testing performed by : [facility], [address] [facility] [place]., [address] Blood 08/07/2024 12:0 6 PM CDT 08/07/2024 3:43 PM CDT Bayron Carrera MD LAB MICROBIOLOGY - GENERAL ORDERABLES Final Result Performing Organization Address City/[facility]/ZIP Co de Phone Number [address] [facility] [place] [address] * Hepatitis B Surface Antigen Blood (08/07/2024 12:06 PM CDT) HepBsAg Nonreactive Nonreactive Blood 08/07/2024 12:0 6 PM CDT 08/07/2024 2:30 PM CDT us Bayron Carrera MD LAB MICROBIOLOGY - GENERAL ORDERABLES Final Result [facility] [address] [facility] Department [place] [address] * CBC without differential (08/07/2024 12:06 PM CDT) Pathologist [facility] WBC 9.24 3.80 - 9.90 K/cumm Comment:Testing performed by : [address] [address] Hgb 13.4 11.9 - 15.5 g/dL BENNY Comment:Testing performed by : [address], [address] Hct 38.1 35.6 - 45.5 % BENNY Comment:Testing performed by : [address] [address] Plt 238 150 - 400 K/cumm BENNY Comment:Testing performed by : [address] [address] MPV 10.1 9.1 - 12.3 fL BENNY Comment:Testing performed by : [address] [address] RBC 4.50 3.90 - 5.20 M/cumm BENNY Comment:Testing performed by : [address] [address] MCV 84.7 81.3 - 96.4 fL BENNY Comment:Testing performed by : [address] [address] MCH 29.8 27.1 - 33.3 pg BENNY SOTELO Comment:Testing performed by : [address], [address] MCHC 35.2 32.3 - 35.7 g/dL BENNY SOTELO Comment:Testing performed by : [facility], [address] [place] [address]., [address] RDW CV 13.0 11.1 - 14.9 % BENNY Comment:Testing performed by : [address] [address] RDW SD 39.8 35.7 - 48.1 fL BENNY Comment:Testing performed by : [address] [address] NRBC abs 0.00 0.00 - 0.01 K/cumm BENNY Comment:Testing performed by : [address] [address] Blood 08/07/2024 12:0 6 PM CDT 08/07/2024 1:42 PM CDT Bayron Carrera MD LAB BLOOD ORDERABLES Final Result Performing Organization Address City/[facility] Co de Phone Number [address] [place] [address] * Antibody screen (08/07/2024 12:06 PM CDT) Pathologist [facility] Pily, indirect, Gel Interpretation Negative ABSC Comment:Testing performed by : [address], [address] Blood 08/07/2024 12:0 6 PM CDT 08/07/2024 1:43 PM CDT Narrative BENNY - 08/07/2024 2:18 PM CDT Has the patient had Daratumumab or Isatuximab in the past 6 months?->Unknown Hx of or candidate for Bone Marrow/Stem Cell transplant?->No Bayron Carrera MD LAB BLOOD BANK TEST ORDERA BLES Final Result Performing Organization Address City/[facility]/ZIP Co de Phone Number [address] [employer] [place] [address] * Varicella Zoster IgG antibody Blood (08/07/2024 12:06 PM CDT) Pathologist [facility] VZV IgG Reactive Reactive Comment: Reactive: Results suggest response to immunization or prior exposure to the virus. Testing performed by: [facility], [address] [place]., [address] Blood 08/07/2024 12:0 6 PM CDT 08/07/2024 3:43 PM CDT Bayron Carrera MD LAB MICROBIOLOGY - GENERAL ORDERABLES Final Result Performing Organization Address City/[facility] Co de Phone Number [address] [address] * T4, free (08/07/2024 12:06 PM CDT) [facility] Free T4 1.02 0.90 - 1.70 ng/dL Comment:Testing performed by : [address] [address] Blood 08/07/2024 12:0 6 PM CDT 08/07/2024 1:43 PM CDT Narrative BENNY - 08/07/2024 2:46 PM CDT This test was reflexed from a TSH result. Bayron Carrera MD LAB BLOOD ORDERABLES Final Result Performing Organization Address [facility] de Phone Number [address] [address] * Hemoglobin A1c (08/07/2024 12:06 PM CDT) [facility] Hgb A1C 4.9 4.0 - 5.6 % Comment:Testing performed by : [address] [address] Estimated Average Glucose 94 mg/dL BENNY Comment: The ADA recommends reporting an estimated Average Glucose (eAG) with all Hemoglobin A1c results using the equation derived from a study of 507 normal and diabetic adults. Minority populations were underrepresented and children were not included. (Diabetes Care 31:3248-8965, 2008). The eAG is not equivalent to a fasting glucose. Testing performed by: [facility], [address] [place] [address], [place]., [address] Blood 08/07/2024 12:0 6 PM CDT 08/07/2024 1:42 PM CDT Bayron Carrera MD LAB BLOOD ORDERABLES Final Result BENNY [address] [facility] Department [place] [address] * High Risk HPV DNA Detection with Genotyping (Molecular component) (08/07/2024 11:50 AM CDT) HPV HR 16 Not Detected Not Detected [facility] Comment:Testing performed by : [facility], [address] [place]., [address] HPV HR 18 Not Detected Not Detected BENNY SOTELO Comment:Testing performed by : [facility], [address] [place]., [address] HPV HR Non 16/18 Not Detected Not [...] this test have been verified by the [facility] Molecular Infectious Disease laboratory. Correlate with separately reported cytology results, as applicable. Interpretive data last revised 22 Testing performed by: [facility], [address] [place]., [address] Endocervical 08/07/2024 11:5 0 AM CDT 08/09/2024 8:32 PM CDT Narrative BENNY - 08/10/2024 7:08 PM CDT Clinical history and diagnosis->screening Number of vials->1 Testing type->Screening Last menstrual period (date if known)->06/02/2024 Bayron Carrera MD LAB BODY FLUIDS AND STOOLS ORDERABLES Final Result BENNY [address] [facility] Department [place] [address] [facility] * Pap and High Risk HPV and Genotyping (Cytology Component) (08/07/2024 11:50 AM CDT) Thin prep (Pap test) 08/07/2024 11:50 AM CDT 08/09/2024 10:49 AM CDT Narrative PATHOLOGY [facility] - 08/14/2024 8:49 AM CDT EPIC results best viewed via link to PDF [facility] [place] [address] Note to Patients: This report may contain [...] Gender: F : 1990 (Age: 34) Address: [address] [place] [address] Hospital #: [id number] Service: DEFAULT Location: Patient Type: [facility] Taken: 08/07/2024 Received: 08/09/2024 Accessioned: [...] have been verified by the [facility] Molecular Infectious Disease laboratory. Correlate with reported [...] clinical information and biopsy results as indicated. [facility] Clinical Laboratory Improvement Amendments (CLIA) mandate that cytologic and histologic results be correlated for laboratory quality assurance assessor & improvement standards. FOR ALL HIGH-GRADE [...] by the Surgical Pathology Department at [facility] as part of an ongoing supervisor quality control program and in compliance with federally mandated [...] by the Surgical Pathology Department of [facility]. It has not been cleared or approved by the U. S. Food and Drug Administration. Bayron Carrera MD LAB CYTOLOGY ORDERABLES nal Result PATHOLOGY [facility] * N. gonorrhoeae/C. trachomatis Amplification Vaginal (08/07/2024 11:50 AM CDT) C. trachomatis Not Detected [facility] Comment:Testing performed by : [facility], [address] [facility] [place]., [address] N. gonorrhoeae Not Detected BENNY SOTELO Comment: Interpretive Data This assay detects Chlamydia trachomatis and Neisseria gonorrhoeae by nucleic acid amplification testing (NAAT). This assay has been cleared by the [place] Food and Drug administration. The performance characteristics of this test have been verified by the [facility] Molecular Infectious Disease laboratory. The performance characteristics of this test have not been evaluated in individuals less than 14 years of age. Current Interpretive Data was last revised on 2023. Testing performed by: [facility], [address] [facility] [place]., [address] Vaginal (None) 08/07/2024 11 :50 AM CDT 08/07/2024 8:08 PM CDT Bayron Carrera MD LAB MICROBIOLOGY - GENERAL ORDERABLES Final Result Performing Organization Address [facility] de Phone Number BENNY [address] [address] [facility] * Trichomonas vaginalis PCR Vaginal (08/07/2024 11:50 AM CDT) Trichomonas DNA Not Detected [facility] Comment: Interpretive Data This assay detects Trichomonas vaginalis by nucleic acid amplification testing (NAAT). This assay has been cleared by the [place] Food and Drug administration. The performance characteristics of this test have been verified by the [facility] Molecular Infectious Disease laboratory. The performance of this test has not been evaluated in individuals less than 18 years of age. Current Interpretive Data was last revised on 2023. Testing performed by: [facility], [address] [place]., [address] Vaginal 08/07/2024 11:5 0 AM CDT 08/07/2024 8:08 PM CDT Bayron Carrera MD LAB MICROBIOLOGY - GENERAL ORDERABLES Final Result Performing Organization Address [facility] de Phone Number BENNY [address] [address] [facility] * (ABNORMAL) Drugs of Abuse Screen, [...] was last reviewed 2022. Testing performed by: [facility], [address] [place] [address]., [address] Barbiturates, ur Not Detected CutOff 200ng/mL [facility] Comment: Interpretive Data - Barbiturates: Samples containing greater than 200 ng/mL secobarbital or other cross-reacting barbiturate compounds are reported as positive. False positive and false negative results are possible. Confirmatory testing required for definitive results. Current Interpretive Data was last reviewed 2022. Testing performed by: [facility], [address] [place] [address]., [address] Benzodiazepines, ur Not Detected CutOff 100ng/mL [facility] Comment: Interpretive Data - Benzodiazepines: Samples containing greater than 100 ng/mL nordiazepam or other cross-reacting compounds are reported as positive. False positive and false negative results are possible. Confirmatory testing required for definitive results. Current Interpretive Data was last reviewed 2022. Testing performed by: [address] [address] Cannabinoids, ur Screen Positive, presumptive (A) CutOff 50 ng/mL [facility] Comment: Interpretive Data - Cannabinoids: Samples containing greater than 50 ng/mL delta-9 THC -COOH or other cross- reacting compounds are reported as positive. False positive and false negative results are possible. Confirmatory testing required for definitive results. Current Interpretive Data was last reviewed 2022. Testing performed by: [address] [address] Cocaine, ur Not Detected CutOff 150ng/mL [facility] Comment: Interpretive Data - Cocaine: Samples containing greater than 150 ng/mL benzoylecgonine or other cross- reacting compounds are reported as positive. False positive and false negative results are possible. Confirmatory testing required for definitive results. Current Interpretive Data was last reviewed 2022. Testing performed by: [address] [address] Fentanyl, Ur Not Detected Cutoff 1 ng/mL [facility] Comment: Interpretive Data - Fentanyl: Samples containing greater than 1 ng/mL fentanyl or other cross-reacting fentanyl compounds are reported as positive. False positive and false negative results are possible. Confirmatory testing required for definitive results. Current Interpretive Data was last reviewed 2022. Testing performed by: [address] [address] Methadone, ur Not Detected CutOff 300ng/mL BENNY Comment: Interpretive Data - Methadone: Samples containing greater than 300 ng/mL d,l-methadone or other cross-reacting compounds are reported as positive. False positive and false negative results are possible. Confirmatory testing required for definitive results. Current Interpretive Data was last reviewed 2022. Testing performed by: [address] [address] Opiates, ur Not Detected CutOff 300ng/mL BENNY Comment: Interpretive Data - Opiates: Samples containing greater than 300 ng/mL morphine or other cross-reacting compounds are reported as positive. False positive and false negative results are possible. Confirmatory testing required for definitive results. Current Interpretive Data was last reviewed 2022. Testing performed by: [address] [address] Oxycodone, ur Not Detected CutOff 100ng/mL BENNY Comment: Interpretive Data - Oxycodone: Samples containing greater than 100 ng/mL oxycodone or other cross-reacting compounds are reported as positive. False positive and false negative results are possible. Confirmatory testing required for definitive results. Current Interpretive Data was last reviewed 2022. Testing performed by: [address] [address] Phencyclidine, ur Not Detected CutOff 25 ng/mL BENNY Comment: Interpretive Data - Phencyclidine: Samples containing greater than 25 ng/mL phencyclidine or other cross-reacting compounds are reported as positive. False positive and false negative results are possible. Confirmatory testing required for definitive results. Current Interpretive Data was last reviewed 2022. Testing performed by: [address] [address] Urine Creatinine 273 mg/dL BENNY Comment: Interpretive Data Urine Creatinine: < 10 mg/dL is extremely dilute = or > 10 but < 20 mg/dL is dilute = or > 20 mg/dL is normal Current Interpretive Data was last revised on 2017. Testing performed by: [address] [address] Urine 08/07/2024 10:1 5 AM CDT 08/07/2024 [...] URINE ORDERABLES Final Result Performing Organization Address [facility] de Phone Number [address] [place] [place] [address] * Urine culture Urine, clean voided (08/07/2024 10:15 AM CDT) Report Final Report: Less than 100,000 colonies/mL (clinically insignificant growth based on current clinical standards) Comment:Testing performed by : [facility], [address] [place]., [address] Organism (CLINICALLY INSIGNIFICANT GROWTH [facility] Urine, clean voided 08/07/2024 10:15 AM CDT 08/07/2024 8:39 PM CDT Narrative BENNY - 08/10/2024 6:33 AM CDT Testing performed by [facility] Microbiology Laboratory ([phone]) Bayron Carrera MD LAB MICROBIOLOGY - GENERAL ORDERABLES Final Result Performing Organization Address [facility] de Phone Number [address] [place] [place] [address] * US OB Under 14 Weeks W Endovaginal (08/07/2024 9:31 AM CDT) Anatomical Region Laterality Modality Abdomen N/A Ultrasound 08/07/2024 9:3 5 AM CDT Impressions 08/07/2024 11:37 AM CDT [...] Final Result from Last 3 Mon[facility] Care Teams Cigarette Tipper Relationship Specialty Start Date End Date Cony Naranjo NP PCP - General Family Medicine 08/29/24
--- OUTSIDE RECORDS SUMMARY | 2024-10-17 08:50 | XMS_ITS | Clinical Summary ---
Author Organization [facility] Address [address] [place] [address] Care Team Providers Care Attendant Campground Name Role Phone Cony Naranjo NP Primary [...] topic Insurance [facility] Care Teams Attendant Campground Relationship Specialty Start Date End Date Cony Naranjo NP [address] [place] [address] [place] [address] PCP - General Nurse Practitioner Family 09/21/23
--- OUTSIDE RECORDS SUMMARY | 2024-10-17 08:50 | XMS_ITS | Patient Health Record ---
Author Organization [facility] Address [address] [place] [address] Care Team Providers Care Breeding Technician Name Role Phone Cony Naranjo Primary Care Provider [phone] Gay Luciano Unavailable [phone] Allergies Allergen (clinical drug ingredient) Drug/Non Drug Allergy documented on EMR Reaction Allergy Type Onset Date Status Penicillin G Benzathine hives Drug Allergy Active Results Component Value Reference Range Notes Test, Urine Reviewed date:07/04/2024 12:52:23 PM Interpretation:Positive Performing Lab: Notes/Report: Positive Test, Urine POS Negative - Negative CMP 14 Comprehensive Metabol ic Panel* Reviewed date:07/11/2024 05:18:35 PM Interpretation: Performing Lab:[facility], [address] [facility], Phone - [phone], Director - Zoey Notes/Report: Glucose 85 70-99 mg/dL BUN 11 [...] ALT (SGPT) 21 0-32 IU/L TSH+Free T4* Reviewed date:07/11/2024 05:18:35 PM Interpretation: Performing Lab:[facility], [address] [place] [address], Phone - [phone], Director - [facility] Notes/Report: TSH 4.840 0.450-4.500 uIU/mL T4,Free(Direct) 1.28 0.82-1.77 ng/dL CBC With Differential/Platel et* Reviewed date:07/11/2024 05:18:35 PM Interpretation: Performing Lab:[facility], [address] [facility], Phone - [phone], Director - [facility] Notes/Report: [...] 0.0 0.0-0.1 x10E3/uL hCG,Beta Subunit, Qnt, Serum * Reviewed date:07/11/2024 05:18:35 PM Interpretation: Performing [facility], [address] [place] [address], Phone - [phone], [facility] Notes/Report: hCG,Beta Subunit,Qnt,Serum 191 Female (Non-) 0 - 5 (Postmenopausal) 0 - 8 . Female () Weeks of Gestation 3 6 - 71 4 10 - 750 5 126 - 9717 6 871 - 02701 7 7568 -858752 8 35901 -386385 9 42762 -500954 10 51172 -999035 12 84659 -118955 14 22663 - 07338 15 29278 - 17244 16 0080 - 82862 17 0894 - 52308 18 7420 - 77012 Rashawn ECLIA methodology Hemoglobin A1c* Reviewed date:07/11/2024 05:18:35 PM Interpretation: Performing [facility], [address] [place] [address], Phone - [phone], [facility] Notes/Report: Hemoglobin A1c 5.1 4.8-5.6 % . Prediabetes: 5.7 - 6.4 Diabetes: >6.4 Glycemic control for adults with diabetes: <7.0 QuantiFERON-TB Gold Plus (18 2879) Reviewed date:12/14/2023 10:29:36 AM Interpretation: Performing Lab:[facility], [address] [place] [address], Phone - [phone], Director - [facility] Notes/Report: QuantiFERON Incubation Incubation performed. QuantiFERON-TB Gold [...] Mitogen Value >10.00 hCG,Beta Subunit, Qnt, Serum * Reviewed date:07/17/2024 02:54:50 PM Interpretation: Performing Lab:[facility], [address] [facility], Phone - [phone], Director - Zoey Notes/Report: hCG,Beta Subunit,Qnt,Serum 5700 Female (Non-) 0 - 5 (Postmenopausal) 0 - 8 . Female () Weeks of Gestation 3 6 - 71 4 10 - 750 5 849 - 9454 6 180 - 30112 7 0229 -659577 8 21511 -037637 9 96978 -510810 10 86180 -634106 12 71785 -018239 14 94958 - 83867 15 99152 - 40544 16 0501 - 57784 17 3336 - 47948 18 6130 - 29602 Rashawn ECLIA methodology Reason For Referral Reason home test positive, 5 weeks, pending hcg blood Diagnosis 1 Missed period (N92.6 ) Referral Organization [facility] Referring Provider First Name Cony Referring Provider Last Name Marcella Referring Provider [facility] Referred Provider Specialty OB - Gynecol ogy General Notes Ligia Mancuso 07/05/2024 11:52:23 AM >Spoke with staff who advised patients insurance is accepted, Ligia Mancuso 07/05/2024 12:08:22 PM >letter mailed; message sent Clinical Notes [facility] [place], [address] [place] [address]. [phone], , Referral Priority Routine Medications Medication SIG [...] Status Risk Notes Problem Morbid obesity (disorder) (165800366) Morbid (severe) obesity due to excess calories (E66.01) Active confirmed Problem Generalized anxiety disorder (56733092) Generalized anxiety disorder (F41.1) 4 Active confirmed Problem Major depression (757252628) Major depression (F32.9) 4 Active confirmed Problem Posttraumatic stress disorder (33180092) PTSD (post-traumatic stress disorder) (F43.10) 4 Active confirmed Problem Overweight (705108110) Over weight (E66.3) Active confirmed Problem Polycystic ovary syndrome (disorder) (098853586) PCOS (polycystic ovarian syndrome) (E28.2) Active confirmed Problem Missed period (54135212) Missed period (N92.6) Active confirmed Problem Cannabis abuse (05396493) Cannabis use disorder, mild, abuse (F12.10) 4 Active confirmed Problem 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 Vital Signs Heart Rate 101 /min 07/04/2024 Respiratory Rate 16 /min 07/04/2024 Blood pressure diastolic 84 mm Hg 07/04/2024 Oximetry 98 % 07/04/2024 Height 62 in 07/04/2024 Blood pressure systolic 126 mm Hg 07/04/2024 Weight 210 lbs 07/04/2024 BMI 38.41 kg/m2 07/04/2024 Encounters Encounter Location Date Provider Diagnosis [facility] [address] [place] [address] 03/05/2024 Gay Luciano [facility] [address] [place] [address] 07/13/2024 Cony Naranjo History of miscarriage Z87.59 and at early stage Z34.90 Pending Sale To [facility] [address] [address] 12/14/2023 Cony Naranjo PCOS (polycystic ovarian syndrome) E28.[address] [place] [address] 03/01/2024 Gay Luciano Generalized anxiety disorder F41.1 ; Major depression F32.9 ; PTSD (post-traumatic stress disorder) F43.10 ; Cannabis use disorder, mild, abuse F12.10 and Medication monitoring encounter Z51.81 [facility] [address] [place] [address] 07/04/2024 Cony Naranjo Over weight E66.3 and Missed period N92.[address] [place] [address] 07/12/2024 Gay Luciano Generalized anxiety disorder F41.1 ; Major depression F32.9 ; PTSD (post-traumatic stress disorder) F43.10 ; Medication monitoring encounter Z51.81 and Cannabis use disorder, mild, abuse F12.[address] [place] [address] 01/31/2024 Gay Luciano Major depression F32.9 and Generalized anxiety disorder F41.[address] [place] [address] 02/13/2024 Gay Luciano Major depression F32.9 [facility] [address] [place] [address] 07/03/2024 Cony Naranjo [address] [place] [address] 07/09/2024 Gay Luciano Major depression F32.9 [facility] [address] [place] [address] 07/11/2024 Cony Naranjo History of miscarriage Z87.59 and at early stage Z34.90 [facility] [address] [place] [address] 07/17/2024 Cony Naranjo Pending Sale To [facility] [address] [place] [address] 12/13/2023 Cony Naranjo Assessments Encounter Date Diagnosis (ICD Code) Assessment Notes Treatment Notes Treatment Clinical Notes Section Notes 07/09/2024 Major depression (ICD-10 - F32.9) 07/11/2024 History of miscarriage (ICD-10 - Z87.59) 07/11/2024 at early stage (ICD-10 - Z34.90) 07/12/2024 Generalized anxiety disorder (ICD-10 - F41.1) Encouraged coping skills, continue Zoloft. Buspirone tried 2x, causes hypersexuality for client. 01/31/2024 Major depression (ICD-10 - F32.9) 02/13/2024 Major depression (ICD-10 - F32.9) 03/01/2024 Generalized anxiety disorder (ICD-10 - F41.1) Starting low dose as client reports hx of taking this but my anxiety was high at the time, so I am not sure if I had side effects or not. Discussed to stop if noticing any SE. Discussed r/b/se. 12/14/2023 PCOS (polycystic ovarian syndrome) (ICD-10 - E28.2) Lifestyle modification - including increased physical activity and healthy diet resulting in weight loss and improved body composition 07/13/2024 History of miscarriage (ICD-10 - Z87.59) 07/04/2024 Over weight (ICD-10 - E66.3) 07/04/2024 Missed period (ICD-10 - N92.6) 07/13/2024 at early stage (ICD-10 - Z34.90) 01/31/2024 Generalized anxiety disorder (ICD-10 - F41.1) 03/01/2024 Major depression (ICD-10 - F32.9) 07/12/2024 [...] May also contact the 24-hour crisis hotline ([facility]), refer to the closest emergency room [...] Insured Coverage Start Date Coverage End Date [facility] [address] [place] [address] [id number] Read, Juan Jose Self - patient is the insured 3 5 [facility] [address] [place] [address] [id number] Read, Juan Jose Self - patient is the insured 3 5 Medical (General) History Medical History History ICD Code PCOS breast pain Surgical History Surgery Date(Month/Year) C section 2021 Hospitalization History Reason Date(Month/Year) childbirth 2021
[2024-10-17 08:55] VITALS: BP 116/68; PULSE 108; RESP 20; TEMP 36.3; O2SAT 98
[2024-10-17 09:03] LABS: EDSTREPNEGPOS1 Positive (Negative)
== END 2024-10-17 09:11 | disposition home or self-care (01) ==
PROVIDERS: Emergency Provider Nurse Practitioner Family; PCP Nurse Practitioner Family
DX: J02.0 Streptococcal pharyngitis (principal)
CPT/HCPCS: 87880; 99213; G0463

== ENCOUNTER 2024-10-29 16:09 | Emergency (ER) | payer OTHER, SELFPAY ==
--- OUTSIDE RECORDS SUMMARY | 2024-03-05 05:00 | XMS_ITS ---
Author Organization [facility] Address [address] [place] [address] Care Team Providers Care Wheelchair Rental Clerk Name Role Phone Cony Naranjo Primary Care Provider [phone] Gay Luciano Unavailable [phone] REASON FOR VISIT labs Social History Sex Assigned At : Social History Observation Description Sex Assigned At Female Encounters Encounter Location Date Provider Diagnosis [address] [place] [address] 03/05/2024 Gay Luciano Plan Of Treatment No Information Progress Notes * Juan Jose READDOB:1990 (34 yo F)Acc No.[id number]:03/05/2024 UNLOCKED PROGRESS NOTE Patient: Juan Jose JAUREGUI Provider: TERRENCE Rivas, TESTER ARMATURE OR FIELDS, SILVICULTURE PROFESSOR-C :1990 A ge:33 Y S ex:Female Date:03/05/2024 Address:[address] [place] [id number] Pcp:Cony Naranjo Subjective: * Chief Complaints: * 1 . Labs. * Medical History: Objective: * Vitals: Assessment: Plan: * Treatment: * * Electronic signature of Serafin Luciano , [id number] on 10/29/2024 at 04:10 PM CDT Sign off status: Pending * Provider: Emmanuel Luciano, MSN, TESTER ARMATURE OR FIELDS, SILVICULTURE PROFESSOR-C Date: 0 03/05/2024 Generated for Lorenzo hernandez/Denny/Jayitting on: 0 10/29/2024 04:10 PM CDT
--- OUTSIDE RECORDS SUMMARY | 2024-07-13 03:20 | XMS_ITS ---
Author Organization [facility] Address [address] [place] [address] Care Team Providers Care Tin Flipper Name Role Phone Cony Naranjo Primary Care Provider [phone] Gay Luciano Unavailable [phone] Results Component Value Reference Range Notes hCG,Beta Subunit, Qnt, Serum * Reviewed date:07/17/2024 02:54:50 PM Interpretation: Performing Lab:[facility] [place], [address] [facility], [place], Phone - [phone], Director - oZey Notes/Report: hCG,Beta Subunit,Qnt,Serum 5700 Female (Non-) 0 - 5 (Postmenopausal) 0 - 8 . Female () Weeks of Gestation 3 6 - 71 4 10 - 750 5 284 - 2838 6 433 - 47139 7 4038 -747959 8 03165 -259012 9 78173 -882551 01239 -127321 12 58603 -917187 14 78858 - 87157 15 92475 - 74401 16 3308 - 05083 17 1795 - 45581 18 9236 - 95140 Rashawn ECLIA methodology REASON FOR VISIT labs hcg Social History Sex Assigned At : Social History Observation Description Sex Assigned At Female Encounters Encounter Location Date Provider Diagnosis [facility] [address] [place] [address] 07/13/2024 Cony Naranjo History of miscarriage Z87.59 and at early stage Z34.90 Assessments Encounter Date Diagnosis (ICD Code) Assessment Notes Treatment Notes Treatment Clinical Notes Section Notes 07/13/2024 History of miscarriage (ICD-10 - Z87.59) 07/13/2024 at early stage (ICD-10 - Z34.90) Plan Of Treatment No Information Progress Notes * Juan Jose READDOB:1990 (34 yo F)Acc No.[id number]:07/13/2024 UNLOCKED PROGRESS NOTE Patient: Juan Jose JAUREGUI Provider: Lorie Naranjo, MSN, MOBILE EQUIPMENT MECHANIC, COMMUNITY ENGAGEMENT REPRESENTATIVE-BC, COMMUNITY ENGAGEMENT REPRESENTATIVE-C :1990 A ge:34 Y S ex:Female Date:07/13/2024 Address:[address] [place], [place] [id number] Check In:08:23 AM LEARNING MANAGER Subjective: * Chief Complaints: * 1 . Labs hcg. * Medical History: Objective: * Vitals: Assessment: * Assessment: 1. H istory of miscarriage - Z87.59 2 . P regnancy at early stage - Z34.90? Plan: * Treatment: 2. P regnancy at early stage L AB: hCG,Beta Subunit, Qnt, Serum* (Collection Date & Time - 07/13/2024) * * Electronic signature of Vinayak Naranjo APRN, [id number] on 10/29/2024 at 04:11 PM CDT Sign off status: Pending * Provider: TERRENCE Lal, MOBILE EQUIPMENT MECHANIC, COMMUNITY ENGAGEMENT REPRESENTATIVE-BC, COMMUNITY ENGAGEMENT REPRESENTATIVE-C Date: 0 07/13/2024 Generated for Printing/Faxing/eTransmitting on: 0 10/29/2024 04:11 PM CDT
--- OUTSIDE RECORDS SUMMARY | 2024-10-29 16:11 | XMS_ITS | Encounter Summary ---
Author Organization [facility] Address [address] [place] [address] Care Team Providers Care Sash Repairer Name Role Phone Unavailable Primary Care Provider Unavailabl e Prior Encounters Date Type Department Care Team Description 03/19/2019 Converted CPS Chart Documents [facility] [address] [place] [address] <No scans attached> 03/19/2019 Converted 13x Documents [facility] [address], [address] [place] [address] <No scans attached> Plan [...] MDT Visit Diagnoses Not on file Insurance [facility]
--- OUTSIDE RECORDS SUMMARY | 2024-10-29 16:11 | XMS_ITS | Patient Health Record ---
Author Organization [facility]ly [facility] Address [address] [place] [address] Care Team Providers Care Stripping Shovel Oiler Name Role Phone Cony Naranjo Primary Care Provider [phone] Gay Luciano Unavailable [phone] Allergies Allergen (clinical drug ingredient) Drug/Non Drug Allergy documented on EMR Reaction Allergy Type Onset Date Status Penicillin G Benzathine hives Drug Allergy Active Results Component Value Reference Range Notes Hemoglobin A1c* Reviewed date:07/11/2024 05:18:35 PM Interpretation: Performing Lab:[facility], [employer] [facility], Phone - [phone], Director - [facility] Notes/Report: Hemoglobin A1c 5.1 4.8-5.6 % . Prediabetes: 5.7 - 6.4 Diabetes: >6.4 Glycemic control for adults with diabetes: <7.0 hCG,Beta Subunit, Qnt, Serum * Reviewed date:07/11/2024 05:18:35 PM Interpretation: Performing Lab:[facility], [address], [place], Phone - [phone], Director - [facility]alsimoni Notes/Report: hCG,Beta Subunit,Qnt,Serum 191 Female (Non-) 0 - 5 (Postmenopausal) 0 - 8 . Female () Weeks of Gestation 3 6 - 71 4 10 - 750 5 778 - 2035 6 904 - 27990 7 3618 -777352 8 58770 -735170 9 69894 -682762 32064 -199093 12 98720 -881877 14 52340 - 61431 15 99295 - 25788 16 3401 - 45529 17 6582 - 04183 18 3042 - 72867 Rashawn ECLIA methodology CBC With Differential/Platel et* Reviewed date:07/11/2024 05:18:35 PM Interpretation: Performing Lab:[facility], [address] [place] [address], Phone - [phone], Director - [facility] Notes/Report: WBC 7.9 3.4-10.8 x10E3/uL [...] T4* Reviewed date:07/11/2024 05:18:35 PM Interpretation: Performing Lab:[facility], [address] [place] [address], Phone - [phone], Director - [facility] Notes/Report: TSH 4.840 0.450-4.500 uIU/mL T4,Free(Direct) 1.28 0.82-1.77 ng/dL CMP 14 Comprehensive Metabol ic Panel* Reviewed date:07/11/2024 05:18:35 PM Interpretation: Performing [facility], [address] [facility] [place] [facility], Phone - [phone], [facility] Notes/Report: Glucose 85 70-99 mg/dL BUN 11 [...] 0-40 IU/L ALT (SGPT) 21 0-32 IU/L Test, Urine Reviewed date:07/04/2024 12:52:23 PM Interpretation:Positive Performing Lab: Notes/Report: Positive Test, Urine POS Negative - Negative QuantiFERON-TB Gold Plus (18 3949) Reviewed date:12/14/2023 10:29:36 AM Interpretation: Performing [facility], [address] [facility] [place] [facility], Phone - [phone], Director - [facility] Notes/Report: QuantiFERON Incubation Incubation performed. QuantiFERON-TB Gold [...] 02:54:50 PM Interpretation: Performing Lab:[facility], [address] [facility] [place] [facility], Phone - [phone], Director - Zoey Notes/Report: hCG,Beta Subunit,Qnt,Serum 5700 Female (Non-) 0 - 5 (Postmenopausal) 0 - 8 . Female () Weeks of Gestation 3 6 - 71 4 10 - 750 5 248 - 9192 6 463 - 38377 7 3100 -493069 8 23512 -625204 9 98888 -730984 10 75355 -270233 12 33450 -227044 14 07234 - 01312 15 55871 - 16359 16 2605 - 02571 17 0706 - 80681 18 1891 - 60563 Rashawn ECLIA methodology Reason For Referral Reason home test positive, 5 weeks, pending hcg blood Diagnosis 1 Missed period (N92.6 ) Referral Organization [facility] Referring Provider First Name Cony Referring Provider Last Name Marcella Referring Provider [employer] Referred Provider Specialty OB - Gynecol ogy General Notes Ligia Mancuso 07/05/2024 11:52:23 AM >Spoke with staff who advised patients insurance is accepted, Ligia Mancuso 07/05/2024 12:08:22 PM >letter mailed; message sent, Ligia Mancuso 10/24/2024 01:45:46 PM >records received; 10/24/24- OV Clinical Notes [facility] B/[employer] [place], [address] [place] [address] [place] [address]. [address], , Referral Priority Routine Medications Medication SIG [...] Status Risk Notes Problem Morbid obesity (disorder) (521640673) Morbid (severe) obesity due to excess calories (E66.01) Active confirmed Problem Generalized anxiety disorder (16249322) Generalized anxiety disorder (F41.1) 4 Active confirmed Problem Major depression (703420390) Major depression (F32.9) 4 Active confirmed Problem Posttraumatic stress disorder (74887400) PTSD (post-traumatic stress disorder) (F43.10) 4 Active confirmed Problem Overweight (163197649) Over weight (E66.3) Active confirmed Problem Polycystic ovary syndrome (disorder) (380209308) PCOS (polycystic ovarian syndrome) (E28.2) Active confirmed Problem Missed period (86687091) Missed period (N92.6) Active confirmed Problem Cannabis abuse (42960663) Cannabis use disorder, mild, abuse (F12.10) 4 Active confirmed Problem Janie's disease (61560670) 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 Vital Signs Heart Rate 101 /min 07/04/2024 Respiratory Rate 16 /min 07/04/2024 Blood pressure diastolic 84 mm Hg 07/04/2024 Oximetry 98 % 07/04/2024 Height 62 in 07/04/2024 Blood pressure systolic 126 mm Hg 07/04/2024 Weight 210 lbs 07/04/2024 BMI 38.41 kg/m2 07/04/2024 Encounters Encounter Location Date Provider Diagnosis [facility] [address] [place] [address] 03/05/2024 Gay Luciano [facility] [address] [place] [address] 07/13/2024 Cony Naranjo History of miscarriage Z87.59 and at early stage Z34.90 [facility]ly [facility] [address] [place] [address] 12/14/2023 Cony Naranjo PCOS (polycystic ovarian syndrome) E28.[address] [place] [address] 03/01/2024 Gay Luciano Generalized anxiety disorder F41.1 ; Major depression F32.9 ; PTSD (post-traumatic stress disorder) F43.10 ; Cannabis use disorder, mild, abuse F12.10 and Medication monitoring encounter Z51.81 [facility] [address] [place] [address] 07/04/2024 Cony Naranjo Over weight E66.3 and Missed period N92.[address] [place] [address] 07/12/2024 Gay Luciano Generalized anxiety disorder F41.1 ; Major depression F32.9 ; PTSD (post-traumatic stress disorder) F43.10 ; Medication monitoring encounter Z51.81 and Cannabis use disorder, mild, abuse F12.[address] [place] [address] 01/31/2024 Gay Luciano Major depression F32.9 and Generalized anxiety disorder F41.[address] [place] [address] 02/13/2024 Gay Luciano Major depression F32.9 [facility] [address] [place] [address] 07/03/2024 Cony Naranjo [address] [place] [address] 07/09/2024 Gay Luciano Major depression F32.9 [facility] [address] [facility] [place] [address] 07/11/2024 Cony Naranjo History of miscarriage Z87.59 and at early stage Z34.90 [facility] [address] [place] [address] 07/17/2024 Cony Naranjo [facility] [address] [place] [address] 12/13/2023 Cony Naranjo Assessments Encounter Date Diagnosis (ICD Code) Assessment Notes Treatment Notes Treatment Clinical Notes Section Notes 01/31/2024 Major depression (ICD-10 - F32.9) 02/13/2024 Major depression (ICD-10 - F32.9) 03/01/2024 Generalized anxiety disorder (ICD-10 - F41.1) Starting low dose as client reports hx of taking this but my anxiety was high at the time, so I am not sure if I had side effects or not. Discussed to stop if noticing any SE. Discussed r/b/se. 07/04/2024 Over weight (ICD-10 - E66.3) 07/04/2024 Missed period (ICD-10 - N92.6) 07/09/2024 Major depression (ICD-10 - F32.9) 07/11/2024 History of miscarriage (ICD-10 - Z87.59) 07/11/2024 at early stage (ICD-10 - Z34.90) 07/12/2024 Generalized anxiety disorder (ICD-10 - F41.1) Encouraged coping skills, continue Zoloft. Buspirone tried 2x, causes hypersexuality for client. 12/14/2023 PCOS (polycystic ovarian syndrome) (ICD-10 - [...] May also contact the 24-hour crisis hotline ([facility]), refer to the closest emergency room [...] Insured Coverage Start Date Coverage End Date [facility] [employer] [facility] [address] [place] [address] [id number] Juan Jose Read Self - patient is the insured 3 5 [facility] [employer] [facility] [address] [place] [address] [id number] Juan Jose Read Self - patient is the insured 3 5 Medical (General) History Medical History History ICD Code PCOS breast pain Surgical History Surgery Date(Month/Year) C section 2021 Hospitalization History Reason Date(Month/Year) childbirth 2021
--- OUTSIDE RECORDS SUMMARY | 2024-10-29 16:11 | XMS_ITS | Clinical Summary ---
Author Organization [facility] Address [address] [place] [address] Care Team Providers Care Regional Facilities Manager Name Role Phone Unavailable Primary Care Provider [...]
--- OUTSIDE RECORDS SUMMARY | 2024-10-29 16:11 | XMS_ITS | Clinical Summary ---
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 Name Role Phone Cony Naranjo NP Primary Care Provider Allergies Active Allergy Reactions Criticality Noted Date Comments Kale Nausea only High 09/13/2023 Medications sertraline (ZOLOFT) 100 mg tablet Take 2 tablets (200 mg total) by mouth daily 05/28/19 23 Active buPROPion XL (WELLBUTRIN XL) 150 mg 24 hr tablet Take 1 tablet (150 mg total) by mouth daily 04/26/19 23 Active vit 54-biix-xopdd- dha 27mg iron- 800 mcg-250 mg capsule Take by mouth Active metoclopramide (REGLAN) 10 mg tablet Take 1 tablet (10 mg total) by mouth every 6 (six) hours as needed (nausea) 30 tablet 2 08/08/19 25 Active levothyroxine (SYNTHROID) 200 mcg tablet Take 1 tablet (200 mcg total) by mouth early childhood specialist before breakfast 30 tablet 1 10/04/19 25 Active levothyroxine (SYNTHROID) 75 mcg tablet Take 1 tablet (75 mcg total) by mouth early childhood specialist before breakfast 30 tablet 1 10/04/19 25 Active amoxicillin 500 mg capsule TAKE 2 CAPSULES BY MOUTH ONCE DAILY FOR 10 DAYS 10/18/19 25 Active aspirin 81 mg enteric coated tablet Take 1 tablet (81 mg total) by mouth daily Active levothyroxine (SYNTHROID) 125 mcg tablet Take 2 tablets (250 mcg total) by mouth early childhood specialist before breakfast 60 tablet 1 08/17/19 25 025 Discontinued Active Problems Problem Noted Date Diagnosed Date hydronephrosis during , antepartu m 10/24/2024 History of migraine 08/29/2024 Supervision of other normal , antepartu m 08/07/2024 Anxiety and depression 08/07/2024 Other specified hypothyroidism 08/07/2024 Obesity affecting , antepartum 08/08/19 25 Estimated Date of Delivery Comme nts Yes 2025 Based on last me nstrual period of 06/02/2024 Encounters Date Type Department Care Team Description 10/24/2024 10:30 AM CDT Office Visit [facility] [address] [place] [phone] Ivy Rojas NP hydronephrosis during , antepartum, single or unspecified fetus (Primary Dx); Echogenic intracardiac focus of fetus on ultrasound 10/24/2024 10:00 AM CDT Ancillary Procedure [facility] [address] [place] [address] [phone] Encounter for anatomic survey 10/03/2024 Results Follow-Up [facility] [address] [place] [phone] Bayron Carrera MD Thyroid Function [place] 10/02/2024 8:40 AM CDT Lab [facility] [address] [place] [phone] Hematuria, unspecified type; Second trimester 10/01/2024 Orders Only [facility] [address] [place] [address] [phone] Lanette Mark MD Hematuria, unspecified type (Primary Dx); Second trimester 09/26/2024 11:05 AM CDT Lab [facility] [address] [place] [address] Other specified hypothyroidism 09/26/2024 10:15 AM CDT Office Visit [facility] [address] [place] [address] [phone] Tom Hagen MD Obesity affecting , antepartum, unspecified obesity type (Primary Dx); Supervision of other normal , antepartum; Other specified hypothyroidism; Anxiety and depression 08/29/2024 11:30 AM CDT Office Visit [facility] [address] [place] [phone] Joellen Huitron MD Hypothyroidism, unspecified type (Primary Dx); Anxiety and depression; History of migraine; Obesity affecting , antepartum, unspecified obesity type; Encounter for supervision of other normal in first trimester 08/16/2024 Results Follow-Up [address] [address] Bayron Carrera MD Pap and High Risk HPV and Genotyping (Cytology Component), Thyroid Function [place], GTT 50gm 1hr gestational screen, Additional followed-up results: 13 08/15/2024 10:20 AM CDT Lab [facility] Building [address] [place] [phone] Urinary frequency; Obesity affecting , antepartum, unspecified obesity type 08/15/2024 Orders Only [address] [address] Tom Hagen MD 08/07/2024 1:37 PM CDT - 08/07/2024 11:59 PM CDT Hospital Encounter [facility] [address] [place] [phone] Encounter for supervision of other normal in first trimester Discharge Disposition: Discharge to home or self care 08/07/2024 11:45 AM CDT Lab [facility] Building [address] [place] [address] Encounter for supervision of other normal in first trimester; Hypothyroidism, unspecified type 08/07/2024 11:30 AM CDT Office Visit [facility] [address] [place] [address] [phone] Bayron Carrera MD Encounter for supervision of other normal in first trimester (Primary Dx); Hypothyroidism, unspecified type; Obesity affecting , antepartum, unspecified obesity type; Anxiety and depression 08/07/2024 10:30 AM CDT Clinical Support [facility] [address] [place] [phone] 08/07/2024 9:45 AM CDT Ancillary Procedure [facility] [address] [place] [phone] Establish gestational age, ultrasound 08/07/2024 Orders Only [facility] [address] [place] [address] [place] [phone] Bayron Carrera MD Encounter for anatomic survey (Primary Dx) 08/07/2024 Telephone [facility] [address] [place] [address] [place] [address] [phone] Bayron Carrera MD from Last 3 Months [...] Tobacco: Never Tobacco Cessation:Counseling Given: Not Answered Copen Depression Scale Answer Date Recorded Copen Depression Scale Total 9 08/07/2024 The thought of harming myself has occurred to me . Never 08/07/2024 Estimated Date of Delivery Comme nts Yes 2025 Based on last me nstrual period of 06/02/2024 Sex and Gender Information Value Date Recorded Sex Assigned at Not on file Legal Sex Female 3:11 PM [employer] Gender Identity Not on file Sexual Orientation Not on file Obstetrics History Para Term AB IAB SAB Ectopic Multiple Livin g Live Births 5 1 1 3 2 1 1 Date Outcome GA Total Labor Labor/2nd/3rd Weight Sex Type Anes PTL Arianne A1 A5 Name Clin 2020 SAB 022 Term 37w 0d 2.92 kg (6 lb 7 oz) F CS-LT ranv Combin ed Spinal /Epidu ral Livin g Delivery Location:[place] 02/2023 AB Current Summary Episode Dates Number of Fetuses Estimated Date of Delivery 08/07/2024 - Present (10/29/2024) 1 2025 (set by Clarisse Gomez RN on 08/07/2024 based on Last Menstrual Period on 06/02/2024) Dating Summary Based On CIARA GA Diff Last Menstrual Period on 06/02/2024 2025 Working Ultrasound on 08/07/2024 03/12/2025 -3d GA:9w0d Overview and Plan :[place] Support person:Ryan Delivery Plans Planned delivery method:TOLAC Planned delivery location:[facility] Overview Surveillance of EDC by LMP = [...] Vitals Pregravid Weight Height TWG (As of 10/29/2024) Pregrav id BMI 94.3 kg (208 lb) 154.9 cm (5' 1) 2.722 kg (6 lb) 39.3 2 Notes Progress Notes - Office Visi t - 10/24/2024 - GA:20w4d 10/24/2024 - 20w4d - Ivy Rojas NP Return OB Visit 34 y.o. at 20w4d Endorses +Strep infection, dx at urgent care. Taking Amoxicillin with improvement in sore throat. Continues to have nasal congestion, post nasal drip and coughing. Endorses active movement Denies vaginal bleeding, LOF or painful contractions Objective BP 120/80 Ht 154.9 cm (5' 1) Wt 214 lb (97.1 kg) LMP 06/02/2024 BMI 40.43 kg/m Body mass index is 40.43 kg/m . TW lb (2.722 kg) Anatomy: Final physician interpretation pending. Single Live Fetus in Variable presentation. Anatomic Survey Complete Left ventricular EIF seen; Bilateral mild pyelectasis seen (L - 6.6mm; R - 6.7mm) All other anatomy normal within the limits of ultrasound. size correlate with assigned dating. EFW 364 g, 46% FHR - 149 bpm Fluid within normal limits Placenta anterior Cervical Length 43.7 mm Adnexa normal bilaterally. Given EIF and bilateral pyelectasis seen with aneuploidy - recommend pt complete NIPT screening or have genetic counseling completed. Needs repeat US @ 30-32wks to reassess kidneys. Assessment/Plan: -Discussed comfort measures for nasal congestion/cough including saline sprays, zyrtec, Robitussin, Tylenol Cold based medications. -Reviewed Anatomy. Discussed EIF, and bilateral renal dilated pelvis. -Discussed genetic screening. Collected today. Surveillance of Dating: LMP = 1st T US (9 wk) Labs: O(+)/I/-/-, HIV and RPR NR, VZV and measles Immune Genetics: pending 10/24 Anatomy: (10/24)-complete. EFW: 364g(46%)- bilateral dilated renal pelvis, EIF Placenta: anterior GCT: 26-28 weeks 3T labs: Tdap: 27+ weeks GBS: 36 weeks, or sooner if early delivery indicated COVID Vaccine Flu vaccine Social Barriers: Method of feeding: Method of contraception: Delivery Planning: to be discussed Dilated Renal Pelvis Right: 6.7mm Left: 6.9mm Plan to re-address at 32w H/o LTCS x 1: for AoD 2nd [...] H/o migraines: PRN APAP/benadryl RTC in 4wks Ivy Rojas NP Cosigned by Bayron Carrera MD at 10/25/2024 7:55 PM CDT Progress Notes - Office Visi t - [...] 08/07/2024 - GA:9w3d 08/07/2024 - - Clarisse Gomez RN Pt is overall [...] by mouth daily, Disp: , Rfl: vit 17-btql-clsoe-dha 27mg iron- 800 mcg-250 mg capsule, Take [...] 1hr gestational screen; Future - Thyroid Function [place]; Future Hypothyroidism, unspecified type (E03.9) - Thyroid Function [place]; Future Bayron Carrera MD Last Filed Vital Signs Vital Sign Reading Time Taken Comments Blood Pressure 120/80 10/24/2024 11:16 AM CDT Pulse - - Temperature - - Respiratory Rate - - Oxygen Saturation - - Inhaled Oxygen Concentration - - Weight 97.1 kg (214 lb) 10/24/2024 11:16 AM CDT Height 154.9 cm (5' 1) 10/24/2024 11:16 AM CDT Body Mass Index 40.43 10/24/2024 11:16 AM CDT Plan of Treatment Health Maintenance [...] Procedure Name Priority Date/Time Associated Diagnosis Comments US OB 14 WEEKS OR OVER W ENDOVAGINAL Schedule Routine, Read Routine (OP Routine) 10/24/2024 10:05 AM CDT Encounter for anatomic survey URINALYSIS, MICROSCOPIC ONLY Routine 10/02/2024 8:53 AM [...] ultrasound from Last 3 Months Results * US Ob 14 Weeks Or Over W Endovaginal (10/24/2024 10:05 AM CDT) Fetus# Fetus1 VIEWPOINT Estimated Weight 364 g&grams VIEWPOINT Placenta Details anterior VIEWPOINT Presentation Variable VIEWPOINT Anatomical Region Laterality Modality Abdomen N/A Ultrasound 10/24/2024 10:0 6 AM CDT Impressions 10/24/2024 12:44 PM CDT Single Live Fetus in Variable presentation. Anatomic Survey Complete Left ventricular EIF seen; Bilateral mild pyelectasis seen (L - 6.6mm; R - 6.7mm) All other anatomy normal within the limits of ultrasound. size correlate with assigned dating. EFW 364 g, 46% FHR - 149 bpm Fluid within normal limits Placenta anterior Cervical Length 43.7 mm Adnexa normal bilaterally. Narrative Procedure Note Tom Hagen MD - 10/24/2024 IMPRESSION: Single Live Fetus in Variable presentation. Anatomic Survey Complete Left ventricular EIF seen; Bilateral mild pyelectasis seen (L - 6.6mm; R -6.7mm) All other anatomy normal within the limits of ultrasound. size correlate with assigned dating. EFW 364 g, 46% FHR - 149 bpm Fluid within normal limits Placenta anterior Cervical Length 43.7 mm Adnexa normal bilaterally. us Bayron Sameer Carrera MD IMG OB US PROCEDURES Final Result * (ABNORMAL) Urinalysis reflex to microscopic (10/02/2024 8:53 AM CDT) Color, ur Yellow Yellow Comment:Testing performed by : [address] [address] Clarity, ur Clear Clear BENNY Comment:Testing performed by : [address] [address] Specific gravity, ur 1.024 1.003 - 1.030 BENNY Comment:Testing performed by : [address] [address] pH, urine 6.5 BENNY Comment: Interpretive Data U rine pH is affected by diet, medications, systemic acid-base disturbances, and renal tubular function. pH may affect urinary stone formation. For example, urine pH below 6.0 may help reduce the tendency for calcium phosphate stones and pH greater than 6.0 may reduce the tendency for uric acid stone formation. Source: [facility] [employer] Current Interpretive Data was last revised on 2017 Testing performed by: [address] [address] Protein, ur ql Trace(A) Negative BENNY Comment:Testing performed by : [address] [address] Glucose, ur ql Negative Negative BENNY Comment:Testing performed by : [address] [address] Ketones, ur Negative Negative BENNY SOTELO Comment:Testing performed by : [address] [address] Bilirubin, ur Negative Negative BENNY Comment:Testing performed by : [facility], [address] [place] [address], [place]., [address] Blood, ur Negative Negative BENNY SOTELO Comment:Testing performed by : [address] [address] Urobilinogen, ur <2.0 <2.0 mg/dL BENNY Comment:Testing performed by : [address], [place]., [address] Nitrite, ur Negative Negative BENNY Comment:Testing performed by : [address] [address] Leukocyte esterase, ur 3+(A) Negative BENNY SOTELO Comment:Testing performed by : [address] [address] UA reflex comment Reflex to microscopic UA will be performed. BENNY Comment:Testing performed by : [address], [place]., [address] Urine 10/02/2024 8:53 AM CDT 10/02/2024 9:48 AM CDT Narrative BENNY - 10/02/2024 9:54 AM CDT Urine Collection Method->Clean Catch Lanette Mark MD LAB URINE ORDERABLES Yumiko l Result BENNY [address] [facility] Department [place] [address] * (ABNORMAL) Urinalysis, microscopic only (10/02/2024 8:53 AM CDT) WBC, ur 0-5 0 - 5 /HPF Comment:Testing performed by : [address], [place]., [address] RBC, ur 3-5(A) 0 - 2 /HPF BENNY Comment:Testing performed by : [address] [address] Epithelial cells, squamous, ur >50(A) 0 - 5 /HPF BENNY SOTELO Comment:Testing performed by : [address] [address] Mucous, ur Present(A) BENNY SOTELO Comment:Testing performed by : [address] [address] Urine 10/02/2024 8:53 AM CDT 10/02/2024 9:48 AM CDT Lanette Mark MD LAB URINE ORDERABLES Yumiko l Result Performing Organization Address [facility] Co de Phone Number [address] [place] [address] * Thyroid Function [place] (09/26/2024 11:09 AM CDT) TSH 2.89 0.30 - 4.20 mcIUnit/mL Comment:Testing performed by : [address] [address] Blood 09/26/2024 11:0 9 AM CDT 09/26/2024 12:43 PM CDT Bayron Carrera MD LAB BLOOD ORDERABLES Final Result Performing Organization Address [facility] Co de Phone Number [address] [address] * (ABNORMAL) Urinalysis reflex to microscopic and culture Urine, clean voided (08/15/2024 10:48 AM CDT) Color, ur Yellow Yellow Comment:Testing performed by : [address] [address] Clarity, ur Clear Clear BENNY SOTELO Comment:Testing performed by : [address] [address] Specific gravity, ur 1.020 1.003 - 1.030 BENNY SOTELO Comment:Testing performed by : [address] [address] pH, urine 6.0 BENNY Comment: Interpretive Data U rine pH is affected by diet, medications, systemic acid-base disturbances, and renal tubular function. pH may affect urinary stone formation. For example, urine pH below 6.0 may help reduce the tendency for calcium phosphate stones and pH greater than 6.0 may reduce the tendency for uric acid stone formation. Source: [facility] [employer] Current Interpretive Data was last revised on 2017 Testing performed by: [address] [address] Protein, ur ql Negative Negative BENNY Comment:Testing performed by : [address], [place]., [address] Glucose, ur ql Negative Negative BENNY Comment:Testing performed by : [address] [address] Ketones, ur Negative Negative BENNY Comment:Testing performed by : [address], [place]., [address] Bilirubin, ur Negative Negative BENNY Comment:Testing performed by : [address], [place]., [address] Blood, ur Negative Negative BENNY Comment:Testing performed by : [address], [place]., [address] Urobilinogen, ur <2.0 <2.0 mg/dL BENNY Comment:Testing performed by : [address] [address] Nitrite, ur Negative Negative BENNY Comment:Testing performed by : [address] [address] Leukocyte esterase, ur 3+(A) Negative BENNY Comment:Testing performed by : [address] [address] UA reflex comment Reflex to microscopic UA will be performed. BENNY Comment:Testing performed by : [address] [address] Urine, clean voided 08/15/2024 10:48 AM CDT 08/15/2024 11:49 AM CDT Narrative BENNY SOTELO - 08/15/2024 11:57 AM CDT Urine Collection Method->Clean Catch Bayron Carrera MD LAB MICROBIOLOGY - GENERAL ORDERABLES Final Result Performing Organization Address [facility] Co de Phone Number BENNY [address] [place] [address] * (ABNORMAL) Urinalysis, microscopic only (08/15/2024 10:48 AM CDT) WBC, ur 0-5 0 - 5 /HPF Comment:Testing performed by : [facility], [address] [place] [address]., [address] RBC, ur 0-2 0 - 2 /HPF BENNY Comment:Testing performed by : [address] [address] Epithelial cells, squamous, ur 21-50(A) 0 - 5 /HPF BENNY Comment:Testing performed by : [address] [address] Bacteria, ur 1+(A) BENNY Comment:Testing performed by : [facility], [address] [place] [address]., [address] Mucous, ur Present(A) BENNY Comment:Testing performed by : [address] [address] Urine, clean voided 08/15/2024 10:48 AM CDT 08/15/2024 11:50 AM CDT Bayron Carrera MD LAB URINE ORDERABLES Final Result Performing Organization Address [facility] Co de Phone Number MARY[address] [place] [address] * Urine culture Urine, clean voided (08/15/2024 10:48 AM CDT) Report Final Report: Less than 100,000 colonies/mL (clinically insignificant growth based on current clinical standards) Comment:Testing performed by : [facility], [address] [place]., [address] Organism (CLINICALLY INSIGNIFICANT GROWTH BENNY Urine, clean voided 08/15/2024 10:48 AM CDT 08/15/2024 5:39 PM CDT Narrative BENNY - 08/16/2024 8:05 PM CDT Testing performed by [facility] Microbiology Laboratory ([phone]) Bayron Carrera MD LAB MICROBIOLOGY - GENERAL ORDERABLES Final Result Performing Organization Address [facility] de Phone Number [address] [address] * (ABNORMAL) Thyroid Function [place] (08/07/2024 12:06 PM CDT) TSH 5.55(H) 0.30 - 4.20 mcIUnit/mL Comment:Testing performed by : [address] [address] Blood 08/07/2024 12:0 6 PM CDT 08/07/2024 1:43 PM CDT Bayron Carrera MD LAB BLOOD ORDERABLES Final Result Performing Organization Address [facility] de Phone Number [address] [address] * GTT 50gm 1hr gestational screen (08/07/2024 [...] last revised on 2020. Testing performed by: [address] [address] Blood 08/07/2024 12:0 6 PM CDT 08/07/2024 1:43 PM CDT Bayron Carrera MD LAB BLOOD ORDERABLES Final Result Performing Organization Address City/[facility] Co de Phone Number MARY[address] [address] * HIV 1/2 Antibody plus p24 Antigen [...] GENERAL ORDERABLES Final Result Performing Organization Address City/[facility] Co de Phone Number [address] [address] * Hemoglobin analysis by electrophoresis (08/07/2024 12:06 PM CDT) RBC 4.58 3.90 - 5.20 M/cumm Comment:Testing performed by : [facility], [address] [place]., [address] Hgb 13.4 11.9 - 15.5 g/dL BENNY SOTELO Comment:Testing performed by : [facility], [address] [place]., [address] MCV 83.8 81.3 - 96.4 fL BENNY SOTELO Comment:Testing performed by : [facility], [address] [place]., [address] Rdw 13.1 11.1 - 14.9 % BENNY SOTELO Comment:Testing performed by : [facility], [address] [place]., [address] Hgb electrophoresis , interp Please see comment BENNY SOTELO Comment: Normal hemoglobin pattern for age Reviewed and signed by Miguel Ángel Kumar MD 08/09/2024 Testing performed by: [facility], [address] [place]., [address] Hgb A 96.9 96.0 - 98.5 % BENNY SOTELO Comment:Testing performed by : [facility], [address] [place]., [address] Hgb A2 2.7 1.5 - 3.2 % BENNY SOTELO Comment:Testing performed by : [facility], [address] [facility], [address] Hgb F 0.4 0.0 - 0.9 % BENNY SOTELO Comment:Testing performed by : [facility], [address] [facility], [address] Blood 08/07/2024 12:0 6 PM CDT 08/07/2024 1:42 PM CDT Bayron Carrera MD LAB BLOOD ORDERABLES Final Result MARYNGHIA [address] [facility] [place] [address] * Hepatitis C antibody Blood (08/07/2024 12:06 [...] 6 PM CDT 08/07/2024 2:30 PM CDT Result [facility] Bayron Carrera MD LAB MICROBIOLOGY - GENERAL ORDERABLES Final Result BENNY [address] [place] [address] * Measles IgG antibody Blood (08/07/2024 12:06 PM CDT) Measles IgG Reactive Comment: Reactive: Results suggest response to immunization or prior exposure to the virus. Testing performed by: [facility], [address] [place] [address], [place]., [address] Blood 08/07/2024 12:0 6 PM CDT 08/07/2024 3:43 PM CDT Bayron Carrera MD LAB MICROBIOLOGY - GENERAL ORDERABLES Final Result Performing Organization Address [facility] Co de Phone Number [address] [place] [address] * ABO/Rh (08/07/2024 12:06 PM CDT) ABO/Rh O Positive Comment:Testing performed by : [facility], [address] [place] [address]., [address] Blood 08/07/2024 12:0 6 PM CDT 08/07/2024 1:43 PM CDT Narrative BENNY - 08/07/2024 2:18 PM CDT Has the patient had Daratumumab or Isatuximab in the past 6 months?->Unknown Hx of or candidate for Bone Marrow/Stem Cell transplant?->No Result [facility] Bayron Carrera MD LAB BLOOD BANK TEST ORDERA BLES Final Result MARYNER [facility] [address] [place] [address] * Rubella IgG antibody Blood (08/07/2024 12:06 PM CDT) Pathologist [facility] Rubella IgG Reactive Reactive Blood 08/07/2024 12:0 6 PM CDT 08/07/2024 2:30 PM CDT Bayron Carrera MD LAB MICROBIOLOGY - GENERAL ORDERABLES Final Result Performing Organization Address City/[facility] Co de Phone Number [address] [address] * RPR Blood (08/07/2024 12:06 PM CDT) [facility] RPR Nonreactive Nonreactive Comment:Testing performed by : [facility], [address] [facility] [place] [address] Blood 08/07/2024 12:0 6 PM CDT 08/07/2024 3:43 PM CDT Bayron Carrera MD LAB MICROBIOLOGY - GENERAL ORDERABLES Final Result Performing Organization Address City/[facility] Co de Phone Number [address] [address] * Hepatitis B Surface Antigen Blood (08/07/2024 12:06 PM CDT) [facility] HepBsAg Nonreactive Nonreactive Blood 08/07/2024 12:0 6 PM CDT 08/07/2024 2:30 PM CDT Bayron Carrera MD LAB MICROBIOLOGY - GENERAL ORDERABLES Final Result Performing Organization Address [facility] Co de Phone Number [address] [address] * CBC without differential (08/07/2024 12:06 PM CDT) WBC 9.24 3.80 - 9.90 K/cumm Comment:Testing performed by : [address], [address] Hgb 13.4 11.9 - 15.5 g/dL BENNY Comment:Testing performed by : [address] [address] Hct 38.1 35.6 - 45.5 % BENNY Comment:Testing performed by : [address] [address] Plt 238 150 - 400 K/cumm BENNY Comment:Testing performed by : [address], [address] MPV 10.1 9.1 - 12.3 fL BENNY Comment:Testing performed by : [address], [address] RBC 4.50 3.90 - 5.20 M/cumm BENNY Comment:Testing performed by : [address], [address] MCV 84.7 81.3 - 96.4 fL BENNY Comment:Testing performed by : [address], [address] MCH 29.8 27.1 - 33.3 pg BENNY Comment:Testing performed by : [address], [address] MCHC 35.2 32.3 - 35.7 g/dL BENNY Comment:Testing performed by : [address], [address] RDW CV 13.0 11.1 - 14.9 % BENNY Comment:Testing performed by : [address], [address] RDW SD 39.8 35.7 - 48.1 fL BENNY Comment:Testing performed by : [address], [address] NRBC abs 0.00 0.00 - 0.01 K/cumm BENNY Comment:Testing performed by : [address], [address] Blood 08/07/2024 12:0 6 PM CDT 08/07/2024 1:42 PM CDT Bayron Carrera MD LAB BLOOD ORDERABLES Final Result BENNY [address] [place] [address] * Antibody screen (08/07/2024 12:06 PM CDT) Pathologist [facility] Pily, indirect, Gel Interpretation Negative ABSC Comment:Testing performed by : [facility], [address] [place] [address]., [address] Blood 08/07/2024 12:0 6 PM CDT 08/07/2024 1:43 PM CDT Narrative [facility] - 08/07/2024 2:18 PM CDT Has the patient had Daratumumab or Isatuximab in the past 6 months?->Unknown Hx of or candidate for Bone Marrow/Stem Cell transplant?->No Bayron Carrera MD LAB BLOOD BANK TEST ORDERA BLES Final Result Performing Organization Address [facility] Co de Phone Number [address] [address] * Varicella Zoster IgG antibody Blood (08/07/2024 12:06 PM CDT) [facility] VZV IgG Reactive Reactive Comment: Reactive: Results suggest response to immunization or prior exposure to the virus. Testing performed by: [facility], [address] [facility], [place]., [address] Blood 08/07/2024 12:0 6 PM CDT 08/07/2024 3:43 PM CDT Bayron Carrera MD LAB MICROBIOLOGY - GENERAL ORDERABLES Final Result [address] [address] * T4, free (08/07/2024 12:06 PM CDT) [facility] Free T4 1.02 0.90 - 1.70 ng/dL Comment:Testing performed by : [address] [address] Blood 08/07/2024 12:0 6 PM CDT 08/07/2024 1:43 PM CDT Narrative BENNY - 08/07/2024 2:46 PM CDT This test was reflexed from a TSH result. Bayron Carrera MD LAB BLOOD ORDERABLES Final Result Performing Organization Address [facility] Co de Phone Number [address] [place] [address] * Hemoglobin A1c (08/07/2024 12:06 PM CDT) [facility] Hgb A1C 4.9 4.0 - 5.6 % Comment:Testing performed by : [address] [address] Estimated Average Glucose 94 mg/dL BENNY Comment: The ADA recommends reporting an estimated Average Glucose (eAG) with all Hemoglobin A1c results using the equation derived from a study of 507 normal and diabetic adults. Minority populations were underrepresented and children were not included. (Diabetes Care 31:0336-0381, 2008). The eAG is not equivalent to a fasting glucose. Testing performed by: [address] [address] Blood 08/07/2024 12:0 6 PM CDT 08/07/2024 1:42 PM CDT Bayron Carrera MD LAB BLOOD ORDERABLES Final Result Performing Organization Address [facility] Co de Phone Number [address] [place] [address] * High Risk HPV DNA Detection with Genotyping (Molecular component) (08/07/2024 11:50 AM CDT) HPV HR 16 Not Detected Not Detected [facility] Comment:Testing performed by : [facility], [address] [place]., [address] HPV HR 18 Not Detected Not Detected BENNY SOTELO Comment:Testing performed by : [facility], [address] [place]., [address] HPV HR Non 16/18 Not Detected Not [...] have been verified by the [facility] Molecular Infectious Disease laboratory. Correlate with separately reported cytology results, as applicable. Interpretive data last revised 22 Testing performed by: [facility], [address] [place]., [address] Endocervical 08/07/2024 11:5 0 AM CDT 08/09/2024 8:32 PM CDT Narrative BENNY - 08/10/2024 7:08 PM CDT Clinical history and diagnosis->screening Number of vials->1 Testing type->Screening Last menstrual period (date if known)->06/02/2024 Bayron Carrera MD LAB BODY FLUIDS AND STOOLS ORDERABLES Final Result BENNY SOTELO [address] [facility] [place] [address] [facility] * Pap and High Risk HPV and Genotyping (Cytology Component) (08/07/2024 11:50 AM CDT) Thin prep (Pap test) 08/07/2024 11:50 AM CDT 08/09/2024 10:49 AM CDT Narrative PATHOLOGY [facility] - 08/14/2024 8:49 AM CDT EPIC results best viewed via link to PDF [facility] [place] [address] Note to Patients: This report may contain [...] Gender: Nicole : 1990 (Age: 34) Address: [address] [place] [address] [facility] #: [id number] Service: DEFAULT Location: Patient Type: [facility] SPECIMEN Taken: 08/07/2024 Received: 08/09/2024 [...] this test have been verified by the [facility] Molecular Infectious Disease laboratory. [...] clinical information and biopsy results as indicated. [facility] Clinical Laboratory Improvement Amendments (CLIA) mandate that cytologic and histologic results be correlated for laboratory quality control microbiologist & improvement standards. FOR ALL HIGH-GRADE CASES [...] determined by the Surgical Pathology Department at [facility] as part of an ongoing software quality engineer program and in compliance with [...] determined by the Surgical Pathology Department of [facility]. It has not been cleared or approved by the U. [place]. Food and Drug Administration. Bayron Carrera MD LAB CYTOLOGY ORDERABLES Fi nal Result PATHOLOGY [facility] * N. gonorrhoeae/C. trachomatis Amplification Vaginal (08/07/2024 11:50 AM CDT) C. trachomatis Not Detected [facility] Comment:Testing performed by : [facility], [address] [place] [address]., [address] N. gonorrhoeae Not Detected BENNY SOTELO Comment: Interpretive Data This assay detects Chlamydia trachomatis and Neisseria gonorrhoeae by nucleic acid amplification testing (NAAT). This assay has been cleared by the [place] Food and Drug administration. The performance characteristics of this test have been verified by the [facility] Molecular Infectious Disease laboratory. The performance characteristics of this test have not been evaluated in individuals less than 14 years of age. Current Interpretive Data was last revised on 2023. Testing performed by: [facility], [address] [place]., [address] Vaginal (None) 08/07/2024 11 :50 AM CDT 08/07/2024 8:08 PM CDT Bayron Carrera MD LAB MICROBIOLOGY - GENERAL ORDERABLES Final Result BENNY [address] [facility] Department [place] [address] [facility] * Trichomonas vaginalis PCR Vaginal (08/07/2024 11:50 AM CDT) Trichomonas DNA Not Detected [facility] Comment: Interpretive Data This assay detects Trichomonas vaginalis by nucleic acid amplification testing (NAAT). This assay has been cleared by the [place] Food and Drug administration. The performance characteristics of this test have been verified by the [facility] Molecular Infectious Disease laboratory. The performance of this test has not been evaluated in individuals less than 18 years of age. Current Interpretive Data was last revised on 2023. Testing performed by: [facility], [address] [facility] [place] [address] Vaginal 08/07/2024 11:5 0 AM CDT 08/07/2024 8:08 PM CDT us Bayron Carrera MD LAB MICROBIOLOGY - GENERAL ORDERABLES Final Result BENNY [address] [facility] [place] [address] [facility] * (ABNORMAL) Drugs of Abuse Screen, Urine with Reflex Confirmation (08/07/2024 10:15 AM CDT) [facility] Amphetamine, ur Not Detected CutOff 500ng/mL Comment: Interpretive Data - Amphetamines: Samples containing greater than 500 ng/mL d-methamphetamine or other cross-reacting amphetamine compounds are reported as positive. Amphetamine immunoassays are subject to significant false positive rates due to cross-reactivity of non-amphetamine drugs. Confirmatory testing required for definitive results. Current Interpretive Data was last reviewed 2022. Testing performed by: [address] [address] Barbiturates, ur Not Detected CutOff 200ng/mL BENNY SOTELO Comment: Interpretive Data - Barbiturates: Samples containing greater than 200 ng/mL secobarbital or other cross-reacting barbiturate compounds are reported as positive. False positive and false negative results are possible. Confirmatory testing required for definitive results. Current Interpretive Data was last reviewed 2022. Testing performed by: [address] [address] Benzodiazepines, ur Not Detected CutOff 100ng/mL BENNY Comment: Interpretive Data - Benzodiazepines: Samples containing greater than 100 ng/mL nordiazepam or other cross-reacting compounds are reported as positive. False positive and false negative results are possible. Confirmatory testing required for definitive results. Current Interpretive Data was last reviewed 2022. Testing performed by: [address] [address] Cannabinoids, ur Screen Positive, presumptive (A) CutOff 50 ng/mL [facility] Comment: Interpretive Data - Cannabinoids: Samples containing greater than 50 ng/mL delta-9 THC -COOH or other cross- reacting compounds are reported as positive. False positive and false negative results are possible. Confirmatory testing required for definitive results. Current Interpretive Data was last reviewed 2022. Testing performed by: [address] [address] Cocaine, ur Not Detected CutOff 150ng/mL [facility] Comment: Interpretive Data - Cocaine: Samples containing greater than 150 ng/mL benzoylecgonine or other cross- reacting compounds are reported as positive. False positive and false negative results are possible. Confirmatory testing required for definitive results. Current Interpretive Data was last reviewed 2022. Testing performed by: [address] [address] Fentanyl, Ur Not Detected Cutoff 1 ng/mL [facility] Comment: Interpretive Data - Fentanyl: Samples containing greater than 1 ng/mL fentanyl or other cross-reacting fentanyl compounds are reported as positive. False positive and false negative results are possible. Confirmatory testing required for definitive results. Current Interpretive Data was last reviewed 2022. Testing performed by: [address] [address] Methadone, ur Not Detected CutOff 300ng/mL [facility] Comment: Interpretive Data - Methadone: Samples containing greater than 300 ng/mL d,l-methadone or other cross-reacting compounds are reported as positive. False positive and false negative results are possible. Confirmatory testing required for definitive results. Current Interpretive Data was last reviewed 2022. Testing performed by: [address] [address] Opiates, ur Not Detected CutOff 300ng/mL [facility] Comment: Interpretive Data - Opiates: Samples containing greater than 300 ng/mL morphine or other cross-reacting compounds are reported as positive. False positive and false negative results are possible. Confirmatory testing required for definitive results. Current Interpretive Data was last reviewed 2022. Testing performed by: [address] [address] Oxycodone, ur Not Detected CutOff 100ng/mL BENNY Comment: Interpretive Data - Oxycodone: Samples containing greater than 100 ng/mL oxycodone or other cross-reacting compounds are reported as positive. False positive and false negative results are possible. Confirmatory testing required for definitive results. Current Interpretive Data was last reviewed 2022. Testing performed by: [address] [address] Phencyclidine, ur Not Detected CutOff 25 ng/mL BENNY Comment: Interpretive Data - Phencyclidine: Samples containing greater than 25 ng/mL phencyclidine or other cross-reacting compounds are reported as positive. False positive and false negative results are possible. Confirmatory testing required for definitive results. Current Interpretive Data was last reviewed 2022. Testing performed by: [address] [address] Urine Creatinine 273 mg/dL BENNY Comment: Interpretive Data Urine Creatinine: < 10 mg/dL is extremely dilute = or > 10 but < 20 mg/dL is dilute = or > 20 mg/dL is normal Current Interpretive Data was last revised on 2017. Testing performed by: [address] [address] Urine 08/07/2024 10:1 5 AM CDT 08/07/2024 4:46 PM CDT Narrative [facility] - 08/07/2024 5:15 PM CDT Drug of Abuse screening is performed by immunoassay for medical purposes only. This is not to be used for Pain Management purposes. If Detected, confirmation testing will be performed for Amphetamines, Cocaine, Fentanyl, Methadone, Opiates, Oxycodone or Phencyclidine. us Bayron Carrera MD LAB URINE ORDERABLES Final Result [facility] [address] [facility] Department [place] [address] * Urine culture Urine, clean voided (08/07/2024 10:15 AM CDT) Report Final Report: Less than 100,000 colonies/mL (clinically insignificant growth based on current clinical standards) Comment:Testing performed by : [facility], [address] [facility], [place]., [address] Organism (CLINICALLY INSIGNIFICANT GROWTH [facility] Urine, clean voided 08/07/2024 10:15 AM CDT 08/07/2024 8:39 PM CDT Narrative BENNY - 08/10/2024 6:33 AM CDT Testing performed by [facility] Microbiology Laboratory ([phone]) us Bayron Carrera MD LAB MICROBIOLOGY - GENERAL ORDERABLES Final Result BENNY [address] [facility] Department [place] [address] * US OB Under 14 [...] Result from Last 3 Months Insurance [employer] [facility] Care Teams Helicopter Utility Aircrewman Relationship Specialty Start Date End Date Cony Naranjo NP PCP - General Family Medicine 08/29/24
--- OUTSIDE RECORDS SUMMARY | 2024-10-29 16:11 | XMS_ITS | Clinical Summary ---
Author Organization [facility] Address [address] [place] [address] Care Team Providers Care Systems Developer Name Role Phone Cony Naranjo NP Primary [...] patient's age to complete this topic Insurance [facility] Care Teams Systems Developer Relationship Specialty Start Date End Date Cony Naranjo NP [address] [place] [address] [place] [address] PCP - General Nurse Practitioner Family 09/21/23
[2024-10-29 16:15] VITALS: BP 102/64; PULSE 118; RESP 20; TEMP 36.7; O2SAT 99
--- NOTE | 2024-10-29 16:28 | ED.URI ---
HPI - URI/Sore Throat General Chief Complaint: Upper Respiratory Infection Stated Complaint: Congestion Time Seen by Provider: 10/29/24 16:25 Source: patient, RN notes reviewed and old records reviewed Mode of arrival: ambulatory Limitations: no limitations History of Present Illness HPI Narrative: 34 year old female who presents to [facility] care with complaints of sinus congestion, bilateral ear pain, sinus pressure after completion of medication for positive strep throat which was started on the of this month. Patient is 21 weeks with her second child. Patient reports sinus congestion and drainage of yellow to greenish colored drainage with some blood noted at times. Patient reports that she is coughing up some greenish mucous at intervals also. Patient reports no fevers, has been taking Tylenol,Benadryl, Mucinex, nasal saline and has taken some Afrin nasal spray reports no known fever.. MD elicited complaint: cough, rhinorrhea, nasal congestion, sinus pain and other (head pressure) Pertinent past history: other (strep) Onset (ago): day(s) (initially symptoms began on the 15 of October) Consistency: constant Severity: moderate Able to tolerate fluids by mouth: No Treatments prior to arrival: acetaminophen and other (saline nasal spray, afrin, Mucinex, ) Related Data Home Medications ?Medication ?Instructions ?Recorded ?Confirmed ?Last Taken ?Type levothyroxine 200 mcg tablet 275 mcg PO DAILY 05/23/22 10/17/24 Unknown History (Synthroid) sertraline 100 mg tablet (Zoloft) 200 mg PO DAILY 05/23/22 01/27/24 Unknown History bupropion HCl 150 mg 24 hr tablet, 150 mg PO DIRECTED 01/27/24 01/27/24 Unknown History extended release aspirin 81 mg tablet 81 mg PO DAILY 10/17/24 10/17/24 Unknown History vit no.95-ferrous 1 tablet PO DAILY 10/17/24 10/17/24 Unknown History fumarate 28 mg-folic acid 800 mcg tablet () Allergies Allergy/AdvReac Type Severity Reaction Status Date / Time kale AdvReac Intermediate Ulcers Verified 10/29/24 16:20 Review of Systems Review of Systems: CONSTITUTIONAL: Reports malaise,no chills, sweats, or fever. EYES: Denies visual changes, redness, or discharge. ENT: Reports rhinorrhea, congestion, sinus pain, otalgia and no sore throat. CARDIOVASCULAR: Denies chest pain, palpitations, or edema. RESPIRATORY: Reports some cough.? Denies dyspnea. GASTROINTESTINAL: Denies abdominal pain,some nausea,denies vomiting, diarrhea SKIN: Denies rash or itching. MUSCULOSKELETAL: Denies myalgia. NEUROLOGIC: headache and sinus pressure. All systems reviewed & are unremarkable except as noted in HPI and below PMFSH Past Medical History Medical History Alcoholism in recovery Surgical History Surgical History History of delivery Social History Social History Alcohol intake: former Alcohol use details: sober 4 years (02/2023) Comments At time of signature, agree with nursing past medical, surgical, social and family history. There is no relevant family history pertinent to the presenting complaint Exam Narrative: GENERAL: Well-appearing, well-nourished, and in no acute distress. HEAD: Normocephalic EYES: PERRLA, conjunctivae clear ENT: Nares clear, turbinates edematous and erythematous, clear discharge. Mucous membranes moist. TM pearly nolasco with dull light reflex bilaterally; no tragal tenderness. Oropharynx erythematous without lesions. Tonsils not enlarged and without exudate, no drooling, no hoarseness, no trismus, uvula midline. NECK: Supple. No lymphadenopathy CHEST: Clear to auscultation, breath sounds equal. No wheezing, rhonchi, rales, or stridor. No respiratory distress, speaks in full sentences.SAO2 99% on room air HEART: Regular rate and rhythm. No murmur heard. SKIN: Warm, dry, no rash. NEURO: Alert and oriented x3. PSYCH: Normal mood and affect Course Course Emergency Course: Patient is aware of diagnosis, understands and agrees to treatment plan.? Anticipatory guidance given.? Patient agrees to follow-up as directed and is aware of reasons to seek care at the emergency department. Portions of this record may have been created with voice recognition software Level of Care: Express Care Visit Vital Signs Vital signs: Vital Signs Temperature 36.7 C 10/29/24 16:15 Pulse Rate 118 H 10/29/24 16:15 Respiratory Rate 20 10/29/24 16:15 Blood Pressure 102/64 09/01/25 16:15 Pulse Oximetry 99 10/29/24 16:15 Oxygen Delivery Room Air 10/29/24 16:15 Temperature 36.7 C 10/29/24 16:15 Pulse Rate 118 H 10/29/24 16:15 Respiratory Rate 20 10/29/24 16:15 Blood Pressure 102/64 10/29/24 16:15 Pulse Oximetry 99 10/29/24 16:15 Oxygen Delivery Room Air 10/29/24 16:15 Reviewed MDM - URI/Sore Throat MDM Narrative Medical decision making narrative: Differential diagnosis considered: Waterman virus, strep pharyngitis, allergic rhinitis, upper respiratory tract infection, sinusitis, rhinosinusitis, nasopharyngitis. viral pharyngitis, otitis media, otitis externa, pneumonia, bronchitis, viral cough syndrome, viral syndrome, and influenza.? Exam findings show no acute concerns or changes; patient is non-toxic appearing and is in no distress.? Patient is appropriate for outpatient treatment and follow-up. Lab Data Attestation: I reviewed the patient's lab results. Discharge Plan Discharge Clinical Impression: Sinusitis Qualifiers: Sinusitis location: pansinusitis Chronicity: acute Recurrence: not specified as recurrent Qualified Code(s): J01.40 - Acute pansinusitis, unspecified Patient Disposition: Home Condition: Stable Instructions: Antibiotic Form, Sinusitis (ED) Additional Instructions: Increase fluids especially juices and water [id number] cough and cold medicine of your choice for your symptoms Continue using nasal saline daily may include Zyrtec Claritin Tylenol Benadryl p.r.n. heat to the face 20-30 minutes 4-6 times a day for pain Salt water gargles, throat lozenges or throat sprays as desired Antibiotic as directed--finished the medication Recommend no Afrin longer than 3 days If your symptoms persist, change or worsen significantly before you can contact your personal physician then please, without delay, go to the emergency department for further evaluation. Follow-up with PCP in 7-10 days or sooner if needed Patient Language: Azeri Prescriptions: New amoxicillin-pot clavulanate 875-125 mg tablet 1 tablet PO Q12H Qty: 20 0RF Rx Instructions: take with food No Action bupropion HCl 150 mg tablet extended release 24 hr 150 mg PO DIRECTED PNV no.95-ferrous fumarate-FA [] 28 mg iron- 800 mcg tablet 1 tablet PO DAILY aspirin 81 mg tablet 81 mg PO DAILY sertraline [Zoloft] 100 mg Tablet 200 mg PO DAILY levothyroxine [Synthroid] 200 mcg Tablet 275 mcg PO DAILY Follow-up/Referrals: Marcella,JEAN Donnelly [Primary Care Provider, Unknown] Time of Disposition: 16:40 Quality [place] Coma Scale Eyes: Open Verbal: Oriented and Alert Motor: Follows Commands [place] Coma Total Score: 15
== END 2024-10-29 16:45 | disposition home or self-care (01) ==
PROVIDERS: Emergency Provider Registered Nurse; PCP Nurse Practitioner Family
DX: O99.512 Diseases of the respiratory system complicating pregnancy, second trimester (principal); J01.40 Acute pansinusitis, unspecified; Z3A.21 21 weeks gestation of pregnancy; Z79.82 Long term (current) use of aspirin
CPT/HCPCS: 99213; G0463

== ENCOUNTER 2024-11-18 18:38 | Observation (INO) | payer OTHER, SELFPAY ==
--- OUTSIDE RECORDS SUMMARY | 2024-03-05 05:00 | XMS_ITS ---
Author Organization [facility] Address [address] [place] [address] Care Team Providers Care Receptionist Scheduler Name Role Phone Cony Naranjo Primary Care Provider Gay Luciano Unavailable [phone] REASON FOR VISIT labs Social History Sex Assigned At : Social History Observation Description Sex Assigned At Female Encounters Encounter Location Date Provider Diagnosis [facility] [address] [place] [address] 03/05/2024 Gay Luciano Plan Of Treatment Next Appt Details Provider Name:Gay townsend, 12/04/2024 09:20:00 AM, [address], [place], [address], Progress Notes * READJuan Jose HOLMANDOB:1990 (34 yo F)Acc No.[id number]:03/05/2024 UNLOCKED PROGRESS NOTE Patient: Juan Jose JAUREGUI Provider: Emmanuel Luciano, MSN, WELLNESS INSTRUCTOR, GRAIN SACKER-C :1990 A ge:33 Y S ex:Female Date:03/05/2024 Address[address] [facility] [place], [place] Pcp:Cony Naranjo Subjective: * Chief Complaints: * 1 . Labs. * Medical History: Objective: * Vitals: Assessment: Plan: * Treatment: * * Electronic signature of Serafin Luciano , [id number] on 11/18/2024 at 06:47 PM CDT Sign off status: Pending * Provider: Emmanuel Luciano, MSN, WELLNESS INSTRUCTOR, GRAIN SACKER-C Date: 0 03/05/2024 Generated for Lorenzo hernandez/Denny/Megan on: 0 11/18/2024 06:47 PM CDT
--- OUTSIDE RECORDS SUMMARY | 2024-07-13 03:20 | XMS_ITS ---
Author Organization [facility] Address [address] [place] [address] Care Team Providers Care Grape Pruner Name Role Phone Cony Naranjo Primary Care Provider [phone] Gay Luciano Unavailable [phone] Results Component Value Reference Range Notes hCG,Beta Subunit, Qnt, Serum * Reviewed date:07/17/2024 02:54:50 PM Interpretation: Performing Lab:[facility] [place], [address] [facility], [place], Phone - [phone], Director - Zoey Notes/Report: hCG,Beta Subunit,Qnt,Serum 5700 Female (Non-) 0 - 5 (Postmenopausal) 0 - 8 . Female () Weeks of Gestation 3 6 - 71 4 10 - 750 5 577 - 1138 6 907 - 77578 7 2536 -454221 8 81448 -845777 9 54779 -646518 11475 -347117 12 95138 -353903 14 66532 - 43802 15 96655 - 57178 16 2829 - 99321 17 6088 - 19332 18 4718 - 64425 Rashawn ECLIA methodology REASON FOR VISIT labs hcg Social History Sex Assigned At : Social History Observation Description Sex Assigned At Female Encounters Encounter Location Date Provider Diagnosis [facility] [address] [place] [address] 07/13/2024 Cony Naranjo History of miscarriage Z87.59 and at early stage Z34.90 Assessments Encounter Date Diagnosis (ICD Code) Assessment Notes Treatment Notes Treatment Clinical Notes Section Notes 07/13/2024 History of miscarriage (ICD-10 - Z87.59) 07/13/2024 at early stage (ICD-10 - Z34.90) Plan Of Treatment Next Appt Details Provider Name:Gay Bland kristian, 12/04/2024 09:20:00 AM, [address], [place], [address], Progress Notes * READJuan JoseDOB:1990 (34 yo F)Acc No.[id number]:07/13/2024 UNLOCKED PROGRESS NOTE Patient: Juan Jose JAUREGUI Provider: Lorie Naranjo, MSN, PLASMA CENTER TECHNICIAN, PROCESS TECHNICIAN-BC, PROCESS TECHNICIAN-C :1990 A ge:34 Y S ex:Female Date:07/13/2024 Address:[address] [place], [place] [address] Check In:08:23 AM ELECTROPHYSIOLOGY NURSE PRACTITIONER Subjective: * Chief Complaints: * 1 . Labs hcg. * Medical History: Objective: * Vitals: Assessment: * Assessment: 1. H istory of miscarriage - Z87.59 2 . P regnancy at early stage - Z34.90? Plan: * Treatment: 2. P regnancy at early stage L AB: hCG,Beta Subunit, Qnt, Serum* (Collection Date & Time - 07/13/2024) * * Electronic signature of Vinayak Naranjo APRN, [id number] on 11/18/2024 at 06:47 PM CDT Sign off status: Pending * Provider: Lorie Naranjo, MSN, PLASMA CENTER TECHNICIAN, PROCESS TECHNICIAN-BC, PROCESS TECHNICIAN-C Date: 0 07/13/2024 Generated for Printing/Faxing/eTransmitting on: 0 11/18/2024 06:47 PM CDT
--- OUTSIDE RECORDS SUMMARY | 2024-11-18 18:47 | XMS_ITS | Clinical Summary ---
Author Organization [facility] Health Address [address] [place] [address] Care Team Providers Care Double Cut Sawyer Name Role Phone Unavailable Primary Care Provider [...]
--- OUTSIDE RECORDS SUMMARY | 2024-11-18 18:47 | XMS_ITS | Clinical Summary ---
Author Organization [facility] Address [address] [place] [address] Care Team Providers Care Rolfer Name Role Phone Cony Naranjo NP Primary Care Provider Allergies Active Allergy Reactions Criticality Noted Date Comments Kale Nausea only High 09/13/2023 Medications sertraline (ZOLOFT) 100 mg tablet Take 2 tablets (200 mg total) by mouth daily 3 Active buPROPion XL (WELLBUTRIN XL) 150 mg 24 hr tablet Take 1 tablet (150 mg total) by mouth daily 3 Active vit 01-iebs-tcbno-d stokes 27mg iron- 800 mcg-250 mg capsule Take by mouth Active metoclopramide (REGLAN) 10 mg tablet Take 1 tablet (10 mg total) by mouth every 6 (six) hours as needed (nausea) 30 tablet 2 5 Active levothyroxine (SYNTHROID) 200 mcg tablet Take 1 tablet (200 mcg total) by mouth child care development specialist before breakfast 30 tablet 1 5 Active levothyroxine (SYNTHROID) 75 mcg tablet Take 1 tablet (75 mcg total) by mouth child care development specialist before breakfast 30 tablet 1 5 Active amoxicillin 500 mg capsule TAKE 2 CAPSULES BY MOUTH ONCE DAILY FOR 10 DAYS 5 Active aspirin 81 mg enteric coated tablet Take 1 tablet (81 mg total) by mouth daily Active Active Problems Problem Noted Date Diagnosed Date hydronephrosis during , antepartu 10/24/2024 History of migraine 08/29/2024 Supervision of other normal , antepartu m 08/07/2024 Anxiety and depression 08/07/2024 Other specified hypothyroidism 08/07/2024 Obesity affecting , antepartum 08/08/19 25 Estimated Date of Delivery Comme nts Yes 2025 Based on last me nstrual period of 06/02/2024 Encounters Date Type Department Care Team Description 10/30/2024 Results Follow-Up [facility] Obstetrical Gynecology [address] [place] [phone] Ivy Rojas NP PANORAMA TEST 10/24/2024 10:30 AM CDT Office Visit [facility] Obstetrical Gynecology [address] [place] [phone] Ivy Rojas NP hydronephrosis during , antepartum, single or unspecified fetus (Primary Dx); Echogenic intracardiac focus of fetus on ultrasound 10/24/2024 10:00 AM CDT Ancillary Procedure [facility] Obstetrical Gynecology [address] [place] [address] [phone] Encounter for anatomic survey 10/03/2024 Results Follow-Up [facility] Obstetrical Gynecology [address] [place] [address] [phone] Bayron Carrera MD Thyroid Function [place] 10/02/2024 8:40 AM CDT Lab [facility] [address] [place] [address] Hematuria, unspecified type; Second trimester 10/01/2024 Orders Only [facility] Obstetrical Gynecology [address] [place] [address] [phone] Lanette Mark MD Hematuria, unspecified type (Primary Dx); Second trimester 09/26/2024 11:05 AM CDT Lab [facility] [address] [place] [phone] Other specified hypothyroidism 09/26/2024 10:15 AM CDT Office Visit [facility] Obstetrical Gynecology [address] [place], [place] [address], [place] [phone] Tom Hagen MD Obesity affecting , antepartum, unspecified obesity type (Primary Dx); Supervision of other normal , antepartum; Other specified hypothyroidism; Anxiety and depression 08/29/2024 11:30 AM CDT Office Visit [facility] Obstetrical Gynecology [facility] [address] [place] [address] Joellen Huitron MD Hypothyroidism, unspecified type (Primary Dx); Anxiety and depression; History of migraine; Obesity affecting , antepartum, unspecified obesity type; Encounter for supervision of other normal in first trimester from Last 3 Months Surgical History Surgery [...] Tobacco: Never Tobacco Cessation:Counseling Given: Not Answered [place] Depression Scale Answer Date Recorded [place] Depression Scale Total 9 08/07/2024 The thought of harming myself has occurred to me . 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 Gender Identity Not on file Sexual [...] Estimated Date of Delivery 08/07/2024 - Present (11/18/2024) 1 2025 (set by Clarsise Gomez, MOHINI on 08/07/2024 based on Last Menstrual Period on 06/02/2024) Dating Summary Based On CIARA GA Diff Last Menstrual Period on 06/02/2024 2025 Working Ultrasound on 08/07/2024 03/12/2025 -3d GA:9w0d Overview and Plan :Molina Support person:Ryan Delivery Plans Planned delivery method:TOLAC Planned delivery location:[facility] Overview Surveillance of EDC by LMP = 9 week US Labs: ordered Genetics: NIPT LR, female Anatomy: 20 weeks GCT: 26-28 weeks 3rd [...] Vitals Pregravid Weight Height TWG (As of 11/18/2024) Pregrav id BMI 94.3 kg (208 lb) [...] t - 09/26/2024 - GA:16w4d 09/26/2024 - 16w - Tom Hagen MD Return OB Visit [...] - Bayron Carrera MD New OB Visit Juan Jose Read is a 34 y.o. at 9w3d [...] by mouth daily, Disp: , Rfl: vit 37-rgkt-laemz-dha 27mg iron- 800 mcg-250 mg capsule, Take [...] 1hr gestational screen; Future - Thyroid Function [place]; Future Hypothyroidism, unspecified type (E03.9) - Thyroid Function [place]; Future Bayron Carrera MD Last Filed Vital [...] - 3-dose SCDM series) 2017 Covid-19 Vaccine (2024- season) 2024 01/05/2021, 05/05/2020, 04/14/2020 Influenza Vaccine (#1) 2024 , 11/09/2019, 12/15/2018, Additional history exists Cervical Cancer Screening 08/07/2025 08/07/2024, 11/2024 Depression Screening 08/07/2025 08/07/2024 DTaP/Tdap/Td Vaccine (3 - Td or Tdap) 11/07/2031 11/06/2021, 07/17/2015 Hepatitis C Screening Completed 08/07/2024 Pneumococcal vaccine <65 Aged Out No longer eligible based on patient's age to complete this topic Procedures Procedure Name Priority Date/Time Associated Diagnosis Comments PANORAMA TEST Routine 10/24/2024 2:01 PM CDT hydronephrosis during , antepartum, single or unspecified fetus Echogenic intracardiac focus of fetus on ultrasound US OB 14 WEEKS OR OVER W ENDOVAGINAL Schedule Routine, Read Routine (OP Routine) 10/24/2024 10:05 AM CDT Encounter for anatomic survey URINALYSIS, MICROSCOPIC ONLY Routine 10/02/2024 8:53 AM CDT Hematuria, unspecified type Second trimester URINALYSIS AND REFLEX TO MICROSCOPIC Routine 10/02/2024 8:53 AM CDT Hematuria, unspecified type Second trimester THYROID FUNCTION CASCADE Routine 09/26/2024 11:09 AM CDT Other specified hypothyroidism HEPATITIS C ANTIBODY Routine 08/07/2024 12:06 PM CDT Encounter for supervision of other normal in first trimester HIGH RISK HPV DNA DETECTION WITH GENOTYPING Routine 08/07/2024 11:50 AM CDT Encounter for supervision of other normal in first trimester from Last 3 Months or Most Recently Relevant to Health Maintenance Results * PANORAMA TEST (10/24/2024 2:01 PM CDT) REPORT SUMMARY LOW RISK 10/29/2024 4:59 PM CDT [facility] Comment:LOW RISK REPORT NOTE See Notes 10/29/2024 4:59 PM CDT [facility] GENDER OF FETUS Female 4:59 PM CDT [facility] FRACTION 12.2% 10/29/2024 4:59 PM CDT [facility] TRISOMY 21 RESULT TEXT Low Risk 10/29/2024 4:59 PM CDT [facility] TRISOMY 21 AGE-BASED RISK TEXT 1/302 (0.33%) 10/29/2024 4:59 PM CDT [facility] TRISOMY 21 RISK SCORE TEXT <1/10,000 (<0.01%) 10/29/2024 4:59 PM CDT [facility] TRISOMY 18 RESULT TEXT Low Risk 10/29/2024 4:59 PM CDT [facility] TRISOMY 18 AGE-BASED RISK TEXT 11,142 (0.09%) 10/29/2024 4:59 PM CDT [facility] TRISOMY 18 RISK SCORE TEXT <1/10,000 (<0.01%) 10/29/2024 4:59 PM CDT [facility] TRISOMY 13 RESULT TEXT Low Risk 10/29/2024 4:59 PM CDT [facility] TRISOMY 13 AGE-BASED RISK TEXT 13,419 (0.03%) 10/29/2024 4:59 PM CDT [facility] TRISOMY 13 RISK SCORE TEXT <1/10,000 (<0.01%) 10/29/2024 4:59 PM CDT [facility] MONOSOMY X RESULT TEXT Low Risk 10/29/2024 4:59 PM CDT [facility] MONOSOMY X AGE-BASED RISK TEXT 1568 (0.18%) 10/29/2024 4:59 PM CDT [facility] MONOSOMY X RISK SCORE TEXT <1/10,000 (<0.01%) 10/29/2024 4:59 PM CDT [facility] TRIPLOIDY RESULT TEXT Low Risk 02/2024 4:59 PM CDT [facility] 22Q11.2 DELETION SYNDROME RESULT TEXT Low Risk 10/29/2024 4:59 PM CDT [facility] 22Q11.2 DELETION SYNDROME POPULATION-BASED RISK TEXT 1/2,000 10/29/2024 4:59 PM CDT [facility] 22Q11.2 DELETION SYNDROME RISK SCORE TEXT 1/12,000 10/29/2024 4:59 PM CDT [facility] FOOTNOTES See Notes 10/29/2024 4:59 PM CDT [facility] Comment: Testing Methodology DNA isolated from maternal blood, which contains placental DNA, is amplified at specific loci using a targeted PCR assay and is sequenced using a high- throughput sequencer. fraction is determined using a proprietary algorithm incorporating data from single nucleotide polymorphism-based (SNP-based) next-generation sequencing [Permegan E et al. Obstet Gynecol. 2014 Sep;124(2 Pt 1):210-8]. If there is sufficient fraction, sequencing data is analyzed using a proprietary SNP- based algorithm to determine the copy number for chromosomes 13, 18, 21, X and Y. If ordered, specific microdeletions will be evaluated using similar methodology [Mattie BRAVO et al. Am J Obstet Gynecol. 2015 Apr;212(3):332.e1-9]. If the fraction is insufficient, an additional algorithm to determine whether there is an increased risk for triploidy, trisomy 18, and trisomy 13 may be utilized, known as fraction based risk assessment (FFBR) [Conchita et al. Ultrasound Obstet Gynecol 2019; 53:73-79]. If ordered on a vanishing twin , a proprietary analysis will be performed to differentiate between the viable/living fetus and the vanished fetus to allow for risk assessment of copy number of chromosomes 13,18, 21, X, Y, and specific microdeletions in the viable/living twin using the above described SNP- based algorithm. If ordered, and patient is RHD negative by genotype, RHD status will be evaluated using a proprietary algorithm if fraction is sufficient [Sandra Sandoval et al. Obstet Gynecol 2023;145:1?7]. However, some samples will not produce a result due to failure to meet the necessary quality thresholds. This test has been validated on women with a molina, twin, vanishing twin, or egg donor of at least nine weeks gestation. A result will not be available for higher order multiples and multiple gestation pregnancies with an egg donor or surrogate, or bone marrow transplant recipients. Complete test panel is not available for twin gestations and pregnancies achieved with an egg donor or surrogate. For twin pregnancies with a fraction value below the threshold for analysis, a sum of the fractions for both twins will be reported. As this assay is a screening test and not diagnostic, false positives and false negatives can occur. High risk test results need diagnostic confirmation by alternative testing methods. Low risk results do not fully exclude the diagnosis of any of the syndromes nor do they exclude the possibility of other chromosomal abnormalities or defects, which are not a part of this test. Potential sources of inaccurate results include, but are not limited to, mosaicism, low fraction, limitations of current diagnostic techniques, or misidentification of samples. This test will not identify all deletions associated with each microdeletion syndrome. This test has been validated for deletions ?0.5 Mb within the 22q11.2 A-D region. This test has been validated on full region deletions only for 1p36 deletion syndrome, Cri-du-chat syndrome, Prader Willi syndrome and Angelman syndrome and may be unable to detect smaller deletions. Microdeletion risk score may be dependent upon fraction, as deletions on the maternally inherited copy are difficult to identify at lower fractions. Test results should always be interpreted by a clinician in the context of clinical and familial data with the availability of genetic counseling when appropriate. Disclaimers The extraction, library preparation, and sequencing of this test were performed by [facility] [id number] [place] [address] [address], [place] [address] (CLIA ID [id number]). The data analysis and reporting of this test were performed by [facility] [address] [facility]. [address] [address] (CLIA ID [id number]). The performance characteristics of this test were developed by [facility].(CLIA ID [id number]). This test has not been cleared or approved by the U.S. Food and Drug Administration (FDA). These laboratories are regulated under CLIA as qualified to perform high-complexity testing. 2024 [facility]. All Rights Reserved. Please refer to the attached PDF report Reviewed By: Alexsandra Starks M.D., Ph.D., [facility], Senior Supervisor [employer] [facility] University Professor: Herminio Dennison, Ph.D., [facility] IF THE ORDERING PROVIDER HAS QUESTIONS OR WISHES TO DISCUSS THE RESULTS, PLEASE CONTACT US AT [phone], option 2. Ask for the NIPT genetic counselor healthcare liaison. Blood specimen (specimen) Venous blood specimen / Unknown 10/24/2024 2:01 PM CDT 10/25/2024 2:00 AM CDT Ivy Rojas NP LAB GENETIC TESTING Yumiko l Result [facility] [address] [place] [address], [facility] * US Ob 14 Weeks Or Over [...] 43.7 mm Adnexa normal bilaterally. us Bayron Carrera MD IMG OB US PROCEDURES Final Result * (ABNORMAL) Urinalysis reflex to microscopic (10/02/2024 8:53 AM CDT) Color, ur Yellow Yellow Comment:Testing performed by : [address] [address] Clarity, ur Clear Clear [facility] Comment:Testing performed by : [address] [address] Specific gravity, ur 1.024 1.003 - 1.030 [facility] Comment:Testing performed by : [address] [place]., [address] pH, urine 6.5 [facility] Comment: Interpretive Data U rine pH is affected by diet, medications, systemic acid-base disturbances, and renal tubular function. pH may affect urinary stone formation. For example, urine pH below 6.0 may help reduce the tendency for calcium phosphate stones and pH greater than 6.0 may reduce the tendency for uric acid stone formation. Source: [facility] [employer] Current Interpretive Data was last revised on 2017 Testing performed by: [facility], [address] [place] [address], [place]., [address] Protein, ur ql Trace(A) Negative [facility] Comment:Testing performed by : [address] [address] Glucose, ur ql Negative Negative [facility]ENNY Comment:Testing performed by : [address], [place]., [address] Ketones, ur Negative Negative [facility]ENNY Comment:Testing performed by : [address] [address] Bilirubin, ur Negative Negative [facility]NY Comment:Testing performed by : [address], [place]., [address] Blood, ur Negative Negative [facility]NY Comment:Testing performed by : [address] [address] Urobilinogen, ur <2.0 <2.0 mg/dL BENNY Comment:Testing performed by : [address] [address] Nitrite, ur Negative Negative BENNY Comment:Testing performed by : [address] [address] Leukocyte esterase, ur 3+(A) Negative BENNY Comment:Testing performed by : [address] [address] UA reflex comment Reflex to microscopic UA will be performed. [facility]NY Comment:Testing performed by : [address], [place]., [address] Urine 10/02/2024 8:53 AM CDT 10/02/2024 9:48 AM CDT Narrative BENNY - 10/02/2024 9:54 AM CDT Urine Collection Method->Clean Catch Result [facility] Lanette Mark MD LAB URINE ORDERABLES Yumiko l Result Performing Organization Address [facility] de Phone Number [address] [address] * (ABNORMAL) Urinalysis, microscopic only (10/02/2024 8:53 AM CDT) WBC, ur 0-5 0 - 5 /HPF Comment:Testing performed by : [facility], [address] [place] [address]., [address] RBC, ur 3-5(A) 0 - 2 /HPF [facility] Comment:Testing performed by : [address] [address] Epithelial cells, squamous, ur >50(A) 0 - 5 /HPF [facility] Comment:Testing performed by : [address] [address] Mucous, ur Present(A) BENNY Comment:Testing performed by : [address] [address] Urine 10/02/2024 8:53 AM CDT 10/02/2024 9:48 AM CDT Result [facility] Lanette Mark MD LAB URINE ORDERABLES Yumiko l Result Performing Organization Address [facility] de Phone Number [address] [place] [address] * Thyroid Function [place] (09/26/2024 11:09 AM CDT) TSH 2.89 0.30 - 4.20 mcIUnit/mL Comment:Testing performed by : [address] [address] Blood 09/26/2024 11:0 9 AM CDT 09/26/2024 12:43 PM CDT Bayron Carrera MD LAB BLOOD ORDERABLES Final Result Performing Organization Address City/[facility] Co de Phone Number [facility] [place] [address] * Hepatitis C antibody Blood (08/07/2024 12:06 PM CDT) Pathologist [facility] Hep C Ab Nonreactive Nonreactive Comment: Antibodies [...] GENERAL ORDERABLES Final Result Performing Organization Address [facility] Co de Phone Number BENNY [facility] [place] [place] [address] * High Risk HPV DNA Detection with Genotyping (Molecular component) (08/07/2024 11:50 AM CDT) [facility] HPV HR 16 Not Detected Not Detected [facility] Comment:Testing performed by : [facility], [address] [place] [place]., [address] HPV HR 18 Not Detected Not Detected [facility] Comment:Testing performed by : [facility], [address] [place] [place]., [address] HPV HR Non 16/18 Not Detected Not [...] this test have been verified by the [facility] Molecular Infectious Disease laboratory. Correlate with separately reported cytology results, as applicable. Interpretive data last revised 22 Testing performed by: [facility], [address] [place] [place]., [address] Endocervical 08/07/2024 11:5 0 AM CDT 08/09/2024 8:32 PM CDT Narrative BENNY - 08/10/2024 7:08 PM CDT Clinical history and diagnosis->screening Number of vials->1 Testing type->Screening Last menstrual period (date if known)->06/02/2024 Bayron Carrera MD LAB BODY FLUIDS AND STOOLS ORDERABLES Final Result [place] [id number] [facility] [place] [address] [facility] from Last 3 Months or Most Recently Relevant to Health Maintenance Insurance [facility] [facility] Care Teams Rolfer Relationship Specialty Start Date End Date Cony Naranjo NP PCP - General Family Medicine 08/29/24
--- OUTSIDE RECORDS SUMMARY | 2024-11-18 18:47 | XMS_ITS | Encounter Summary ---
Author Organization [facility] Address [address] [place] [address] Care Team Providers Care Seafood Farmer Name Role Phone Cony Naranjo NP Primary Care Provider Encounter Details Date Type Department Care Team (Latest Contact Info) Description 10/30/2024 Results Follow-Up [facility] Obstetrical Gynecology [address] [phone] Ivy Rojas NP [address] [id number] PANORAMA TEST Social History Tobacco Use Types Packs/Day Years Used Date Smoking Tobacco: Never Smokeless Tobacco: Never [place] Depression Scale Answer Date Recorded [place] Depression Scale Total 9 08/07/2024 The thought of harming myself has occurred to me . 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
--- OUTSIDE RECORDS SUMMARY | 2024-11-18 18:47 | XMS_ITS | Encounter Summary ---
Author Organization [facility] Health Address [address] [place] [address] Care Team Providers Care Profiling Machine Set Up Operator Tool Name Role Phone Unavailable Primary Care Provider Unavailabl e Prior Encounters Date Type Department Care Team Description 03/19/2019 Converted CPS Chart Documents [facility] [address] [place] [address] <No scans attached> 03/19/2019 Converted 13x Documents [facility] [address], [address] [place] [address] <No scans attached> Plan of [...] MDT Visit Diagnoses Not on file Insurance [facility]
--- OUTSIDE RECORDS SUMMARY | 2024-11-18 18:47 | XMS_ITS | Patient Health Record ---
Author Organization [facility] Address [address] [place] [address] Care Team Providers Care Tire Builder Operator Name Role Phone Cony Naranjo Primary Care Provider [phone] Gay Luciano Unavailable [phone] Allergies Allergen (clinical drug ingredient) Drug/Non Drug Allergy documented on EMR Reaction Allergy Type Onset Date Status Penicillin G Benzathine hives Drug Allergy Active Results Component Value Reference Range Notes QuantiFERON-TB Gold Plus (37 6152) Reviewed date:12/14/2023 10:29:36 AM Interpretation: [facility], [address] [facility], Phone - [phone], Director - Zoey Notes/Report: QuantiFERON Incubation Incubation [...] * Reviewed date:07/17/2024 02:54:50 PM Interpretation: Performing Lab:[address], Phone - [phone], Director - [facility] Notes/Report: hCG,Beta Subunit,Qnt,Serum 5700 Female (Non-) 0 - 5 (Postmenopausal) 0 - 8 . Female () Weeks of Gestation 3 6 - 71 4 10 - 750 5 217 - 7138 6 158 - 67973 7 6984 -210063 8 72406 -140421 9 33022 -604015 10 80488 -939140 12 82107 -670792 14 49808 - 44230 15 92293 - 65971 16 4124 - 22169 17 4308 - 00002 18 5699 - 52944 Rashawn ECLIA methodology Hemoglobin A1c* Reviewed date:07/11/2024 05:18:35 PM Interpretation: Performing Lab:[address], Phone - [phone], Director - [facility] Notes/Report: Hemoglobin A1c 5.1 4.8-5.6 % . Prediabetes: 5.7 - 6.4 Diabetes: >6.4 Glycemic control for adults with diabetes: <7.0 hCG,Beta Subunit, Qnt, Serum * Reviewed date:07/11/2024 05:18:35 PM Interpretation: Performing Lab:[address], Phone - [phone], Director - [facility] Notes/Report: hCG,Beta Subunit,Qnt,Serum 191 Female (Non-) 0 - 5 (Postmenopausal) 0 - 8 . Female () Weeks of Gestation 3 6 - 71 4 10 - 750 5 217 - 7138 6 158 - 00979 7 2120 -112957 8 91375 -989088 9 84422 -633169 10 37569 -085752 12 79634 -375256 14 39295 - 14627 15 88828 - 96073 16 5316 - 70451 17 5991 - 10868 18 8099 - 47469 Rashawn ECLIA methodology CBC With Differential/Platel et* Reviewed date:07/11/2024 05:18:35 PM Interpretation: Performing Lab:[facility], [address] [place] [address], Phone - [phone], [facility] - [facility] Notes/Report: WBC 7.9 3.4-10.8 x10E3/uL RBC 4.94 [...] T4* Reviewed date:07/11/2024 05:18:35 PM Interpretation: Performing Lab:[facility] [address] [place] [address], Phone - [phone], Director - [facility] Notes/Report: TSH 4.840 0.450-4.500 uIU/mL T4,Free(Direct) 1.28 0.82-1.77 ng/dL CMP 14 Comprehensive Metabol ic Panel* Reviewed date:07/11/2024 05:18:35 PM Interpretation: Performing Lab:[facility], [address] [place] [address], Phone - [phone], Director - [facility] Notes/Report: Glucose 85 70-99 mg/dL BUN 11 [...] 1 Missed period (N92.6 ) Referral Organization [facility] Referring Provider First Name Cony Referring Provider Last Name Marcella Referring Provider [facility] Referred Provider Specialty OB - Gynecol ogy General Notes Ligia Mancuso 07/05/2024 11:52:23 AM >Spoke with staff who advised patients insurance is accepted, Ligia Mancuso 07/05/2024 12:08:22 PM >letter mailed; message sent, Ligia Mancuso 10/24/2024 01:45:46 PM >records received; 10/24/24- OV Clinical Notes [facility]- O B/CHIEF ARCHITECT Amanda, [address] [place] [address] [address] [facility], [place]. [address], , Referral Priority Routine Medications Medication SIG (Take, Route, Frequency, Duration) Notes Start Date End Date Status busPIRone HCl 5 MG 1 tablet Orally Twic e a day; Duration: 30 days 03/01/2024 Not-Taking Zoloft 100 MG 2 tabs Orally Once a day; Duration: 21 days Active Acyclovir 400 MG 1 tablet Orally thre e times daily; Duration: 10 days 06/02/2023 Not-Taking Sprintec 28 0.25-35 MG-MCG 1 tablet Oral ly Once a day; Duration: 28 days 05/05/2023 Not-Takin g + DHA Activ e buPROPion HCl ER (XL) 150 MG 1 tablet in the morning Orally Once a day; Duration: 21 days Active Levothyroxine Sodium 200 MCG 1 [...] Status Risk Notes Problem Morbid obesity (disorder) (124480967) Morbid (severe) obesity due to excess calories (E66.01) Active confirmed Problem Generalized anxiety disorder (97845401) Generalized anxiety disorder (F41.1) 4 Active confirmed Problem Major depression (988927874) Major depression (F32.9) 4 Active confirmed Problem Posttraumatic stress disorder (34920827) PTSD (post-traumatic stress disorder) (F43.10) 4 Active confirmed Problem Overweight (707180822) Over weight (E66.3) Active confirmed Problem Polycystic ovary syndrome (disorder) (652686601) PCOS (polycystic ovarian syndrome) (E28.2) Active confirmed Problem Missed period (37012249) Missed period (N92.6) Active confirmed Problem Cannabis abuse (19520004) Cannabis use disorder, mild, abuse (F12.10) 4 Active confirmed 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 Vital Signs Heart Rate 101 /min 07/04/2024 Respiratory Rate 16 /min 07/04/2024 Blood pressure diastolic 84 mm Hg 07/04/2024 Oximetry 98 % 07/04/2024 Height 62 in 07/04/2024 Blood pressure systolic 126 mm Hg 07/04/2024 Weight 210 lbs 07/04/2024 BMI 38.41 kg/m2 07/04/2024 Encounters Encounter Location Date Provider Diagnosis [facility] [address] [place] [address] 03/05/2024 Gay Luciano [facility] [address] [place] [address] 07/13/2024 Cony Naranjo History of miscarriage Z87.59 and at early stage Z34.90 [facility] [address] [place] [address] [place] [address] 12/14/2023 Cony Naranjo PCOS (polycystic ovarian syndrome) E28.[address] [place] [address] 03/01/2024 Gay Luciano Generalized anxiety disorder F41.1 ; Major depression F32.9 ; PTSD (post-traumatic stress disorder) F43.10 ; Cannabis use disorder, mild, abuse F12.10 and Medication monitoring encounter Z51.81 [facility] [address] [place] [address] 07/04/2024 Cony Naranjo Over weight E66.3 and Missed period N92.[address] [place] [address] 07/12/2024 Gay Luciano Generalized anxiety disorder F41.1 ; Major depression F32.9 ; PTSD (post-traumatic stress disorder) F43.10 ; Medication monitoring encounter Z51.81 and Cannabis use disorder, mild, abuse F12.[address] [place] [address] 01/31/2024 Gay Luciano Major depression F32.9 and Generalized anxiety disorder F41.[address] [place] [address] 02/13/2024 Gay Luciano Major depression F32.9 [facility] [address] [place] [address] 07/03/2024 Cony Naranjo [address] [place] [address] 07/09/2024 Gay Luciano Major depression F32.9 [facility] [place] [place] [address] 07/11/2024 Cony Naranjo History of miscarriage Z87.59 and at early stage Z34.90 [facility] [place] [address] 07/17/2024 Cony Naranjo [facility] [address] [place] [address] 11/14/2024 Gay Luciano Major depression F32.9 [facility] [address] [place] [address] 12/13/2023 Cony Naranjo Assessments Encounter Date Diagnosis [...] 07/13/2024 History of miscarriage (ICD-10 - Z87.59) 11/14/2024 Major depression (ICD-10 - F32.9) 07/13/2024 at early stage (ICD-10 - Z34.90) [...] AIMS, or vital signs. Plan Of Treatment Next Appt Details Provider Name:Gay townsend, 12/04/2024 09:20:00 AM, [address], [place], [address], Insurance Providers Payer Name Payer Address Payer Phone Subscriber Number Group Number Insured Name Patient Relationship to Insured Coverage Start Date Coverage End Date [facility] [address] [place] [address] [id number] Juan Jose Read Self - patient is the insured 3 5 [employer] [address] [place] [address] [id number] Juan Jose Read Self - patient is the insured 3 5 Medical (General) History Medical History History ICD Code PCOS breast pain Surgical History Surgery Date(Month/Year) C section 2021 Hospitalization History Reason Date(Month/Year) childbirth 2021
[2024-11-18 19:05] VITALS: BP 131/76; PULSE 96
[2024-11-18 19:16] VITALS: BP 120/72; PULSE 100
[2024-11-18 19:21] LABS: Add Urine Microscopic? YES; Appearance Urine Clear (Clear); Glucose Urine UA Negative (Negative); Leukocyte Esterase Ur 1+ LEU/UL (Negative); Nitrate Urine Negative (Negative); Non Pathogenic Casts 0-2; Specific Grav Ur 1.016 (1.001-1.035)
[2024-11-18 19:31] VITALS: BP 121/73; PULSE 98
[2024-11-18 19:46] VITALS: BP 114/67; PULSE 96
[2024-11-18 19:51] VITALS: BMI 40.4
--- NOTE | 2024-11-18 19:52 | OBADM ---
This patient, Juan Jose Read, admitted to the OB room OB Post 117 for observation. Patient/family oriented to hospital policies and general routines including ID bracelet, bed and alarms, visiting hours, pain management, procedures, bathroom and other care routines, personal items, smoking policy, room service/diet, and visiting hours. Patient/Family are encouraged to report perceived risks to care and to ask questions if they do not understand what they are told or what they should do.
[2024-11-18 20:01] VITALS: BP 113/61; PULSE 95
[2024-11-18] MEDS: NITROFURANTOIN MONOHYD MACROCR 100 MG CAP PO (20:10)
--- NOTE | 2024-11-21 18:39 | PM.OBTRLD ---
OB - Triage/Final Diagnosis Visit Information Comments/Additional reasons for admission: I have assessed the risk for this patient, Juan Jose Read, and determined that she would benefit from observation care. Evaluation Laboratory results: Laboratory Tests 11/18/24 19:05 Urine Color Yellow Urine Appearance Clear Urine pH 6.5 Ur Specific [place] 1.016 Urine Protein Negative Urine Glucose (UA) Negative Urine Ketones Negative Ur Blood (Man) Negative Urine Nitrate Negative Urine Bilirubin Negative Urine Urobilinogen 0.2 Leukocyte Esterase Rfl 1+ H Urine RBC 0-2 Urine WBC 6-10 H Ur Squamous Epith Cells Few Urine Bacteria None seen Urine Casts 0-2 Final Diagnosis (1) Back pain affecting : Code(s): O99.891 - Other specified diseases and conditions complicating ; M54.9 - Dorsalgia, unspecified Status: Acute
== END 2024-11-18 20:15 | disposition home or self-care (01) ==
PROVIDERS: Admitting Provider Obstetrics & Gynecology; PCP Nurse Practitioner Family; Visit Provider Obstetrics & Gynecology
DX: O99.891 Other specified diseases and conditions complicating pregnancy (principal); Z3A.24 24 weeks gestation of pregnancy; M54.9 Dorsalgia, unspecified
CPT/HCPCS: 81001; 87086; A9270; G0378; G0379

== ENCOUNTER 2025-01-08 08:40 | Emergency (ER) | payer OTHER, SELFPAY ==
--- OUTSIDE RECORDS SUMMARY | 2024-02-08 09:40 | XMS_ITS ---
Author Organization [facility] Address [address] [place] [address] Care Team Providers Care Cutter Helper Name Role Phone Cony Naranjo Primary Care Provider [phone] Gay Luciano Unavailable [phone] REASON FOR VISIT last seen 09/15/23--1 month f u Medications Medication SIG (Take, Route, Frequency, Duration) Notes Start Date End Date Status Sprintec 28 0.25-35 MG-MCG 1 tablet Oral ly Once a day; Duration: 28 days 05/05/2023 Not-Takin g Acyclovir 400 MG 1 tablet Orally thre e times daily; Duration: 10 days 06/02/2023 Not-Taking Levothyroxine Sodium 200 MCG 1 tablet in the morning on an empty stomach Orally Once a day; Duration: 30 days Active busPIRone HCl 7.5 MG 1 tablet Orally Twi ce a day; Duration: 30 days 07/08/2022 Active hydrOXYzine HCl 25 MG 0.5 tablet to 1 ta blet as needed Orally twice a day; Duration: 8 days 09/15/2023 Active metFORMIN HCl 500 MG 1 tablet with a nic l Orally Once a day; Duration: 30 days 12/14/2023 Active Zoloft 100 MG 2 tabs Orally Once a day; Duration: 8 days Active buPROPion HCl ER (XL) 150 MG 1 tablet in the morning Orally Once a day; Duration: 8 days Active Social History Sex Assigned At : Social History Observation Description Sex Assigned At Female Encounters Encounter Location Date Provider Diagnosis [address] [place] [address] 02/08/2024 Gay Luciano Plan Of Treatment No Information Progress Notes * Juan Jose READDOB:1990 (34 yo F)Acc No.[id number]:02/08/2024 UNLOCKED PROGRESS NOTE Patient: Juan Jose JAUREGUI Provider: Emmanuel Luciano, MSN, CLERICAL INVESTIGATOR, SOIL CHEMIST-C :1990 A ge:33 Y S ex:Female Date:02/08/2024 Address:[address] [place], [place] [id number] Pcp:Cony Naranjo Subjective: * Chief Complaints: * 1 . Last seen 09/15/23--1 month f u. * Medical History: * Medications: T aking Levothyroxine Sodium 200 MCG Tablet 1 tablet in the morning on an empty stomach Orally Once a day , Taking busPIRone HCl 7.5 MG Tablet 1 tablet Orally Twice a day , Taking metFORMIN HCl 500 MG Tablet 1 tablet with a meal Orally Once a day , Taking Zoloft 100 MG Tablet 2 tabs Orally Once a day , Taking buPROPion HCl ER (XL) 150 MG Tablet Extended Release 24 Hour 1 tablet in the morning Orally Once a day , Taking hydrOXYzine HCl 25 MG Tablet 0.5 tablet to 1 tablet as needed Orally twice a day , Not-Taking Sprintec 28 0.25-35 MG-MCG Tablet 1 tablet Orally Once a day , Not- Taking Acyclovir 400 MG Tablet 1 tablet Orally three times daily Objective: * Vitals: Assessment: Plan: * Treatment: * Recommended Wellness and Pre vention Guidelines: * S tatus A lert L ast Done N ext Due A ction Taken N ONCOMPLIANT C ervical cancer screening - 1 04/10/2023 - - N ONCOMPLIANT I nfluenza vaccine (high risk) - 1 04/10/2023 - - * * Electronic signature of Serafin Luciano , [id number] on 01/08/2025 at 08:53 AM STEEL BARREL REAMER Sign off status: Pending * Provider: Emmanuel Luciano, MSN, CLERICAL INVESTIGATOR, SOIL CHEMIST-C Date: 04/10/2023 Generated for Lorenzo hernandez/Denny/Megan on: 03/10/2024 08:53 AM STEEL BARREL REAMER
--- OUTSIDE RECORDS SUMMARY | 2024-02-14 08:00 | XMS_ITS ---
Author Organization [facility] Address [address] [place] [address] Care Team Providers Care Production Statistical Clerk Name Role Phone Cony Naranjo Primary Care Provider [phone] Gay Luciano Unavailable [phone] REASON FOR VISIT r/s from 02/07; last seen 09/15/23 Social History Sex Assigned At : Social History Observation Description Sex Assigned At Female Encounters Encounter Location Date Provider Diagnosis [address] [place] [address] 02/14/2024 Gay Luciano Plan Of Treatment No Information Progress Notes * Juan Jose READDOB:1990 (34 yo F)Acc No.[id number]:02/14/2024 UNLOCKED PROGRESS NOTE Patient: Juan Jose JAUREGUI Provider: Emmanuel Luciano, MSN, ACCOUNT DEVELOPMENT EXECUTIVE, CHAIR PAD MAKER-C :1990 A ge:33 Y S ex:Female Date:02/14/2024 Address:[address] [place] [address] , [place], [place] Pcp:Cony Naranjo Subjective: * Chief Complaints: * 1 . R/s from 02/07; last seen 09/15/23. * Medical History: Objective: * Vitals: Assessment: Plan: * Treatment: * * Electronic signature of Serafin Luciano , [id number] on 01/08/2025 at 08:53 AM OFFICE WORKER Sign off status: Pending * Provider: Emmanuel Luciano, MSN, ACCOUNT DEVELOPMENT EXECUTIVE, CHAIR PAD MAKER-C Date: 04/16/2023 Generated for Lorenzo hernandez/Denny/Megan on: 03/10/2024 08:53 AM OFFICE WORKER
--- OUTSIDE RECORDS SUMMARY | 2024-03-05 04:00 | XMS_ITS ---
Author Organization [facility] Address [address] [place] [address] Care Team Providers Care Metal Molder Name Role Phone Cony Naranjo Primary Care Provider [phone] Gay Luciano Unavailable [phone] REASON FOR VISIT labs Social History Sex Assigned At : Social History Observation Description Sex Assigned At Female Encounters Encounter Location Date Provider Diagnosis [address] [place] [address] 03/05/2024 Gay Luciano Plan Of Treatment No Information Progress Notes * Juan Jose READDOB:1990 (34 yo F)Acc No.[id number]:03/05/2024 UNLOCKED PROGRESS NOTE Patient: Juan Jose JAUREGUI Provider: TERRENCE Rivas, HEBREW TEACHER, RN DISEASE MANAGEMENT-C :1990 A ge:33 Y S ex:Female Date:03/05/2024 [address] [facility] [place] Pcp:Cony Naranjo Subjective: * Chief Complaints: * 1 . Labs. * Medical History: Objective: * Vitals: Assessment: Plan: * Treatment: * * Electronic signature of Serafin Luciano , [id number] on 01/08/2025 at 08:52 AM MARKETING DIRECTOR ASSISTED LIVING Sign off status: Pending * Provider: Emmanuel Luciano, MSN, HEBREW TEACHER, RN DISEASE MANAGEMENT-C Date: 0 03/05/2024 Generated for Lorenzo hernandez/Denny/Jayitting on: 1 03/10/2024 08:52 AM MARKETING DIRECTOR ASSISTED LIVING
--- OUTSIDE RECORDS SUMMARY | 2024-07-13 02:20 | XMS_ITS ---
Author Organization [facility] Address [address] [place] [address] Care Team Providers Care Laminating Machine Offbearer Name Role Phone Cony Naranjo Primary Care Provider [phone] Gay Luciano Unavailable [phone] Results Component Value Reference Range Notes hCG,Beta Subunit, Qnt, Serum * Reviewed date:07/17/2024 02:54:50 PM Interpretation: Performing Lab:[facility] [place], [address] [facility] [place], Phone - [phone], Director - Zoey Notes/Report: hCG,Beta Subunit,Qnt,Serum 5700 Female (Non-) 0 - 5 (Postmenopausal) 0 - 8 . Female () Weeks of Gestation 3 6 - 71 4 10 - 750 5 778 - 6538 6 635 - 31973 7 4462 -458061 8 47901 -994199 9 26579 -480209 96976 -376186 12 96273 -543776 14 10973 - 32213 15 51243 - 84291 16 8662 - 86659 17 1426 - 30711 18 5341 - 69992 Rashawn ECLIA methodology REASON FOR VISIT labs hcg Social History Sex Assigned At : Social History Observation Description Sex Assigned At Female Encounters Encounter Location Date Provider Diagnosis [facility] [address] [place] [address] 07/13/2024 Cony Naranjo History of miscarriage Z87.59 and at early stage Z34.90 Assessments Encounter Date Diagnosis (ICD Code) Assessment Notes Treatment Notes Treatment Clinical Notes Section Notes 07/13/2024 History of miscarriage (ICD-10 - Z87.59) 07/13/2024 at early stage (ICD-10 - Z34.90) Plan Of Treatment No Information Progress Notes * Juan Jose READDOB:1990 (34 yo F)Acc No.[id number]:07/13/2024 UNLOCKED PROGRESS NOTE Patient: Juan Jose JAUREGUI Provider: Lorie Naranjo, MSN, MAGNETO ELECTRICIAN, MACHINE CANDLE MOLDER-BC, MACHINE CANDLE MOLDER-C :1990 A ge:34 Y S ex:Female Date:07/13/2024 Address:[address] [place], [place] [id number] Check In:08:23 AM SKATES OPERATOR Subjective: * Chief Complaints: * 1 . Labs hcg. * Medical History: Objective: * Vitals: Assessment: * Assessment: 1. H istory of miscarriage - Z87.59 2 . P regnancy at early stage - Z34.90? Plan: * Treatment: 2. P regnancy at early stage L AB: hCG,Beta Subunit, Qnt, Serum* (Collection Date & Time - 07/13/2024) * * Electronic signature of Vinayak Naranjo APRN, [id number] on 01/08/2025 at 08:53 AM SKATES OPERATOR Sign off status: Pending * Provider: Lorie Naranjo, MSN, MAGNETO ELECTRICIAN, MACHINE CANDLE MOLDER-BC, MACHINE CANDLE MOLDER-C Date: 0 07/13/2024 Generated for Printing/Faxing/eTransmitting on: 1 03/10/2024 08:53 AM SKATES OPERATOR
--- OUTSIDE RECORDS SUMMARY | 2025-01-03 07:15 | XMS_ITS ---
Author Organization [facility] Address [address] [place] [address] Care Team Providers Care Practice Management Consultant Name Role Phone Cony Naranjo Primary Care Provider [phone] Gay Luciano Unavailable [phone] REASON FOR VISIT Continuity of Care Social History Sex Assigned At : Social History Observation Description Sex Assigned At Female Encounters Encounter Location Date Provider Diagnosis [facility] [address] [place] [address] 01/03/2025 Cony Naranjo Plan Of Treatment No Information Progress Notes * READJuan Jose HOLMANDOB:1990 (34 yo F)Acc No.[id number]:01/03/2025 UNLOCKED PROGRESS NOTE Patient: Juan Jose JAUREGUI :1990 A ge:34 Y S ex:Female Address:[address] [facility] , [place] [address] Subjective: * Chief Complaints: * C ontinuity of Care * HPI: E R/Hospital Follow-up: ER/Hopsital/Urgent Care follow-up. Notification of ER/hospital visit from: [facility] OB ED. I f instructed by nurse/provider, did the pt go to ER/UC? E R/Urgent Care follow-through .. D ate of ER/urgent visit or hospitalization: 1 03/05/2024. R jordan for the Visit: C /O decreased movement. . V isit Type and Location: E mergency Room. D isclosure signed to obtain records: N o. R ecords Requested Date D ate, First Attempt: ., D ate, Second Attempt: ., D ate, Third Attempt: .. R ecords Received: D ate Records Received .. M edication Changes: N o new medications ordered. E R/Hospital F/U appointment with [facility]: C [facility] f/u appointment date: ..?Appointment Kept? D id the patient keep the appointment with [facility]? .. Ronald krueger completing documentation [facility] .. * Medical History: * Surgical History: * Hospitalization/Major Diagno stic Procedure: * Medications: Objective: * Vitals: * Physical Examination: Assessment: Plan: * Treatment: * Procedure Codes: C HS01 ER/hospitalization continuity of care * * Date: History and Physical Notes * HPI (History of Present Illness) Category Sub-Category Detail Notes Category Not es ER/Hospital Follow-up Visit Type and Location: Emergen cy Room Disclosure signed to obtain records: No Records Requested Date Date, First Attempt:: . Date, Second Attempt:: . Date, Third Attempt: : . Records Received: Date Records Received: . Medication Changes: No new medications o rdered ER/Hospital F/U appointment with [facility]: [facility] f/u appointment date:: . Notification of ER/hospital visit from: [facility] OB ED Reason for the Visit: C/O decreased feta l movement. Date of ER/urgent visit or hospitalizati on: 01/03/2025 Nurse completing documentation [facility] Region Ronald lazaro: . [place] Region Nurses: . If instructed by nurse/kleber zapien, did the pt go to ER/UC? ER/Urgent Care follow-through: . Appointment Kept? Did the patient keep the appointment with [facility]?: .
--- NOTE | 2025-01-08 08:41 | ED.FEMALEGU ---
HPI - Female Genitourinary General Chief complaint: Urogenital-Female Stated complaint: UTI/Preg Time Seen by Provider: 01/08/25 08:40 Source: patient Mode of arrival: ambulatory Limitations: no limitations History of Present Illness HPI Narrative: Patient is a 34-year-old female who presents with frequent urination, lower abdominal pain and a ?poking? sensation to her urethra before urination for 3 days. Patient is currently 31 weeks with a due date of March 09. This is her 2nd child. States baby is very active and is constantly kicking and punching. Patient does have Boone Metcalf contractions and round ligament pain. Last OB appointment was 1 week ago with next 1 being 1 week from today. Denies any vaginal bleeding, discharge. MD elicited complaint: dysuria Patient : Yes Related Data Home Medications ?Medication ?Instructions ?Recorded ?Confirmed ?Last Taken ?Type levothyroxine 200 mcg tablet 275 mcg PO DAILY 05/23/22 01/08/25 Unknown History (Synthroid) sertraline 100 mg tablet (Zoloft) 200 mg PO DAILY 05/23/22 01/08/25 Unknown History bupropion HCl 150 mg 24 hr tablet, 150 mg PO DIRECTED 01/27/24 01/08/25 Unknown History extended release aspirin 81 mg tablet 81 mg PO DAILY 10/17/24 01/08/25 Unknown History vit no.95-ferrous 1 tablet PO DAILY 10/17/24 01/08/25 Unknown History fumarate 28 mg-folic acid 800 mcg tablet () Allergies Allergy/AdvReac Type Severity Reaction Status Date / Time kale AdvReac Intermediate Ulcers Verified 01/08/25 09:02 Review of Systems Review of Systems: All systems reviewed & are unremarkable except as noted in HPI and below Constitutional: Constitutional: Denies chills, Denies fever(s), Denies headache(s), Denies malaise and Denies weakness Eyes: Eyes: Denies change in vision, Denies eye discharge and Denies irritation ENT: Denies otalgia, Denies headache(s), Denies nasal congestion, Denies nasal discharge, Denies sinus pain and Denies sore throat Cardiovascular: Cardiovascular: Denies chest pain, Denies edema, Denies palpitations and Denies dyspnea Respiratory: Respiratory: Denies cough and Denies dyspnea Gastrointestinal: Gastrointestinal: Denies abdominal pain, Denies diarrhea, Denies nausea and Denies vomiting Genitourinary: Genitourinary: Denies hematuria, Reports nocturia, Denies dysuria, Denies flank pain and Reports urinary urgency Musculoskeletal: Musculoskeletal: Denies back pain and Denies numbness Integumentary/Breasts: Skin/Breast: Denies pruritus and Denies rash Neurologic: Denies headache(s), Denies numbness and Denies weakness Psychiatric: Psychiatric: Reports no additional psychiatric complaints Endocrine: Endocrine: Denies palpitations PMFSH Past Medical History Medical History Alcoholism in recovery Surgical History Surgical History History of delivery Social History Social History Alcohol intake: former Alcohol use details: sober 4 years (02/2023) Lack of Transportation: No Lack of Food: Never True Current Housing: I Have Housing Concerned About Future Housing: No Difficulty Paying Gas/Electric Bills: No Difficulty Paying for Meds: No Currently Unemployed: No Education: High School Diploma/GED Difficulty w/ Childcare or Family Care: No Comments At time of signature, agree with nursing past medical, surgical, social and family history. There is no relevant family history pertinent to the presenting complaint. Exam Const: General: cooperative, healthy appearing, comfortable, no acute distress and well nourished Nutritional Appearance: well nourished Orientation/consciousness: patient oriented x3 HENMT: Head: normocephalic and atraumatic Ears: external ears normal Face/Nose/Sinus: Normal external nose present, Normal nares present and normal facial exam Face and sinus: normal facial exam Eyes: General: appearance normal, both eyes and all related structures Pupils: Equal, round and reactive pupils present EOM: EOMs intact bilaterally Neck: Neck: normal visual inspection, full ROM and supple Chest: Chest palpation & inspection: normal inspection of the chest Resp: Effort & Inspection: normal respiratory effort and able to speak in complete sentences Cardio: Rate: tachycardic Rhythm: regular rhythm GI: Inspection: normal to inspection GI Palp: No abdominal tenderness and Yes Soft to palpation : General: Yes no CVA tenderness Back/Spine/Pelvis: Back: no CVA tenderness Skin: General skin exam: normal color and no rashes or lesions noted Neuro: General: patient oriented x3 and moves all extremities Cranial nerves: Yes Equal, round and reactive pupils present Extrem: General: normal to inspection and full ROM Psych: Appearance: grossly normal and well kempt Course Course Emergency Course: Patient is aware of diagnosis, understands and agrees to treatment plan. Anticipatory guidance given. Patient agrees to follow-up as directed and is aware of reasons to seek care at the emergency department. Portions of this record may have been created with voice recognition software Level of Care: Express Care Visit Vital Signs Vital signs: Vital Signs Temperature 36.3 C L 01/08/25 08:48 Pulse Rate 106 H 01/08/25 08:48 Respiratory Rate 18 01/08/25 08:48 Blood Pressure 114/67 01/08/25 08:48 Pulse Oximetry 98 01/08/25 08:48 Oxygen Delivery Room Air 01/08/25 08:48 Temperature 36.3 C L 01/08/25 08:48 Pulse Rate 106 H 01/08/25 08:48 Respiratory Rate 18 01/08/25 08:48 Blood Pressure 114/67 01/08/25 08:48 Pulse Oximetry 98 01/08/25 08:48 Oxygen Delivery Room Air 01/08/25 08:48 Reviewed MDM - Female Genitourinary MDM Narrative Medical decision making narrative: Exam findings and UA show probable UTI, will treat with antibiotic. Patient has been on amoxicillin, Augmentin, Macrobid all since September. Will treat with cefpodoxime. Patient heart rate 145-150; patient is non-toxic appearing and is in no distress. No CMT, adnexal tenderness, or evidence of pelvic etiology. Patient is appropriate for outpatient treatment and follow-up. Differential Diagnosis Differential diagnosis: Likely urinary tract infection, bacterial vaginosis, trichomoniasis, cervicitis, vaginitis and cystitis Medical Records Attestation: I reviewed the patient's medical records. Lab Data Attestation: I reviewed the patient's lab results. Labs: Lab Results 01/08/25 Range/Units 08:55 POC Urine Color Dark POC Urine Clarity Cloudy POC Urine pH 6.5 POC Ur Specif [place] 1.020 POC Urine Protein 1+ (Negative) POC Ur Glucose (UA) Negative (Negative) POC Urine Ketones Negative (Negative) POC Urine Blood Negative (Negative) POC Urine Nitrite Negative (Negative) POC Urine Bilirubin Negative (Negative) POC Urine Urobilinogen 0.2 POC U Leukocyte Esteras 1+ (Negative) Discharge Plan Discharge Clinical Impression: Urinary tract infection Qualifiers: Urinary tract infection type: acute cystitis Hematuria presence: without hematuria Qualified Code(s): N30.00 - Acute cystitis without hematuria Patient Disposition: Home Condition: Stable Instructions: Urinary Tract Infection in (ED) Additional Instructions: We will send a urine culture to the lab, based on your symptoms and urine dip we will start treatment today. If culture comes back and bacteria is not susceptible to antibiotic, your prescription may change. Your symptoms should improve within a day of starting antibiotics, but you should finish all the antibiotic pills you get. Otherwise your infection might come back Continue with increased water intake. Take Tylenol as needed for pain or fever. Follow-up with primary care provider for urine recheck or see ER visit if condition worsens with high fever, nausea, vomiting, severe back pain Patient Language: Guyanese Prescriptions: New cefpodoxime 200 mg tablet 200 mg PO BID 7 Days Qty: 14 0RF Rx Instructions: must administer with a meal/food No Action bupropion HCl 150 mg tablet extended release 24 hr 150 mg PO DIRECTED PNV no.95-ferrous fumarate-FA [] 28 mg iron- 800 mcg tablet 1 tablet PO DAILY aspirin 81 mg tablet 81 mg PO DAILY sertraline [Zoloft] 100 mg Tablet 200 mg PO DAILY levothyroxine [Synthroid] 200 mcg Tablet 275 mcg PO DAILY Follow-up/Referrals: Marcella,JEAN Donnelly [Primary Care Provider, Unknown] - 3 Days Stand Alone Forms: Work/School Release IP Time of Disposition: 09:07
[2025-01-08 08:48] VITALS: BP 114/67; PULSE 106; RESP 18; TEMP 36.3; O2SAT 98
--- OUTSIDE RECORDS SUMMARY | 2025-01-08 08:52 | XMS_ITS | Clinical Summary ---
Author Organization [facility] Address [address] [place] [address] Care Team Providers Care Fruit Trimmer Name Role Phone Cony Naranjo NP Primary [...] series) 2009 HPV Vaccines (1 - 3-dose SCDM series) 2017 Cervical Cancer Screening Pap with HPV Testing (Age 30 to 64) Every 5 Years 2020 Cervical Cancer Screening with HPV 2020 COVID-19 Vaccine ( season) 2024 01/05/2021, 05/05/2020, 04/14/2020 Influenza Adult (#1) 2024 11/17/2021, 11/09/2019, 12/15/2018, Additional history exists DTaP, Tdap and Td Vaccines (3 - Td or Tdap) 11/07/2031 11/06/2021, 07/17/2015 Hepatitis C Completed 07/24/2019 Hepatitis A Vaccines Aged Out No long er eligible based on patient's age to complete this topic Meningococcal B Vaccine Aged Out No l onger eligible based on patient's age to complete this topic Meningococcal Vaccine Aged Out No velasquez nayana eligible based on patient's age to complete this topic Pneumococcal Vaccine: Pediatrics (0 to 5 Years) and At-Risk Patients (6 to 49 Years) Aged Out No longer eligible based on patient's age to complete this topic RSV Immunizations Under 20 Months Aged Out No longer eligible based on patient's age to complete this topic Insurance [facility] MEDICAID Care Teams Fruit Trimmer Relationship Specialty Start Date End Date Cony Naranjo NP [address] [place] [address] [place] [address] PCP - General Nurse Practitioner Family 09/21/23
--- OUTSIDE RECORDS SUMMARY | 2025-01-08 08:52 | XMS_ITS | Encounter Summary ---
Author Organization [facility] Address [address] [place] [address] Care Team Providers Care English Professor Name Role Phone Cony Naranjo NP Primary Care Provider Encounter Details Date Type Department Care Team ([facility] st Contact Info) Description 12/21/2024 Results Follow-Up [facility] [address] [place] [address] Bayron Carrera MD [address] [address] RPR Blood, CBC without differential, GTT 50gm 1hr gestational screen, Additional followed-up results: 2 Social History Tobacco Use Types Packs/Day Years Used Date Smoking Tobacco: Never Smokeless Tobacco: Never [place] Depression Scale Answer Date Recorded [place] Depression Scale Total 18 12/18/2024 The thought of harming myself has occurred to me . Never 12/18/2024 Estimated Date of Delivery Comme nts Yes 2025 Based on last me nstrual period of 06/02/2024 Sex and Gender Information Value Date Recorded Sex Assigned at Not on file Legal Sex Female 3:11 PM RECRUITMENT DIRECTOR Gender Identity Not on file Sexual Orientation Not on file documented as of this encounter Plan of Treatment Not on file documented as of this encounter Visit Diagnoses Not on filedocumented in this encounter Care Teams English Professor Relationship Specialty Start Date End Date Cony Naranjo NP PCP - General Family Medicine 08/29/24 documented as of this encounter
--- OUTSIDE RECORDS SUMMARY | 2025-01-08 08:53 | XMS_ITS | Clinical Summary ---
Author Organization [facility] Address [address] [place] [address] Care Team Providers Care Oven Worker Name Role Phone Unavailable Primary Care Provider [...]
--- OUTSIDE RECORDS SUMMARY | 2025-01-08 08:53 | XMS_ITS | Patient Health Record ---
Author Organization [facility] Address [address] [place] [address] Care Team Providers Care Pediatric Cardiologist Name Role Phone Cony Naranjo Primary Care Provider Gay Luciano Unavailable [phone] Allergies Allergen (clinical drug ingredient) Drug/Non Drug Allergy documented on EMR Reaction Allergy Type Onset Date Status Penicillin G Benzathine hives Drug Allergy Active Results Component Value Reference Range Notes Hemoglobin A1c* Reviewed date:07/11/2024 05:18:35 PM Interpretation: Performing Lab:[facility], Phone - [phone], Director - [facility] Notes/Report: Hemoglobin A1c 5.1 4.8-5.6 % . Prediabetes: 5.7 - 6.4 Diabetes: >6.4 Glycemic control for adults with diabetes: <7.0 hCG,Beta Subunit, Qnt, Serum * Reviewed date:07/11/2024 05:18:35 PM Interpretation: Performing Lab:[facility], [address] [facility], Phone - [phone], Director - PhDRicuofl [facility] Notes/Report: hCG,Beta Subunit,Qnt,Serum 191 Female (Non-) 0 - 5 (Postmenopausal) 0 - 8 . Female () Weeks of Gestation 3 6 - 71 4 10 - 750 5 167 - 4113 6 968 - 05441 7 2671 -325217 8 23332 -547263 9 59034 -260967 22505 -640728 12 77559 -557717 14 50599 - 10142 15 72241 - 58297 16 9824 - 57330 17 9979 - 75247 18 4279 - 16387 Rashawn ECLIA methodology CBC With Differential/Platel et* Reviewed date:07/11/2024 05:18:35 PM Interpretation: Performing Lab:[facility], [address] [facility], Phone - [phone], Director - [facility] Notes/Report: WBC 7.9 3.4-10.8 x10E3/uL RBC 4.94 [...] % Immature Grans (Abs) 0.0 0.0-0.1 x10E3/uL Test, Urine Reviewed date:07/04/2024 12:52:23 PM Interpretation:Positive Performing Lab: Notes/Report: Positive Test, Urine POS Negative - Negative CMP 14 Comprehensive Metabol ic Panel* Reviewed date:07/11/2024 05:18:35 PM Interpretation: Performing Lab:[facility], [address] [facility], Phone - [phone], Director - [facility] Notes/Report: Glucose 85 70-99 mg/dL BUN 11 [...] T4* Reviewed date:07/11/2024 05:18:35 PM Interpretation: Performing Lab:[facility], [address] [place] [address], Phone - [phone], Director - [facility] Notes/Report: TSH 4.840 0.450-4.500 uIU/mL T4,Free(Direct) 1.28 0.82-1.77 ng/dL hCG,Beta Subunit, Qnt, Serum * Reviewed date:07/17/2024 02:54:50 PM Interpretation: Performing Lab:[facility], [address] [place] [address], Phone - [phone], Director - [facility] Notes/Report: hCG,Beta Subunit,Qnt,Serum 5700 Female (Non-) 0 - 5 (Postmenopausal) 0 - 8 . Female () Weeks of Gestation 3 6 - 71 4 10 - 750 5 384 - 0992 6 654 - 92597 7 9469 -594930 8 76086 -198182 9 50147 -310389 10 75613 -677925 12 58450 -004742 14 57789 - 00809 15 52548 - 08752 16 7842 - 69691 17 3219 - 95079 18 0410 - 00462 Rashawn ECLIA methodology Reason For Referral Reason home test positive, 5 weeks, pending hcg blood Diagnosis 1 Missed period (N92.6 ) Referral Organization [facility] Referring Provider First Name Cony Referring Provider Last Name Marcella Referring Provider Speciality [facility] casie Referred Provider Specialty OB - Gynecol ogy General Notes Ligia Mancuso 07/05/2024 11:52:23 AM >Spoke with staff who advised patients insurance is accepted, Ligia Mancuso 07/05/2024 12:08:22 PM >letter mailed; message sent, Ligia Mancuso 10/24/2024 01:45:46 PM >records received; 10/24/24- OV Clinical Notes [facility] [place], [address] [place] [address]. [id number], , Referral Priority Routine Medications Medication SIG (Take, Route, Frequency, Duration) Notes Start Date End Date Status buPROPion HCl ER (XL) 150 MG 1 tablet in the morning Orally Once a day; Duration: 30 days Active Acyclovir 400 MG 1 tablet Orally thre e times daily; Duration: 10 days 06/02/2023 Not-Taking Sprintec 28 0.25-35 MG-MCG 1 tablet Oral ly Once a day; Duration: 28 days 05/05/2023 Not-Takin g Zoloft 100 MG 2 tabs Orally Once a day; Duration: 30 days Active busPIRone HCl 5 MG 1 tablet Orally Twic e a day; Duration: 30 days 03/01/2024 Not-Taking metFORMIN HCl 500 MG 1 tablet with a nic l Orally Once a day; Duration: 30 days 12/14/2023 Not-Taking Levothyroxine Sodium 200 MCG 1 tablet in the morning on an empty stomach Orally Once a day; Duration: 30 days Active + DHA Activ e Social History Tobacco Use: Social History Observation [...] Status Risk Notes Problem Morbid obesity (disorder) (021839282) Morbid (severe) obesity due to excess calories (E66.01) Active confirmed Problem Generalized anxiety disorder (56610557) Generalized anxiety disorder (F41.1) 4 Active confirmed Problem Major depression (685618517) Major depression (F32.9) 4 Active confirmed Problem Posttraumatic stress disorder (20111568) PTSD (post-traumatic stress disorder) (F43.10) 4 Active confirmed Problem Overweight (783208044) Over weight (E66.3) Active confirmed Problem Polycystic ovary syndrome (disorder) (358659715) PCOS (polycystic ovarian syndrome) (E28.2) Active confirmed Problem Missed period (80849355) Missed period (N92.6) Active confirmed Problem Cannabis abuse (52502149) Cannabis use disorder, mild, abuse (F12.10) 4 Active confirmed Problem 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 Vital Signs Heart Rate 110 /min 12/04/2024 Respiratory Rate 16 /min 12/04/2024 Blood pressure diastolic 76 mm Hg 12/04/2024 Oximetry 98 % 12/04/2024 Height 61 in 12/04/2024 Blood pressure systolic 120 mm Hg 12/04/2024 Weight 220.4 lbs 12/04/2024 BMI 41.64 kg/m2 12/04/2024 Encounters Encounter Location Date Provider Diagnosis [facility] [address] [place] [address] 03/05/2024 Gay Luciano [facility] [place] [address] 07/13/2024 Cony Naranjo History of miscarriage Z87.59 and at early stage Z34.[address] [place] [address] 03/01/2024 Gay Luciano Generalized anxiety disorder F41.1 ; Major depression F32.9 ; PTSD (post-traumatic stress disorder) F43.10 ; Cannabis use disorder, mild, abuse F12.10 and Medication monitoring encounter Z51.81 [facility] [address] [place] [address] 07/04/2024 Cony Naranjo Over weight E66.3 and Missed period N92.[address] [place] [place] [address] 07/12/2024 Gay Luciano Generalized anxiety disorder F41.1 ; Major depression F32.9 ; PTSD (post-traumatic stress disorder) F43.10 ; Medication monitoring encounter Z51.81 and Cannabis use disorder, mild, abuse F12.10 [place] [address] [place] [address] 12/04/2024 Gay Luciano Over weight E66.3 ; Generalized anxiety disorder F41.1 ; Major depression F32.9 ; PTSD (post-traumatic stress disorder) F43.10 ; Medication monitoring encounter Z51.81 and Cannabis use disorder, mild, abuse F12.[address] [address] 01/03/2025 Cony Naranjo [address] [place] [address] 01/31/2024 Gay Luciano Major depression F32.9 and Generalized anxiety disorder F41.[address] [place] [address] 02/13/2024 Gay Luciano Major depression F32.9 [place] [address] [place] [address] 07/03/2024 Cony Naranjo [address] [place] [address] 07/09/2024 Gay Luciano Major depression F32.9 [place] [address] [place] [address] 07/11/2024 Cony Naranjo History of miscarriage Z87.59 and at early stage Z34.90 [place] [address] [place] [address] 07/17/2024 Cony Naranjo [facility] [address] [place] [address] 11/14/2024 Gay Luciano Major depression F32.9 Assessments Encounter Date Diagnosis (ICD Code) Assessment Notes Treatment Notes Treatment Clinical Notes Section Notes 01/31/2024 Major depression (ICD-10 - F32.9) 02/13/2024 Major depression (ICD-10 - F32.9) 07/09/2024 Major depression (ICD-10 - F32.9) 07/11/2024 History of miscarriage (ICD-10 - Z87.59) 07/11/2024 at early stage (ICD-10 - Z34.90) 07/12/2024 Generalized anxiety disorder (ICD-10 - F41.1) Encouraged coping skills, continue Zoloft. Buspirone tried 2x, causes hypersexuality for client. 11/14/2024 Major depression (ICD-10 - F32.9) 07/13/2024 History of miscarriage (ICD-10 - Z87.59) 12/04/2024 Over weight (ICD-10 - E66.3) 07/04/2024 Over weight (ICD-10 - E66.3) 07/04/2024 [...] r/b/se. 03/01/2024 Major depression (ICD-10 - F32.9) 07/13/2024 at early stage (ICD-10 - Z34.90) 12/04/2024 Generalized anxiety disorder (ICD-10 - F41.1) Encouraged coping skills, continue Zoloft. Buspirone tried 2x, causes hypersexuality for client. 07/12/2024 Major depression (ICD-10 - F32.9) 01/31/2024 Generalized anxiety disorder (ICD-10 - F41.1) 07/12/2024 PTSD (post-traumati c stress disorder) (ICD-10 - F43.10) Encouraged therapy. 12/04/2024 Major depression (ICD-10 - F32.9) 03/01/2024 PTSD (post-traumati c stress disorder) (ICD-10 - F43.10) Encouraged therapy. 03/01/2024 Medication monitoring encounter (ICD-10 - Z51.81) 03/01/2024 Cannabis use disorder, mild, abuse (ICD-10 - F12.10) 12/04/2024 PTSD (post-traumati c stress disorder) (ICD-10 - F43.10) Encouraged therapy. 07/12/2024 Medication monitoring encounter (ICD-10 - Z51.81) 07/12/2024 Cannabis use disorder, mild, abuse (ICD-10 - F12.10) 12/04/2024 Medication monitoring encounter (ICD-10 - Z51.81) 12/04/2024 Cannabis use disorder, mild, abuse (ICD-10 - [...] May also contact the 24-hour crisis hotline ([facility]), refer to the closest emergency room or [...] May also contact the 24-hour crisis hotline ([facility]), refer to the closest emergency room or [...] assess appearance, affect, AIMS, or vital signs. 12/04/2024 Other Reasons, potential benefits, potential risks, interactions [...] May also contact the 24-hour crisis hotline ([facility]), refer to the closest emergency room or [...] of education, treatment plan and follow up. Plan Of Treatment No Information Insurance Providers Payer Name Payer Address Payer Phone Subscriber Number Group Number Insured Name Patient Relationship to Insured Coverage Start Date Coverage End Date [employer] Fac[employer] Services [address] [place] [address] [id number] Juan Jose Read Self - patient is the insured [facility] [address] [place] [address] [id number] Juan Jose Read Self - patient is the insured 3 5 Medical (General) History Medical History History ICD Code PCOS breast pain Surgical History Surgery Date(Month/Year) C section 2021 Hospitalization History Reason Date(Month/Year) childbirth 2021
--- OUTSIDE RECORDS SUMMARY | 2025-01-08 08:54 | XMS_ITS | Encounter Summary ---
Author Organization [facility] Health Address [address] [place] [address] Care Team Providers Care Potato Seed Cutter Name Role Phone Unavailable Primary Care Provider Unavailabl e Prior Encounters Date Type Department Care Team Description 03/19/2019 Converted CPS Chart Documents [facility] [address] [place] [address] <No scans attached> 03/19/2019 Converted 13x Documents [facility] [address] [place] [address] <No scans attached> Plan of [...] MDT Visit Diagnoses Not on file Insurance [facility]
--- OUTSIDE RECORDS SUMMARY | 2025-01-08 08:54 | XMS_ITS | Clinical Summary ---
Author Organization [facility] Address [address] [place] [address] Care Team Providers Care Brick Loader Name Role Phone Cony Naranjo NP Primary Care Provider Allergies Active Allergy Reactions Criticality Noted Date Comments Kale Nausea only High 09/13/2023 Medications sertraline (ZOLOFT) 100 mg tablet Take 2 tablets (200 mg total) by mouth daily 05/28/19 23 Active buPROPion XL (WELLBUTRIN XL) 150 mg 24 hr tablet Take 1 tablet (150 mg total) by mouth daily 04/26/19 23 Active vit 88-gzke-zzcfp-d stokes 27mg iron- 800 mcg-250 mg capsule Take by mouth Active metoclopramide (REGLAN) 10 mg tablet Take 1 tablet (10 mg total) by mouth every 6 (six) hours as needed (nausea) 30 tablet 2 08/08/19 25 Active aspirin 81 mg enteric coated tablet Take 1 tablet (81 mg total) by mouth daily Active levothyroxine (SYNTHROID) 200 mcg tablet Take 1 tablet (200 mcg total) by mouth daily 30 tablet 01/02/20 25 025 Active levothyroxine (SYNTHROID) 75 mcg tablet Take 1 tablet (75 mcg total) by mouth aerodynamics professor before breakfast 30 tablet 01/02/20 25 025 Active nitrofurantoin monohydrate (MACROBID) 100 mg capsule Take 1 capsule (100 mg total) by mouth 2 (two) times a day 11/19/19 25 025 Discontinued( erapy completed) levothyroxine (SYNTHROID) 200 mcg tablet TAKE 1 TABLET BY MOUTH ONCE DAILY IN THE FOLLOW UP CLERK BEFORE BREAKFAST. TAKE WITH A 75MCG TABLET FOR 275MCG TOTAL 30 tablet 12/07/19 025 Discontinued levothyroxine (SYNTHROID) 75 mcg tablet TAKE 1 TABLET BY MOUTH ONCE DAILY IN THE FOLLOW UP CLERK BEFORE BREAKFAST. TAKE WITH A 200MCG TABLET FOR 275MCG TOTAL 30 tablet 12/07/19 025 Discontinued Active Problems Problem Noted Date Diagnosed Date hydronephrosis during , antepartu m 10/24/2024 History of migraine 08/29/2024 Supervision of other normal , antepartu m 08/07/2024 Anxiety and depression 08/07/2024 Other specified hypothyroidism 08/07/2024 Severe obesity due to excess calories affecting , antepartum 08/07/2024 Estimated Date of Delivery Comme nts Yes 2025 Based on last me nstrual period of 06/02/2024 Encounters Date Type Department Care Team Description 01/03/2025 8:26 AM PHARMACY COORDINATOR - 01/03/2025 9:43 AM PHARMACY COORDINATOR Emergency [facility] OB Emergency Department [address] [place] [phone] Lanette Mark MD Decreased movement affecting management of in third trimester, single or unspecified fetus (Primary Dx); 30 weeks gestation of Discharge Disposition: Discharge to home or self care 01/01/2025 1:30 PM PHARMACY COORDINATOR Office Visit [facility] Obstetrical Gynecology [address] [place] [phone] Eleni Jeronimo CNM Third trimester (Primary Dx) 12/21/2024 Results Follow-Up [facility] [address] [place] [phone] Bayron Carrera MD RPR Blood, CBC without differential, GTT 50gm 1hr gestational screen, Additional followed-up results: 2 12/18/2024 11:45 AM CDT Lab [facility] [address] [place] [id number] Third trimester ; Hypothyroidism, unspecified type; Second trimester 12/18/2024 11:30 AM CDT Office Visit [facility] Obstetrical Gynecology [address] [place] [phone] Rosa Cummings CNM Third trimester (Primary Dx) 12/18/2024 11:00 AM CDT Ancillary Procedure [facility] Obstetrical Gynecology [address] [place] [phone] Obesity affecting , antepartum, unspecified obesity type; Other specified hypothyroidism 11/20/2024 11:45 AM CDT Office Visit [facility] Obstetrical Gynecology [address] [place] [phone] Bayron Carrera MD Encounter for related examination in second trimester (Primary Dx); Third trimester ; Severe obesity due to excess calories affecting , antepartum (HCC); Other specified hypothyroidism 11/20/2024 Orders Only [facility] Obstetrical Gynecology [address] [place] [phone] Marlene Hayden MD Other obesity due to excess calories affecting in third trimester (Primary Dx) 11/20/2024 Orders Only [facility] Obstetrical Gynecology [address] [place] [phone] Joellen Huitron MD Other obesity due to excess calories affecting in third trimester (Primary Dx) 11/20/2024 Telephone [facility] Obstetrical Gynecology [address] [place] [phone] Joellen Huitron MD 10/30/2024 Results Follow-Up [facility] Obstetrical Gynecology [address] [place] [phone] Ivy Rojas NP PANORAMA TEST 10/24/2024 10:30 AM CDT Office Visit [facility] Obstetrical Gynecology [address] [place] [phone] Rojas, Ivy Anna, MEDICAL MALPRACTICE PARALEGAL hydronephrosis during , antepartum, single or unspecified fetus (Primary Dx); Echogenic intracardiac focus of fetus on ultrasound 10/24/2024 10:00 AM CDT Ancillary Procedure [facility] Obstetrical Gynecology [facility] [address] [place] [phone] Encounter for anatomic survey from Last 3 Months Immunizations Immunization Administration Dates Next Due Influenza, Trivalent, Preservative Free, Intramu scular 01/01/2025 Tdap 01/01/2025 Surgical History Surgery Date Site/Laterality Comments SECTION x1 Medical History Medical History Date Comments Depression Anxiety Hypothyroidism Polycystic ovary syndrome Family History Medical History Relation Name Comments Breast cancer Neg Hx Colon cancer Neg Hx Ovarian cancer Neg Hx Uterine cancer Neg Hx Social History Tobacco Use Types Packs/Day Years Used Date Smoking Tobacco: Never Smokeless Tobacco: Never Tobacco Cessation:Counseling Given: Not Answered Ipava Depression Scale Answer Date Recorded Ipava Depression Scale Total 18 12/18/2024 The thought of harming myself has occurred to me . Never 12/18/2024 Estimated Date of Delivery Comme nts Yes 2025 Based on last me nstrual period of 06/02/2024 Sex and Gender Information Value Date Recorded Sex Assigned at Not on file Legal Sex Female 3:11 PM PHARMACY COORDINATOR Gender Identity Not on file Sexual Orientation [...] Estimated Date of Delivery 08/07/2024 - Present (01/08/2025) 1 2025 (set by Clarisse Gomez, MOHINI on 08/07/2024 based on Last Menstrual Period on 06/02/2024) Dating Summary Based On CIARA GA Diff Last Menstrual Period on 06/02/2024 2025 Working Ultrasound on 08/07/2024 03/12/2025 -3d GA:9w0d Overview and Plan :Molina Support person:Ryan Delivery Plans Planned delivery method:TOLAC Planned delivery location:[facility] Overview Surveillance of EDC by LMP = [...] Vitals Pregravid Weight Height TWG (As of 01/08/2025) Pregrav id BMI 94.3 kg (208 lb) 160 cm (5' 3) 6.532 kg (14 lb 6.4 oz ) 36.85 Notes Progress Notes - Office Visi t - 01/01/2025 - GA:30w3d 01/01/2025 - 30w3d - [facility] deng, Eleni Bacon, LETICIAM Return OB Visit 34 y.o. at 30w3d Feeling well emotionally and has no concerns Denies contractions, leaking of fluid and vaginal bleeding Endorses good movements Objective BP 108/78 (BP Location: Right arm, Patient Position: Sitting) Pulse 121 Ht 160 cm (5' 3) Wt 222 lb 6.4 oz (100.9 kg) LMP 06/02/2024 BMI 39.40 kg/m TW lb 6.4 oz (6.532 kg) FHR 158 FH 31 Assessment/Plan: -- Reviewed Kianna with next visit -- reviewed mental health status, no concerns and feeling very good on current dose -- refilled Synthroid -- tdap/Flu given -- Reviewed PTL precautions, FKCs and when to present to [facility] Surveillance of Dating: LMP = 1st T US (9 wk) Labs: O(+)/I/-/-, HIV and RPR NR, VZV and measles Immune Genetics: NIPT LR XX 10/24 Anatomy: (10/24)-complete. EFW: 364g(46%)- bilateral dilated renal pelvis (L - 6.6mm; R - 6.7mm), EIF resolved Placenta: anterior GCT: 95 3T labs: 11.9, NR/NR Tdap: 01/01 GBS: 36 weeks, or sooner if early delivery indicated COVID Vaccine Flu vaccine: 01/01 Social Barriers: Method of feeding: Method of contraception: Delivery Planning: to be discussed Dilated Renal Pelvis: Right: 6.7 mm, Left: 6.9 mm Normal kidneys at 28 wk Plan to re-address at 32w H/o LTCS x 1: for AoD 2nd stage Calculated 42% chance of success. Counseled 08/07. Desires TOLAC BMI 39.3: early glucose wnl, serial Kianna Hypothyroid: Pre-: 200 mcg synthroid TSH: (08/07) 5.55 Current regimen: 275 mcg daily (last change 08/16) (12/18) TSH ordered today Anxiety/ depression: IOB EPDS 9, GAD7 10. Current regimen: Zoloft and Wellbutrin (12/18) EPDS: 18, never to question 10; GAD7 15 Wellbutrin XL increased 150 mg > 300 mg, continue sertraline 200 mg daily Recommend initiating therapy - resources provided Close follow up H/o alcohol abuse: sober for 5 years MJ use: recommend cessation H/o migraines: PRN APAP/benadryl RTC in 2 wks Eleni Lei CNM MACY COORDINATOR MACY COORDINATOR Progress Notes - Office Visi t - 12/18/2024 - GA:28w3d 12/18/2024 - 28w3d - Rosa Cummings CNM Return OB Visit 34 y.o. at 28w3d Pt reports BH, difficulty emptying bladder and increased depression Denies contractions, leaking of fluid and vaginal bleeding Endorses good movements Depression: High Risk (12/18/2024) Ipava Depression Scale Last EPDS Total Score: 18 Last EPDS Self Harm Result: Never TANVI-7 Feeling nervous, anxious, or on edge: Nearly every day Not being able to stop or control worrying: Over half the days Worrying too much about different things: Over half the days Trouble relaxing: Nearly every day Being so restless that it's hard to sit still: Over half the days Becoming easily annoyed or irritable: Several days Feeling afraid as if something awful might happen: Over half the days Total Score: 15 Objective BP 100/60 Ht 154.9 cm (5' 1) Wt 223 lb (101.2 kg) LMP 06/02/2024 BMI 42.14 kg/m TW lb (6.804 kg) US: 28w 3d IUP for evaluation of growth AGA growth pattern, EFW 2 lb 14 oz, 56%, (1308 g) AC measures 249.2 mm, 65% Vertex presentation. FHR 139 bpm Normal FLACO, 22.4 cm. Placenta anterior EIF not seen today. Kidneys appear WNL. Assessment/Plan: -- Reviewed US: normal EFW, kidneys normal and EIF not seen. Repeat Kianna q 4 wks -- Discussed 3T labs, including TSH - collecting today -- Discussed BH vs PTL, encourage hydration and rest -- Reviewed s/s of UTI -- Discussed EPDS/GAD7: increased dose of Wellbutrin. Encouraged establishing with therapist. Recommend daily exercise and healthy diet. Discussed warning signs, SI/DI and mental health crisis hotline. Pt has good support at home -- Reviewed PTL precautions, FKCs and when to present to [facility] Surveillance of Dating: LMP = 1st T US (9 wk) Labs: O(+)/I/-/-, HIV and RPR NR, VZV and measles Immune Genetics: NIPT LR XX 10/24 Anatomy: (10/24)-complete. EFW: 364g(46%)- bilateral dilated renal pelvis (L - 6.6mm; R - 6.7mm), EIF resolved Placenta: anterior GCT: in process 3T labs:in process Tdap: 27+ weeks GBS: 36 weeks, or sooner if early delivery indicated COVID Vaccine Flu vaccine Social Barriers: Method of feeding: Method of contraception: Delivery Planning: to be discussed Dilated Renal Pelvis: Right: 6.7 mm, Left: 6.9 mm Normal kidneys at 28 wk Plan to re-address at 32w H/o LTCS x 1: for AoD 2nd stage Calculated 42% chance of success. Counseled 08/07. Desires TOLAC BMI 39.3: early glucose wnl, serial Kianna Hypothyroid: Pre-: 200 mcg synthroid TSH: (08/07) 5.55 Current regimen: 275 mcg daily (last change 08/16) (12/18) TSH ordered today Anxiety/ depression: IOB EPDS 9, GAD7 10. Current regimen: Zoloft and Wellbutrin (12/18) EPDS: 18, never to question 10; GAD7 15 Wellbutrin XL increased 150 mg > 300 mg, continue sertraline 200 mg daily Recommend initiating therapy - resources provided Close follow up H/o alcohol abuse: sober for 5 years MJ use: recommend cessation H/o migraines: PRN APAP/benadryl RTC in 2 wks Rosa Cummings CNM Progress Notes - Office Visi t - 11/20/2024 - GA:24w3d 11/20/2024 - w - Bayron Carrera MD Return OB Visit 34 y.o. at 24w3d Went to [facility] urgent Care and was diagnosed with an urinary tract infection. She is on dose 3. Of her antibiotics. Having some low abdominal pressure, but nothing severe. Denies bleeding, abnormal discharge, leaking fluid. Baby is very active. Objective BP 120/72 Ht 154.9 cm (5' 0.98) Wt 220 lb 6.4 oz (100 kg) LMP 06/02/2024 BMI 41.67 kg/m TW lb 6.4 oz (5.625 kg) FHR 145 Assessment/Plan: Provided orders and instructions for 1 hour GCT and routine 3rd trimester blood work to be completed next visit. Patient also has a standing order for thyroid function cascade. Advised patient to mention it to the lab when she comes back next time so that they complete all relevant draws. Scheduled for ultrasound in 4 weeks, and will continue every 4 week growth assessment. Surveillance of Dating: LMP = 1st T US (9 wk) Labs: O(+)/I/-/-, HIV and RPR NR, VZV and measles Immune Genetics: NIPT LR XX 10/24 Anatomy: (10/24)-complete. EFW: 364g(46%)- bilateral dilated renal pelvis (L - 6.6mm; R - 6.7mm), EIF--repeat 28-32 wks Placenta: anterior GCT: 26-28 weeks 3T labs: [...] use: recommend cessation H/o migraines: PRN APAP/benadryl Bayron Carrera MD Progress Notes - Office Visi t [...] t - 08/07/2024 - GA:9w3d 08/07/2024 - Bayron Carrera MD New OB Visit [...] by mouth daily, Disp: , Rfl: vit 82-pqtv-zlrov-dha 27mg iron- 800 mcg-250 mg capsule, Take [...] 1hr gestational screen; Future - Thyroid Function [place]; Future Hypothyroidism, unspecified type (E03.9) - Thyroid Function [place]; Future Bayron Carrera MD Last Filed Vital Signs Vital Sign Reading Time Taken Comments Blood Pressure 111/63 01/03/2025 8:44 AM PHARMACY COORDINATOR Pulse 86 01/03/2025 8:44 AM PHARMACY COORDINATOR Temperature 36.9 C (98.4 F) 01/03/2025 8:44 AM PHARMACY COORDINATOR Respiratory Rate 16 01/03/2025 8:44 AM PHARMACY COORDINATOR Oxygen Saturation 99% 01/03/2025 8:44 AM PHARMACY COORDINATOR Inhaled Oxygen Concentration - - Weight 100.9 kg (222 lb 6.4 oz) 01/01/2025 1:19 PM PHARMACY COORDINATOR Height 160 cm (5' 3) 01/01/2025 1:19 PM PHARMACY COORDINATOR Body Mass Index 39.4 01/01/2025 1:19 PM PHARMACY COORDINATOR Plan of Treatment Health Maintenance Due Date Last Done Comments Varicella Vaccines (1 of 2 - 13+ 2-dose series) 2003 Hepatitis B Screening 2008 Regular Well Visit/Exam 18-64 2008 HPV Vaccines (1 - 3-dose SCDM series) 2017 Covid-19 Vaccine ( season) 2024 01/05/2021, 05/05/2020, 04/14/2020 Cervical Cancer Screening 08/07/2025 08/07/2024, 11/2024 Depression Screening 12/18/2025 12/18/2024 DTaP/Tdap/Td Vaccine (4 - Td or Tdap) 01/01/2035 01/01/2025, 11/06/2021, 07/17/2015 Hepatitis C Screening Completed 08/07/2024 Influenza Vaccine Completed 01/01/2025, , 11/09/2019, Additional history exists Pneumococcal vaccine <65 Aged Out No longer eligible based on patient's age to complete this topic Procedures Procedure Name Priority Date/Time Associated Diagnosis Comments THYROID FUNCTION CASCADE Routine 12/18/2024 11:58 AM CDT Hypothyroidism, unspecified type Second trimester GTT 50GM 1HR GESTATIONAL SCREEN Routine 12/18/2024 11:58 AM CDT Third trimester CBC WITHOUT DIFFERENTIAL Routine 12/18/2024 11:58 AM CDT Third trimester HIV 1/2 ANTIBODY PLUS P24 ANTIGEN Routine 12/18/2024 11:58 AM CDT Third trimester RPR Routine 12/18/2024 11:58 AM CDT Third trimester US OB FOLLOW UP Schedule Routine, Read Routine (OP Routine) 12/18/2024 11:04 AM CDT Obesity affecting , antepartum, unspecified obesity type Other specified hypothyroidism PANORAMA TEST Routine 10/24/2024 2:01 PM CDT hydronephrosis during , antepartum, single or unspecified fetus Echogenic intracardiac focus of fetus on ultrasound US OB 14 WEEKS OR OVER W ENDOVAGINAL Schedule Routine, Read Routine (OP Routine) 10/24/2024 10:05 AM CDT Encounter for anatomic survey HEPATITIS C ANTIBODY Routine 08/07/2024 12:06 PM CDT Encounter for supervision of other normal in first trimester HIGH RISK HPV DNA DETECTION WITH GENOTYPING Routine 08/07/2024 11:50 AM CDT Encounter for supervision of other normal in first trimester from Last 3 Months or Most Recently Relevant to Health Maintenance Results * Thyroid Function [place] (12/18/2024 11:58 AM CDT) TSH 1.27 0.30 - 4.20 mcIUnit/mL Comment:Testing performed by : [facility], [address] [place] [address]., [address] Blood 12/18/2024 11:5 8 AM CDT 12/18/2024 2:04 PM CDT Bayron Carrera MD LAB BLOOD ORDERABLES Final Result Performing Organization Address [facility] Co de Phone Number BENNY [id number] [facility] Department [place] [address] * GTT 50gm 1hr gestational screen (12/18/2024 11:58 AM CDT) GTT 50g gest screen 95 <=140 mg/dL Comment: Interpretive Data Used for [...] last revised on 2020. Testing performed by: [address] [address] Blood 12/18/2024 11:5 8 AM CDT 12/18/2024 2:04 PM CDT Bayron Carrera MD LAB BLOOD ORDERABLES Final Result Performing Organization Address City/[facility]/ZIP Co de Phone Number [place] [address] [facility] [place] [address] * HIV 1/2 Antibody plus p24 Antigen Blood (12/18/2024 11:58 AM CDT) Pathologist [facility] HIV 1/2 ab + p24 ag Nonreactive Nonreactive Comment:Nonreactive for HIV- 1 antigen and HIV-1/HIV-2 antibodies. No laboratory evidence of HIV infection. If acute HIV infection is suspected, consider testing for HIV-1 RNA. Current interpretive data was last revised on 21. Blood 12/18/2024 11:5 8 AM CDT 12/18/2024 4:47 PM CDT Bayron Carrera MD LAB MICROBIOLOGY - GENERAL ORDERABLES Final Result Performing Organization Address [facility] Co de Phone Number [address] [address] * RPR Blood (12/18/2024 11:58 AM CDT) Pathologist [facility] RPR Nonreactive Nonreactive Comment:Testing performed by : [facility], [address] [place]., [address] Blood 12/18/2024 11:5 8 AM CDT 12/18/2024 5:22 PM CDT Bayron Carrera MD LAB MICROBIOLOGY - GENERAL ORDERABLES Final Result Performing Organization Address City/[facility] Co de Phone Number [address] Department [place] [address] * (ABNORMAL) CBC without differential (12/18/2024 11:58 AM CDT) Pathologist [facility] WBC 10.32(H) 3.80 - 9.90 K/cumm Comment:Testing performed by : [facility], [address] [place] [address]., [address] Hgb 11.9 11.9 - 15.5 g/dL BENNY SOTELO Comment:Testing performed by : [address], [address] Hct 35.1(L) 35.6 - 45.5 % BENNY Comment:Testing performed by : [address] [address] Plt 253 150 - 400 K/cumm BENNY Comment:Testing performed by : [address], [address] MPV 9.5 9.1 - 12.3 fL BENNY Comment:Testing performed by : [address], [address] RBC 3.95 3.90 - 5.20 M/cumm BENNY Comment:Testing performed by : [address], [address] MCV 88.9 81.3 - 96.4 fL BENNY Comment:Testing performed by : [address], [address] MCH 30.1 27.1 - 33.3 pg BENNY Comment:Testing performed by : [address], [address] MCHC 33.9 32.3 - 35.7 g/dL BENNY Comment:Testing performed by : [address], [address] RDW CV 13.2 11.1 - 14.9 % BENNY Comment:Testing performed by : [address], [address] RDW SD 43.5 35.7 - 48.1 fL BENNY Comment:Testing performed by : [address], [address] NRBC abs 0.00 0.00 - 0.01 K/cumm BENNY Comment:Testing performed by : [address], [address] Blood 12/18/2024 11:5 8 AM CDT 12/18/2024 2:01 PM CDT Bayron Carrera MD LAB BLOOD ORDERABLES Final Result BENNY [address] [facility] [place] [address] * US Ob Follow Up (12/18/2024 11:04 AM CDT) Fetus# Fetus1 VIEWPOINT Estimated Weight 1,308 g&grams VIEWPOINT Placenta Details anterior VIEWPOINT Presentation Vertex VIEWPOINT Anatomical Region Laterality Modality Abdomen N/A Ultrasound 12/18/2024 11:0 5 AM CDT Impressions 12/24/2024 11:33 AM CDT 28w 3d IUP for evaluation of growth AGA growth pattern, EFW 2 lb 14 oz, 56%, (1308 g) AC measures 249.2 mm, 65% Vertex presentation. FHR 139 bpm Normal FLACO, 22.4 cm. Placenta anterior EIF not seen today. Kidneys appear WNL. Narrative Procedure Note Lanette Mark MD - 12/24/2024 IMPRESSION: 28w 3d IUP for evaluation of growth AGA growth pattern, EFW 2 lb 14 oz, 56%, (1308 g) AC measures 249.2 mm, 65% Vertex presentation. FHR 139 bpm Normal FLACO, 22.4 cm. Placenta anterior EIF not seen today. Kidneys appear WNL. us Bayron Sameer Carrera MD IMG OB US PROCEDURES Final Result * PANORAMA TEST (10/24/2024 2:01 PM CDT) [...] [facility] TRISOMY 13 AGE-BASED RISK TEXT 3,419 (0.03%) 10/29/2024 4:59 PM CDT [facility] [...] LABORATORY 22Q11.2 DELETION SYNDROME POPULATION-BASED RISK TEXT 12,000 10/29/2024 4:59 PM CDT [facility] 22Q11.2 DELETION SYNDROME RISK SCORE TEXT 12,000 10/29/2024 4:59 PM CDT [facility] FOOTNOTES [...] sequencing of this test were performed by [facility] [address] [place] [address] [address], [place] [address] (CLIA ID [id number]). The data analysis and reporting of this test were performed by [facility] [address] [address] (CLIA ID [id number]). The performance characteristics of this test were developed by [facility].(CLIA ID [id number]). This test has not been cleared or approved by the U.S. Food and Drug Administration (FDA). These laboratories are regulated under CLIA as qualified to perform high-complexity testing. 2024 [facility]. All Rights Reserved. Please refer to the attached PDF report Reviewed By: Alexsandra Starks M.D., Ph.D., [facility], Senior Hot Plate Plywood Press Operator [facility] Curing Finisher: Herminio Dennison, Ph.D., [facility] IF THE ORDERING PROVIDER HAS QUESTIONS OR WISHES TO DISCUSS THE RESULTS, PLEASE CONTACT US AT [phone], option 2. Ask for the NIPT genetic counselor salesforce consultant. Blood specimen (specimen) Venous blood specimen / Unknown 10/24/2024 2:01 PM CDT 10/25/2024 2:00 AM CDT us Ivy Rojas NP LAB GENETIC TESTING Yumiko peace Result [facility] [address] [place] [address], [facility] * US Ob 14 Weeks Or Over [...] IMG OB US PROCEDURES Final Result * Hepatitis C antibody Blood (08/07/2024 12:06 [...] LAB MICROBIOLOGY - GENERAL ORDERABLES Final Result [facility] [address] [facility] Department [place] [address] * High Risk HPV DNA Detection with Genotyping (Molecular component) (08/07/2024 11:50 AM CDT) Pathologist [facility] HPV HR 16 Not Detected Not Detected [facility] Comment:Testing performed by : [facility], [address] [place]., [address] HPV HR 18 Not Detected Not Detected BENNY Comment:Testing performed by : [facility], [address] [place]., [address] HPV HR Non 16/18 Not Detected Not [...] this test have been verified by the [facility] Molecular Infectious Disease laboratory. Correlate with separately reported cytology results, as applicable. Interpretive data last revised 22 Testing performed by: [facility], [address] [place]., [address] Endocervical 08/07/2024 11:5 0 AM CDT 08/09/2024 8:32 PM CDT Narrative BENNY SOTELO - 08/10/2024 7:08 PM CDT Clinical history and diagnosis->screening Number of vials->1 Testing type->Screening Last menstrual period (date if known)->06/02/2024 Bayron Carrera MD LAB BODY FLUIDS AND STOOLS ORDERABLES Final Result [facility] [address] [facility] Department [place] [address] [facility] from Last 3 Months or Most Recently Relevant to Health Maintenance Insurance [facility] Care Teams Brick Loader Relationship Specialty Start Date End Date Cony Naranjo NP PCP - General Family Medicine 08/29/24
[2025-01-08 08:58] LABS: EDUAAPPEAR Cloudy; EDUABILI Negative (Negative); EDUABLOOD Negative (Negative); EDUACOLOR1 Dark; EDUAGLUCOSE Negative (Negative); EDUAKETONE Negative (Negative); EDUALEUKO 1+ (Negative); EDUANITRATE Negative (Negative); EDUAPH 6.5; EDUAPROTEIN 1+ (Negative); EDUASPGRAVITY 1.020; EDUAUROBILI 0.2
== END 2025-01-08 09:10 | disposition home or self-care (01) ==
PROVIDERS: Emergency Provider Nurse Practitioner Family; PCP Nurse Practitioner Family
DX: O23.13 Infections of bladder in pregnancy, third trimester (principal); Z3A.31 31 weeks gestation of pregnancy; Z79.82 Long term (current) use of aspirin
CPT/HCPCS: 81003; 87086; 99213; G0463